=== PATIENT | male | born 1965 | race Caucasian/White ===

== ENCOUNTER 2018-05-28 10:10 | Emergency (ER) | payer BC ==
[2018-05-28 10:18] VITALS: PULSE 98
[2018-05-28 11:05] LABS: Basophils # (A) 0.1 k/uL (0-0.2); Basophils % (A) 1 %; Eosinophils # (A) 0.4 k/uL (0-0.7); Eosinophils % (A) 4 %; HCT 49.2 % (39.0-53.0); HGB 16.5 gm/dL (13.0-17.5); Lymphocytes # (A) 2.3 k/uL (1.0-4.8); Lymphocytes % (A) 25 %; MCH 29.7 pg (25.0-35.0); MCHC 33.6 g/dL (31.0-37.0); MCV 88.7 fL (80.0-100.0); Mean Platelet Volume 6.4; Monocytes # (A) 0.4 k/uL (0-1.0); Monocytes % (A) 4 %; Neutrophils % (A) 65 %; Platelet Count 337 k/uL (150-450); RBC 5.55 m/uL (4.30-5.90); RDW 13.1 % (11.5-15.5); WBC 9.2 k/uL (3.8-10.6)
--- NOTE | 2018-05-28 11:15 | CT ---
EXAMINATION TYPE: CT brain wo con DATE OF EXAM: 05/28/2018 COMPARISON: None HISTORY: dizziness CT DLP: 1036.[address] of the brain was performed. The ventricles, basal cisterns and sulci overlying the cerebral convexities demonstrate mild enlargem ent. There is no evidence for intracranial hemorrhage or sulcal effacement. There is decreased attenuation about the periventricular white matter and deep white matter of both c erebral hemispheres, compatible with chronic small vessel ischemia. Differential diagnosis does inclu de demyelination. No mass effects are seen.No midline shift. Osseous calvarium is intact. If symptoms persist consider MRI. IMPRESSION: 1. Age related atrophic and chronic small vessel ischemic change without acute intracranial process s een at this time.
[2018-05-28 11:18] LABS: ALT 34 U/L (21-72); AST 22 U/L (17-59); Albumin 4.4 g/dL (3.5-5.0); Alkaline Phosphatase 61 U/L (38-126); Anion Gap 9 mmol/L; Blood Urea Nitrogen 15 mg/dL (9-20); Calcium 10.7 mg/dL (8.4-10.2); Carbon Dioxide 25 mmol/L (22-30); Chloride 106 mmol/L (98-107); Glucose 111 mg/dL (74-99); Potassium 4.5 mmol/L (3.5-5.1); Sodium 140 mmol/L (137-145); Total Bilirubin 0.4 mg/dL (0.2-1.3); Total Protein 7.7 g/dL (6.3-8.2)
[2018-05-28 11:20] LABS: Partial Thromboplastin Time 23.3 sec (22.0-30.0); Prothrombin Time 10.2 sec (9.0-12.0)
--- NOTE | 2018-05-28 12:10 | ED ---
Dizziness HPI - General Chief Complaint: Dizziness Stated Complaint: Dizziness Time Seen by Provider: 05/28/18 10:26 Source: patient Mode of arrival: wheelchair Limitations: no limitations - History of Present Illness Initial Comments: 53-year-old male with PMH of hashimotos presenting today for cc of dizziness. Pt states that he has had episodic dizziness when he turns his head or makes fast movements for the past month. Pt states that the episodes last from a few minutes up to 10, multiple times a day for the past month. He statest that the dizziness comes on suddenly, causing nausea. He states that the room feels like spinning. 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 He does admit to some right ear fullness/pain on off. Pt denies fever, chills, diplopia, vision loss or changes. Remainder of ROS (-), patient denies any recent shortness of breath, chest pain, back pain, abdominal pain, numbness or tingling, dysuria or hematuria, constipation or diarrhea, or any other complaints. Pt states he presents today with sister, because she was concerned that he continues to have symptoms for the month. Upon arrival pt denies symptoms. Ambulating without difficulty. VS within normal limits. EKG normal sinus. Pt well appearing. Pt was seen for this complain by his primary provider who diagnosed with peripheral vertigo and had patient referred to Dr. Serafin Hernandez for ENT f/u and evaluation, pt has yet to schedule appointment. Pt on Bactrim for sinus infection. - Related Data Home Medications Medication Instructions Recorded Confirmed Fluticasone Nasal [place] [Flonase 2 spr EA NOSTRIL DAILY 05/28/18 05/28/18 Nasal [place]] Sulfamethox-Tmp 800-160Mg [Bactrim 1 tab PO Q12HR 05/28/18 05/28/18 DS 800-160 mg] Previous Rx's Medication Instructions Recorded Meclizine [Antivert] 25 mg PO TID 7 Days #21 tab 05/28/18 Allergies Allergy/AdvReac Type Severity Reaction Status Date / Time tetanus and diphtheria Allergy Swelling Verified 05/28/18 12:29 toxoids [tetanus & diphtheria toxoids] venom-honey bee Allergy Anaphylaxis Verified 05/28/18 12:29 [bee venom (honey bee)] codeine AdvReac Abdominal Verified 05/28/18 12:29 Pain Review of Systems ROS Statement: Those systems with pertinent positive or pertinent negative responses have been documented in the HPI. ROS Other: All systems not noted in ROS Statement are negative. Constitutional: Denies: fever, chills ENT: Reports: ear pain (fullness right ear, pain beow ear at time). Denies: throat pain Respiratory: Denies: cough, dyspnea, wheezes, hemoptysis, stridor Cardiovascular: Denies: chest pain, palpitations Endocrine: Denies: fatigue Gastrointestinal: Reports: nausea. Denies: abdominal pain, vomiting, diarrhea, constipation, hematemesis, melena Genitourinary: Denies: urgency, dysuria, frequency, hematuria Musculoskeletal: Denies: back pain Skin: Denies: rash, lesions Neurological: Reports: headache (chronic migraines, none recently, mild headache on off.), vertigo. 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, Vertigo History of Any Multi-Drug Resistant Organisms: None Reported Past Surgical History: Adenoidectomy, Orthopedic Surgery, Tonsillectomy Additional Past Surgical History / Comment(s): Left knee arthroscopy, hydrocele surgery Past Anesthesia/Blood Transfusion Reactions: No Reported Reaction Past Psychological History: No Psychological Hx Reported Smoking Status: Former smoker Past Alcohol Use History: Occasional Past Drug Use History: None Reported - Past Family History Mother Family Medical History: Diabetes Mellitus, Hypertension Additional Family Medical History / Comment(s): Mother is living. Father Family Medical History: COPD, Hypertension Additional Family Medical History / Comment(s): Father is 81 yrs old. Sister(s) Family Medical History: Coronary Artery Disease (CAD) Additional Family Medical History / Comment(s): 53 yr old sister has CAD with stents and pulmonary fibrosis. General Exam - General Exam Comments Initial Comments: General: The patient is awake and alert, in no distress, and does not appear acutely ill. Eye: +3 pupils are equal, round and reactive to light, extra-ocular movements are intact. No nystagmus. There is normal conjunctiva bilaterally. No signs of icterus. Ears, nose, mouth and throat: There are moist mucous membranes and no oral lesions. TM WNL b/l. No noted erythema, retractions, effusion or bulging. No pain to palpation of the mastoid, no erythema or swelling of mastoid. Neck: The neck is supple, there is no tenderness or JVD. Cardiovascular: There is a regular rate and rhythm. No murmur, rub or gallop is appreciated. Respiratory: Lungs are clear to auscultation, respirations are non-labored, breath sounds are equal. No wheezes, stridor, rales, or rhonchi. Musculoskeletal: Normal ROM, no tenderness. Strength 5/5. Sensation intact. Pulses equal bilaterally 2+. Neurological: A&O x 3. CN II-XII intact, memory intact to immediately, intermediate and nursing home recall. Able to follow simple verbal. Able to name a common object (pen). High quality, labial (pa) and lingual (la) speech. Low quality posterior pharynx/larynx (ga) voice sounds. Able to express general knowledge. No hemineglect or inattention noted. Finger agnosia (-) and spatially oriented. Light touch sensation present over the face, chest, abdomen , back, UE bilaterally, and LE bilaterally. Able to localize point during point localization b/l and extinction. No visible bulk atrophy, hypertrophy, fasciculations, or myoclonus of the UE or LE b/l. Full PROM in UE and LE b/l. Bilateral muscle strength 5/5 for the following muscles: deltoid, biceps, triceps, brachioradialis, wrist extensors/flexor, hip flexor, hip abductors/ adductors, hamstrings, quadriceps, feet dorsiflexors/plantar flexors. Finger to nose, finger to the examiners finger, and heel to lundberg coordinated and accurate b/l. Coordinated and even demonstration of hand flip, finger to thumb, and toe tap b/l. Gait is coordinated and even in stride with tandem. Maintains balance with monopedal stance. (-) Romberg. (-) pronator drift. No nuchal rigidity. Skin: Skin is warm and dry and no rashes or lesions are noted. Psychiatric: Cooperative, appropriate mood & affect, normal judgment. Limitations: no limitations Course Vital Signs 05/28/18 05/28/18 05/28/18 10:16 11:00 11:30 Temperature 97.8 F Pulse Rate 98 Respiratory 16 Rate Blood Pressure 137/83 125/84 104/83 O2 Sat by Pulse 98 Oximetry 05/28/18 05/28/18 05/28/18 12:00 12:30 13:09 Temperature 97.0 F L Pulse Rate Respiratory 18 Rate Blood Pressure 109/84 109/82 O2 Sat by Pulse 97 Oximetry EKG Findings - EKG Comments: EKG Findings:: A 12-lead EKG was performed and shows the following: Rate is 92bpm, and rhythm is normal sinus. There are normal QRS complexes and normal R- wave progression. ST segments have no elevation or depression, and TN segments appear normal. No acute changes when compared to that of 2016. Medical Decision Making - Medical Decision Making Upon arrival patient is a symptomatic, denies symptoms since this morning ( brief episode with movement of head of intense spinning). Patient states that they began suddenly and with movement of the head. Although history, non suspicious for ACS EKG and troponin obtained, unremarkable/negative. Patient denies focal neurological deficits. No focal neurological deficits on examination. CT without contrast negative. Patient's history more consistent with peripheral vertigo, including sudden onset, nausea, paroxysmal, intense spinning, without focal neurological deficits. Pt was able to induce with quick movement of head, no nystagmus noted. Pt ambulating without difficulty. At this time I feel pt has peripheral vertigo, exam on the TM b/l unremarkable. Pt will be started on antivert and was instructed to f/u with ENT. I discussed case with Dr. Garcia who agreed with impression and plan. Pt discharged instable condition, with f/u and return as discussed. Patient verbalized understanding of plan as well as return parameters. Patient is agreeable discharge. Patient denies questions at this time. Patient discharged in stable condition. - Lab Data Result diagrams: 05/28/18 10:30 05/28/18 10:30 Lab Results 05/28/18 05/28/18 05/28/18 Range/Units 10:30 10:30 10:30 WBC 9.2 (3.8-10.6) k/uL RBC 5.55 (4.30-5.90) m/uL Hgb 16.5 (13.0-17.5) gm/dL Hct 49.2 (39.0-53.0) % MCV 88.7 (80.0-100.0) fL MCH 29.7 (25.0-35.0) pg MCHC 33.6 (31.0-37.0) g/dL RDW 13.1 (11.5-15.5) % Plt Count 337 (150-450) k/uL Neutrophils % 65 % Lymphocytes % 25 % Monocytes % 4 % Eosinophils % 4 % Basophils % 1 % Neutrophils # 6.0 (1.3-7.7) k/uL Lymphocytes # 2.3 (1.0-4.8) k/uL Monocytes # 0.4 (0-1.0) k/uL Eosinophils # 0.4 (0-0.7) k/uL Basophils # 0.1 (0-0.2) k/uL PT 10.2 (9.0-12.0) sec INR 1.0 (<1.2) APTT 23.3 (22.0-30.0) sec Sodium 140 (137-145) mmol/L Potassium 4.5 (3.5-5.1) mmol/L Chloride 106 (98-107) mmol/L Carbon Dioxide 25 (22-30) mmol/L Anion Gap 9 mmol/L BUN 15 (9-20) mg/dL Creatinine 1.00 (0.66-1.25) mg/dL Est GFR (CKD-EPI)AfAm >90 (>60 ml/min/1.73 sqM) Est GFR (CKD-EPI)NonAf 86 (>60 ml/min/1.73 sqM) Glucose 111 H (74-99) mg/dL Calcium 10.7 H (8.4-10.2) mg/dL Total Bilirubin 0.4 (0.2-1.3) mg/dL AST 22 (17-59) U/L ALT 34 (21-72) U/L Alkaline Phosphatase 61 (38-126) U/L Troponin I (0.000-0.034) ng/mL Total Protein 7.7 (6.3-8.2) g/dL Albumin 4.4 (3.5-5.0) g/dL 12/02/18 Range/Units 10:30 WBC (3.8-10.6) k/uL RBC (4.30-5.90) m/uL Hgb (13.0-17.5) gm/dL Hct (39.0-53.0) % MCV (80.0-100.0) fL MCH (25.0-35.0) pg MCHC (31.0-37.0) g/dL RDW (11.5-15.5) % Plt Count (150-450) k/uL Neutrophils % % Lymphocytes % % Monocytes % % Eosinophils % % Basophils % % Neutrophils # (1.3-7.7) k/uL Lymphocytes # (1.0-4.8) k/uL Monocytes # (0-1.0) k/uL Eosinophils # (0-0.7) k/uL Basophils # (0-0.2) k/uL PT (9.0-12.0) sec INR (<1.2) APTT (22.0-30.0) sec Sodium (137-145) mmol/L Potassium (3.5-5.1) mmol/L Chloride (98-107) mmol/L Carbon Dioxide (22-30) mmol/L Anion Gap mmol/L BUN (9-20) mg/dL Creatinine (0.66-1.25) mg/dL Est GFR (CKD-EPI)AfAm (>60 ml/min/1.73 sqM) Est GFR (CKD-EPI)NonAf (>60 ml/min/1.73 sqM) Glucose (74-99) mg/dL Calcium (8.4-10.2) mg/dL Total Bilirubin (0.2-1.3) mg/dL AST (17-59) U/L ALT (21-72) U/L Alkaline Phosphatase (38-126) U/L Troponin I <0.012 (0.000-0.034) ng/mL Total Protein (6.3-8.2) g/dL Albumin (3.5-5.0) g/dL Disposition Clinical Impression: Dizziness Disposition: HOME SELF-CARE Condition: Good Instructions: Dizziness (ED) Additional Instructions: Please use medication as discussed. Please follow-up with ENT as scheduled. Please return to emergency room if the symptoms increase or worsen or for any other concerns. Prescriptions: Meclizine [Antivert] 25 mg PO TID 7 Days #21 tab Is patient prescribed a controlled substance at d/c from ED?: No Referrals: Nick Reyes MD [Primary Care Provider] - 1-2 days Oleksandr Hicks MD [STAFF PHYSICIAN] - 1-2 days Time of Disposition: 12:08
[2018-05-28 13:05] VITALS: BP 109/82
[2018-05-28 13:11] VITALS: RESP 18; TEMP 97
== END 2018-05-28 13:09 | disposition home or self-care (01) ==
LOC: EC 10:10
DX: R42 Dizziness and giddiness (principal); R11.0 Nausea; H92.01 Otalgia, right ear; H91.91 Unspecified hearing loss, right ear; Z87.891 Personal history of nicotine dependence; Z79.899 Other long term (current) drug therapy; Z88.7 Allergy status to serum and vaccine; Z91.030 Bee allergy status; Z88.5 Allergy status to narcotic agent
CPT/HCPCS: 36415; 70450; 80053; 84484; 85025; 85610; 85730; 93005; 99284

== ENCOUNTER → 2018-07-05 | Outpatient (CLI) | payer BC | LOC: NEUROMAIN 08:47 | PROVIDERS: ATTEND Otolaryngology | DX: R42 Dizziness and giddiness (principal) | CPT/HCPCS: 92537; 92540 ==

== ENCOUNTER → 2018-08-17 | Outpatient (CLI) | payer BC ==
--- NOTE | 2018-08-21 02:57 | MR ---
EXAMINATION TYPE: MR angio head wo/neck wo/w con DATE OF EXAM: 08/17/2018 COMPARISON: None HISTORY: vertigo dissection TECHNIQUE: Time of flight images focusing on the [place] were performed without contrast.. 2-D and 3-D postprocessing imaging is performed. The contrast was gadolinium 7.5 mm. FINDINGS: There is normal appearance of the anterior middle and posterior cerebral arteries. There is arterial flow in the vertebrobasilar artery system. The left vertebral artery is larger than the rig ht. There is no evidence of hemodynamic stenosis. There is no mass effect. There is no evidence of an eurysm or neovascularity. There is no evidence of flow in the proximal and mid right vertebral artery. Flow in the distal right vertebral artery is probably retrograde. There is arterial flow in the common internal and external carotid arteries bilaterally. The carotid artery bifurcations appear normal. I see no evidence of hemodynamic stenosis. There is no evidence of carotid artery aneurysm or dissection. 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 There is normal appearance of the cervical carotid arteries. There is compensa tory enlargement of the left vertebral artery. No intracranial arterial abnormality demonstrated.
== END | disposition home or self-care (01) ==
LOC: RADMRIMAIN 09:07
PROVIDERS: ATTEND Psychiatry & Neurology Neurology
DX: T75.2 Effects of vibration (principal); G45.0 Vertebro-basilar artery syndrome
CPT/HCPCS: 70544; 70549; A9585

== ENCOUNTER 2018-10-27 08:41 | Inpatient (IN) | payer BC ==
[2018-10-27] MEDS ORDERED: SODIUM CHLORIDE 0.9% 500 ML 500 ML IV STA (09:04)
[2018-10-27 09:23] LABS: Basophils # (A) 0.1 k/uL (0-0.2); Basophils % (A) 1 %; Eosinophils # (A) 0.6 k/uL (0-0.7); Eosinophils % (A) 6 %; HCT 42.8 % (39.0-53.0); HGB 14.3 gm/dL (13.0-17.5); Lymphocytes # (A) 1.9 k/uL (1.0-4.8); Lymphocytes % (A) 18 %; MCH 30.2 pg (25.0-35.0); MCHC 33.4 g/dL (31.0-37.0); MCV 90.4 fL (80.0-100.0); Mean Platelet Volume 6.7; Monocytes # (A) 0.5 k/uL (0-1.0); Monocytes % (A) 5 %; Neutrophils # (A) 6.9 k/uL (1.3-7.7); Neutrophils % (A) 68 %; Platelet Count 355 k/uL (150-450); RBC 4.73 m/uL (4.30-5.90); RDW 14.4 % (11.5-15.5); WBC 10.1 k/uL (3.8-10.6)
--- NOTE | 2018-10-27 09:29 | ED ---
General Adult HPI - General Chief complaint: Shortness of Breath Stated complaint: sob, back pain Time Seen by Provider: 10/27/18 09:03 Source: patient, RN notes reviewed Mode of arrival: ambulatory Limitations: no limitations - History of Present Illness Initial comments: 53-year-old male presents emergency Department with chief complaint of back pain, arm pain, shortness breath and mild chest discomfort. Patient states symptoms started late last night. Patient states he feels most pain is upper back and upper extremities. Patient does have a history of hyperlipidemia and former heavy smoker. Patient does have strong family history of cardiac disease with multiple people stents. Patient denies any any abdominal pain no nausea vomiting. Patient states he has no aortic issues that he knows of. Patient denies any prior stenting. Patient denies recent URI symptoms. - Related Data Home Medications Medication Instructions Recorded Confirmed Amitriptyline HCl [Elavil] 10 mg PO HS 10/27/18 10/27/18 Aspirin [Adult Low Dose Aspirin EC] 81 mg PO DAILY 10/27/18 10/27/18 Atorvastatin [Lipitor] 40 mg PO DAILY 10/27/18 10/27/18 Levothyroxine Sodium [Synthroid] 25 mcg PO DAILY 10/27/18 10/27/18 Vit C/E/Zn/Coppr/Lutein/Zeaxan 1 cap PO DAILY 10/27/18 10/27/18 [Preservision Areds 2 Softgel] Allergies Allergy/AdvReac Type Severity Reaction Status Date / Time Iodinated Contrast- Oral and Allergy Itching Unverified 10/27/18 09:45 IV Dye tetanus and diphtheria Allergy Swelling Verified 10/27/18 09:19 toxoids [tetanus & diphtheria toxoids] venom-honey bee Allergy Anaphylaxis Verified 10/27/18 09:19 [bee venom (honey bee)] codeine AdvReac Abdominal Verified 10/27/18 09:19 Pain Review of Systems ROS Statement: Those systems with pertinent positive or pertinent negative responses have been documented in the HPI. ROS Other: All systems not noted in ROS Statement are negative. 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, Vertigo, occipital neuralgia History of Any Multi-Drug Resistant Organisms: None Reported Past Surgical History: Adenoidectomy, Orthopedic Surgery, Tonsillectomy Additional Past Surgical History / Comment(s): Left knee arthroscopy, hydrocele surgery Past Anesthesia/Blood Transfusion Reactions: No Reported Reaction Past Psychological History: No Psychological Hx Reported Smoking Status: Former smoker Past Alcohol Use History: Occasional Past Drug Use History: None Reported - Past Family History Mother Family Medical History: Diabetes Mellitus, Hypertension Additional Family Medical History / Comment(s): Mother is living. Father Family Medical History: COPD, Hypertension Additional Family Medical History / Comment(s): Father is 81 yrs old. Sister(s) Family Medical History: Coronary Artery Disease (CAD) Additional Family Medical History / Comment(s): 53 yr old sister has CAD with stents and pulmonary fibrosis. General Exam Limitations: no limitations General appearance: alert, in no apparent distress Head exam: Present: atraumatic, normocephalic, normal inspection Eye exam: Present: normal appearance, PERRL, EOMI. Absent: scleral icterus, conjunctival injection, periorbital swelling ENT exam: Present: normal exam, mucous membranes moist Neck exam: Present: normal inspection, full ROM. Absent: tenderness, meningismus, lymphadenopathy Respiratory exam: Present: normal lung sounds bilaterally. Absent: respiratory distress, wheezes, rales, rhonchi, stridor Cardiovascular Exam: Present: regular rate, normal rhythm, normal heart sounds. Absent: systolic murmur, diastolic murmur, rubs, gallop, clicks GI/Abdominal exam: Present: soft, normal bowel sounds. Absent: distended, tenderness, guarding, rebound, rigid Extremities exam: Present: other (Pulses are equal of the upper and lower extremities) Neurological exam: Present: alert, oriented X3, CN II-XII intact, reflexes normal. Absent: motor sensory deficit Skin exam: Present: warm, dry, intact, normal color. Absent: rash Course Vital Signs 10/27/18 08:45 Temperature 98.4 F Pulse Rate 89 Respiratory 18 Rate Blood Pressure 157/91 O2 Sat by Pulse 95 Oximetry Medical Decision Making - Medical Decision Making 53-year-old male presented for chest pain. Patient's troponins 0.0-6, no ST elevation or depression. Patient does have cardiac risk factors include strong family history of prior smoking and hyperlipidemia. Patient will be admitted for cardiac rule out was started on heparin at this time. - Lab Data Result diagrams: 10/27/18 09:05 10/27/18 09:05 Lab Results 10/27/18 10/27/18 10/27/18 Range/Units 09:05 09:05 09:05 WBC 10.1 (3.8-10.6) k/uL RBC 4.73 (4.30-5.90) m/uL Hgb 14.3 (13.0-17.5) gm/dL Hct 42.8 (39.0-53.0) % MCV 90.4 (80.0-100.0) fL MCH 30.2 (25.0-35.0) pg MCHC 33.4 (31.0-37.0) g/dL RDW 14.4 (11.5-15.5) % Plt Count 355 (150-450) k/uL Neutrophils % 68 % Lymphocytes % 18 % Monocytes % 5 % Eosinophils % 6 % Basophils % 1 % Neutrophils # 6.9 (1.3-7.7) k/uL Lymphocytes # 1.9 (1.0-4.8) k/uL Monocytes # 0.5 (0-1.0) k/uL Eosinophils # 0.6 (0-0.7) k/uL Basophils # 0.1 (0-0.2) k/uL PT (9.0-12.0) sec INR (<1.2) APTT (22.0-30.0) sec Sodium 139 (137-145) mmol/L Potassium 4.3 (3.5-5.1) mmol/L Chloride 107 (98-107) mmol/L Carbon Dioxide 26 (22-30) mmol/L Anion Gap 6 mmol/L BUN 12 (9-20) mg/dL Creatinine 0.65 L (0.66-1.25) mg/dL Est GFR (CKD-EPI)AfAm >90 (>60 ml/min/1.73 sqM) Est GFR (CKD-EPI)NonAf >90 (>60 ml/min/1.73 sqM) Glucose 102 H (74-99) mg/dL Calcium 9.7 (8.4-10.2) mg/dL Magnesium 2.0 (1.6-2.3) mg/dL Total Bilirubin 0.3 (0.2-1.3) mg/dL AST 23 (17-59) U/L ALT 42 (21-72) U/L Alkaline Phosphatase 86 (38-126) U/L Troponin I (0.000-0.034) ng/mL NT-Pro-B Natriuret Pep 97 pg/mL Total Protein 7.1 (6.3-8.2) g/dL Albumin 4.3 (3.5-5.0) g/dL Lipase 78 (23-300) U/L 10/27/18 10/27/18 Range/Units 09:05 09:05 WBC (3.8-10.6) k/uL RBC (4.30-5.90) m/uL Hgb (13.0-17.5) gm/dL Hct (39.0-53.0) % MCV (80.0-100.0) fL MCH (25.0-35.0) pg MCHC (31.0-37.0) g/dL RDW (11.5-15.5) % Plt Count (150-450) k/uL Neutrophils % % Lymphocytes % % Monocytes % % Eosinophils % % Basophils % % Neutrophils # (1.3-7.7) k/uL Lymphocytes # (1.0-4.8) k/uL Monocytes # (0-1.0) k/uL Eosinophils # (0-0.7) k/uL Basophils # (0-0.2) k/uL PT 10.5 (9.0-12.0) sec INR 1.0 (<1.2) APTT 25.8 (22.0-30.0) sec Sodium (137-145) mmol/L Potassium (3.5-5.1) mmol/L Chloride (98-107) mmol/L Carbon Dioxide (22-30) mmol/L Anion Gap mmol/L BUN (9-20) mg/dL Creatinine (0.66-1.25) mg/dL Est GFR (CKD-EPI)AfAm (>60 ml/min/1.73 sqM) Est GFR (CKD-EPI)NonAf (>60 ml/min/1.73 sqM) Glucose (74-99) mg/dL Calcium (8.4-10.2) mg/dL Magnesium (1.6-2.3) mg/dL Total Bilirubin (0.2-1.3) mg/dL AST (17-59) U/L ALT (21-72) U/L Alkaline Phosphatase (38-126) U/L Troponin I 0.026 (0.000-0.034) ng/mL NT-Pro-B Natriuret Pep pg/mL Total Protein (6.3-8.2) g/dL Albumin (3.5-5.0) g/dL Lipase (23-300) U/L Disposition Clinical Impression: Chest pain Disposition: ADMITTED IP TO THIS HOSP Condition: Fair Referrals: Cheng Hardin DO [Primary Care Provider] - 1-2 days
[2018-10-27 09:33] LABS: ALT 42 U/L (21-72); AST 23 U/L (17-59); Albumin 4.3 g/dL (3.5-5.0); Alkaline Phosphatase 86 U/L (38-126); Anion Gap 6 mmol/L; Blood Urea Nitrogen 12 mg/dL (9-20); Calcium 9.7 mg/dL (8.4-10.2); Carbon Dioxide 26 mmol/L (22-30); Chloride 107 mmol/L (98-107); Glucose 102 mg/dL (74-99); Lipase 78 U/L (23-300); Potassium 4.3 mmol/L (3.5-5.1); Sodium 139 mmol/L (137-145); Total Bilirubin 0.3 mg/dL (0.2-1.3); Total Protein 7.1 g/dL (6.3-8.2)
--- NOTE | 2018-10-27 09:34 | XR ---
EXAMINATION TYPE: XR chest 1V DATE OF EXAM: 10/27/2018 HISTORY: Shortness of breath. COMPARISON: 10/01/2015 TECHNIQUE: Single view of the chest is submitted. FINDINGS: Demonstrated are scattered senescent parenchymal change. There is no evidence for focal infiltrate. The heart is stable. Hilar and mediastinal structures are within normal limits. Degenerative changes are seen of the dorsal spine. IMPRESSION: 1. Chronic changes without evidence for acute pulmonary disease.
[2018-10-27 09:37] LABS: Partial Thromboplastin Time 25.8 sec (22.0-30.0); Prothrombin Time 10.5 sec (9.0-12.0)
[2018-10-27] MEDS ORDERED: diphenhydrAMINE 50 MG/ML 1 ML VIAL IVP STA (09:50)
--- NOTE | 2018-10-27 10:05 | CT ---
EXAMINATION TYPE: CT angio thor/abd pel aorta DATE OF EXAM: 10/27/2018 COMPARISON: None HISTORY: Chest pressure and pain, shortness of breath CT DLP: 1497.7 mGycm. Automated Exposure Control for Dose Reduction was Utilized. CONTRAST: CTA scan of the thorax, abdomen and pelvis is performed without oral and without and with IV Contrast , patient injected with 100 mL of Isovue 370. Aneurysm protocol with 3-D reconstructed images created on a independent workstation and reviewed. FINDINGS: VASCULAR: There is satisfactory enhancement central pulmonary arteries. There is satisfactory enhanc ement of the aorta. There is a 4 vessel origin from the aorta which is normal variant. No significant plaque or stenosis is present. There is a patent celiac artery, SMA, bilateral single renal arteries , and JOHNNA with mild plaque at the origins. No significant stenosis is present. There is mild to moder ate mixed plaque in the distal abdominal aorta extending to iliac branch vessels without significant stenosis. There is patent internal iliac arteries bilaterally without significant stenosis showing mi ld to moderate mixed plaque. External iliac artery show no significant plaque or stenosis. Common fem oral bifurcation show mild plaque without significant stenosis. No linear hypodensity to suggest diss ection is present. LUNGS: Focal linear scarring or atelectasis in the lingula on axial image 68 is noted. No suspicious nodules or masses. No pleural effusion or pneumothorax. No suspicious infiltrate. MEDIASTINUM: There are no greater than 1 cm hilar or mediastinal lymph nodes. No cardiomegaly or pe ricardial effusion is seen. Coronary artery calcification is identified which is noted marker for un derlying coronary artery disease. OTHER: No additional significant abnormality is seen. LIVER/GB: Liver is isodense relative to spleen on noncontrast images consistent with diffuse fatty in filtration. Contracted gallbladder noted. PANCREAS: No significant abnormality is seen. SPLEEN: No significant abnormality is seen. ADRENALS: No significant abnormality is seen. KIDNEYS: Occasional subcentimeter low-density lesions throughout both kidneys is felt to reflect simp le cysts. BOWEL: Normal-appearing appendix is seen ascending from cecum. GENITAL ORGANS: Prostate gland is upper limits of normal in size bulging on bladder base. LYMPH NODES: No greater than 1cm abdominal or pelvic lymph nodes are appreciated. OSSEOUS STRUCTURES: No significant abnormality is seen. OTHER: No significant additional abnormality is seen. IMPRESSION: 1. No aortic aneurysm or dissection. No suspicious acute process.
[2018-10-27] MEDS ORDERED: ASPIRIN 81 MG PO STA (10:26)
[2018-10-27] MEDS ORDERED: HEPARIN SODIUM,PORCINE 5,000 UNIT/ML 1 ML VIAL IV ONE (10:43)
[2018-10-27] MEDS: HEPARIN SOD,PORK IN 0.45% NACL 25,000 UNIT in 0.45% NACL 1 250ML.BAG IV SCH (11:33)
--- NOTE | 2018-10-27 14:40 | P.HPIM ---
History of Present Illness H&P Date: 10/27/18 The patient is a 53 yo M with a PMH of HLD, occipital neuralgia, and hypothyroidism who presented to the ED for chest pain. The patient notes that the pain started the night prior at 1 am and woke up up from sleep. It was epigastric, sharp/pressure, 6/10, radiating to his back, occuring every 30 kaley magdaleno, lasting for roundly 30 seconds at a time. He endorsed associated SOB and palpitations. The patient notes that he also has been experiencing GERD during this time frame which has recently gotten worse. The patient attempted to take Tums with only partial relief. He notes that upon admission to the ED, his pain improved and at time of the interview was a 1/10. He otherwise denied cough, fever, chills, abdominal pain, recent travel, leg pain, or sick contacts. The patient underwent an extensive evaluation in the ED with WBC count 10.1, hemoglobin 14, troponin 0.026, BNP 97, and EKG showing normal sinus rhythm at 93 beats per minutes with no acute ST/T-wave changes noted. A CT angiogram of the aorta revealed no aortic dissection. Chest x-ray revealed chronic parenchymal changes with no acute findings. The patient was subsequently admitted to the medicine service under observation status for further management. Review of Systems Pertinent positives and negatives as discussed in HPI, a complete review of systems was performed and all other systems are negative. 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, Vertigo, occipital neuralgia History of Any Multi-Drug Resistant Organisms: None Reported Past Surgical History: Adenoidectomy, Orthopedic Surgery, Tonsillectomy Additional Past Surgical History / Comment(s): Left knee arthroscopy, hydrocele surgery Past Anesthesia/Blood Transfusion Reactions: No Reported Reaction Past Psychological History: No Psychological Hx Reported Smoking Status: Former smoker Past Alcohol Use History: Occasional Past Drug Use History: None Reported - Past Family History Mother Family Medical History: Diabetes Mellitus, Hypertension Additional Family Medical History / Comment(s): Mother is living. Father Family Medical History: COPD, Hypertension Additional Family Medical History / Comment(s): Father is 81 yrs old. Sister(s) Family Medical History: Coronary Artery Disease (CAD) Additional Family Medical History / Comment(s): 53 yr old sister has CAD with stents and pulmonary fibrosis. Medications and Allergies Home Medications Medication Instructions Recorded Confirmed Type Amitriptyline HCl [Elavil] 10 mg PO HS 10/27/18 10/27/18 History Aspirin [Adult Low Dose Aspirin EC] 81 mg PO DAILY 10/27/18 10/27/18 History Atorvastatin [Lipitor] 40 mg PO DAILY 10/27/18 10/27/18 History Levothyroxine Sodium [Synthroid] 25 mcg PO DAILY 10/27/18 10/27/18 History Vit C/E/Zn/Coppr/Lutein/Zeaxan 1 cap PO DAILY 10/27/18 10/27/18 History [Preservision Areds 2 Softgel] Allergies Allergy/AdvReac Type Severity Reaction Status Date / Time Iodinated Contrast- Oral and Allergy Itching Verified 10/27/18 14:28 IV Dye tetanus and diphtheria Allergy Swelling Verified 10/27/18 14:28 toxoids [tetanus & diphtheria toxoids] venom-honey bee Allergy Anaphylaxis Verified 10/27/18 14:28 [bee venom (honey bee)] codeine AdvReac Abdominal Verified 10/27/18 14:28 Pain Physical Exam Vitals: Vital Signs Temp Pulse Resp BP Pulse Ox 10/27/18 14:25 95 18 115/83 95 10/27/18 12:36 93 16 116/69 95 10/27/18 08:45 98.4 F 89 18 157/91 95 Intake and Output 10/26/18 10/27/18 10/27/18 22:59 06:59 14:59 Other: Weight 85.729 kg General: non toxic, no distress, appears at stated age, obese Derm: no unusual rashes/lesions no unusual ecchymoses, warm, dry Head: atraumatic, normocephalic, symmetric Eyes: EOMI, no lid lag, anicteric sclera, pupils equal round reactive to light ENT: Nose and ears atraumatic, no thrush, no pharyngeal erythema Neck: No thyromegaly, no cervical lymphadenopathy, trachea midline, supple Mouth: no lip lesion, mucus membranes moist Cardiovascular: S1S2 reg, no murmur, positive posterior tibial pulse bilateral, no edema, capillary refill less than 2 seconds Lungs: CTA bilateral, no rhonchi, no rales , no accessory muscle use Abdominal: soft, nontender to palpation, no guarding, no appreciable organomega ly, normal bowel sounds Ext: no gross muscle atrophy, muscle strength 5 out of 5 in all 4 extremities grossly, no contractures, Neuro: CN II-XI grossly intact, light touch intact all 4 extremities, finger to nose within normal limits, Psych: Alert, oriented, appropriate affect Results CBC & Chem 7: 10/27/18 09:05 10/27/18 09:05 Labs: Abnormal Lab Results - Last 24 Hours (Table) 10/27/18 Range/Units 09:05 Creatinine 0.65 L (0.66-1.25) mg/dL Glucose 102 H (74-99) mg/dL Assessment and Plan Plan: Chest pain, unstable angina -Cardiology consult -Cardiac monitoring -Heparin infusion -Trend troponin and EKG -Continue with aspirin 325 Chronic conditions: Hyperlipidemia, hypothyroidism -Resume home medications DVT prophylaxis -Heparin Infusion The patient is admitted with an anticipated less than 2 midnight stay for evaluation of chest pain. CODE STATUS:No Code Discussed with: Patient Anticipated discharge date: 10/28/[address]: Home A total of 40 minutes was spent on the care of this complex patient more than 50% of the time was spent in counseling and care coordination.
[2018-10-27] MEDS: AMITRIPTYLINE HCL 10 MG TAB PO SCH (20:16)
[2018-10-28] MEDS: LEVOTHYROXINE 25 MCG TAB PO SCH (05:38)
[2018-10-28 07:03] LABS: Mean Platelet Volume 6.3; Platelet Count 296 k/uL (150-450)
[2018-10-28 07:15] LABS: Cholesterol 149 mg/dL (<200); HDL Cholesterol 37 mg/dL (40-60); LDL Cholesterol,Calculated 54 mg/dL (0-99); Triglycerides 289 mg/dL (<150)
[2018-10-28] MEDS: HEPARIN SOD,PORK IN 0.45% NACL 25,000 UNIT in 0.45% NACL 1 250ML.BAG IV SCH ×2 (07:22→18:18)
[2018-10-28] MEDS ORDERED: HEPARIN SODIUM,PORCINE 5,000 UNIT/ML 1 ML VIAL IV STA (07:26)
[2018-10-28] MEDS: ASPIRIN 325 MG TAB PO SCH (08:28)
[2018-10-28] MEDS: VIT A,C & E-LUTEIN-MINERALS 1 EACH TAB PO SCH (08:28)
[2018-10-28] MEDS ORDERED: ATORVASTATIN 40 MG TAB PO SCH (09:00)
--- NOTE | 2018-10-28 11:00 | P.CRDCN ---
History of Present Illness Consult date: 10/28/18 Chief complaint: Chest pain History of present illness: This is a pleasant 53-year-old gentleman with a past medical history significant for dyslipidemia, prior history of smoking, and very significant family history of coronary artery disease was multiple first-degree relatives with coronary artery disease and prior coronary artery vascularization presented to the hospital complaining of chest discomfort. The symptoms started about a week ago when he started experiencing intermittent episodes of chest discomfort, in the mid of the chest, as a sharp kind of discomfort, with radiation to the left arm. No associated symptoms of shortness of breath, sweating, dizziness or light of this, or syncope. Yesterday his chest discomfort has been more intense compared to before and because of that he decided to come to the hospital. The EKG showed sinus rhythm without any ST or T-wave abnormalities. The first set of enzymes came in to be unremarkable but the second set of troponin came in to be abnormal. The third set came in to be unremarkable. He underwent a computed tomography scan of the chest which showed no evidence of aortic dissection or aortic aneurysm. 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, Vertigo, occipital neuralgia History of Any Multi-Drug Resistant Organisms: None Reported Past Surgical History: Adenoidectomy, Orthopedic Surgery, Tonsillectomy Additional Past Surgical History / Comment(s): Left knee arthroscopy, hydrocele surgery Past Anesthesia/Blood Transfusion Reactions: No Reported Reaction Past Psychological History: No Psychological Hx Reported Smoking Status: Former smoker Past Alcohol Use History: Occasional Past Drug Use History: None Reported - Past Family History Mother Family Medical History: Diabetes Mellitus, Hypertension Additional Family Medical History / Comment(s): Mother is living. Father Family Medical History: COPD, Hypertension Additional Family Medical History / Comment(s): Father is 81 yrs old. Sister(s) Family Medical History: Coronary Artery Disease (CAD) Additional Family Medical History / Comment(s): 53 yr old sister has CAD with stents and pulmonary fibrosis. Medications and Allergies Home Medications Medication Instructions Recorded Confirmed Type Amitriptyline HCl [Elavil] 10 mg PO HS 10/27/18 10/27/18 History Aspirin [Adult Low Dose Aspirin EC] 81 mg PO DAILY 10/27/18 10/27/18 History Atorvastatin [Lipitor] 40 mg PO DAILY 10/27/18 10/27/18 History Levothyroxine Sodium [Synthroid] 25 mcg PO DAILY 10/27/18 10/27/18 History Vit C/E/Zn/Coppr/Lutein/Zeaxan 1 cap PO DAILY 10/27/18 10/27/18 History [Preservision Areds 2 Softgel] Allergies Allergy/AdvReac Type Severity Reaction Status Date / Time Iodinated Contrast- Oral and Allergy Itching Verified 10/27/18 14:28 IV Dye tetanus and diphtheria Allergy Swelling Verified 10/27/18 14:28 toxoids [tetanus & diphtheria toxoids] venom-honey bee Allergy Anaphylaxis Verified 10/27/18 14:28 [bee venom (honey bee)] codeine AdvReac Abdominal Verified 10/27/18 14:28 Pain Physical Exam Vitals: Vital Signs Temp Pulse Pulse Resp BP BP Pulse Ox 10/28/18 05:40 97.5 F L 95 18 158/64 94 L 10/28/18 04:03 97.6 F 89 18 117/79 96 10/28/18 03:19 72 16 10/28/18 00:00 89 16 10/27/18 23:48 97.8 F 87 16 123/78 95 10/27/18 20:37 97.6 F 87 16 117/84 95 10/27/18 20:00 90 18 10/27/18 16:25 98.1 F 89 18 120/90 95 10/27/18 16:00 18 10/27/18 15:55 77 15 97/76 95 10/27/18 14:25 95 18 115/83 95 10/27/18 12:36 93 16 116/69 95 Intake and Output 10/27/18 10/28/18 10/28/18 22:59 06:59 14:59 Intake Total 222 197.077 Balance 222 197.077 Intake: Intake, IV Titration 197.077 Amount Heparin Sod,Pork in 0.45% 197.077 NaCl 25,000 unit In 0.45 % NaCl 1 250ml.bag @ 11.6 UNITS/KG/HR 9.945 mls/hr IV .Q24H [facility] Rx#: [id number] Oral 222 Other: Voiding Method Toilet Toilet # Voids 1 Weight 83.1 kg - Constitutional General appearance: no acute distress - Respiratory Respiratory: bilateral: CTA - Cardiovascular Rhythm: regular Heart sounds: normal: S1, S2 Results 10/28/18 06:39 10/27/18 09:05 Cardiac Enzymes 10/27/18 10/27/18 Range/Units 16:04 21:05 Troponin I 0.036 H* 0.028 (0.000-0.034) ng/mL Coagulation 10/27/18 10/28/18 Range/Units 16:04 06:39 APTT 68.6 H 44.3 H (22.0-30.0) sec Lipids 10/28/18 Range/Units 06:39 Triglycerides 289 H (<150) mg/dL Cholesterol 149 (<200) mg/dL HDL Cholesterol 37 L (40-60) mg/dL CBC 10/28/18 Range/Units 06:39 Plt Count 296 (150-450) k/uL Current Medications Generic Name Dose Route Start Last Admin Trade Name Freq PRN Reason Stop Dose Admin Amitriptyline HCl 10 mg 10/27/18 21:00 10/27/18 20:16 Elavil PO 10 mg HS [facility] Administration Aspirin 325 mg 10/28/18 09:00 10/28/18 08:28 Aspirin PO 325 mg DAILY [facility] Administration Atorvastatin Calcium 40 mg 10/28/18 09:00 10/28/18 08:28 Lipitor PO 40 mg DAILY [facility] Administration Heparin Sodium/Sodium Chloride 250 mls @ 9.945 mls/hr 10/27/18 10:45 10/28/18 07:22 25,000 unit/ Sodium Chloride IV 13.6 units/kg/hr .Q24H [facility] 11.659 mls/hr Administration Protocol 11.6 UNITS/KG/HR Levothyroxine Sodium 25 mcg 10/28/18 06:30 10/28/18 05:38 Synthroid PO 25 mcg 0630 [facility] Administration Multivitamins/Minerals 1 each 10/28/18 09:00 10/28/18 08:28 Ivite PO 1 each DAILY [facility] Administration Nitroglycerin 0.4 mg 10/27/18 10:43 Nitrostat SUBLINGUAL Q5M PRN Chest Pain Intake and Output 10/27/18 10/28/18 10/28/18 22:59 06:59 14:59 Intake Total 222 197.077 Balance 222 197.077 Intake: Intake, IV Titration 197.077 Amount Heparin Sod,Pork in 0.45% 197.077 NaCl 25,000 unit In 0.45 % NaCl 1 250ml.bag @ 11.6 UNITS/KG/HR 9.945 mls/hr IV .Q24H [facility] Rx#: [id number] Oral 222 Other: Voiding Method Toilet Toilet # Voids 1 Weight 83.1 kg 10/28/18 06:39 10/27/18 09:05 Assessment and Plan Assessment: Assessment #1 acute non-ST patient myocardial infarction #2 dyslipidemia #3 significant family history of coronary artery disease Plan #1 continue the current medical regimen including heparin IV #2 obtain an echocardiogram was Doppler #3 I did advise the patient to pursue with a coronary angiogram. Thank you for allowing us participate in his care and we'll continue following up with the patient
--- NOTE | 2018-10-28 13:29 | P.PN ---
Subjective Progress Note Date: 10/28/18 The patient was seen and examined at the bedside. The patient's chest pain has resolved and he is otherwise free of active complaints. He denied further episodes of SOB, palpitations, or nausea, Denying abdominal pain, cough, fever, or chills. Objective - Vital Signs Vital signs: Vital Signs Temp 97.5 F L 10/28/18 05:40 Pulse 95 10/28/18 05:40 Resp 18 10/28/18 05:40 BP 158/64 10/28/18 05:40 Pulse Ox 94 L 10/28/18 05:40 Intake & Output 10/27/18 10/28/18 10/28/18 18:59 06:59 18:59 Intake Total 222 197.077 Balance 222 197.077 Weight 85.729 kg 83.1 kg Intake: Intake, IV Titration 197.077 Amount Heparin Sod,Pork in 0.45% 197.077 NaCl 25,000 unit In 0.45 % NaCl 1 250ml.bag @ 11.6 UNITS/KG/HR 9.945 mls/hr IV .Q24H [facility] Rx#: [id number] Oral 222 Other: Voiding Method Toilet Toilet # Voids 1 - Exam General: Non-toxic, in no acute distress, appears stated age, obese HEENT: NC/AT, anicteric sclerae, moist conjunctiva, no lid-lag, PERRLA Cardiovascular: S1/S2 wnl, no murmurs, rubs, or gallops Lungs: Clear to auscultation, normal respiratory effort, no accessory muscle use Abdominal: Soft, non-tender, non-distended, no guarding, rebound, or rigidity Skin: Warm, dry Extremities: No edema or contractures Psychiatric: Alert and oriented to person, place and time, appropriate affect Neuro: CN II-XII grossly intact, Strength 5/5 in all 4 extremities, Speech intact, Sensation to light touch grossly intact throughout - Labs CBC & Chem 7: 10/28/18 06:39 10/27/18 09:05 Labs: Abnormal Lab Results - Last 24 Hours (Table) 10/27/18 10/27/18 10/28/18 Range/Units 16:04 16:04 06:39 APTT 68.6 H (22.0-30.0) sec Troponin I 0.036 H* (0.000-0.034) ng/mL Triglycerides 289 H (<150) mg/dL HDL Cholesterol 37 L (40-60) mg/dL 10/28/18 Range/Units 06:39 APTT 44.3 H (22.0-30.0) sec Troponin I (0.000-0.034) ng/mL Triglycerides (<150) mg/dL HDL Cholesterol (40-60) mg/dL Assessment and Plan Plan: Chest pain, unstable angina -Cardiology consult appreciated -Cardiac monitoring -C/w Heparin infusion -Patient to undergo Cardiac catheterization later today -Echo pending Chronic conditions: Hyperlipidemia, hypothyroidism -Resume home medications DVT prophylaxis -Heparin Infusion Discussed with: Patient Anticipated discharge date: 10/29/[address]: Home A total of 30 minutes was spent on the care of this complex patient more than 50% of the time was spent in counseling and care coordination.
[2018-10-28] MEDS ORDERED: VERAPAMIL 2.5 MG/ML 2 ML AMP ONE (14:22)
[2018-10-28] MEDS ORDERED: HEPARIN SODIUM 1,000 UN/ML (10ML VL) ONE (14:22)
[2018-10-28] MEDS ORDERED: LIDOCAINE 1% INJ 10MG/ML (20 ML MDV) ONE (14:22)
[2018-10-28] MEDS ORDERED: IV FLUID CONTINUATION 1,000 ML IV ONE (14:35)
[2018-10-28] MEDS ORDERED: diphenhydrAMINE 50 MG/ML 1 ML VIAL ONE ×2 (14:40→15:20)
[2018-10-28] MEDS ORDERED: methylPREDNISolone SOD SUCCI 125 MG/2 ML VIAL ONE (14:41)
[2018-10-28] MEDS ORDERED: methylPREDNISolone SOD SUCCI 125 MG/2 ML VIAL IVP ONE (14:55)
[2018-10-28] MEDS ORDERED: diphenhydrAMINE 50 MG/ML 1 ML VIAL IVP ONE ×2 (14:55→15:23)
[2018-10-28] MEDS ORDERED: MIDAZOLAM (PF) 2 MG/2 ML VIAL IVP ONE (14:56)
[2018-10-28] MEDS ORDERED: LIDOCAINE 1% INJ 10MG/ML (20 ML MDV) SQ ONE (14:57)
[2018-10-28] MEDS ORDERED: VERAPAMIL SYRINGE (5 MG/10 ML) INTRAARTER ONE (14:59)
[2018-10-28] MEDS ORDERED: HEPARIN SODIUM 1,000 UN/ML (10ML VL) IV ONE (15:00)
[2018-10-28] MEDS ORDERED: METOPROLOL TARTRATE 5 MG/5 ML VIAL IVP ONE ×2 (15:02→15:04)
[2018-10-28] MEDS ORDERED: HYDROmorphone 1 MG/ML 1 ML SYRINGE ONE (15:03)
[2018-10-28] MEDS ORDERED: HYDROmorphone 1 MG/ML 1 ML SYRINGE IVP ONE (15:05)
[2018-10-28] MEDS ORDERED: FUROSEMIDE 10 MG/ML 4 ML VIAL ONE (15:12)
[2018-10-28] MEDS ORDERED: IOPAMIDOL-370 125ML BTL INJ ONE (15:23)
[2018-10-28] MEDS ORDERED: RX INFO: IV CONTRAST WAS GIVEN 1 EACH MISC MISCELLANE PRN (15:33)
[2018-10-28] MEDS ORDERED: SODIUM CHLORIDE 0.9% 1,000 ML IV SCH (15:45)
--- NOTE | 2018-10-28 17:57 | ECHOF ---
Referral Reason:cp, sob MEASUREMENTS -------- HEIGHT: 162.6 cm WEIGHT: 83.0 kg BP: IVSd: 1.3 cm (0.6 - 1.1) LVIDd: 4.2 cm (3.9 - 5.3) LVPWd: 1.5 cm (0.6 - 1.1) IVSs: 1.3 cm LVIDs: 3.5 cm LVPWs: 1.8 cm LA Diam: 3.5 cm (2.7 - 3.8) Ao Diam: 2.7 cm (2.0 - 3.7) AV Cusp: 1.6 cm (1.5 - 2.6) LA Diam: 3.5 cm (2.7 - 3.8) MV EXCURSION: 13.189 mm (> 18.000) MV EF SLOPE: 51 mm/s (70 - 150) EPSS: 1.0 cm MV E Max: 0.45 m/s MV DecT: 248 ms MV A Max: 0.76 m/s MV E/A Ratio: 0.59 RAP: 5.00 mmHg RVSP: 13.16 mmHg FINDINGS -------- Sinus rhythm. This was a technically adequate study. The left ventricular size is normal. There is mild concentric left ventricular hypertrophy. Overa ll left ventricular systolic function is low-normal with, an EF between 50 - 55 %. The right ventricle is normal in size. The left atrial size is normal. The right atrial size is normal. The aortic valve is trileaflet, and appears structurally normal. No aortic stenosis or regurgitation. Mild mitral regurgitation is present. Mild tricuspid regurgitation present. There is no evidence of pulmonary hypertension. The right v entricular systolic pressure, as measured by Doppler, is 13.16mmHg. There is no pulmonic regurgitation present. The aortic root size is normal. Normal inferior vena cava with normal inspiratory collapse consistent with estimated right atrial pre ssure of 5 mmHg. There is no pericardial effusion. CONCLUSIONS -------- 1. The left ventricular size is normal. 2. There is mild concentric left ventricular hypertrophy. 3. Overall left ventricular systolic function is low-normal with, an EF between 50 - 55 %. 4. The right ventricle is normal in size. 5. The left atrial size is normal. 6. The right atrial size is normal. 7. Interatrial Septum not well visulized. 8. The aortic valve is trileaflet, and appears structurally normal. No aortic stenosis or regurgitati on. 9. Mild mitral regurgitation is present. 10. Mild tricuspid regurgitation present. 11. There is no evidence of pulmonary hypertension. 12. The right ventricular systolic pressure, as measured by Doppler, is 13.16mmHg. 13. There is no pulmonic regurgitation present. 14. The aortic root size is normal. 15. Normal inferior vena cava with normal inspiratory collapse consistent with estimated right atrial pressure of 5 mmHg. 16. There is no pericardial effusion. FULL STACK NET DEVELOPER: Anh Murray RDCS
[2018-10-28] MEDS: LISINOPRIL 5 MG TAB PO SCH (18:16)
[2018-10-28] MEDS: METOPROLOL TARTRATE 25 MG TAB PO SCH (20:24)
[2018-10-28] MEDS ORDERED: METOPROLOL TARTRATE 12.5 MG TAB PO SCH (21:00)
--- NOTE | 2018-10-28 21:14 | CC ---
CARDIAC CATHETERIZATION REPORT DATE OF SERVICE: October 28, 2018. PERFORMING PHYSICIAN: Ricardo Wolf MD, dial lathe operator. PROCEDURE PERFORMED: 1. Selective right and left coronary angiogram. 2. Left heart catheterization. INDICATION: This is a pleasant 53-year-old gentleman with hypertension as well as dyslipidemia who was not getting any treatment for both conditions as well as significant family history of coronary artery disease and also prior history of smoking, where he stopped smoking in May of 2018 presented to the hospital with intermittent episodes of chest discomfort and ruled in for acute non ST elevation myocardial infarction with mildly abnormal cardiac enzymes. Because of that, a heart catheterization was advised. The patient does have at least 3 or 4 first-degree family members with coronary artery disease and prior coronary artery vascularization. APPROACH: Right radial artery. COMPLICATION: None. LEVEL OF SEDATION: Moderate with sedation length of 21 minutes. PROCEDURE DESCRIPTION: After obtaining an informed consent, the patient was brought to the cardiac civil laboratory technician. The right radial artery was cannulated using micropuncture technique, the micropuncture wire passed easily then I placed a 6-Zambian sheath 11 cm in the right radial artery. After that, I did perform selective right and left coronary angiogram using JR4 and JL3.5 catheters. Left heart catheterization was performed using 6-Zambian pigtail catheter. The procedure was completed without any complication. SELECTIVE CORONARY ANGIOGRAM: 1. The right coronary artery is a medium caliber vessel and it is a dominant vessel. The RCA is chronically occluded in the midportion and fills by collaterals from the left coronary system. 2. The left main is calcified left main with distal eccentric plaque to me appeared to be in the range of 50%. The left main bifurcates into left circumflex and left anterior descending artery. 3. Left circumflex is a large caliber vessel. It is a non dominant vessel. The left circumflex proximally appeared to be normal. In the midportion gives rise into a large OM branch which has a plaque appears to be in the range of 50% and the circumflex continued after that as a small-caliber vessel in the AV groove. 4. The LAD: The proximal LAD appeared to have another eccentric plaque in the range of 50%. The mid and distal LAD appeared to be angiographically normal. The LAD gives rise in the midportion into a medium-sized diagonal branch. HEMODYNAMICS: The left ventricular end-diastolic pressure was elevated at 20 mmHg without significant gradient across aortic valve. CONCLUSION: 1. 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 2. Eccentric calcified plaque involving the distal left main coronary artery appeared to be in the range of 50%. 3. Intermediate disease involving the left circumflex and left anterior descending artery. 4. Elevated left ventricular end-diastolic pressure. POSTPROCEDURE MANAGEMENT: 1. At this point maximize medical treatment. 2. Continue anti-platelet with aspirin. 3. Increase the dose of Lipitor to 80 mg p.o. daily. 4. Increase the dose of metoprolol to 25 mg p.o. daily. 5. Follow up on the echocardiogram which was performed earlier today. 6. Obtain a surgical consult for the evaluation of coronary artery bypass grafting. 7. Follow up with the patient. 8. Obtain fasting lipid profile. MMODL / IJN: [id number] /
[2018-10-28] MEDS: AMITRIPTYLINE HCL 10 MG TAB PO SCH (22:20)
[2018-10-29 05:48] LABS: Basophils % (A) 0 %; Eosinophils # (A) 0.1 k/uL (0-0.7); Eosinophils % (A) 1 %; HCT 39.6 % (39.0-53.0); HGB 13.3 gm/dL (13.0-17.5); Lymphocytes # (A) 1.5 k/uL (1.0-4.8); Lymphocytes % (A) 9 %; MCHC 33.6 g/dL (31.0-37.0); MCV 92.1 fL (80.0-100.0); Mean Platelet Volume 6.7; Monocytes # (A) 0.4 k/uL (0-1.0); Monocytes % (A) 2 %; Neutrophils # (A) 15.6 k/uL (1.3-7.7); Neutrophils % (A) 88 %; Platelet Count 308 k/uL (150-450); RDW 13.2 % (11.5-15.5); WBC 17.7 k/uL (3.8-10.6)
[2018-10-29 05:59] LABS: Anion Gap 8 mmol/L; Blood Urea Nitrogen 15 mg/dL (9-20); Calcium 9.5 mg/dL (8.4-10.2); Carbon Dioxide 25 mmol/L (22-30); Chloride 105 mmol/L (98-107); Glucose 137 mg/dL (74-99); Potassium 4.3 mmol/L (3.5-5.1); Sodium 138 mmol/L (137-145)
[2018-10-29] MEDS: LEVOTHYROXINE 25 MCG TAB PO SCH (06:29)
[2018-10-29] MEDS: ATORVASTATIN 80 MG TAB PO SCH (10:23)
[2018-10-29] MEDS: ASPIRIN 325 MG TAB PO SCH (10:23)
[2018-10-29] MEDS: VIT A,C & E-LUTEIN-MINERALS 1 EACH TAB PO SCH (10:23)
[2018-10-29] MEDS: METOPROLOL TARTRATE 25 MG TAB PO SCH ×2 (10:23→20:10)
--- NOTE | 2018-10-29 10:34 | P.PN ---
Subjective Progress Note Date: 10/29/18 Principal diagnosis: Acute non-ST elevation [place] This is a pleasant 53-year-old gentleman with a past medical history significant for dyslipidemia, prior history of smoking, and very significant family history of coronary artery disease was multiple first-degree relatives with coronary artery disease and prior coronary artery vascularization presented to the hospital complaining of chest discomfort. The symptoms started about a week ago when he started experiencing intermittent episodes of chest discomfort, in the mid of the chest, as a sharp kind of discomfort, with radiation to the left arm. No associated symptoms of shortness of breath, sweating, dizziness or light of this, or syncope. Yesterday his chest discomfort has been more intense compared to before and because of that he decided to come to the hospital. The EKG showed sinus rhythm without any ST or T-wave abnormalities. The first set of enzymes came in to be unremarkable but the second set of troponin came in to be abnormal. The third set came in to be unremarkable. He underwent a computed tomography scan of the chest which showed no evidence of aortic dissection or aortic aneurysm.. The patient underwent a heart catheterization and that revealed disease involving the left main coronary artery distally appears to be in the range of 50%. He was referred for coronary artery bypass grafting and was seen by the surgeon today and the plan is to pursue with coronary artery was grafting in the next few days. Probably that happened as an outpatient. Meanwhile the patient is on aspirin, metoprolol, and statin. The echocardiogram revealed normal LV function. Objective - Vital Signs Vital signs: Vital Signs Temp 98.1 F 10/29/18 03:18 Pulse 95 10/29/18 04:00 Resp 17 10/29/18 04:00 BP 111/65 10/29/18 03:18 Pulse Ox 95 10/29/18 03:18 Intake & Output 10/28/18 10/29/18 10/29/18 18:59 06:59 18:59 Intake Total 880.283 2405.532 Balance 519.954 9855.532 Weight 83.2 kg Intake: IV 150 Intake, IV Titration 197.077 902.532 Amount Heparin Sod,Pork in 0.45% 197.077 77.532 NaCl 25,000 unit In 0.45 % NaCl 1 250ml.bag @ 11.6 UNITS/KG/HR 9.945 mls/hr IV .Q24H [facility] Rx#: [id number] Sodium Chloride 0.9% 1, 825 000 ml @ 75 mls/hr IV . [id number] [facility] Rx#:[id number] Oral 800 Other: Voiding Method Toilet Toilet # Voids 1 2 - Constitutional General appearance: Present: no acute distress - Respiratory Respiratory: bilateral: CTA - Cardiovascular Rhythm: regular Heart sounds: normal: S1, S2 - Labs CBC & Chem 7: 10/29/18 05:34 10/29/18 05:25 Labs: Abnormal Lab Results - Last 24 Hours (Table) 10/28/18 10/29/18 10/29/18 Range/Units 13:40 00:10 05:25 WBC (3.8-10.6) k/uL Neutrophils # (1.3-7.7) k/uL APTT 37.9 H 62.1 H (22.0-30.0) sec Glucose 137 H (74-99) mg/dL 10/29/18 Range/Units 05:34 WBC 17.7 H (3.8-10.6) k/uL Neutrophils # 15.6 H (1.3-7.7) k/uL APTT (22.0-30.0) sec Glucose (74-99) mg/dL Assessment and Plan Assessment: Assessment #1 acute non-ST patient myocardial infarction #2 severe coronary artery disease involving the distal left main #3 hypertension #4 dyslipidemia #5 family history of CAD Plan #1 continue the current medical regimen #2 coronary artery bypass grafting probably as an outpatient Thank you for allowing us participate in his care and we'll continue following up with the patient
--- NOTE | 2018-10-29 12:56 | US ---
EXAMINATION TYPE: US carotid duplex BILAT DATE OF EXAM: 10/29/2018 COMPARISON: NONE CLINICAL HISTORY: preop cabg. Pre-OP EXAM MEASUREMENTS: RIGHT: Peak Systolic Velocity (PSV) cm/sec ----- Right CCA: 57.5 ----- Right ICA: 68.0 ----- Right ECA: 92.2 ICA/CCA ratio: 1.2 RIGHT: End Diastole cm/sec ----- Right CCA: 14.7 ----- Right ICA: 25.2 ----- Right ECA: 16.4 LEFT: Peak Systolic Velocity (PSV) cm/sec ----- Left CCA: 65.3 ----- Left ICA: 176.3 ----- Left ECA: 258.3 ICA/CCA ratio: 2.7 LEFT: End Diastole cm/sec ----- Left CCA: 24.3 ----- Left ICA: 34.6 ----- Left ECA: 57.9 VERTEBRALS (direction of flow): Right Vertebral: Abnormal "to-fro flow" visualized Left Vertebral: Antegrade Rhythm: Normal Soft plaque bilaterally, more on left side with elevated velocities left ECA and ICA IMPRESSION: 1. 50-69% BY DIAMETER STENOSIS OF THE PROXIMAL LEFT ICA. 2. ELEVATED LEFT ECA FLOW. 3. ABNORMAL FLOW IN THE RIGHT VERTEBRAL ARTERY IS UNUSUAL AND MAY REPRESENT A PARTIAL STEAL. Criteria for Assigning % of Stenosis / Diameter reduction (Estimation based on the indirect measurements of the internal carotid artery velocities (ICA PSV). 1. Normal (no stenosis)=ICA PSV < 125 cm/s: ratio < 2.0: ICA EDV<40 cm/s. 2. Less than 50% stenosis=ICA PSV < 125 cm/s: ratio < 2.0: ICA EDV<40 cm/s. 3. 50 to 69% stenosis=ICA PSV of 125 to 230 cm/s: ration 2.0 ? 4.0: ICA EDV 40-100 cm/s. 4. Greater than 70% stenosis to near occlusion= ICA PSV > 230 cm/s: ratio > 4.0: ICA EDV > 100 cm/s. 5. Near occlusion= ICA PSV velocities may be low or undetectable: variable ratio and ICA EDV. 6. Total occlusion=unable to detect flow.
--- NOTE | 2018-10-29 13:20 | P.GSCN ---
History of Present Illness Consult date: 10/29/18 Reason for Consult: Triple-vessel disease with left main disease, surgical recommendations Requesting physician: Ricardo Wolf History of present illness: This is a 53-year-old gentleman who follows on an outpatient basis with Dr. Cheng Hardin. He has a previous medical history of hyperlipidemia, hypothyroidism, previous tobacco dependence, he quit smoking in May 2018 but prior to that smoked a pack/day for 12 years, occasional EtOH, obesity with his weight increasing since quitting smoking, vertigo, and strong family history of premature coronary artery disease. He presented to [facility] emergency room with complaints of chest pain radiating to his left arm associated with shortness of breath and dizziness. He denied nausea, diaphoresis. He states he took some Tums which negated most of the chest pain but the shortness of breath did not go away so he presented to the emergency room. Chest x-ray demonstrated no acute cardiopulmonary process. EKG demonstrated normal sinus rhythm without ischemic changes. Troponins were mildly elevated with peak troponin 0.036 ruling the patient in for non-STEMI. He was admitted for evaluation and treatment and recommended to undergo heart catheterization which was completed yesterday. The catheterization demonstrated left main stenosis 50%, chronic total occlusion of the right coronary artery with collaterals, proximal LAD stenosis 50%, and obtuse marginal stenosis 50%. Transthoracic echocardiogram was completed as well demonstrating low-normal systolic function with ejection fraction 50-55%, mild mitral regurgitation, and mild tricuspid regurgitation. Consultation was placed to Dr. Soliz from cardiothoracic surgery for surgical revascularization recommendations. Review of Systems Review of systems was completed and was negative except as noted. 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, Vertigo, occipital neuralgia History of Any Multi-Drug Resistant Organisms: None Reported Past Surgical History: Adenoidectomy, Orthopedic Surgery, Tonsillectomy Additional Past Surgical History / Comment(s): Left knee arthroscopy, hydrocele surgery Past Anesthesia/Blood Transfusion Reactions: No Reported Reaction Past Psychological History: No Psychological Hx Reported Smoking Status: Former smoker Past Alcohol Use History: Occasional Past Drug Use History: None Reported - Past Family History Mother Family Medical History: Diabetes Mellitus, Hypertension Additional Family Medical History / Comment(s): Mother is living. Father Family Medical History: COPD, Hypertension Additional Family Medical History / Comment(s): Father is 81 yrs old. Sister(s) Family Medical History: Coronary Artery Disease (CAD) Additional Family Medical History / Comment(s): 53 yr old sister has CAD with stents and pulmonary fibrosis. Medications and Allergies Home Medications Medication Instructions Recorded Confirmed Type Amitriptyline HCl [Elavil] 10 mg PO HS 10/27/18 10/27/18 History Aspirin [Adult Low Dose Aspirin EC] 81 mg PO DAILY 10/27/18 10/27/18 History Atorvastatin [Lipitor] 40 mg PO DAILY 10/27/18 10/27/18 History Levothyroxine Sodium [Synthroid] 25 mcg PO DAILY 10/27/18 10/27/18 History Vit C/E/Zn/Coppr/Lutein/Zeaxan 1 cap PO DAILY 10/27/18 10/27/18 History [Preservision Areds 2 Softgel] Allergies Allergy/AdvReac Type Severity Reaction Status Date / Time Iodinated Contrast- Oral and Allergy Itching Verified 10/27/18 14:28 IV Dye tetanus and diphtheria Allergy Swelling Verified 10/27/18 14:28 toxoids [tetanus & diphtheria toxoids] venom-honey bee Allergy Anaphylaxis Verified 10/27/18 14:28 [bee venom (honey bee)] codeine AdvReac Abdominal Verified 10/27/18 14:28 Pain Surgical - Exam Vital Signs Temp Pulse Resp BP Pulse Ox 98.4 F 89 18 157/91 95 10/27/18 08:45 10/27/18 08:45 10/27/18 08:45 10/27/18 08:45 10/27/18 08:45 - General well developed, well nourished, no distress, no pain - Eyes PERRL, normal ocular movement - ENT no hearing loss - Neck no masses, no bruits, trachea midline - Respiratory Lungs sounds diminished bilaterally. Respirations even, nonlabored. Currently on 2 L nasal cannula with oxygen saturation 95%. No chest wall deformities but short sternum. - Cardiovascular S1, S2 present. Regular rate and rhythm, sinus rhythm on telemetry. Palpable peripheral pulses bilaterally. No edema present. No calf pain or tenderness noted. No varicosities noted. - Abdomen Abdomen: soft, non tender, bowel sounds - Genitourinary Deferred - Rectum Deferred - Integumentary no rash, no growths, no abnormal pigmentation - Neurologic normal coordination, normal sensation - Musculoskeletal normal gait, normal posture - Psychiatric oriented to time, oriented to person, oriented to place, speech is normal, memory intact Results - Labs 10/29/18 05:34 10/29/18 05:25 Abnormal Lab Results - Last 24 Hours (Table) 10/28/18 10/29/18 10/29/18 Range/Units 13:40 00:10 05:25 WBC (3.8-10.6) k/uL Neutrophils # (1.3-7.7) k/uL APTT 37.9 H 62.1 H (22.0-30.0) sec Glucose 137 H (74-99) mg/dL 10/29/18 10/29/18 Range/Units 05:34 12:24 WBC 17.7 H (3.8-10.6) k/uL Neutrophils # 15.6 H (1.3-7.7) k/uL APTT 54.5 H (22.0-30.0) sec Glucose (74-99) mg/dL Diabetes panel 10/29/18 Range/Units 05:25 Sodium 138 (137-145) mmol/L Potassium 4.3 (3.5-5.1) mmol/L Chloride 105 (98-107) mmol/L Carbon Dioxide 25 (22-30) mmol/L BUN 15 (9-20) mg/dL Creatinine 0.77 (0.66-1.25) mg/dL Glucose 137 H (74-99) mg/dL Calcium 9.5 (8.4-10.2) mg/dL Calcium panel 10/29/18 Range/Units 05:25 Calcium 9.5 (8.4-10.2) mg/dL Pituitary panel 10/29/18 Range/Units 05:25 Sodium 138 (137-145) mmol/L Potassium 4.3 (3.5-5.1) mmol/L Chloride 105 (98-107) mmol/L Carbon Dioxide 25 (22-30) mmol/L BUN 15 (9-20) mg/dL Creatinine 0.77 (0.66-1.25) mg/dL Glucose 137 H (74-99) mg/dL Calcium 9.5 (8.4-10.2) mg/dL Adrenal panel 10/29/18 Range/Units 05:25 Sodium 138 (137-145) mmol/L Potassium 4.3 (3.5-5.1) mmol/L Chloride 105 (98-107) mmol/L Carbon Dioxide 25 (22-30) mmol/L BUN 15 (9-20) mg/dL Creatinine 0.77 (0.66-1.25) mg/dL Glucose 137 H (74-99) mg/dL Calcium 9.5 (8.4-10.2) mg/dL - Imaging Chest x-ray: report reviewed, image reviewed EKG: image reviewed Additional studies: Heart catheterization and echocardiogram films reviewed with Dr. Soliz Assessment and Plan Assessment: 1. Severe triple-vessel coronary artery disease with left main disease 2. Non-STEMI 3. Hyperlipidemia 4. Hypothyroid 5. Previous tobacco dependence 6. Obesity 7. Strong family history of premature coronary artery disease Plan: The patient was seen and examined at the bedside with Dr. Soliz. Chart/diagnostics were reviewed. The case was discussed in detail between Dr. Soliz and Dr. Wolf. We recommend coronary artery bypass graft surgery. The usual perioperative course was discussed in detail with the patient and his family, risks and benefits were reviewed, all questions were answered, and the patient did consent to surgery. Preoperative testing was initiated. We recommend maximizing medical therapy with aspirin, statin, beta lucia therapy. Once all testing has been completed we will calculate an STS risk score and discuss with the patient. Our plan is for coronary artery bypass graft surgery with the left internal mammary artery, endovascular vein harvest, possible right internal mammary artery use, intraoperative transesophageal echocardiogram, timing to be determined based on testing results and OR availability. This was discussed in detail with the patient, his family, and Dr. Wolf and all are in agreement. Patient may be discharged home from our standpoint tomorrow after all testing has been completed. He was instructed to return to the emergency room should he have any chest pain or associated symptoms. Medical management per Dr. Wolf. Thank you Dr. Wolf for this consult. We look forward to working with you in the care of your patient. Time with Patient: Greater than 30
--- NOTE | 2018-10-29 13:39 | P.PN ---
Subjective Progress Note Date: 10/29/18 The patient was seen and examined at the bedside on 10/29/18. The patient reports that he continues to be chest pain free and he is free of active complaints. He further denied fever, chills, nausea, vomiting, abdominal pain, dizziness, or SOB. Objective - Vital Signs Vital signs: Vital Signs Temp 98.1 F 10/29/18 03:18 Pulse 95 10/29/18 04:00 Resp 17 10/29/18 04:00 BP 111/65 10/29/18 03:18 Pulse Ox 95 10/29/18 03:18 Intake & Output 10/28/18 10/29/18 10/29/18 18:59 06:59 18:59 Intake Total 910.807 3010.532 Balance 726.385 7375.532 Weight 83.2 kg Intake: IV 150 Intake, IV Titration 197.077 902.532 Amount Heparin Sod,Pork in 0.45% 197.077 77.532 NaCl 25,000 unit In 0.45 % NaCl 1 250ml.bag @ 11.6 UNITS/KG/HR 9.945 mls/hr IV .Q24H [facility] Rx#: [id number] Sodium Chloride 0.9% 1, 825 000 ml @ 75 mls/hr IV . [id number] [facility] Rx#:[id number] Oral 800 Other: Voiding Method Toilet Toilet # Voids 1 2 - Exam General: Non-toxic, in no acute distress, appears stated age, obese HEENT: NC/AT, anicteric sclerae, moist conjunctiva, no lid-lag, PERRLA Cardiovascular: S1/S2 wnl, no murmurs, rubs, or gallops Lungs: Clear to auscultation, normal respiratory effort, no accessory muscle use Abdominal: Soft, non-tender, non-distended, no guarding, rebound, or rigidity Skin: Warm, dry Extremities: No edema or contractures Psychiatric: Alert and oriented to person, place and time, appropriate affect Neuro: CN II-XII grossly intact, Strength 5/5 in all 4 extremities, Speech intact, Sensation to light touch grossly intact throughout - Labs CBC & Chem 7: 10/29/18 05:34 10/29/18 05:25 Labs: Abnormal Lab Results - Last 24 Hours (Table) 10/28/18 10/29/18 10/29/18 Range/Units 13:40 00:10 05:25 WBC (3.8-10.6) k/uL Neutrophils # (1.3-7.7) k/uL APTT 37.9 H 62.1 H (22.0-30.0) sec Glucose 137 H (74-99) mg/dL 10/29/18 10/29/18 Range/Units 05:34 12:24 WBC 17.7 H (3.8-10.6) k/uL Neutrophils # 15.6 H (1.3-7.7) k/uL APTT 54.5 H (22.0-30.0) sec Glucose (74-99) mg/dL Assessment and Plan Plan: NSTEMI, s/p Cardiac cath showing 50% distal left main disease, CABG recommended -Cardiology following, patient to be continued on Heparin infusion and maximal m edical therapy for now including Aspirin 325, Lipitor 80, and Lopressor 25 bid. -Cardiac monitoring -Echo reviewed -Patient will be placed on schedule for CABG tomorrow Leukocytosis, likely reactive -Will monitor Chronic conditions: Hyperlipidemia, hypothyroidism -Resume home medications DVT prophylaxis -Heparin Infusion Discussed with: Patient Anticipated discharge date: 10/30/[address]: Home A total of 30 minutes was spent on the care of this complex patient more than 5 0% of the time was spent in counseling and care coordination.
[2018-10-29 16:04] LABS: Appearance,Urine Clear (Clear); Bilirubin,Urine Negative (Negative); Blood,Urine Negative (Negative); Color,Urine Light Yellow; Glucose,Urine (UA) Negative (Negative); Ketones,Urine Negative (Negative); Leukocyte Esterase,Urine Negative (Negative); Nitrite,Urine Negative (Negative); PH, Urine 6.5 (5.0-8.0); Protein,Urine Negative (Negative); Specific Gravity,Urine 1.006 (1.001-1.035); Urobilinogen,Urine <2.0 mg/dL (<2.0)
[2018-10-29] MEDS: LISINOPRIL 5 MG TAB PO SCH (16:39)
[2018-10-29] MEDS: MUPIROCIN 2% OINT 22 GM TUBE TOPICAL SCH (21:01)
[2018-10-29] MEDS: AMITRIPTYLINE HCL 10 MG TAB PO SCH (22:51)
[2018-10-30] MEDS: NITROGLYCERIN SL TABS 0.4 MG TAB SUBLINGUAL PRN ×2 (00:29→00:34)
[2018-10-30 08:02] LABS: HCT 39.5 % (39.0-53.0); HGB 13.2 gm/dL (13.0-17.5); MCH 31.4 pg (25.0-35.0); MCHC 33.4 g/dL (31.0-37.0); Mean Platelet Volume 6.6; Platelet Count 323 k/uL (150-450); RDW 13.6 % (11.5-15.5); WBC 13.7 k/uL (3.8-10.6)
[2018-10-30] MEDS: ATORVASTATIN 80 MG TAB PO SCH (08:02)
[2018-10-30] MEDS: LISINOPRIL 5 MG TAB PO SCH (08:02)
[2018-10-30] MEDS: LEVOTHYROXINE 25 MCG TAB PO SCH (08:02)
[2018-10-30] MEDS: METOPROLOL TARTRATE 25 MG TAB PO SCH ×2 (08:02→20:30)
[2018-10-30] MEDS: ASPIRIN 325 MG TAB PO SCH (08:02)
[2018-10-30] MEDS: VIT A,C & E-LUTEIN-MINERALS 1 EACH TAB PO SCH (08:02)
[2018-10-30 08:20] LABS: Partial Thromboplastin Time 68.3 sec (22.0-30.0); Prothrombin Time 10.6 sec (9.0-12.0)
[2018-10-30 08:45] LABS: Anion Gap 5 mmol/L; Blood Urea Nitrogen 16 mg/dL (9-20); Calcium 9.2 mg/dL (8.4-10.2); Carbon Dioxide 30 mmol/L (22-30); Chloride 107 mmol/L (98-107); Glucose 95 mg/dL (74-99); Magnesium 2.2 mg/dL (1.6-2.3); Potassium 4.3 mmol/L (3.5-5.1); Sodium 142 mmol/L (137-145)
[2018-10-30 11:05] LABS: T4, Free (Free Thyroxine) 0.66 ng/dL (0.78-2.19)
--- NOTE | 2018-10-30 11:08 | P.PN ---
Subjective Progress Note Date: 10/30/18 Principal diagnosis: Severe triple vessel coronary artery disease with left main disease, non-STEMI, left internal carotid artery stenosis 50-69% with abnormal flow in the right ve rtebral artery possibly representing partial steal syndrome. Previous medical history of hyperlipidemia, hypothyroid, previous tobacco dependence, mild COPD with preoperative FEV1 62% of predicted, obesity, and strong family history of premature coronary artery disease The patient is currently sitting up in bed in no acute distress. Just returned from radial artery mapping. Does state he had episodes of chest pain last night relieved with sublingual nitro. 5 m walk test performed this morning which patient tolerated well and denied any chest pain during or after. Currently pain-free with no shortness of breath. All questions answered. Objective - Vital Signs Vital signs: Vital Signs Temp 97.8 F 10/30/18 08:00 Pulse 74 10/30/18 08:00 Resp 16 10/30/18 08:00 BP 117/77 10/30/18 08:00 Pulse Ox 99 10/30/18 08:00 Intake & Output 10/29/18 10/30/18 10/30/18 18:59 06:59 18:59 Intake Total 1542 240 Output Total 1200 Balance -1200 1542 240 Weight 83.8 kg Intake: IV 220 normal saline 220 Oral 1322 240 Output: Urine 1200 Other: Voiding Method Toilet Toilet Toilet # Voids 1 1 - Constitutional General appearance: Present: cooperative, no acute distress, obese - Respiratory Details: Lungs sounds diminished bilaterally. Respirations even, nonlabored. Currently on room air with oxygen saturation 95%. Able to achieve 1250 mL on his incentiv e spirometry. Strong cough. - Cardiovascular Details: S1, S2 present. Regular rate and rhythm, sinus rhythm on telemetry. Palpable peripheral pulses bilaterally. No edema present. No calf pain or tenderness noted. - Gastrointestinal Gastrointestinal Comment(s): Abdomen soft, nontender, nondistended. Active bowel sounds present 4 quadrants. Tolerating diet. - Genitourinary Genitourinary Comment(s): Voiding clear, yellow urine. - Integumentary Integumentary Comment(s): Skin is warm and dry with evidence of good perfusion. - Neurologic Neurologic: Present: CNII-XII intact - Musculoskeletal Musculoskeletal: Present: gait normal, strength equal bilaterally - Psychiatric Psychiatric: Present: A&O x's 3, appropriate affect, intact judgment & insight - Allied health notes Allied health notes reviewed: nursing - Labs CBC & Chem 7: 10/30/18 07:48 10/30/18 07:48 Labs: Abnormal Lab Results - Last 24 Hours (Table) 10/29/18 10/30/18 10/30/18 Range/Units 12:24 07:48 07:48 WBC 13.7 H (3.8-10.6) k/uL RBC 4.20 L (4.30-5.90) m/uL APTT 54.5 H 68.3 H (22.0-30.0) sec TSH (0.465-4.680) mIU/L 10/30/18 Range/Units 07:48 WBC (3.8-10.6) k/uL RBC (4.30-5.90) m/uL APTT (22.0-30.0) sec TSH 72.100 H (0.465-4.680) mIU/L Microbiology - Last 24 Hours (Table) 10/29/18 17:45 Nasal Screen MRSA/MSSA - Preliminary Nasal Swab 10/29/18 12:32 Urine Culture - Preliminary Urine,Clean Catch - Imaging and Cardiology Chest x-ray: report reviewed, image reviewed Carotid Dopplers, pulmonary function test, vein mapping reviewed Assessment and Plan Assessment: 1. Severe triple-vessel coronary artery disease with left main disease 2. Non-STEMI 3. Left internal carotid artery stenosis 50-69% with abnormal flow in the right vertebral artery possibly representing partial steal syndrome 4. Hyperlipidemia 5. Hypothyroid 6. Previous tobacco dependence 7. Mild COPD with preoperative FEV1 62% of predicted 8. Obesity 9. Strong family history of premature coronary artery disease Plan: 1. Continue aspirin, statin, beta lucia therapy. 2. Our plan is for coronary artery bypass graft surgery with the left internal mammary artery, endovascular vein harvest, possible right internal mammary artery use, intraoperative transesophageal echocardiogram next 11/06/[address] Soliz 3. Encourage incentive spirometry 10 times every hour while awake. 4. Encourage continued smoking cessation. 5. 5 m walk test completed, #1 4.78 seconds, #2 5.13 seconds, #3 4.83 seconds. Patient denied chest pain during or after test. 6. Continue supportive care. Continue preoperative teaching. 7. Medical management per Dr. Rowan, Dr. Wolf. Time with Patient: Greater than 30
[2018-10-30] MEDS: HEPARIN SOD,PORK IN 0.45% NACL 25,000 UNIT in 0.45% NACL 1 250ML.BAG IV SCH (12:17)
[2018-10-30] MEDS: MUPIROCIN 2% OINT 22 GM TUBE TOPICAL SCH ×2 (12:17→20:31)
--- NOTE | 2018-10-30 13:34 | P.PN ---
Subjective Progress Note Date: 10/30/18 The patient was seen and examined at the bedside on 10/30/18. The patient reported 2 episodes of chest pain, substernal, throughout the night which improved with nitroglycerin sublingual. He endorsed associated shortness of breath and some palpitations. He otherwise denied fever, chills, cough, abdominal pain, nausea, vomiting. Objective - Vital Signs Vital signs: Vital Signs Temp 97.8 F 10/30/18 12:00 Pulse 70 10/30/18 12:00 Resp 16 10/30/18 12:00 BP 124/83 10/30/18 12:00 Pulse Ox 93 L 10/30/18 12:00 Intake & Output 10/29/18 10/30/18 10/30/18 18:59 06:59 18:59 Intake Total 899.591 6961 600 Output Total 1200 Balance -8997.803 2184 600 Weight 83.8 kg Intake: IV 220 normal saline 220 Intake, IV Titration 172.468 Amount Heparin Sod,Pork in 0.45% 172.468 NaCl 25,000 unit In 0.45 % NaCl 1 250ml.bag @ 11.6 UNITS/KG/HR 9.945 mls/hr IV .Q24H [facility] Rx#: [id number] Oral 1322 600 Output: Urine 1200 Other: Voiding Method Toilet Toilet Toilet # Voids 1 1 - Exam General: Non-toxic, in no acute distress, appears stated age, obese HEENT: NC/AT, anicteric sclerae, moist conjunctiva, no lid-lag, PERRLA Cardiovascular: S1/S2 wnl, no murmurs, rubs, or gallops Lungs: Clear to auscultation, normal respiratory effort, no accessory muscle use Abdominal: Soft, non-tender, non-distended, no guarding, rebound, or rigidity Skin: Warm, dry Extremities: No edema or contractures Psychiatric: Alert and oriented to person, place and time, appropriate affect Neuro: CN II-XII grossly intact, Strength 5/5 in all 4 extremities, Speech intact, Sensation to light touch grossly intact throughout - Labs CBC & Chem 7: 10/30/18 07:48 10/30/18 07:48 Labs: Abnormal Lab Results - Last 24 Hours (Table) 10/30/18 10/30/18 10/30/18 Range/Units 07:48 07:48 07:48 WBC 13.7 H (3.8-10.6) k/uL RBC 4.20 L (4.30-5.90) m/uL APTT 68.3 H (22.0-30.0) sec TSH 72.100 H (0.465-4.680) mIU/L Free T4 0.66 L (0.78-2.19) ng/dL Microbiology - Last 24 Hours (Table) 10/29/18 17:45 Nasal Screen MRSA/MSSA - Preliminary Nasal Swab 10/29/18 12:32 Urine Culture - Preliminary Urine,Clean Catch Assessment and Plan Plan: NSTEMI, s/p Cardiac cath showing 50% distal left main disease, CABG recommended -Cardiology following, patient to be continued on Heparin infusion and maximal medical therapy for now including Aspirin 325, Lipitor 80, and Lopressor 25 bid -Cardiac monitoring -Echo reviewed -Patient tentatively scheduled for CABG next Tuesday. Since he is having continued chest pain, he will remain inpatient and will continue with the medical management. Leukocytosis, likely reactive, improved -Will monitor Chronic conditions: Hyperlipidemia, hypothyroidism -Resume home medications DVT prophylaxis -Heparin Infusion Discussed with: Patient Anticipated discharge date: 11/08/[address]: Home A total of 30 minutes was spent on the care of this complex patient more than 50% of the time was spent in counseling and care coordination.
--- NOTE | 2018-10-30 13:41 | P.PN ---
Subjective Progress Note Date: 10/30/18 This is a pleasant 53-year-old gentleman with a past medical history significant for dyslipidemia, prior history of smoking, and very significant family history of coronary artery disease was multiple first-degree relatives with coronary artery disease and prior coronary artery vascularization presented to the hospital complaining of chest discomfort. The symptoms started about a week ago when he started experiencing intermittent episodes of chest discomfort, in the mid of the chest, as a sharp kind of discomfort, with radiation to the left arm. No associated symptoms of shortness of breath, sweating, dizziness or light of this, or syncope. Yesterday his chest discomfort has been more intense compared to before and because of that he decided to come to the hospital. The EKG showed sinus rhythm without any ST or T-wave abnormalities. The first set of enzymes came in to be unremarkable but the second set of troponin came in to be abnormal. The third set came in to be unremarkable. He underwent a computed tomography scan of the chest which showed no evidence of aortic dissection or aortic aneurysm. The patient underwent a heart catheterization and that revealed disease involving the left main coronary artery distally appears to be in the range of 50%. He was referred for coronary artery bypass grafting and was seen by the surgeon today and the plan is to pursue with coronary artery was grafting in the next few days. Probably that happened as an outpatient. Meanwhile the patient is on aspirin, metoprolol, and statin. The echocardiogram revealed normal LV function. 10/30/2018 Patient was seen and examined this morning, he did have an episode of chest discomfort earlier today, requiring sublingual nitroglycerin. At the time of my examination he was chest pain-free. Because of the chest discomfort, we would recommend to continue the patient on IV heparin, continue to monitor him in the hospital another 24 hours. Objective - Vital Signs Vital signs: Vital Signs Temp 97.8 F 10/30/18 12:00 Pulse 70 10/30/18 12:00 Resp 16 10/30/18 12:00 BP 124/83 10/30/18 12:00 Pulse Ox 93 L 10/30/18 12:00 Intake & Output 10/29/18 10/30/18 10/30/18 18:59 06:59 18:59 Intake Total 909.843 3282 600 Output Total 1200 Balance -9710.725 7034 600 Weight 83.8 kg Intake: IV 220 normal saline 220 Intake, IV Titration 172.468 Amount Heparin Sod,Pork in 0.45% 172.468 NaCl 25,000 unit In 0.45 % NaCl 1 250ml.bag @ 11.6 UNITS/KG/HR 9.945 mls/hr IV .Q24H [facility] Rx#: [id number] Oral 1322 600 Output: Urine 1200 Other: Voiding Method Toilet Toilet Toilet # Voids 1 1 - Exam PHYSICAL EXAMINATION: GENERAL: 53-year-old gentleman in no acute distress at the time of my examination HEENT: Head is atraumatic, normocephalic. Pupils equal, round. Sclera anicteric. Conjunctiva are clear. Mucous membranes of the mouth are moist. Nec k is supple. There is no elevated jugular venous pressure. No carotid bruit is heard. HEART EXAMINATION: Heart S1, S2 normal. No murmur or gallop heard. CHEST EXAMINATION: Lungs are clear to auscultation and precussion. No chest wall tenderness is noted on palpation or with deep breathing. ABDOMEN: Soft, nontender. Bowel sounds are heard. No organomegaly noted. EXTREMITIES: 2+ peripheral pulses with no evidence of peripheral edema and no calf tenderness noted. NEUROLOGIC patient is awake, alert and oriented X3. . - Labs CBC & Chem 7: 10/30/18 07:48 10/30/18 07:48 Labs: Abnormal Lab Results - Last 24 Hours (Table) 10/30/18 10/30/18 10/30/18 Range/Units 07:48 07:48 07:48 WBC 13.7 H (3.8-10.6) k/uL RBC 4.20 L (4.30-5.90) m/uL APTT 68.3 H (22.0-30.0) sec TSH 72.100 H (0.465-4.680) mIU/L Free T4 0.66 L (0.78-2.19) ng/dL Microbiology - Last 24 Hours (Table) 10/29/18 17:45 Nasal Screen MRSA/MSSA - Preliminary Nasal Swab 10/29/18 12:32 Urine Culture - Preliminary Urine,Clean Catch Assessment and Plan Plan: Assessment #1 acute non-ST patient myocardial infarction #2 severe coronary artery disease involving the distal left main, patient will need to undergo coronary artery bypass grafting surgery #3 hypertension #4 dyslipidemia #5 family history of CAD Plan We'll add a small dose of oral nitrates to the patient's medication regime, continue aspirin, Lipitor, IV heparin, lisinopril, and metoprolol. Because of the patient's episode of chest discomfort we will continue to monitor for another 24 hours. DNP note has been reviewed, I agree with a documented findings and plan of care. Patient was seen and examined.
[2018-10-30] MEDS: ISOSORBIDE MONONITRATE ER 15 MG TAB PO SCH (15:57)
--- NOTE | 2018-10-30 16:23 | P.CNPUL ---
History of Present Illness Consult date: 10/30/18 Requesting physician: Dipak Rowan Chief complaint: Coronary artery disease History of present illness: This is a 73-year-old white male patient, of Dr. Hardin, with a past medical history of hyperlipidemia, hypothyroidism, patient is a former smoker, quit smoking in May 2018, obesity, and family history of premature coronary artery disease. Patient presented to the hospital on 10/27/2018 for evaluation of back pain, arm pain, shortness of breath and mild chest discomfort that started in the middle of the night and was not preceded by exertion. CTA chest was completed and showed no aortic aneurysm or dissection, no suspicious acute process, no suspicious nodules or masses, no pleural effusions. Chest x-ray showed chronic changes without evidence of acute pulmonary disease. EKG showed normal sinus rhythm without ischemic changes, patient had a mild elevation of troponins which peaked at 0.036, patient was ruled in for non-ST elevated SD. He underwent a cardiac Catheterization which demonstrated left main stenosis of 50%, chronically totally occluded RCA with collaterals, proximal LAD stenosis of 50%, and obtuse marginal stenosis of 50%. ALLISON showed normal systolic function with an ejection fraction of 50-55% with mild MR and mild TR. Patient was referred to cardiothoracic surgery and surgical intervention was recommended for multivessel coronary artery disease. We are consulted in regards to pulmonary management and pulmonary clearance for upcoming surgery. Review of Systems All systems: negative Constitutional: Denies chills, Denies fever Eyes: denies blurred vision, denies pain Ears, nose, mouth and throat: Denies headache, Denies sore throat Cardiovascular: Reports chest pain, Denies shortness of breath Respiratory: Denies cough Gastrointestinal: Denies abdominal pain, Denies diarrhea, Denies nausea, Denies vomiting Musculoskeletal: Denies myalgias Integumentary: Denies pruritus, Denies rash Neurological: Denies numbness, Denies weakness Psychiatric: Denies anxiety, Denies depression Endocrine: Denies fatigue, Denies weight change 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, Vertigo, occipital neuralgia History of Any Multi-Drug Resistant Organisms: None Reported Past Surgical History: Adenoidectomy, Orthopedic Surgery, Tonsillectomy Additional Past Surgical History / Comment(s): Left knee arthroscopy, hydrocele surgery Past Anesthesia/Blood Transfusion Reactions: No Reported Reaction Past Psychological History: No Psychological Hx Reported Smoking Status: Former smoker Past Alcohol Use History: Occasional Past Drug Use History: None Reported - Past Family History Mother Family Medical History: Diabetes Mellitus, Hypertension Additional Family Medical History / Comment(s): Mother is living. Father Family Medical History: COPD, Hypertension Additional Family Medical History / Comment(s): Father is 81 yrs old. Sister(s) Family Medical History: Coronary Artery Disease (CAD) Additional Family Medical History / Comment(s): 53 yr old sister has CAD with stents and pulmonary fibrosis. Medications and Allergies Home Medications Medication Instructions Recorded Confirmed Type Amitriptyline HCl [Elavil] 10 mg PO HS 10/27/18 10/27/18 History Aspirin [Adult Low Dose Aspirin EC] 81 mg PO DAILY 10/27/18 10/27/18 History Atorvastatin [Lipitor] 40 mg PO DAILY 10/27/18 10/27/18 History Levothyroxine Sodium [Synthroid] 25 mcg PO DAILY 10/27/18 10/27/18 History Vit C/E/Zn/Coppr/Lutein/Zeaxan 1 cap PO DAILY 10/27/18 10/27/18 History [Preservision Areds 2 Softgel] Allergies Allergy/AdvReac Type Severity Reaction Status Date / Time Iodinated Contrast- Oral and Allergy Itching Verified 10/27/18 14:28 IV Dye tetanus and diphtheria Allergy Swelling Verified 10/27/18 14:28 toxoids [tetanus & diphtheria toxoids] venom-honey bee Allergy Anaphylaxis Verified 10/27/18 14:28 [bee venom (honey bee)] codeine AdvReac Abdominal Verified 10/27/18 14:28 Pain Physical Exam Vitals: Vital Signs Temp Pulse Resp BP Pulse Ox 10/30/18 12:00 97.8 F 70 16 124/83 93 L 10/30/18 11:19 16 10/30/18 08:00 97.8 F 74 16 117/77 99 10/30/18 03:42 97.9 F 89 17 130/90 95 10/29/18 23:32 82 17 10/29/18 23:28 98 F 82 17 117/70 94 L 10/29/18 20:00 98 F 71 17 108/66 94 L Intake and Output 10/30/18 10/30/18 10/30/18 06:59 14:59 22:59 Intake Total 820 600 Balance 820 600 Intake: IV 220 normal saline 220 Oral 600 600 Other: Voiding Method Toilet Toilet # Voids 1 Weight 83.8 kg GENERAL EXAM: Alert, pleasant, 53-year-old white male comfortable in no apparent distress. HEAD: Normocephalic/atraumatic. EYES: Normal reaction of pupils, equal size. Conjunctiva pink, sclera white. NOSE: Clear with pink turbinates. THROAT: No erythema or exudates. NECK: No masses, no JVD, no thyroid enlargement, no adenopathy. CHEST: No chest wall deformity. Symmetrical expansion. LUNGS: Equal air entry with no crackles, wheeze, rhonchi or dullness. CVS: Regular rate and rhythm, normal S1 and S2, no gallops, no murmurs, no rubs ABDOMEN: Soft, nontender. No hepatosplenomegaly, normal bowel sounds, no guardi ng or rigidity. EXTREMITIES: No clubbing, no edema, no cyanosis, 2+ pulses and upper and lower extremities. MUSCULOSKELETAL: Muscle strength and tone normal. SPINE: No scoliosis or deformity SKIN: No rashes CENTRAL NERVOUS SYSTEM: Alert and oriented -3. No focal deficits, tone is normal in all 4 extremities. PSYCHIATRIC: Alert and oriented -3. Appropriate affect. Intact judgment and insight. Results - Laboratory Findings CBC and BMP: 10/30/18 07:48 10/30/18 07:48 PT/INR, D-dimer PT 10.6 sec (9.0-12.0) 10/30/18 07:48 INR 1.0 (<1.2) 10/30/18 07:48 Abnormal lab findings: Abnormal Labs 10/27/18 10/27/18 10/27/18 09:05 16:04 16:04 WBC RBC Neutrophils # APTT 68.6 H Creatinine 0.65 L Glucose 102 H Troponin I 0.036 H* Triglycerides HDL Cholesterol TSH Free T4 10/28/18 10/28/18 10/28/18 06:39 06:39 13:40 WBC RBC Neutrophils # APTT 44.3 H 37.9 H Creatinine Glucose Troponin I Triglycerides 289 H HDL Cholesterol 37 L TSH Free T4 05/05/19 05/05/19 05/05/19 00:10 05:25 05:34 WBC 17.7 H RBC Neutrophils # 15.6 H APTT 62.1 H Creatinine Glucose 137 H Troponin I Triglycerides HDL Cholesterol TSH Free T4 10/29/18 10/30/18 10/30/18 12:24 07:48 07:48 WBC 13.7 H RBC 4.20 L Neutrophils # APTT 54.5 H 68.3 H Creatinine Glucose Troponin I Triglycerides HDL Cholesterol TSH Free T4 10/30/18 07:48 WBC RBC Neutrophils # APTT Creatinine Glucose Troponin I Triglycerides HDL Cholesterol TSH 72.100 H Free T4 0.66 L - Diagnostic Findings Chest x-ray: report reviewed, image reviewed CT scan - chest: report reviewed, image reviewed Additional studies: Results of the carotid Dopplers, and EKG reviewed Assessment and Plan Plan: Assessment: #1. Multivessel coronary artery disease with the 50% left main stenosis #2. Acute non-ST elevated myocardial infarction #3. Stage II COPD based on the preop FEV1 of 62% of predicted, consistent with moderately severe COPD, without hypoxemic failure #4. Previous nicotine dependence, currently in remission, patient carries [id number] smoking history, quit smoking in May 2018 #5. Hypothyroidism #6. Hyperlipidemia #7. History of premature coronary artery disease #8. 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 Herrera, chest x-ray, preop PFTs have been reviewed, chart was reviewed. Patient has moderately severe COPD based on his preop PFT, if patient gets discharged home today, recommend sending him home on the rescue inhaler and Spiriva. While the patient is here we will add breathing treatments on an as-needed basis. Otherwise patient is cleared for surgery from pulmonary perspective. Encourage deep breathing and coughing. We'll continue to follow I performed a history & physical examination of the patient and discussed their management with my nurse practitioner, Arianna Marx. I reviewed the nurse practitioner's note and agree with the documented findings and plan of care. Lung sounds are positive for clear breath sounds. The findings and the impression was discussed with the patient. I attest to the documentation by the nurse practitioner. Time with Patient: Greater than 30
[2018-10-30 18:40] LABS: Hemoglobin A1C 6.4 % (4.0-6.0)
[2018-10-30] MEDS ORDERED: ACETAMINOPHEN TAB 500 MG TAB PO PRN (21:27)
[2018-10-30] MEDS: AMITRIPTYLINE HCL 10 MG TAB PO SCH (22:34)
[2018-10-31] MEDS: LEVOTHYROXINE 75 MCG TAB PO SCH (05:54)
[2018-10-31 06:38] LABS: Basophils # (A) 0.1 k/uL (0-0.2); Basophils % (A) 1 %; Eosinophils # (A) 0.4 k/uL (0-0.7); Eosinophils % (A) 3 %; HCT 35.9 % (39.0-53.0); HGB 11.7 gm/dL (13.0-17.5); Lymphocytes # (A) 3.5 k/uL (1.0-4.8); Lymphocytes % (A) 31 %; MCHC 32.6 g/dL (31.0-37.0); Mean Platelet Volume 7.2; Monocytes # (A) 0.6 k/uL (0-1.0); Monocytes % (A) 5 %; Neutrophils # (A) 6.5 k/uL (1.3-7.7); Neutrophils % (A) 58 %; Platelet Count 288 k/uL (150-450); RDW 14.4 % (11.5-15.5); WBC 11.3 k/uL (3.8-10.6)
[2018-10-31 07:31] LABS: Anion Gap 4 mmol/L; Blood Urea Nitrogen 13 mg/dL (9-20); Calcium 8.9 mg/dL (8.4-10.2); Carbon Dioxide 30 mmol/L (22-30); Chloride 106 mmol/L (98-107); Glucose 87 mg/dL (74-99); Potassium 3.9 mmol/L (3.5-5.1); Sodium 140 mmol/L (137-145)
[2018-10-31] MEDS: IPRATROPIUM-ALBUTEROL 3 ML NEB INHALATION PRN ×2 (08:00→13:52)
[2018-10-31] MEDS: ISOSORBIDE MONONITRATE ER 15 MG TAB PO SCH (08:47)
[2018-10-31] MEDS: METOPROLOL TARTRATE 25 MG TAB PO SCH ×2 (08:47→20:12)
[2018-10-31] MEDS: VIT A,C & E-LUTEIN-MINERALS 1 EACH TAB PO SCH (08:47)
[2018-10-31] MEDS: LISINOPRIL 5 MG TAB PO SCH (08:47)
[2018-10-31] MEDS: ASPIRIN 325 MG TAB PO SCH (08:47)
[2018-10-31] MEDS: MUPIROCIN 2% OINT 22 GM TUBE TOPICAL SCH ×2 (08:48→20:12)
[2018-10-31] MEDS: ATORVASTATIN 80 MG TAB PO SCH (08:48)
--- NOTE | 2018-10-31 11:07 | P.PN ---
Subjective Progress Note Date: 10/31/18 The patient is a 53 yo M with a PMH of HLD, occipital neuralgia, and hypothyroidism who presented to the ED for chest pain. The patient noted that the pain started the night prior at 1 am and woke him up from sleep. It was epigastric, sharp/pressure, 6/10, radiating to his back, occuring every 30 minutes, lasting for roundly 30 seconds at a time. He endorsed associated SOB and palpitations. The patient noted that he also had been experiencing GERD during this time frame which has recently gotten worse. The patient attempted to take Tums with only partial relief. He noted that upon admission to the ED, his pain improved and at time of the interview was a /10. He otherwise denied cough, fever, chills, abdominal pain, recent travel, leg pain, or sick contacts. The patient underwent an extensive evaluation in the ED with WBC count 10.1, hemoglobin 14, troponin 0.026, BNP 97, and EKG showing normal sinus rhythm at 93 beats per minutes with no acute ST/T-wave changes noted. A CT angiogram of the aorta revealed no aortic dissection. Chest x-ray revealed chronic parenchymal changes with no acute findings. The patient was subsequently admitted to the medicine service under observation status for further management. Cardiology was consulted and recommended a catheterization which revealed chronic total occlusion of the mid RCA and calcified plaque involving the distal L main coronary artery in the range of 50%. The patient was recommended for CABG and was evaluated by the cardiovascular surgeons who have scheduled the patient to undergo the procedure in the next few days. Patient was seen and examined at the bedside on 10/31/2018. He reports no further episodes of chest pain over the past 24 hours and has been asymptomatic. He otherwise denied any additional complaints including cough, fever, chills, nausea, vomiting, or abdominal pain. Objective - Vital Signs Vital signs: Vital Signs Temp 97.8 F 10/31/18 08:00 Pulse 78 10/31/18 08:16 Resp 18 10/31/18 08:00 BP 122/68 10/31/18 08:00 Pulse Ox 93 L 10/31/18 08:00 Intake & Output 10/30/18 10/31/18 10/31/18 18:59 06:59 18:59 Intake Total 840 1825 459.189 Balance 840 1825 459.189 Weight 83.5 kg Intake: Intake, IV Titration 825 219.189 Amount Heparin Sod,Pork in 0.45% 219.189 NaCl 25,000 unit In 0.45 % NaCl 1 250ml.bag @ 11.6 UNITS/KG/HR 9.945 mls/hr IV .Q24H [facility] Rx#: [id number] IV Fluid Continuation 1, 825 000 ml @ 0 mls/hr IV .STK -MED ONE Rx#:[id number] Oral 840 1000 240 Other: Voiding Method Toilet Toilet # Voids 2 - Exam General: Non-toxic, in no acute distress, appears stated age, obese HEENT: NC/AT, anicteric sclerae, moist conjunctiva, no lid-lag, PERRLA, oropharynx clear Cardiovascular: S1/S2 wnl, no murmurs, rubs, or gallops Lungs: Clear to auscultation, normal respiratory effort, no accessory muscle use Abdominal: Soft, non-tender, non-distended, no guarding, rebound, or rigidity Skin: Warm, dry Extremities: No edema or contractures Psychiatric: Alert and oriented to person, place and time, appropriate affect Neuro: CN II-XII grossly intact, Strength 5/5 in all 4 extremities, Speech intact, Sensation to light touch grossly intact throughout - Labs CBC & Chem 7: 10/31/18 06:27 10/31/18 06:27 Labs: Abnormal Lab Results - Last 24 Hours (Table) 10/30/18 10/30/18 10/31/18 Range/Units 07:48 07:48 06:27 WBC (3.8-10.6) k/uL RBC (4.30-5.90) m/uL Hgb (13.0-17.5) gm/dL Hct (39.0-53.0) % APTT 59.0 H (22.0-30.0) sec Hemoglobin A1c 6.4 H (4.0-6.0) % Free T4 0.66 L (0.78-2.19) ng/dL 10/31/18 Range/Units 06:27 WBC 11.3 H (3.8-10.6) k/uL RBC 3.90 L (4.30-5.90) m/uL Hgb 11.7 L (13.0-17.5) gm/dL Hct 35.9 L (39.0-53.0) % APTT (22.0-30.0) sec Hemoglobin A1c (4.0-6.0) % Free T4 (0.78-2.19) ng/dL Microbiology - Last 24 Hours (Table) 10/29/18 17:45 Nasal Screen MRSA/MSSA - Final Nasal Swab 10/29/18 12:32 Urine Culture - Final Urine,Clean Catch Assessment and Plan Plan: NSTEMI, s/p Cardiac cath showing 50% distal left main disease, CABG recommended -Cardiology following, patient to be continued on Heparin infusion and maximal medical therapy for now including Aspirin 325, Lipitor 80, and Lopressor 25 bid -Cardiac monitoring -Echo reviewed -Patient tentatively scheduled for CABG next Tuesday Leukocytosis, likely reactive, improved -Will monitor Hypothyroidism, elevated TSH -On 25 g of levothyroxine at home -Increase to 75 g daily DVT prophylaxis -Heparin Infusion Discussed with: Patient Anticipated discharge date: 11/08/[address]: Home A total of 30 minutes was spent on the care of this complex patient more than 50% of the time was spent in counseling and care coordination.
[2018-10-31] MEDS: HEPARIN SOD,PORK IN 0.45% NACL 25,000 UNIT in 0.45% NACL 1 250ML.BAG IV SCH (11:22)
--- NOTE | 2018-10-31 12:32 | P.PN ---
Subjective Progress Note Date: 10/31/18 This is a pleasant 53-year-old gentleman with a past medical history significant for dyslipidemia, prior history of smoking, and very significant family history of coronary artery disease was multiple first-degree relatives with coronary artery disease and prior coronary artery vascularization presented to the hospital complaining of chest discomfort. The symptoms started about a week ago when he started experiencing intermittent episodes of chest discomfort, in the mid of the chest, as a sharp kind of discomfort, with radiation to the left arm. No associated symptoms of shortness of breath, sweating, dizziness or light of this, or syncope. Yesterday his chest discomfort has been more intense compared to before and because of that he decided to come to the hospital. The EKG showed sinus rhythm without any ST or T-wave abnormalities. The first set of enzymes came in to be unremarkable but the second set of troponin came in to be abnormal. The third set came in to be unremarkable. He underwent a computed tomography scan of the chest which showed no evidence of aortic dissection or aortic aneurysm. The patient underwent a heart catheterization and that revealed disease involving the left main coronary artery distally appears to be in the range of 50%. He was referred for coronary artery bypass grafting and was seen by the surgeon today and the plan is to pursue with coronary artery was grafting in the next few days. Probably that happened as an outpatient. Meanwhile the patient is on aspirin, metoprolol, and statin. The echocardiogram revealed normal LV function. 10/30/2018 Patient was seen and examined this morning, he did have an episode of chest discomfort earlier today, requiring sublingual nitroglycerin. At the time of my examination he was chest pain-free. Because of the chest discomfort, we would recommend to continue the patient on IV heparin, continue to monitor him in the hospital another 24 hours. 10/31/2018 Patient was seen and examined this morning, denies any further episodes of chest discomfort and is breathing overall has been stable. Patient and his family are quite concerned about going home before his bypass surgery. The original plan was for the patient to be discharged home to come back on Tuesday as an outpatient. He continues at this time to be on IV heparin hemodynamically he is stable. We will call cardiothoracic surgery and discuss this further with them. Objective - Vital Signs Vital signs: Vital Signs Temp 97.8 F 10/31/18 12:00 Pulse 56 L 10/31/18 12:00 Resp 18 05/07/19 12:00 BP 114/70 10/31/18 12:00 Pulse Ox 96 10/31/18 12:00 Intake & Output 10/30/18 10/31/18 10/31/18 18:59 06:59 18:59 Intake Total 840 1825 490.000 Balance 840 1825 490.000 Weight 83.5 kg Intake: Intake, IV Titration 825 250.000 Amount Heparin Sod,Pork in 0.45% 250.000 NaCl 25,000 unit In 0.45 % NaCl 1 250ml.bag @ 11.6 UNITS/KG/HR 9.945 mls/hr IV .Q24H [facility] Rx#: [id number] IV Fluid Continuation 1, 825 000 ml @ 0 mls/hr IV .STK -[facility] ONE Rx#:[id number] Oral 840 1000 240 Other: Voiding Method Toilet Toilet # Voids 2 - Exam PHYSICAL EXAMINATION: GENERAL: 53-year-old gentleman in no acute distress at the time of my examination HEENT: Head is atraumatic, normocephalic. Pupils equal, round. Sclera anicteric. Conjunctiva are clear. Mucous membranes of the mouth are moist. Neck is supple. There is no elevated jugular venous pressure. No carotid bruit is heard. HEART EXAMINATION: Heart S1, S2 normal. No murmur or gallop heard. CHEST EXAMINATION: Lungs are clear to auscultation and precussion. No chest wall tenderness is noted on palpation or with deep breathing. ABDOMEN: Soft, nontender. Bowel sounds are heard. No organomegaly noted. EXTREMITIES: 2+ peripheral pulses with no evidence of peripheral edema and no calf tenderness noted. NEUROLOGIC patient is awake, alert and oriented X3. . - Labs CBC & Chem 7: 10/31/18 06:27 10/31/18 06:27 Labs: Abnormal Lab Results - Last 24 Hours (Table) 10/30/18 10/31/18 10/31/18 Range/Units 07:48 06:27 06:27 WBC 11.3 H (3.8-10.6) k/uL RBC 3.90 L (4.30-5.90) m/uL Hgb 11.7 L (13.0-17.5) gm/dL Hct 35.9 L (39.0-53.0) % APTT 59.0 H (22.0-30.0) sec Hemoglobin A1c 6.4 H (4.0-6.0) % Microbiology - Last 24 Hours (Table) 10/29/18 17:45 Nasal Screen MRSA/MSSA - Final Nasal Swab 10/29/18 12:32 Urine Culture - Final Urine,Clean Catch Assessment and Plan Plan: Assessment #1 acute non-ST patient myocardial infarction #2 severe coronary artery disease involving the distal left main, patient will need to undergo coronary artery bypass grafting surgery #3 hypertension #4 dyslipidemia #5 family history of CAD Plan From cardiology's perspective, we will continue the patient on his IV heparin. We will discuss further with cardiothoracic surgery regarding timing of his procedure. Patient will not be discharged home prior to bypass surgery. DNP note has been reviewed, I agree with a documented findings and plan of care. Patient was seen and examined.
--- NOTE | 2018-10-31 15:47 | P.PN ---
Subjective Progress Note Date: 10/31/18 Principal diagnosis: Severe triple vessel coronary artery disease with left main disease, non-STEMI, left internal carotid artery stenosis 50-69% with abnormal flow in the right ve rtebral artery possibly representing partial steal syndrome. Previous medical history of hyperlipidemia, hypothyroid with preoperative TSH 72.1, free T4 0.66, previous tobacco dependence, mild COPD with preoperative FEV1 62% of predicted, obesity, and strong family history of premature coronary artery disease The patient is currently sitting up in bed in no acute distress. Patient states he had no chest pain or shortness of breath last night, however he and his family are very nervous about the possibility of discharge to home with return of the day of surgery. Has ambulated in the hallway. Objective - Vital Signs Vital signs: Vital Signs Temp 97.8 F 10/31/18 12:00 Pulse 56 L 10/31/18 12:00 Resp 18 10/31/18 12:00 BP 114/70 10/31/18 12:00 Pulse Ox 96 10/31/18 12:00 Intake & Output 10/30/18 10/31/18 10/31/18 18:59 06:59 18:59 Intake Total 840 1825 490.000 Balance 840 1825 490.000 Weight 83.5 kg Intake: Intake, IV Titration 825 250.000 Amount Heparin Sod,Pork in 0.45% 250.000 NaCl 25,000 unit In 0.45 % NaCl 1 250ml.bag @ 11.6 UNITS/KG/HR 9.945 mls/hr IV .Q24H [facility] Rx#: [id number] IV Fluid Continuation 1, 825 000 ml @ 0 mls/hr IV .STK -[facility] Rx#:[id number] Oral 840 1000 240 Other: Voiding Method Toilet Toilet # Voids 2 - Constitutional General appearance: Present: cooperative, no acute distress - Respiratory Details: Lungs sounds diminished bilaterally. Respirations even, nonlabored. Currently on room air with oxygen saturation 96%. Able to achieve 1250 mL on his incen tive spirometry. Strong cough. - Cardiovascular Details: S1, S2 present. Regular rate and rhythm, sinus rhythm on telemetry. Palpable peripheral pulses bilaterally. No edema present. No calf pain or tenderness noted. - Gastrointestinal Gastrointestinal Comment(s): Abdomen soft, nontender, nondistended. Active bowel sounds present 4 quadrants. Tolerating diet. - Genitourinary Genitourinary Comment(s): Abdomen soft, nontender, nondistended. Active bowel sounds present 4 quadrants. Tolerating diet. - Integumentary Integumentary Comment(s): Skin is warm and dry with evidence of good perfusion. - Neurologic Neurologic: Present: CNII-XII intact - Musculoskeletal Musculoskeletal: Present: gait normal, strength equal bilaterally - Psychiatric Psychiatric: Present: A&O x's 3, appropriate affect, intact judgment & insight - Allied health notes Allied health notes reviewed: nursing - Labs CBC & Chem 7: 10/31/18 06:27 10/31/18 06:27 Labs: Abnormal Lab Results - Last 24 Hours (Table) 10/30/18 10/31/18 10/31/18 Range/Units 07:48 06:27 06:27 WBC 11.3 H (3.8-10.6) k/uL RBC 3.90 L (4.30-5.90) m/uL Hgb 11.7 L (13.0-17.5) gm/dL Hct 35.9 L (39.0-53.0) % APTT 59.0 H (22.0-30.0) sec Hemoglobin A1c 6.4 H (4.0-6.0) % Microbiology - Last 24 Hours (Table) 10/29/18 17:45 Nasal Screen MRSA/MSSA - Final Nasal Swab 10/29/18 12:32 Urine Culture - Final Urine,Clean Catch Assessment and Plan Assessment: 1. Severe triple-vessel coronary artery disease with left main disease 2. Non-STEMI 3. Left internal carotid artery stenosis 50-69% with abnormal flow in the right vertebral artery possibly representing partial steal syndrome 4. Hyperlipidemia 5. Hypothyroid, current TSH 72.1, free T4 0.66 6. Previous tobacco dependence 7. Mild COPD with preoperative FEV1 62% of predicted 8. Obesity 9. Strong family history of premature coronary artery disease 10. Preoperative hemoglobin A1c 6.4% Plan: 1. Continue aspirin, statin, beta lucia therapy. 2. Due to the patient's symtoms, we plan to keep the patient inpatient and perform coronary artery bypass graft surgery with the left internal mammary artery, endovascular vein harvest, possible right internal mammary artery use, intraoperative transesophageal echocardiogram 11/03/[address] Soliz. 3. Encourage incentive spirometry 10 times every hour while awake. 4. Encourage continued smoking cessation. 5. Synthroid dosage increased per primary care service. 6. Continue supportive care. Continue preoperative teaching. 7. Medical management per Dr. Rowan, Dr. Wolf. Time with Patient: Greater than 30
[2018-10-31] MEDS: AMITRIPTYLINE HCL 10 MG TAB PO SCH (20:12)
[2018-11-01] MEDS: LEVOTHYROXINE 75 MCG TAB PO SCH (05:50)
[2018-11-01] MEDS: VIT A,C & E-LUTEIN-MINERALS 1 EACH TAB PO SCH (08:08)
[2018-11-01] MEDS: METOPROLOL TARTRATE 25 MG TAB PO SCH ×2 (08:08→20:57)
[2018-11-01] MEDS: ATORVASTATIN 80 MG TAB PO SCH (08:08)
[2018-11-01] MEDS: ISOSORBIDE MONONITRATE ER 15 MG TAB PO SCH (08:08)
[2018-11-01] MEDS: LISINOPRIL 5 MG TAB PO SCH (08:08)
[2018-11-01] MEDS: ASPIRIN 325 MG TAB PO SCH (08:08)
[2018-11-01] MEDS: MUPIROCIN 2% OINT 22 GM TUBE TOPICAL SCH ×2 (08:08→20:57)
--- NOTE | 2018-11-01 08:48 | P.PN ---
Subjective Progress Note Date: 11/01/18 The patient is a 53 yo M with a PMH of HLD, occipital neuralgia, and hypothyroidism who presented to the ED for chest pain. The patient noted that the pain started the night prior at 1 am and woke him up from sleep. It was epigastric, sharp/pressure, 6/10, radiating to his back, occuring every 30 minutes, lasting for roundly 30 seconds at a time. He endorsed associated SOB and palpitations. The patient noted that he also had been experiencing GERD during this time frame which has recently gotten worse. The patient attempted to take Tums with only partial relief. He noted that upon admission to the ED, his pain improved and at time of the interview was a /10. He otherwise denied cough, fever, chills, abdominal pain, recent travel, leg pain, or sick contacts. The patient underwent an extensive evaluation in the ED with WBC count 10.1, hemoglobin 14, troponin 0.026, BNP 97, and EKG showing normal sinus rhythm at 93 beats per minutes with no acute ST/T-wave changes noted. A CT angiogram of the aorta revealed no aortic dissection. Chest x-ray revealed chronic parenchymal changes with no acute findings. The patient was subsequently admitted to the medicine service under observation status for further management. Cardiology was consulted and recommended a catheterization which revealed chronic total occlusion of the mid RCA and calcified plaque involving the distal L main coronary artery in the range of 50%. The patient was recommended for CABG and was evaluated by the cardiovascular surgeons who have scheduled the patient to undergo the procedure in the next few days. Patient was seen and examined at the bedside on 11/01/2018. The patient continues to be asymptomatic and is denying episodes of chest pain, SOB, palpitations, nausea, vomiting, diarphoresis, fever, chills, or cough. Objective - Vital Signs Vital signs: Vital Signs Temp 97.9 F 11/01/18 04:00 Pulse 69 11/01/18 04:00 Resp 18 11/01/18 04:00 BP 143/80 11/01/18 04:00 Pulse Ox 95 11/01/18 04:00 Intake & Output 10/31/18 11/01/18 11/01/18 18:59 06:59 18:59 Intake Total 1010.000 80 Balance 1010.000 80 Weight 82.8 kg Intake: IV 80 normal saline 80 Intake, IV Titration 410.000 Amount Heparin Sod,Pork in 0.45% 250.000 NaCl 25,000 unit In 0.45 % NaCl 1 250ml.bag @ 11.6 UNITS/KG/HR 9.945 mls/hr IV .Q24H [facility] Rx#: [id number] IV Fluid Continuation 1, 160 000 ml @ 0 mls/hr IV .STK -[facility] Rx#:[id number] Oral 600 Other: Voiding Method Toilet # Voids 2 1 # Bowel Movements 0 - Exam General: Non-toxic, in no acute distress, appears stated age, obese HEENT: NC/AT, anicteric sclerae, moist conjunctiva, no lid-lag, PERRLA, oropharynx clear Cardiovascular: S1/S2 wnl, no murmurs, rubs, or gallops Lungs: Clear to auscultation, normal respiratory effort, no accessory muscle use Abdominal: Soft, non-tender, non-distended, no guarding, rebound, or rigidity Skin: Warm, dry Extremities: No edema or contractures Psychiatric: Alert and oriented to person, place and time, appropriate affect Neuro: CN II-XII grossly intact, Strength 5/5 in all 4 extremities, Speech intact, Sensation to light touch grossly intact throughout - Labs CBC & Chem 7: 10/31/18 06:27 10/31/18 06:27 Labs: Abnormal Lab Results - Last 24 Hours (Table) 11/01/18 Range/Units 06:22 APTT 68.2 H (22.0-30.0) sec Assessment and Plan Plan: NSTEMI, s/p Cardiac cath showing 50% distal left main disease, CABG recommended -Cardiology following, patient to be continued on Heparin infusion and maximal medical therapy for now including Aspirin 325, Lipitor 80, and Lopressor 25 bid -Cardiac monitoring -Echo reviewed -Patient now scheduled for CABG on 11/03/18 Leukocytosis, likely reactive, improved -Will monitor Hypothyroidism, elevated TSH -On 25 g of levothyroxine at home -Increase to 75 g daily DVT prophylaxis -Heparin Infusion Discussed with: Patient Anticipated discharge date: 11/08/[address]: Home A total of 30 minutes was spent on the care of this complex patient more than 50% of the time was spent in counseling and care coordination.
[2018-11-01] MEDS: HEPARIN SOD,PORK IN 0.45% NACL 25,000 UNIT in 0.45% NACL 1 250ML.BAG IV SCH (12:28)
--- NOTE | 2018-11-01 13:04 | P.PN ---
Subjective Progress Note Date: 11/01/18 This is a pleasant 53-year-old gentleman with a past medical history significant for dyslipidemia, prior history of smoking, and very significant family history of coronary artery disease was multiple first-degree relatives with coronary artery disease and prior coronary artery vascularization presented to the hospital complaining of chest discomfort. The symptoms started about a week ago when he started experiencing intermittent episodes of chest discomfort, in the mid of the chest, as a sharp kind of discomfort, with radiation to the left arm. No associated symptoms of shortness of breath, sweating, dizziness or light of this, or syncope. Yesterday his chest discomfort has been more intense compared to before and because of that he decided to come to the hospital. The EKG showed sinus rhythm without any ST or T-wave abnormalities. The first set of enzymes came in to be unremarkable but the second set of troponin came in to be abnormal. The third set came in to be unremarkable. He underwent a computed tomography scan of the chest which showed no evidence of aortic dissection or aortic aneurysm. The patient underwent a heart catheterization and that revealed disease involving the left main coronary artery distally appears to be in the range of 50%. He was referred for coronary artery bypass grafting and was seen by the surgeon today and the plan is to pursue with coronary artery was grafting in the next few days. Probably that happened as an outpatient. Meanwhile the patient is on aspirin, metoprolol, and statin. The echocardiogram revealed normal LV function. 10/30/2018 Patient was seen and examined this morning, he did have an episode of chest discomfort earlier today, requiring sublingual nitroglycerin. At the time of my examination he was chest pain-free. Because of the chest discomfort, we would recommend to continue the patient on IV heparin, continue to monitor him in the hospital another 24 hours. 10/31/2018 Patient was seen and examined this morning, denies any further episodes of chest discomfort and is breathing overall has been stable. Patient and his family are quite concerned about going home before his bypass surgery. The original plan was for the patient to be discharged home to come back on Tuesday as an outpatient. He continues at this time to be on IV heparin hemodynamically he is stable. We will call cardiothoracic surgery and discuss this further with them. 11/01/2018 Patient was seen and examined this morning, ambulating in the hallway, denies any further chest pain, breathing overall has been stable. Blood pressure 100/60 with a heart rate in the 60s, 95% on room air. Objective - Vital Signs Vital signs: Vital Signs Temp 97.9 F 11/01/18 11:29 Pulse 50 L 11/01/18 11:30 Resp 18 11/01/18 11:29 BP 101/61 11/01/18 11:29 Pulse Ox 95 11/01/18 11:29 Intake & Output 10/31/18 11/01/18 11/01/18 18:59 06:59 18:59 Intake Total 1010.000 80 650 Balance 1010.000 80 650 Weight 82.8 kg Intake: IV 80 normal saline 80 Intake, IV Titration 410.000 410 Amount Heparin Sod,Pork in 0.45% 250.000 250 NaCl 25,000 unit In 0.45 % NaCl 1 250ml.bag @ 11.6 UNITS/KG/HR 9.945 mls/hr IV .Q24H [facility] Rx#: [id number] IV Fluid Continuation 1, 160 000 ml @ 0 mls/hr IV .STK -[facility] Rx#:[id number] Sodium Chloride 0.9% 1, 160 000 ml @ 75 mls/hr IV . [id number] [facility] Rx#:[id number] Oral 600 240 Other: Voiding Method Toilet # Voids 2 1 # Bowel Movements 0 - Exam PHYSICAL EXAMINATION: GENERAL: 53-year-old gentleman in no acute distress at the time of my examination HEENT: Head is atraumatic, normocephalic. Pupils equal, round. Sclera anicte [place]. Conjunctiva are clear. Mucous membranes of the mouth are moist. Neck is supple. There is no elevated jugular venous pressure. No carotid bruit is heard. HEART EXAMINATION: Heart S1, S2 normal. No murmur or gallop heard. CHEST EXAMINATION: Lungs are clear to auscultation and precussion. No chest wall tenderness is noted on palpation or with deep breathing. ABDOMEN: Soft, nontender. Bowel sounds are heard. No organomegaly noted. EXTREMITIES: 2+ peripheral pulses with no evidence of peripheral edema and no calf tenderness noted. NEUROLOGIC patient is awake, alert and oriented X3. . - Labs CBC & Chem 7: 10/31/18 06:27 10/31/18 06:27 Labs: Abnormal Lab Results - Last 24 Hours (Table) 05/08/19 Range/Units 06:22 APTT 68.2 H (22.0-30.0) sec Assessment and Plan Plan: Assessment #1 acute non-ST patient myocardial infarction #2 severe coronary artery disease involving the distal left main, patient will need to undergo coronary artery bypass grafting surgery #3 hypertension #4 dyslipidemia #5 family history of CAD Plan From cardiology's perspective, we will continue the patient on his IV heparin. Patient is scheduled now for coronary artery bypass grafting surgery on Tuesday. We will continue to follow DNP note has been reviewed, I agree with a documented findings and plan of care. Patient was seen and examined.
--- NOTE | 2018-11-01 13:35 | P.PN ---
Subjective Progress Note Date: 11/01/18 Principal diagnosis: Severe triple vessel coronary artery disease with left main disease, non-STEMI, left internal carotid artery stenosis 50-69% with abnormal flow in the right ve rtebral artery possibly representing partial steal syndrome. Previous medical history of hyperlipidemia, hypothyroid with preoperative TSH 72.1, free T4 0.66, previous tobacco dependence, mild COPD with preoperative FEV1 62% of predicted, obesity, and strong family history of premature coronary artery disease The patient is currently ambulating in the hallway in no acute distress. Patient states he had no chest pain or shortness of breath last night. Anticipates surgery on Tuesday, no new questions. Objective - Vital Signs Vital signs: Vital Signs Temp 97.9 F 11/01/18 11:29 Pulse 50 L 11/01/18 11:30 Resp 18 11/01/18 11:29 BP 101/61 11/01/18 11:29 Pulse Ox 95 11/01/18 11:29 Intake & Output 10/31/18 11/01/18 11/01/18 18:59 06:59 18:59 Intake Total 1010.000 80 650 Balance 1010.000 80 650 Weight 82.8 kg Intake: IV 80 normal saline 80 Intake, IV Titration 410.000 410 Amount Heparin Sod,Pork in 0.45% 250.000 250 NaCl 25,000 unit In 0.45 % NaCl 1 250ml.bag @ 11.6 UNITS/KG/HR 9.945 mls/hr IV .Q24H [facility] Rx#: [id number] IV Fluid Continuation 1, 160 000 ml @ 0 mls/hr IV .STK -[facility] Rx#:[id number] Sodium Chloride 0.9% 1, 160 000 ml @ 75 mls/hr IV . [id number] [facility] Rx#:[id number] Oral 600 240 Other: Voiding Method Toilet # Voids 2 1 # Bowel Movements 0 - Constitutional General appearance: Present: cooperative, no acute distress - Respiratory Details: Lungs sounds diminished bilaterally. Respirations even, nonlabored. Currently on room air with oxygen saturation 95%. Able to achieve 2500 mL on his incentive spirometry. Strong cough. - Cardiovascular Details: S1, S2 present. Regular rate and rhythm, sinus rhythm on telemetry. Palpable peripheral pulses bilaterally. No edema present. No calf pain or tenderness noted. - Gastrointestinal Gastrointestinal Comment(s): Abdomen soft, nontender, nondistended. Active bowel sounds present 4 quadrants. Tolerating diet. - Genitourinary Genitourinary Comment(s): Abdomen soft, nontender, nondistended. Active bowel sounds present 4 quadrants. Tolerating diet. - Integumentary Integumentary Comment(s): Skin is warm and dry with evidence of good perfusion. - Neurologic Neurologic: Present: CNII-XII intact - Musculoskeletal Musculoskeletal: Present: gait normal, strength equal bilaterally - Psychiatric Psychiatric: Present: A&O x's 3, appropriate affect, intact judgment & insight - Allied health notes Allied health notes reviewed: nursing - Labs CBC & Chem 7: 10/31/18 06:27 10/31/18 06:27 Labs: Abnormal Lab Results - Last 24 Hours (Table) 11/01/18 Range/Units 06:22 APTT 68.2 H (22.0-30.0) sec - Imaging and Cardiology Chest x-ray: report reviewed, image reviewed Assessment and Plan Assessment: 1. Severe triple-vessel coronary artery disease with left main disease 2. Non-STEMI 3. Left internal carotid artery stenosis 50-69% with abnormal flow in the right vertebral artery possibly representing partial steal syndrome 4. Hyperlipidemia 5. Hypothyroid, current TSH 72.1, free T4 0.66 6. Previous tobacco dependence 7. Mild COPD with preoperative FEV1 62% of predicted 8. Obesity 9. Strong family history of premature coronary artery disease 10. Preoperative hemoglobin A1c 6.4% Plan: 1. Continue aspirin, statin, beta lucia therapy. 2. Plan is for coronary artery bypass graft surgery with the left internal mammary artery, endovascular vein harvest, possible right internal mammary artery use, intraoperative transesophageal echocardiogram 11/03/[address] Soliz. 3. Encourage incentive spirometry 10 times every hour while awake. 4. Encourage continued smoking cessation. 5. Synthroid dosage increased per primary care service. 6. Continue supportive care. Continue preoperative teaching. 7. Medical management per Dr. Rowan, Dr. Wolf. Time with Patient: Greater than 30
--- NOTE | 2018-11-01 13:50 | P.VSCSTY ---
Greater Saphenous Vein Mapping This is bilateral lower extremity greater saphenous vein mapping. Date of service 10/29/2018 Vein quality and ultrasound appearance no visible endoluminal thrombus or wall changes. Vein size groin right 4.3 x 3.8 groin left 5.9 x 5.3 High thigh right 3.5 x 3.3 high thigh left 3.7 x 3.5 Mid thigh right 2.2 x 2.4 mid thigh left 2.5 x 2.4 Above-knee right 2.6 x 2.4 above- knee left 2.7 x 2.9 Below knee right 1.8 x 2.0 below-knee left 2.5 x 1.9 Mid calf right 1.8 x 2.2 mid calf left 1.5 x 1.1 Ankle right 1.9 x 2.0 ankle left 2.0 x 2.0 Impression usable bilateral greater saphenous vein. Both lower legs are bit small..
--- NOTE | 2018-11-01 13:54 | P.ARTDOP ---
Arterial Doppler Bilateral radial artery studies: Date of study: 10/30/2018 Reason for study: Preop CABG Doppler with segmental pressures shows 25-37 mmHg gradient left to right Digital plethysmography with radial artery compression shows significant gradient on the left of up to 83 mmHg. There is no significant gradient on the right. Imaging: The left radial artery has adequate sizes but it is unusable due to of his markedly findings. Proximally the right radial is 4.6 x 3.7, in the midportion its 2.1 x 2.7, distally its 3.0 x 3.2 however there is a short segment of wall thickening suggesting previous cannulation. Impression: The left radial is not usable. The right radial may be utilized in its proximal portion. However, the distal portion has a small segment that is likely to be unusable. Clinical correlation and anatomic assessment with measurements would be prudent to be done preoperatively.
[2018-11-01] MEDS: AMITRIPTYLINE HCL 10 MG TAB PO SCH (20:57)
[2018-11-02 04:41] LABS: ALT 62 U/L (21-72); AST 21 U/L (17-59); Albumin 3.9 g/dL (3.5-5.0); Alkaline Phosphatase 67 U/L (38-126); Anion Gap 7 mmol/L; Blood Urea Nitrogen 12 mg/dL (9-20); Calcium 9.4 mg/dL (8.4-10.2); Carbon Dioxide 28 mmol/L (22-30); Chloride 105 mmol/L (98-107); Glucose 106 mg/dL (74-99); Magnesium 1.9 mg/dL (1.6-2.3); Potassium 3.7 mmol/L (3.5-5.1); Sodium 140 mmol/L (137-145); Total Bilirubin 0.3 mg/dL (0.2-1.3); Total Protein 6.4 g/dL (6.3-8.2)
[2018-11-02] MEDS: LEVOTHYROXINE 75 MCG TAB PO SCH (06:05)
[2018-11-02 06:26] LABS: Basophils # (A) 0.1 k/uL (0-0.2); Basophils % (A) 1 %; Eosinophils # (A) 0.6 k/uL (0-0.7); Eosinophils % (A) 5 %; HGB 13.5 gm/dL (13.0-17.5); Lymphocytes # (A) 3.2 k/uL (1.0-4.8); Lymphocytes % (A) 27 %; MCH 30.3 pg (25.0-35.0); MCHC 32.9 g/dL (31.0-37.0); MCV 92.2 fL (80.0-100.0); Mean Platelet Volume 7.2; Monocytes # (A) 0.5 k/uL (0-1.0); Monocytes % (A) 4 %; Neutrophils # (A) 7.3 k/uL (1.3-7.7); Neutrophils % (A) 61 %; Platelet Count 297 k/uL (150-450); RBC 4.44 m/uL (4.30-5.90); RDW 14.4 % (11.5-15.5); WBC 11.9 k/uL (3.8-10.6)
[2018-11-02 06:37] LABS: Partial Thromboplastin Time 67.4 sec (22.0-30.0); Prothrombin Time 10.7 sec (9.0-12.0)
[2018-11-02] MEDS ORDERED: BISACODYL 10 MG SUPP RECTAL STA (09:04)
--- NOTE | 2018-11-02 09:49 | XR ---
EXAMINATION TYPE: XR chest 2V DATE OF EXAM: 11/02/2018 COMPARISON: 10/27/2018 TECHNIQUE: PA and lateral views submitted. HISTORY: Pre-op CABG FINDINGS: The lungs are clear and there is no pneumothorax, pleural effusion, or focal pneumonia. Hypertrophi c and degenerative change of the spine. IMPRESSION: 1. No acute process.
[2018-11-02] MEDS: ATORVASTATIN 80 MG TAB PO SCH (10:14)
[2018-11-02] MEDS: METOPROLOL TARTRATE 25 MG TAB PO SCH ×2 (10:14→20:36)
[2018-11-02] MEDS: ASPIRIN 325 MG TAB PO SCH (10:15)
[2018-11-02] MEDS: LISINOPRIL 5 MG TAB PO SCH (10:15)
[2018-11-02] MEDS: MUPIROCIN 2% OINT 22 GM TUBE TOPICAL SCH ×2 (10:16→20:36)
[2018-11-02] MEDS: HEPARIN SOD,PORK IN 0.45% NACL 25,000 UNIT in 0.45% NACL 1 250ML.BAG IV SCH (10:18)
[2018-11-02] MEDS: ISOSORBIDE MONONITRATE ER 15 MG TAB PO SCH (10:18)
[2018-11-02] MEDS: VIT A,C & E-LUTEIN-MINERALS 1 EACH TAB PO SCH (10:18)
[2018-11-02] MEDS: IPRATROPIUM-ALBUTEROL 3 ML NEB INHALATION PRN (11:58)
--- NOTE | 2018-11-02 12:33 | P.PN ---
Subjective Progress Note Date: 11/02/18 Principal diagnosis: Non-ST elevation OK The patient is a 53 yo M with a PMH of HLD, occipital neuralgia, and hypothyroidism who presented to the ED for chest pain. The patient noted that the pain started the night prior at 1 AM and woke him up from sleep. It was epigastric, sharp/pressure, 6/10, radiating to his back, occuring every 30 minutes, lasting for roundly 30 seconds at a time. He endorsed associated SOB and palpitations. The patient noted that he also had been experiencing GERD during this time frame which has recently gotten worse. The patient attempted to take Tums with only partial relief. He noted that upon admission to the ED, his pain improved and at time of the interview was a 1/10. He otherwise denied cough, fever, chills, abdominal pain, recent travel, leg pain, or sick contacts. The patient underwent an extensive evaluation in the ED with WBC count 10.1, hemoglobin 14, troponin 0.026, BNP 97, and EKG showing normal sinus rhythm at 93 beats per minutes with no acute ST/T-wave changes noted. A CT angiogram of the aorta revealed no aortic dissection. Chest x-ray revealed chronic parenchymal changes with no acute findings. The patient was subsequently admitted to the medicine service under observation status for further management. Cardiology was consulted and recommended a catheterization which revealed chronic total occlusion of the mid RCA and calcified plaque involving the distal L main coronary artery in the range of 50%. The patient was recommended for CABG and was evaluated by the cardiovascular surgeons who have scheduled the patient to undergo CABG on 11/03/2018. Patient was seen and examined. No acute events overnight. CABG scheduled for tomorrow morning. Patient with no complaints today. He denies any chest pain, shortness of breath or palpitations. No nausea or vomiting. No fever or chills. Objective - Vital Signs Vital signs: Vital Signs Temp 97.6 F 11/02/18 04:00 Pulse 73 11/02/18 04:00 Resp 15 11/02/18 04:00 BP 120/70 11/02/18 04:00 Pulse Ox 92 L 11/02/18 04:00 Intake & Output 11/01/18 11/02/18 11/02/18 18:59 06:59 18:59 Intake Total 1290 730 Balance 1290 730 Weight 82.3 kg Intake: Intake, IV Titration 570 250 Amount Heparin Sod,Pork in 0.45% 250 250 NaCl 25,000 unit In 0.45 % NaCl 1 250ml.bag @ 11.6 UNITS/KG/HR 9.945 mls/hr IV .Q24H [facility] Rx#: [id number] Sodium Chloride 0.9% 1, 320 000 ml @ 75 mls/hr IV . [id number] [facility] Rx#:[id number] Oral 720 480 Other: Voiding Method Toilet # Voids 2 2 0 - Exam General: [non toxic], [no distress], [appears at stated age] Derm: [warm], [dry] Head: [atraumatic], [normocephalic], [symmetric] Eyes: [EOMI], [no lid lag], [anicteric sclera] Mouth: [no lip lesion], [mucus membranes moist] Cardiovascular: [S1S2 reg], [no murmur], [positive DP pulse bilateral] Lungs: [CTA bilateral], [no rhonchi, no rales] , [no accessory muscle use] Abdominal: [soft], [ nontender to palpation], [no guarding], [no appreciable organomegaly] Ext: [no gross muscle atrophy], [no edema], [no contractures] Neuro: [no focal neuro deficits] Psych: [Alert], [oriented], [appropriate affect] - Labs CBC & Chem 7: 11/02/18 06:02 11/02/18 03:57 Labs: Abnormal Lab Results - Last 24 Hours (Table) 11/02/18 11/02/18 11/02/18 Range/Units 03:57 03:57 06:02 WBC (3.8-10.6) k/uL APTT 67.4 H (22.0-30.0) sec Glucose 106 H (74-99) mg/dL Crossmatch See Detail 11/02/18 Range/Units 06:02 WBC 11.9 H (3.8-10.6) k/uL APTT (22.0-30.0) sec Glucose (74-99) mg/dL Crossmatch Assessment and Plan Assessment: Assessment and Plan Non-ST elevation OK Hyperlipidemia Obesity Hypothyroidism Troponin 0.026, 0.036, 0.028 with EKG showing normal sinus rhythm. Chest x-ray negative. Chest CT shows no aneurysm or dissection. Echocardiogram shows EF 50-55% with mild LVH. Cardiac catheterization shows 50% left main, 50% OM branch left circumflex, 50% proximal LAD. Plan: Plans for CABG tentatively tomorrow. Continue aspirin and Lipitor. Continue heparin drip. Continue metoprolol. Nitrostat as needed for chest pain. Telemetry monitoring. Follow cardiology and CT surgery recommendations. Lipid panel shows total cholesterol 149, LDL 54, TG 289. Plan: Continue Lipitor. BMI 31.1. His risk factor for CAD. Plan: Structured weight loss program. TSH 72.1, free T4 0.66. Plan: Continue Synthroid. Will likely need to increase medications. Patient admitted for non-ST elevation OK. Cardiology and cardiothoracic surgery on board. Plans for CABG tomorrow.
[2018-11-02 13:20] LABS: Hepatitis A Antibody IgM Non-Reactive (Non-Reactive); Hepatitis B Core IgM Non-Reactive (Non-Reactive)
--- NOTE | 2018-11-02 14:28 | P.PN ---
Subjective Progress Note Date: 11/02/18 Principal diagnosis: Severe triple vessel coronary artery disease with left main disease, non-STEMI, left internal carotid artery stenosis 50-69% with abnormal flow in the right ve rtebral artery possibly representing partial steal syndrome. Previous medical history of hyperlipidemia, hypothyroid with preoperative TSH 72.1, free T4 0.66, previous tobacco dependence, mild COPD with preoperative FEV1 62% of predicted, obesity, and strong family history of premature coronary artery disease The patient is currently ambulating in the hallway in no acute distress. Patient states he had no chest pain or shortness of breath last night. Anticipates surgery on Tuesday with Dr. Soliz, no new questions. Objective - Vital Signs Vital signs: Vital Signs Temp 97.6 F 11/02/18 08:00 Pulse 84 11/02/18 12:18 Resp 15 11/02/18 04:00 BP 159/87 11/02/18 12:00 Pulse Ox 94 L 11/02/18 08:00 Intake & Output 11/01/18 11/02/18 11/02/18 18:59 06:59 18:59 Intake Total 1290 730 Balance 1290 730 Weight 82.3 kg Intake: Intake, IV Titration 570 250 Amount Heparin Sod,Pork in 0.45% 250 250 NaCl 25,000 unit In 0.45 % NaCl 1 250ml.bag @ 11.6 UNITS/KG/HR 9.945 mls/hr IV .Q24H [facility] Rx#: [id number] Sodium Chloride 0.9% 1, 320 000 ml @ 75 mls/hr IV . [id number] [facility] Rx#:[id number] Oral 720 480 Other: Voiding Method Toilet # Voids 2 2 0 - Constitutional General appearance: Present: cooperative, no acute distress - Respiratory Details: Lungs sounds diminished bilaterally. Respirations even, nonlabored. Currently on room air with oxygen saturation 94%. Able to achieve 2500 mL on his incentive spirometry. Strong cough. - Cardiovascular Details: S1, S2 present. Regular rate and rhythm, sinus rhythm on telemetry. Palpable peripheral pulses bilaterally. No edema present. No calf pain or tenderness noted. - Gastrointestinal Gastrointestinal Comment(s): Abdomen soft, round, nontender, nondistended. Active bowel sounds present 4 quadrants. Tolerating diet. Bowel movement yesterday. - Genitourinary Genitourinary Comment(s): Continues to void clear, yellow urine. - Integumentary Integumentary Comment(s): Skin is warm and dry with evidence of good perfusion. - Neurologic Neurologic: Present: CNII-XII intact - Musculoskeletal Musculoskeletal: Present: gait normal, strength equal bilaterally - Psychiatric Psychiatric: Present: A&O x's 3, appropriate affect, intact judgment & insight - Allied health notes Allied health notes reviewed: nursing - Labs CBC & Chem 7: 11/02/18 06:02 11/02/18 03:57 Labs: Abnormal Lab Results - Last 24 Hours (Table) 11/02/18 11/02/18 11/02/18 Range/Units 03:57 03:57 06:02 WBC (3.8-10.6) k/uL APTT 67.4 H (22.0-30.0) sec Glucose 106 H (74-99) mg/dL Crossmatch See Detail 11/02/18 Range/Units 06:02 WBC 11.9 H (3.8-10.6) k/uL APTT (22.0-30.0) sec Glucose (74-99) mg/dL Crossmatch - Imaging and Cardiology Chest x-ray: report reviewed, image reviewed Assessment and Plan Assessment: 1. Severe triple-vessel coronary artery disease with left main disease 2. Non-STEMI 3. Left internal carotid artery stenosis 50-69% with abnormal flow in the right vertebral artery possibly representing partial steal syndrome 4. Hyperlipidemia 5. Hypothyroid, current TSH 72.1, free T4 0.66 6. Previous tobacco dependence 7. Mild COPD with preoperative FEV1 62% of predicted 8. Obesity 9. Strong family history of premature coronary artery disease 10. Preoperative hemoglobin A1c 6.4% Plan: 1. Continue aspirin, statin, beta lucia therapy. 2. Plan is for coronary artery bypass graft surgery with the left internal mammary artery, endovascular vein harvest, possible right internal mammary artery use, intraoperative transesophageal echocardiogram 11/03/[address] Soliz. 3. Encourage incentive spirometry 10 times every hour while awake. 4. Encourage continued smoking cessation. 5. Synthroid dosage increased per primary care service. 6. Continue supportive care. Continue preoperative teaching. 7. Medical management per Dr. Rowan, Dr. Wolf. Time with Patient: Greater than 30
--- NOTE | 2018-11-02 14:31 | P.PN ---
Subjective Progress Note Date: 11/02/18 This is a pleasant 53-year-old gentleman with a past medical history significant for dyslipidemia, prior history of smoking, and very significant family history of coronary artery disease was multiple first-degree relatives with coronary artery disease and prior coronary artery vascularization presented to the hospital complaining of chest discomfort. The symptoms started about a week ago when he started experiencing intermittent episodes of chest discomfort, in the mid of the chest, as a sharp kind of discomfort, with radiation to the left arm. No associated symptoms of shortness of breath, sweating, dizziness or light of this, or syncope. Yesterday his chest discomfort has been more intense compared to before and because of that he decided to come to the hospital. The EKG showed sinus rhythm without any ST or T-wave abnormalities. The first set of enzymes came in to be unremarkable but the second set of troponin came in to be abnormal. The third set came in to be unremarkable. He underwent a computed tomography scan of the chest which showed no evidence of aortic dissection or aortic aneurysm. The patient underwent a heart catheterization and that revealed disease involving the left main coronary artery distally appears to be in the range of 50%. He was referred for coronary artery bypass grafting and was seen by the surgeon today and the plan is to pursue with coronary artery was grafting in the next few days. Probably that happened as an outpatient. Meanwhile the patient is on aspirin, metoprolol, and statin. The echocardiogram revealed normal LV function. 10/30/2018 Patient was seen and examined this morning, he did have an episode of chest discomfort earlier today, requiring sublingual nitroglycerin. At the time of my examination he was chest pain-free. Because of the chest discomfort, we would recommend to continue the patient on IV heparin, continue to monitor him in the hospital another 24 hours. 10/31/2018 Patient was seen and examined this morning, denies any further episodes of chest discomfort and is breathing overall has been stable. Patient and his family are quite concerned about going home before his bypass surgery. The original plan was for the patient to be discharged home to come back on Tuesday as an outpatient. He continues at this time to be on IV heparin hemodynamically he is stable. We will call cardiothoracic surgery and discuss this further with them. 11/01/2018 Patient was seen and examined this morning, ambulating in the hallway, denies any further chest pain, breathing overall has been stable. Blood pressure 100/60 with a heart rate in the 60s, 95% on room air. 11/02/2018 Patient was seen and examined this morning, ambulating in the hallway, no chest pain, breathing has been stable. He is scheduled to undergo coronary bypass grafting surgery tomorrow. Objective - Vital Signs Vital signs: Vital Signs Temp 97.6 F 11/02/18 08:00 Pulse 84 11/02/18 12:18 Resp 15 11/02/18 04:00 BP 159/87 11/02/18 12:00 Pulse Ox 94 L 11/02/18 08:00 Intake & Output 11/01/18 11/02/18 11/02/18 18:59 06:59 18:59 Intake Total 1290 730 Balance 1290 730 Weight 82.3 kg Intake: Intake, IV Titration 570 250 Amount Heparin Sod,Pork in 0.45% 250 250 NaCl 25,000 unit In 0.45 % NaCl 1 250ml.bag @ 11.6 UNITS/KG/HR 9.945 mls/hr IV .Q24H [facility] Rx#: [id number] Sodium Chloride 0.9% 1, 320 000 ml @ 75 mls/hr IV . [id number] [facility] Rx#:[id number] Oral 720 480 Other: Voiding Method Toilet # Voids 2 2 0 - Exam PHYSICAL EXAMINATION: GENERAL: 53-year-old gentleman in no acute distress at the time of my examination HEENT: Head is atraumatic, normocephalic. Pupils equal, round. Sclera anicteric. Conjunctiva are clear. Mucous membranes of the mouth are moist. Neck is supple. There is no elevated jugular venous pressure. No carotid bruit is heard. HEART EXAMINATION: Heart S1, S2 normal. No murmur or gallop heard. CHEST EXAMINATION: Lungs are clear to auscultation and precussion. No chest wall tenderness is noted on palpation or with deep breathing. ABDOMEN: Soft, nontender. Bowel sounds are heard. No organomegaly noted. EXTREMITIES: 2+ peripheral pulses with no evidence of peripheral edema and no calf tenderness noted. NEUROLOGIC patient is awake, alert and oriented X3. . - Labs CBC & Chem 7: 11/02/18 06:02 11/02/18 03:57 Labs: Abnormal Lab Results - Last 24 Hours (Table) 11/02/18 11/02/18 11/02/18 Range/Units 03:57 03:57 06:02 WBC (3.8-10.6) k/uL APTT 67.4 H (22.0-30.0) sec Glucose 106 H (74-99) mg/dL Crossmatch See Detail 11/02/18 Range/Units 06:02 WBC 11.9 H (3.8-10.6) k/uL APTT (22.0-30.0) sec Glucose (74-99) mg/dL Crossmatch Assessment and Plan Plan: Assessment #1 acute non-ST patient myocardial infarction #2 severe coronary artery disease involving the distal left main, patient will need to undergo coronary artery bypass grafting surgery #3 hypertension #4 dyslipidemia #5 family history of CAD Plan From cardiology's perspective, we will continue the patient on his IV heparin. Patient is scheduled now for coronary artery bypass grafting surgery on Tuesday. We will continue to follow DNP note has been reviewed, I agree with a documented findings and plan of care. Patient was seen and examined.
[2018-11-02] MEDS ORDERED: MD COMMUNICATION TO PHARMACY 1 EACH MISC PO ONE (16:22)
[2018-11-02] MEDS ORDERED: DEXTROSE 5% IN WATER 1,000 ML with POTASSIUM CHLORIDE 25 MEQ, SODIUM CHLORIDE 2.5MEQ/ML... IV SCH ×6 (16:30)
[2018-11-02] MEDS ORDERED: DEXTROSE 5% IN WATER 1,000 ML with POTASSIUM CHLORIDE 110 MEQ, MAGNESIUM SULFATE 16 MEQ... IV SCH ×5 (16:30)
[2018-11-02] MEDS: AMITRIPTYLINE HCL 10 MG TAB PO SCH (20:36)
[2018-11-03] MEDS ORDERED: ALBUMIN HUMAN 25% 50 ML in EMPTY BAG 1 BAG IVPB ONE (05:00)
[2018-11-03] MEDS ORDERED: PAPAVERINE 360 MG in SODIUM CHLORIDE 0.9% 90 ML IV ONE (05:00)
[2018-11-03] MEDS ORDERED: HEPARIN SODIUM,PORCINE 5,000 UNIT in SODIUM CHLORIDE 0.9% 500 ML 500 ML IV ONE (05:00)
[2018-11-03] MEDS ORDERED: ALBUMIN HUMAN 5% 500 ML in EMPTY BAG 1 BAG IVPB ONE ×6 (05:00)
[2018-11-03] MEDS ORDERED: MANNITOL 25% 12.5 GM/50 ML VIAL IV ONE ×2 (05:00)
[2018-11-03] MEDS ORDERED: PROTAMINE SULFATE 250 MG in EMPTY BAG 1 BAG IV ONE (05:00)
[2018-11-03] MEDS ORDERED: CHLORHEXIDINE GLUCONATE 15 ML CUP MUCOUS MEM ONE (05:00)
[2018-11-03] MEDS ORDERED: HEPARIN SODIUM 1,000 UN/ML (10ML VL) IV ONE (05:00)
[2018-11-03] MEDS ORDERED: PHENYLEPHRINE 40 MG in SODIUM CHLORIDE 0.9% 250 ML IV ONE (05:00)
[2018-11-03] MEDS ORDERED: NOREPINEPHRINE 4 MG in SODIUM CHLORIDE 0.9% 250 ML IV SCH (05:00)
[2018-11-03] MEDS ORDERED: ASPIRIN 325 MG TAB PO ONE (05:00)
[2018-11-03] MEDS ORDERED: ceFAZolin 2 GM in SODIUM CHLORIDE 0.9% 30 ML IVPB ONE (05:00)
[2018-11-03] MEDS ORDERED: NITROGLYCERIN-D5W PMX 25 MG/250 ML BTL IV ONE (05:00)
[2018-11-03] MEDS ORDERED: SODIUM BICARB 8.4% 50 ML SYR (1 MEQ/ML) IV ONE (05:00)
[2018-11-03] MEDS ORDERED: ceFAZolin 1,000 MG in SODIUM CHLORIDE 0.9% IRRIGATIO 1,000 ML IRRIGATION ONE (05:00)
[2018-11-03] MEDS ORDERED: TRANEXAMIC ACID 2,000 MG in SODIUM CHLORIDE 0.9% 80 ML IV ONE ×4 (05:00)
[2018-11-03] MEDS ORDERED: LACTATED RINGERS 1,000 ML IV SCH (05:00)
[2018-11-03] MEDS ORDERED: METOPROLOL TARTRATE 12.5 MG TAB PO ONE (05:00)
[2018-11-03] MEDS ORDERED: CLEVIDIPINE BUTYRATE 25 MG in EMPTY BAG 1 BAG IV SCH (05:00)
[2018-11-03] MEDS ORDERED: ATORVASTATIN 10 MG TAB PO ONE (05:00)
[2018-11-03] MEDS ORDERED: PROPOFOL 1,000 MG in EMPTY BAG 1 BAG IV PRN (05:00)
[2018-11-03] MEDS ORDERED: MAGNESIUM SULFATE SYG 4.06 MEQ/ML SYRINGE IV ONE (05:00)
[2018-11-03] MEDS ORDERED: PHENYLEPHRINE 10 MG/ML VIAL IV ONE (05:00)
[2018-11-03] MEDS ORDERED: CALCIUM CHLORIDE 100 MG/ML 10 ML SYRINGE IVP ONE (05:00)
[2018-11-03] MEDS ORDERED: PROTAMINE SULFATE 10 MG/ML 25 ML VIAL IV ONE ×2 (05:00→07:38)
[2018-11-03] MEDS ORDERED: ceFAZolin 2,000 MG in SODIUM CHLORIDE 0.9% 30 ML IVPB ONE (05:00)
[2018-11-03] MEDS ORDERED: ePHEDrine SULFATE/0.9% NACL/PF 50 MG/5 ML SYRINGE IV ONE (07:38)
[2018-11-03] MEDS ORDERED: TRANEXAMIC ACID 1,000 MG/10 ML VIAL ONE (07:38)
[2018-11-03] MEDS ORDERED: VECURONIUM 10 MG VIAL IV ONE (07:38)
[2018-11-03] MEDS ORDERED: PHENYLEPHRINE-0.9% NACL SYG 1 MG/10 ML SYRINGE ONE (07:38)
[2018-11-03] MEDS ORDERED: ceFAZolin 1,000 MG VIAL ONE (07:38)
[2018-11-03] MEDS ORDERED: PROPOFOL 10 MG/ML 20 ML VIAL IV ONE (07:38)
[2018-11-03] MEDS ORDERED: fentaNYL (PF) 50 MCG/ML 2 ML AMP ONE (07:38)
[2018-11-03] MEDS ORDERED: fentaNYL (PF) 50 MCG/ML 50 ML VIAL ONE (07:38)
[2018-11-03] MEDS ORDERED: POTASSIUM CHLORIDE OPEN HEART 20 MEQ/50 ML BAG IVPB ONE (07:38)
[2018-11-03] MEDS ORDERED: LIDOCAINE 2% SYG (PF) 100 MG/5 ML ONE (07:38)
[2018-11-03] MEDS ORDERED: MIDAZOLAM 2 MG/2 ML VIAL ONE (07:38)
[2018-11-03] MEDS ORDERED: HEPARIN SODIUM,PORCINE 10,000 UNIT/ML 1 ML VIAL ONE (07:38)
[2018-11-03] MEDS ORDERED: ELECTROLYTE-R (PH 7.4) 1,000 ML IV.SOLN IV ONE (07:38)
[2018-11-03] MEDS ORDERED: SODIUM CHLORIDE 0.9% 250 ML BAG ONE (07:38)
[2018-11-03] MEDS ORDERED: ALBUMIN HUMAN 5% (12.5gm) 250 ML BOTTLE IVPB ONE (07:38)
[2018-11-03] MEDS ORDERED: MAGNESIUM SULFATE 4 MEQ/ML 10ML VIAL ONE (07:38)
[2018-11-03] MEDS ORDERED: SODIUM CHLORIDE 0.9% IRRIG 1,000 ML BTL IRRIGATION ONE (07:38)
[2018-11-03 08:31] LABS: ABG Base Excess 0.4 mmol/L; ABG HCO3 26 mmol/L (21-25); ABG PCO2 43 mmHg (35-45); ABG PH 7.39 (7.35-7.45); ABG PO2 302 mmHg (83-108); ABG Potassium Whole Blood 4.1 mmol/L (3.4-4.5); ABG Sodium Whole Blood 139 mmol/L (135-146); ABG TCO2 27 mmol/L (19-24)
[2018-11-03 11:46] LABS: ABG Base Excess -0.8 mmol/L; ABG HCO3 25 mmol/L (21-25); ABG PCO2 47 mmHg (35-45); ABG PH 7.34 (7.35-7.45); ABG PO2 220 mmHg (83-108); ABG Potassium Whole Blood 3.8 mmol/L (3.4-4.5); ABG Sodium Whole Blood 138 mmol/L (135-146); ABG TCO2 27 mmol/L (19-24)
[2018-11-03 12:15] LABS: ABG Base Excess -1.2 mmol/L; ABG HCO3 24 mmol/L (21-25); ABG PCO2 42 mmHg (35-45); ABG PH 7.37 (7.35-7.45); ABG PO2 385 mmHg (83-108); ABG Potassium Whole Blood 3.7 mmol/L (3.4-4.5); ABG Sodium Whole Blood 134 mmol/L (135-146); ABG TCO2 25 mmol/L (19-24)
[2018-11-03 12:54] LABS: ABG Base Excess -0.6 mmol/L; ABG HCO3 25 mmol/L (21-25); ABG PCO2 41 mmHg (35-45); ABG PH 7.38 (7.35-7.45); ABG PO2 277 mmHg (83-108); ABG Potassium Whole Blood 4.1 mmol/L (3.4-4.5); ABG Sodium Whole Blood 135 mmol/L (135-146); ABG TCO2 26 mmol/L (19-24)
[2018-11-03 13:29] LABS: ABG HCO3 24 mmol/L (21-25); ABG PCO2 41 mmHg (35-45); ABG PH 7.38 (7.35-7.45); ABG PO2 219 mmHg (83-108); ABG Potassium Whole Blood 4.1 mmol/L (3.4-4.5); ABG Sodium Whole Blood 135 mmol/L (135-146); ABG TCO2 25 mmol/L (19-24)
[2018-11-03 14:46] LABS: ABG Base Excess -0.8 mmol/L; ABG HCO3 25 mmol/L (21-25); ABG PCO2 45 mmHg (35-45); ABG PH 7.35 (7.35-7.45); ABG PO2 106 mmHg (83-108); ABG Potassium Whole Blood 3.4 mmol/L (3.4-4.5); ABG Sodium Whole Blood 141 mmol/L (135-146); ABG TCO2 26 mmol/L (19-24)
--- NOTE | 2018-11-03 14:55 | P.PN ---
Subjective Progress Note Date: 11/03/18 Principal diagnosis: Acute non-ST elevation [place] This is a pleasant 53-year-old gentleman with a past medical history significant for dyslipidemia, prior history of smoking, and very significant family history of coronary artery disease was multiple first-degree relatives with coronary artery disease and prior coronary artery vascularization presented to the hospital complaining of chest discomfort. The symptoms started about a week ago when he started experiencing intermittent episodes of chest discomfort, in the mid of the chest, as a sharp kind of discomfort, with radiation to the left arm. No associated symptoms of shortness of breath, sweating, dizziness or light of this, or syncope. Yesterday his chest discomfort has been more intense compared to before and because of that he decided to come to the hospital. The EKG showed sinus rhythm without any ST or T-wave abnormalities. The first set of enzymes came in to be unremarkable but the second set of troponin came in to be abnormal. The third set came in to be unremarkable. He underwent a computed tomography scan of the chest which showed no evidence of aortic dissection or aortic aneurysm. I did see the patient today, November [id number], at the pre area. He was completely asymptomatic from the cardiovascular standpoint of view. He is in process to have his open heart surgery later on today. He denies any chest pain, chest discomfort, shortness of breath, dizziness, heart racing, or syncope. He is on maximize medical treatment. We'll continue following up with the patient after the surgery Objective - Vital Signs Vital signs: Vital Signs Temp 98.1 F 11/03/18 04:15 Pulse 66 11/03/18 06:13 Resp 18 11/03/18 06:13 BP 112/71 11/03/18 06:13 Pulse Ox 92 L 11/03/18 06:13 Intake & Output 11/02/18 11/03/18 11/03/18 18:59 06:59 18:59 Intake Total 730 33 Output Total 200 Balance 730 -200 33 Weight 82.1 kg 82.1 kg Intake: IV 33 Intake, IV Titration 250 Amount Heparin Sod,Pork in 0.45% 250 NaCl 25,000 unit In 0.45 % NaCl 1 250ml.bag @ 11.6 UNITS/KG/HR 9.945 mls/hr IV .Q24H [facility] Rx#: [id number] Oral 480 Output: Urine 200 Other: Voiding Method Toilet # Voids 0 3 # Bowel Movements 0 0 - Constitutional General appearance: Present: no acute distress - Respiratory Respiratory: bilateral: CTA - Cardiovascular Rhythm: regular Heart sounds: normal: S1, S2 - Labs CBC & Chem 7: 11/02/18 06:02 11/02/18 03:57 Labs: Abnormal Lab Results - Last 24 Hours (Table) 11/02/18 Range/Units 03:57 Crossmatch See Detail Assessment and Plan Assessment: Assessment #1 acute non-ST patient myocardial infarction #2 severe coronary artery disease involving the distal left main #3 hypertension #4 dyslipidemia #5 family history of CAD Plan #1 continue the current medical regimen #2 coronary artery bypass grafting later on today Thank you for allowing us participate in his care and we'll continue following up with the patient
[2018-11-03 15:43] LABS: Glucose,Whole Blood 113 mg/dL (75-99)
[2018-11-03] MEDS: NOREPINEPHRINE 4 MG in SODIUM CHLORIDE 0.9% 250 ML IV SCH ×2 (15:45→22:14)
[2018-11-03] MEDS: NITROGLYCERIN-D5W PMX 50 MG in DEXTROSE/WATER 1 250ML.BAG IV SCH (15:45)
[2018-11-03] MEDS: LACTATED RINGERS 1,000 ML IV SCH (15:45)
[2018-11-03] MEDS ORDERED: BENZOCAINE/MENTHOL LOZENG 1 EACH LOZENGE MUCOUS MEM PRN (15:46)
[2018-11-03] MEDS ORDERED: Magnesium Replacement Protocol 1 EACH MISC MISCELLANE PRN (15:46)
[2018-11-03] MEDS ORDERED: AMIODARONE 360 MG in DEXTROSE 5% IN WATER 200 ML IV PRN ×2 (15:46)
[2018-11-03] MEDS ORDERED: IPRATROPIUM-ALBUTEROL 3 ML NEB INHALATION PRN (15:46)
[2018-11-03] MEDS ORDERED: Phosphorus Replacement Protoco 1 EACH MISC MISCELLANE PRN (15:46)
[2018-11-03] MEDS ORDERED: METOCLOPRAMIDE 5 MG/ML 2 ML VIAL IVP PRN (15:46)
[2018-11-03] MEDS ORDERED: DEXTROSE 5% IN WATER 100 ML with AMIODARONE 150 MG IV PRN (15:46)
[2018-11-03] MEDS ORDERED: Potassium Replacement Protocol 1 EACH MISC MISCELLANE PRN (15:46)
[2018-11-03] MEDS ORDERED: ONDANSETRON 4 MG/2 ML VIAL IVP PRN (15:46)
[2018-11-03] MEDS ORDERED: AMIODARONE 300 MG in DEXTROSE 5% IN WATER 250 ML IV PRN ×2 (15:46)
[2018-11-03] MEDS ORDERED: CALCIUM GLUCONATE 2 GM in SODIUM CHLORIDE 0.9% 100 ML IVPB PRN (15:46)
[2018-11-03] MEDS ORDERED: PROPOFOL 1,000 MG in EMPTY BAG 1 BAG IV SCH (15:46)
[2018-11-03 15:57] LABS: Basophils % (A) 0 %; Eosinophils # (A) 0.4 k/uL (0-0.7); Eosinophils % (A) 3 %; HCT 33.2 % (39.0-53.0); HGB 11.2 gm/dL (13.0-17.5); Lymphocytes # (A) 1.6 k/uL (1.0-4.8); Lymphocytes % (A) 13 %; MCH 31.5 pg (25.0-35.0); MCHC 33.9 g/dL (31.0-37.0); MCV 93.1 fL (80.0-100.0); Monocytes # (A) 0.5 k/uL (0-1.0); Monocytes % (A) 4 %; Neutrophils # (A) 10.3 k/uL (1.3-7.7); Neutrophils % (A) 80 %; Platelet Count 191 k/uL (150-450); RBC 3.56 m/uL (4.30-5.90); RDW 13.9 % (11.5-15.5); WBC 12.9 k/uL (3.8-10.6)
[2018-11-03 16:03] LABS: Ionized Calcium 5.1 mg/dL (4.5-5.3)
--- NOTE | 2018-11-03 16:06 | XR ---
EXAMINATION TYPE: XR chest 1V portable DATE OF EXAM: 11/03/2018 CLINICAL HISTORY: Difficulty breathing progress study. Postoperative cardiac surgery. TECHNIQUE: Single AP portable semiupright view of the chest is obtained. COMPARISON: Chest x-ray from one day earlier and older studies. FINDINGS: There is new endotracheal tube terminating just above saqib at aortic knob level, advise pulling back 3 cm to be more ideal position. There is orogastric tube projecting below diaphragm. The re is right internal jugular [place]-Fidencio catheter terminating at level of pulmonary outflow track. Ther e are 2 mediastinal drainage catheters and bibasilar chest tubes. Post CABG changes with mediastinal clips and sternal wires is now present. Cardiac silhouette size is upper limits of normal slightly more prominent with patchy bibasilar atele ctasis. Suspect tiny right pleural effusion. No measurable pneumothorax. Osseous structures are intac t. Diminished inspiration is present. IMPRESSION: 1. Tubes and lines as detailed above. Advise pulling back endotracheal tube 3 cm to be in more ideal position. 2. Diminished inspiration with patchy bibasilar atelectasis and new small to tiny right pleural effus ion.
[2018-11-03 16:07] LABS: ABG Base Excess 1.6 mmol/L; ABG HCO3 28 mmol/L (21-25); ABG Oxygen Saturation 99.8 % (94-97); ABG PCO2 52 mmHg (35-45); ABG PH 7.33 (7.35-7.45); ABG PO2 254 mmHg (83-108); ABG TCO2 29 mmol/L (19-24)
[2018-11-03 16:09] LABS: ALT 48 U/L (21-72); AST 51 U/L (17-59); Albumin 3.3 g/dL (3.5-5.0); Alkaline Phosphatase 45 U/L (38-126); Anion Gap 2 mmol/L; Blood Urea Nitrogen 8 mg/dL (9-20); Calcium 8.5 mg/dL (8.4-10.2); Carbon Dioxide 28 mmol/L (22-30); Chloride 111 mmol/L (98-107); Glucose 103 mg/dL (74-99); Magnesium 2.6 mg/dL (1.6-2.3); Potassium 4.2 mmol/L (3.5-5.1); Sodium 141 mmol/L (137-145); Total Bilirubin 0.5 mg/dL (0.2-1.3); Total Protein 5.2 g/dL (6.3-8.2)
[2018-11-03 16:10] LABS: Glucose,Whole Blood 110 mg/dL (75-99)
[2018-11-03] MEDS: IPRATROPIUM-ALBUTEROL 3 ML NEB INHALATION SCH ×3 (16:14→19:57)
[2018-11-03 16:20] LABS: INR 1.1 (<1.2); Partial Thromboplastin Time 26.4 sec (22.0-30.0); Prothrombin Time 11.3 sec (9.0-12.0)
--- NOTE | 2018-11-03 17:02 | P.PN ---
Subjective Progress Note Date: 11/03/18 Principal diagnosis: Non-ST elevation [place] 53-year-old male with history of hyperlipidemia, occipital neuralgia, hypothyroidism, presented for chest pain initially patient observation status post cast which showed chronic total occlusion of the mid RCA calcified plaque in the distal left main coronary artery at 50 % status post three-vessel CABG Objective - Vital Signs Vital signs: Vital Signs Temp 98.1 F 11/03/18 04:15 Pulse 86 11/03/18 16:30 Resp 12 11/03/18 16:30 BP 112/71 11/03/18 06:13 Pulse Ox 100 11/03/18 16:30 Intake & Output 11/02/18 11/03/18 11/03/18 18:59 06:59 18:59 Intake Total 730 33 Output Total 200 2800 Balance 730 -200 -2767 Weight 82.1 kg 82.1 kg Intake: IV 33 Intake, IV Titration 250 Amount Heparin Sod,Pork in 0.45% 250 NaCl 25,000 unit In 0.45 % NaCl 1 250ml.bag @ 11.6 UNITS/KG/HR 9.945 mls/hr IV .Q24H [facility] Rx#: [id number] Oral 480 Output: Urine 200 1800 Estimated Blood Loss 1000 Other: Voiding Method Toilet # Voids 0 3 # Bowel Movements 0 0 ABP, PAP, CO, CI - Last Documented Arterial Blood Pressure 112/81 Pulmonary Artery Pressure 45/30 Cardiac Output 4.3 Cardiac Index 2.3 - Constitutional Constitutional Comment(s): Intubated - Respiratory Respiratory: bilateral: diminished - Cardiovascular Rhythm: regular - Gastrointestinal General gastrointestinal: Present: decreased bowel sounds - Integumentary Integumentary: Present: normal turgor - Labs CBC & Chem 7: 11/03/18 15:40 11/03/18 15:40 Labs: Abnormal Lab Results - Last 24 Hours (Table) 11/02/18 11/03/18 11/03/18 Range/Units 03:57 08:31 11:46 WBC (3.8-10.6) k/uL RBC (4.30-5.90) m/uL Hgb (13.0-17.5) gm/dL Hct (39.0-53.0) % Neutrophils # (1.3-7.7) k/uL ABG pH 7.34 L (7.35-7.45) ABG pCO2 47 H (35-45) mmHg ABG pO2 302 H 220 H (83-108) mmHg ABG HCO3 26 H (21-25) mmol/L ABG Total CO2 27 H 27 H (19-24) mmol/L ABG O2 Saturation 100.0 H 100.0 H (94-97) % ABG Hematocrit 32 L (34.0-46.0) % ABG Sodium (135-146) mmol/L ABG Ionized Calcium (4.5-5.3) mg/dL ABG Glucose 105 H (75-99) mg/dL ABG Lactic Acid (0.5-1.6) mmol/L Hemoglobin 12.7 L 10.5 L (13.0-17.5) gm/dL Chloride (98-107) mmol/L BUN (9-20) mg/dL Creatinine (0.66-1.25) mg/dL Glucose (74-99) mg/dL POC Glucose (mg/dL) (75-99) mg/dL Magnesium (1.6-2.3) mg/dL Total Protein (6.3-8.2) g/dL Albumin (3.5-5.0) g/dL Arterial Blood Glucose 105 H (75-99) mg/dL Crossmatch See Detail 11/03/18 11/03/18 11/03/18 Range/Units 12:15 12:54 13:30 WBC (3.8-10.6) k/uL RBC (4.30-5.90) m/uL Hgb (13.0-17.5) gm/dL Hct (39.0-53.0) % Neutrophils # (1.3-7.7) k/uL ABG pH (7.35-7.45) ABG pCO2 (35-45) mmHg ABG pO2 385 H 277 H 219 H (83-108) mmHg ABG HCO3 (21-25) mmol/L ABG Total CO2 25 H 26 H 25 H (19-24) mmol/L ABG O2 Saturation 100.0 H 100.0 H 100.0 H (94-97) % ABG Hematocrit 24 L 23 L 23 L (34.0-46.0) % ABG Sodium 134 L (135-146) mmol/L ABG Ionized Calcium 4.2 L 4.2 L 4.3 L (4.5-5.3) mg/dL ABG Glucose 100 H 157 H 175 H (75-99) mg/dL ABG Lactic Acid 1.9 H (0.5-1.6) mmol/L Hemoglobin 7.8 L 7.6 L 7.4 L (13.0-17.5) gm/dL Chloride (98-107) mmol/L BUN (9-20) mg/dL Creatinine (0.66-1.25) mg/dL Glucose (74-99) mg/dL POC Glucose (mg/dL) (75-99) mg/dL Magnesium (1.6-2.3) mg/dL Total Protein (6.3-8.2) g/dL Albumin (3.5-5.0) g/dL Arterial Blood Glucose 100 H 157 H 175 H (75-99) mg/dL Crossmatch 11/03/18 11/03/18 11/03/18 Range/Units 14:46 15:38 15:40 WBC 12.9 H (3.8-10.6) k/uL RBC 3.56 L (4.30-5.90) m/uL Hgb 11.2 L (13.0-17.5) gm/dL Hct 33.2 L (39.0-53.0) % Neutrophils # 10.3 H (1.3-7.7) k/uL ABG pH (7.35-7.45) ABG pCO2 (35-45) mmHg ABG pO2 (83-108) mmHg ABG HCO3 (21-25) mmol/L ABG Total CO2 26 H (19-24) mmol/L ABG O2 Saturation 99.0 H (94-97) % ABG Hematocrit 30 L (34.0-46.0) % ABG Sodium (135-146) mmol/L ABG Ionized Calcium (4.5-5.3) mg/dL ABG Glucose 125 H (75-99) mg/dL ABG Lactic Acid 2.1 H (0.5-1.6) mmol/L Hemoglobin 9.7 L (13.0-17.5) gm/dL Chloride (98-107) mmol/L BUN (9-20) mg/dL Creatinine (0.66-1.25) mg/dL Glucose (74-99) mg/dL POC Glucose (mg/dL) 113 H (75-99) mg/dL Magnesium (1.6-2.3) mg/dL Total Protein (6.3-8.2) g/dL Albumin (3.5-5.0) g/dL Arterial Blood Glucose 125 H (75-99) mg/dL Crossmatch 11/03/18 11/03/18 11/03/18 Range/Units 15:40 16:06 16:08 WBC (3.8-10.6) k/uL RBC (4.30-5.90) m/uL Hgb (13.0-17.5) gm/dL Hct (39.0-53.0) % Neutrophils # (1.3-7.7) k/uL ABG pH 7.33 L (7.35-7.45) ABG pCO2 52 H (35-45) mmHg ABG pO2 254 H (83-108) mmHg ABG HCO3 28 H (21-25) mmol/L ABG Total CO2 29 H (19-24) mmol/L ABG O2 Saturation 99.8 H (94-97) % ABG Hematocrit (34.0-46.0) % ABG Sodium (135-146) mmol/L ABG Ionized Calcium (4.5-5.3) mg/dL ABG Glucose (75-99) mg/dL ABG Lactic Acid (0.5-1.6) mmol/L Hemoglobin (13.0-17.5) gm/dL Chloride 111 H (98-107) mmol/L BUN 8 L (9-20) mg/dL Creatinine 0.65 L (0.66-1.25) mg/dL Glucose 103 H (74-99) mg/dL POC Glucose (mg/dL) 110 H (75-99) mg/dL Magnesium 2.6 H (1.6-2.3) mg/dL Total Protein 5.2 L (6.3-8.2) g/dL Albumin 3.3 L (3.5-5.0) g/dL Arterial Blood Glucose (75-99) mg/dL Crossmatch Assessment and Plan Assessment: Coronary artery disease Hyperlipidemia hypothyroidism NST elevation [place] Plan: Postop day 0 status post CABG continue ICU management on care per CV surgery
--- NOTE | 2018-11-03 17:14 | OP ---
OPERATIVE REPORT DATE OF SURGERY: 11/03/2018 SURGEON: Dr. Blas Sloiz. RAIL CAR REPAIRER: Bjorn Lakhani. PREOPERATIVE DIAGNOSES: 1. Triple-vessel coronary artery disease with left main disease and a totally occluded right coronary artery, preserved left ventricular function. 2. Obesity. 3. Hypertension. 4. Hyperlipidemia. 5. Hypothyroidism. POSTOPERATIVE DIAGNOSES: 1. Triple-vessel coronary artery disease with left main disease and a totally occluded right coronary artery, preserved left ventricular function. 2. Obesity. 3. Hypertension. 4. Hyperlipidemia. 5. Hypothyroidism. PROCEDURES: 1. Multiple arterial triple coronary artery bypass grafting using the skeletonized in situ right internal mammary artery crossing the midline anteriorly to the left anterior descending artery, totally skeletonized in situ left internal mammary artery to the first obtuse marginal artery, reverse saphenous vein graft from the aorta to the posterior descending artery. 2. Endoscopic harvesting of the left greater saphenous vein. 3. Intraoperative transesophageal echocardiogram and epiaortic scanning. 4. Intraoperative graft flow measurements using the [employer] system. INDICATION FOR SURGERY: Patient is a 53-year-old gentleman with a history of dyspnea on exertion and pain since January. The patient underwent cardiac catheterization that showed severe left main disease with an occluded right coronary artery that is collateralized from the left system. His left ventricular function is preserved overall. The patient had recurrent chest pain in the hospital after his catheterization, and for that reason he was kept here and today is being taken for coronary artery bypass grafting. We will be planning on using bilateral internal mammary artery in view of his age. The SDS risk was discussed with him. He understood it and agreed to proceed. DESCRIPTION OF THE PROCEDURE: With the patient in supine position, right internal jugular [place]-Fidencio catheter and a right radial arterial line were placed. PA pressure was 40/20. Cardiac index was 2.5. Subsequently general endotracheal anesthesia was induced uneventfully. The patient received 2 grams of cefazolin intravenously. Jason catheter was inserted. The chest, abdomen and both lower extremities were prepped and draped using ChloraPrep. Ioban was used to cover the skin. Transesophageal echocardiogram confirmed the preoperative finding of left ventricular hypertrophy, preserved systolic function and no significant valvular abnormality. Midline sternotomy was performed and the bone was reasonably dense. The left hemisternum was initially elevated and the left internal mammary artery was harvested in a totally skeletonized fashion using the plasma blade system. The left pleura was intentionally opened in this process and was drained with a 19-[place]ai[place]ese Catarino drain. The patient was given 5000 units of heparin before clipping the artery distally before its bifurcation and transecting it. It had an excellent flow in it and was around 1.75 mm to 2 mm in diameter distally. The same was repeated; the right hemisternum was elevated and the right internal mammary artery was harvested in a totally skeletonized fashion. The pleural cavities were drained with a Catarino drain 19-Tai[place]ese. The right internal mammary artery was also clipped distally before its bifurcation and transected. It had an excellent pulsatile flow in it and was around 1.5 to 1.75 mm in diameter. In the same setting, the left greater saphenous vein was harvested endoscopically from groin to just below knee level. The branches were tied. The leg incisions were closed over a drain. The vein appeared to be of good quality, around 4 mm in diameter. Mediastinal fat was transected between 2 ties and epiaortic scanning revealed normal ascending aorta. Pericardium was opened in an inverted T-fashion and a pericardial cradle was created. Findings included a normal soft aorta and a normal-size heart. After systemic heparinization and after placement of respective pledgeted pursestrings, aortic cannulation with a 21-[place]aiwanese Soft flow cannula and right atrial appendage cannulation with a dual stage cannula were performed. Antegrade as well as retrograde cardioplegia catheters were placed. Cardiopulmonary bypass was initiated, and with the heart empty and beating we looked at the target. It appeared that the LAD as it emerged from an intramyocardial course midway would be the site for bypass. It was thin-walled at that level. There was visible disease though distally. Also the first obtuse marginal artery was identified proximally by the left atrial appendage. That would be the site for the second bypass. Looking at the inferior wall, the right coronary artery had a calcified plaque at its bifurcation, so I elected to do the posterior descending artery, which was thin- walled around 1.25 mm in diameter. Aorta was clamped, and during aortic clamping myocardial protection was achieved with initial dose of antegrade cold blood cardioplegia followed by a dose of retrograde cold blood cardioplegia. All subsequent doses were given retrograde at 15-minute intervals. The first distal anastomosis was between a good segment of reverse saphenous vein graft and the 1.25 mm thin-walled posterior descending artery using Prolene 7-0 in continuous fashion. That vein was cut to length and anastomosed proximally to the aorta after punching a 4 mm button using Prolene 6-0 in continuous fashion. The second distal anastomosis was between the left internal mammary artery in situ crossing in a deep groove in the left pleural pericardial fat and going to the proximal aspect of the first obtuse marginal artery, which was open. It was around 1.75 mm in diameter, thin- walled. We used Prolene 7-0 in continuous fashion. Rewarming was started as we performed the last distal anastomosis of the skeletonized in situ right internal mammary artery crossing the midline at the level of the mid to distal ascending aorta and reaching the mid aspect of the LAD without tension. The LAD was mildly thickened and was around 1.5 mm in diameter. The anastomosis was completed using Prolene 7-0 in continuous fashion. De-airing maneuvers were followed. Satisfied with the technical aspect of the anastomoses, the aorta was unclamped. Flow was re-established in all grafts. After a period of reperfusion, patient regained spontaneous sinus rhythm and was weaned off cardiopulmonary bypass without the need of inotropic support but required low- dose vasopressor support in view of some vasodilatation. ALLISON showed good left ventricular function and initially moderate mitral valve regurgitation that eventually improved to trivial. Graft flow measurement revealed excellent flow parameters. The flow into the left internal mammary artery to the first obtuse marginal artery was 45 mL/minute, pulsatility index of 1.9, diastolic filling of 67%. The flow into the vein graft to the posterior descending artery was very profuse at 246 mL/minute, pulsatility index of 0.7 and diastolic filling of 62%. The flow into the right internal mammary artery to the left anterior descending artery was around 23 mL/minute, pulsatility index of 5. In view of an obvious competitive flow on the graft and a diastolic filling of 72%, showing the very functioning patent graft; however, with some competitive flow. That flow remained the same after transiently clamping the vein going to the posterior descending artery showing that the origin of the competitive flow is the [place] LAD per se. With that, test-dose and full-dose protamine was given. A groove was made also in the right pleura pericardial fat to accommodate the right mammary away from the posterior sternal table. Two 19-Taiwanese Catarino drains were placed substernally. Decannulation followed and the venous cannulation site was reinforced with a running Prolene. Two monopolar atrial pacing wires were affixed to the right atrial pursestring. Pericardial fat was approximated over the heart and all the grafts. After ensuring adequate hemostasis and hemodynamics and after correct sponge, instrument and needle counts, the sternum was closed using 5 [id number] pineal cables after interposing Fibrillar between the sternal edges. Thorough irrigation with cefazolin followed. The rest of the closure proceeded in layers. Skin glue was applied. The patient did not receive any blood bank product but received 350 mL of Cell Saver blood. He was transferred to the ICU in stable condition on low-dose Levophed with excellent hemodynamics and cardiac index of 3.4, mean artery pressure of 68, pressure of 35/17 and normal EKG. MMODL / IJN: [id number] / MTDD
[2018-11-03] MEDS: LEVOTHYROXINE 75 MCG TAB PO SCH (17:17)
[2018-11-03] MEDS: ACETAMINOPHEN IV (For NPO) 1,000 MG in EMPTY BAG 1 BAG IVPB SCH ×2 (17:19→23:57)
[2018-11-03] MEDS: ceFAZolin IN SWFI 2 GM/20 ML SYRINGE IVP SCH (17:19)
--- NOTE | 2018-11-03 17:22 | P.CNPUL ---
History of Present Illness Consult date: 11/03/18 Requesting physician: Blas Soliz Reason for consult: other (status post CABG) Chief complaint: status post CABG on mechanical ventilation. History of present illness: This is a 73-year-old white male patient, of Dr. Hardin, with a past medical history of hyperlipidemia, hypothyroidism, patient is a former smoker, quit smoking in May 2018, obesity, and family history of premature coronary artery disease. Patient presented to the hospital on 10/27/2018 for evaluation of back pain, arm pain, shortness of breath and mild chest discomfort that started in the middle of the night and was not preceded by exertion. CTA chest was completed and showed no aortic aneurysm or dissection, no suspicious acute process, no suspicious nodules or masses, no pleural effusions. Chest x-ray showed chronic changes without evidence of acute pulmonary disease. EKG showed normal sinus rhythm without ischemic changes, patient had a mild elevation of troponins which peaked at 0.036, patient was ruled in for non-ST elevated NV. He underwent a cardiac Catheterization which demonstrated left main stenosis of 50%, chronically totally occluded RCA with collaterals, proximal LAD stenosis of 50%, and obtuse marginal stenosis of 50%. ALLISON showed normal systolic function with an ejection fraction of 50-55% with mild MR and mild TR. Patient was referred to cardiothoracic surgery and surgical intervention was recommended for multivessel coronary artery disease. We are consulted in regards to pulmonary management and pulmonary clearance for upcoming surgery. Patient was seen today postoperatively on 11/03/2018.patient had severe triple- vessel coronary artery disease with left main disease, non-ST elevation myocardial infarction, left internal carotids stenosis, patient is now on mechanical ventilation, his ventilator settings are tidal volume of 480, assist control rate of 16, FiO2 of 50%, and PEEP of 8.ABG prior to these vent setting showed a pO2 of 254 pCO2 of 52 pH of 7.33. Since this ABG, his assist control rate was increased to 16, and his FiO2 was decreased down to 50%.chest x-ray postoperatively was reviewed, minimal bibasilar atelectasis is noted, postoperative changes noted. Patient is presently sedated, on mechanical ventilation, in no distress Review of Systems reason for her to previous review of system when the patient was cleared by us for surgery. This was done on 10/29/2018. 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, Vertigo, occipital neuralgia History of Any Multi-Drug Resistant Organisms: None Reported Past Surgical History: Adenoidectomy, Orthopedic Surgery, Tonsillectomy Additional Past Surgical History / Comment(s): Left knee arthroscopy, hydrocele surgery Past Anesthesia/Blood Transfusion Reactions: No Reported Reaction Past Psychological History: No Psychological Hx Reported Smoking Status: Former smoker Past Alcohol Use History: Occasional Past Drug Use History: None Reported - Past Family History Mother Family Medical History: Diabetes Mellitus, Hypertension Additional Family Medical History / Comment(s): Mother is living. Father Family Medical History: COPD, Hypertension Additional Family Medical History / Comment(s): Father is 81 yrs old. Sister(s) Family Medical History: Coronary Artery Disease (CAD) Additional Family Medical History / Comment(s): 53 yr old sister has CAD with stents and pulmonary fibrosis. Medications and Allergies Home Medications Medication Instructions Recorded Confirmed Type Amitriptyline HCl [Elavil] 10 mg PO HS 10/27/18 10/27/18 History Aspirin [Adult Low Dose Aspirin EC] 81 mg PO DAILY 10/27/18 10/27/18 History Atorvastatin [Lipitor] 40 mg PO DAILY 10/27/18 10/27/18 History Levothyroxine Sodium [Synthroid] 25 mcg PO DAILY 10/27/18 10/27/18 History Vit C/E/Zn/Coppr/Lutein/Zeaxan 1 cap PO DAILY 10/27/18 10/27/18 History [Preservision Areds 2 Softgel] Albuterol Inhaler [Ventolin Hfa 1 - 2 puff INHALATION RT-Q6H PRN 10/30/18 Rx Inhaler] 30 Days #1 inhaler Tiotropium [place] [Spiriva] 1 cap INHALATION DAILY 30 Days #1 10/30/18 Rx device Allergies Allergy/AdvReac Type Severity Reaction Status Date / Time Iodinated Contrast- Oral and Allergy Itching Verified 10/27/18 14:28 IV Dye tetanus and diphtheria Allergy Swelling Verified 10/27/18 14:28 toxoids [tetanus & diphtheria toxoids] venom-honey bee Allergy Anaphylaxis Verified 10/27/18 14:28 [bee venom (honey bee)] codeine AdvReac Abdominal Verified 10/27/18 14:28 Pain Physical Exam Vitals: Vital Signs Temp Pulse Pulse Resp BP BP Pulse Ox 11/03/18 17:00 92 25 H 98 11/03/18 16:45 87 22 99 11/03/18 16:30 86 12 100 11/03/18 16:17 87 11/03/18 16:00 86 12 100 11/03/18 15:45 78 13 100 11/03/18 06:13 66 18 109/68 112/71 92 L 11/03/18 04:15 98.1 F 75 18 150/70 96 11/02/18 23:54 98.2 F 74 17 94/56 98 11/02/18 20:10 97.8 F 73 17 93/68 96 Intake and Output 11/03/18 11/03/18 11/03/18 06:59 14:59 22:59 Intake Total 33 Output Total 2800 Balance 33 -2800 Intake: IV 33 Output: Urine 1800 Estimated Blood Loss 1000 Other: Voiding Method Toilet # Voids 3 Weight 82.1 kg 82.1 kg ABP, PAP, CO, CI - Last 8 Hours Arterial Blood Pressure 125/90 Arterial Blood Pressure 122/89 Arterial Blood Pressure 112/81 Arterial Blood Pressure 102/73 Arterial Blood Pressure 116/73 Pulmonary Artery Pressure 47/32 Pulmonary Artery Pressure 45/33 Pulmonary Artery Pressure 45/30 Pulmonary Artery Pressure 42/27 Pulmonary Artery Pressure 41/24 Cardiac Output 4.3 Cardiac Output 4.3 Cardiac Output 4.3 Cardiac Output 4.3 Cardiac Index 2.3 Cardiac Index 2.3 GENERAL EXAM: revealed a 53-year-old white male, sedated, on mechanical ventilation. HEAD: Normocephalic/atraumatic.endotracheal tube and orogastric tube are intact. ENT: PERRLA, EOMI, moist mucous membranes, no icterus.No neck masses, no JVD, no stridor. CHEST: No chest wall deformity. Symmetrical expansion. LUNGS: Equal air entry with no crackles, wheeze, rhonchi or dullness.chest tubes were noted. CVS: Regular rate and rhythm, normal S1 and S2, no gallops, no murmurs, no rubs ABDOMEN: Soft, nontender. No hepatosplenomegaly, normal bowel sounds, no guarding or rigidity. EXTREMITIES: No clubbing, no edema, no cyanosis, 2+ pulses and upper and lower extremities. SKIN: No rashes CENTRAL NERVOUS SYSTEM: cannot be assessed, patient is intubated and sedated. PSYCHIATRIC: cannot be assessed. Results - Laboratory Findings CBC and BMP: 11/03/18 15:40 11/03/18 15:40 ABG ABG pH 7.33 (7.35-7.45) L 11/03/18 16:06 ABG pCO2 52 mmHg (35-45) H 11/03/18 16:06 ABG pO2 254 mmHg (83-108) H 11/03/18 16:06 ABG O2 Saturation 99.8 % (94-97) H 11/03/18 16:06 PT/INR, D-dimer PT 11.3 sec (9.0-12.0) 11/03/18 15:40 INR 1.1 (<1.2) 11/03/18 15:40 Abnormal lab findings: Abnormal Labs 10/27/18 10/27/18 10/27/18 09:05 16:04 16:04 WBC RBC Hgb Hct Neutrophils # APTT 68.6 H ABG pH ABG pCO2 ABG pO2 ABG HCO3 ABG Total CO2 ABG O2 Saturation ABG Hematocrit ABG Sodium ABG Ionized Calcium ABG Glucose ABG Lactic Acid Hemoglobin Chloride BUN Creatinine 0.65 L Glucose 102 H POC Glucose (mg/dL) Hemoglobin A1c Magnesium Troponin I 0.036 H* Total Protein Albumin Triglycerides HDL Cholesterol TSH Free T4 Arterial Blood Glucose Crossmatch 10/28/18 10/28/18 10/28/18 06:39 06:39 13:40 WBC RBC Hgb Hct Neutrophils # APTT 44.3 H 37.9 H ABG pH ABG pCO2 ABG pO2 ABG HCO3 ABG Total CO2 ABG O2 Saturation ABG Hematocrit ABG Sodium ABG Ionized Calcium ABG Glucose ABG Lactic Acid Hemoglobin Chloride BUN Creatinine Glucose POC Glucose (mg/dL) Hemoglobin A1c Magnesium Troponin I Total Protein Albumin Triglycerides 289 H HDL Cholesterol 37 L TSH Free T4 Arterial Blood Glucose Crossmatch 10/29/18 10/29/18 10/29/18 00:10 05:25 05:34 WBC 17.7 H RBC Hgb Hct Neutrophils # 15.6 H APTT 62.1 H ABG pH ABG pCO2 ABG pO2 ABG HCO3 ABG Total CO2 ABG O2 Saturation ABG Hematocrit ABG Sodium ABG Ionized Calcium ABG Glucose ABG Lactic Acid Hemoglobin Chloride BUN Creatinine Glucose 137 H POC Glucose (mg/dL) Hemoglobin A1c Magnesium Troponin I Total Protein Albumin Triglycerides HDL Cholesterol TSH Free T4 Arterial Blood Glucose Crossmatch 10/29/18 10/30/18 10/30/18 12:24 07:48 07:48 WBC 13.7 H RBC 4.20 L Hgb Hct Neutrophils # APTT 54.5 H 68.3 H ABG pH ABG pCO2 ABG pO2 ABG HCO3 ABG Total CO2 ABG O2 Saturation ABG Hematocrit ABG Sodium ABG Ionized Calcium ABG Glucose ABG Lactic Acid Hemoglobin Chloride BUN Creatinine Glucose POC Glucose (mg/dL) Hemoglobin A1c Magnesium Troponin I Total Protein Albumin Triglycerides HDL Cholesterol TSH Free T4 Arterial Blood Glucose Crossmatch 10/30/18 10/30/18 10/31/18 07:48 07:48 06:27 WBC RBC Hgb Hct Neutrophils # APTT 59.0 H ABG pH ABG pCO2 ABG pO2 ABG HCO3 ABG Total CO2 ABG O2 Saturation ABG Hematocrit ABG Sodium ABG Ionized Calcium ABG Glucose ABG Lactic Acid Hemoglobin Chloride BUN Creatinine Glucose POC Glucose (mg/dL) Hemoglobin A1c 6.4 H Magnesium Troponin I Total Protein Albumin Triglycerides HDL Cholesterol TSH 72.100 H Free T4 0.66 L Arterial Blood Glucose Crossmatch 10/31/18 11/01/18 11/02/18 06:27 06:22 03:57 WBC 11.3 H RBC 3.90 L Hgb 11.7 L Hct 35.9 L Neutrophils # APTT 68.2 H ABG pH ABG pCO2 ABG pO2 ABG HCO3 ABG Total CO2 ABG O2 Saturation ABG Hematocrit ABG Sodium ABG Ionized Calcium ABG Glucose ABG Lactic Acid Hemoglobin Chloride BUN Creatinine Glucose POC Glucose (mg/dL) Hemoglobin A1c Magnesium Troponin I Total Protein Albumin Triglycerides HDL Cholesterol TSH Free T4 Arterial Blood Glucose Crossmatch See Detail 11/02/18 11/02/18 11/02/18 03:57 06:02 06:02 WBC 11.9 H RBC Hgb Hct Neutrophils # APTT 67.4 H ABG pH ABG pCO2 ABG pO2 ABG HCO3 ABG Total CO2 ABG O2 Saturation ABG Hematocrit ABG Sodium ABG Ionized Calcium ABG Glucose ABG Lactic Acid Hemoglobin Chloride BUN Creatinine Glucose 106 H POC Glucose (mg/dL) Hemoglobin A1c Magnesium Troponin I Total Protein Albumin Triglycerides HDL Cholesterol TSH Free T4 Arterial Blood Glucose Crossmatch 11/03/18 11/03/18 11/03/18 08:31 11:46 12:15 WBC RBC Hgb Hct Neutrophils # APTT ABG pH 7.34 L ABG pCO2 47 H ABG pO2 302 H 220 H 385 H ABG HCO3 26 H ABG Total CO2 27 H 27 H 25 H ABG O2 Saturation 100.0 H 100.0 H 100.0 H ABG Hematocrit 32 L 24 L ABG Sodium 134 L ABG Ionized Calcium 4.2 L ABG Glucose 105 H 100 H ABG Lactic Acid Hemoglobin 12.7 L 10.5 L 7.8 L Chloride BUN Creatinine Glucose POC Glucose (mg/dL) Hemoglobin A1c Magnesium Troponin I Total Protein Albumin Triglycerides HDL Cholesterol TSH Free T4 Arterial Blood Glucose 105 H 100 H Crossmatch 11/03/18 11/03/18 11/03/18 12:54 13:30 14:46 WBC RBC Hgb Hct Neutrophils # APTT ABG pH ABG pCO2 ABG pO2 277 H 219 H ABG HCO3 ABG Total CO2 26 H 25 H 26 H ABG O2 Saturation 100.0 H 100.0 H 99.0 H ABG Hematocrit 23 L 23 L 30 L ABG Sodium ABG Ionized Calcium 4.2 L 4.3 L ABG Glucose 157 H 175 H 125 H ABG Lactic Acid 1.9 H 2.1 H Hemoglobin 7.6 L 7.4 L 9.7 L Chloride BUN Creatinine Glucose POC Glucose (mg/dL) Hemoglobin A1c Magnesium Troponin I Total Protein Albumin Triglycerides HDL Cholesterol TSH Free T4 Arterial Blood Glucose 157 H 175 H 125 H Crossmatch 11/03/18 11/03/18 11/03/18 15:38 15:40 15:40 WBC 12.9 H RBC 3.56 L Hgb 11.2 L Hct 33.2 L Neutrophils # 10.3 H APTT ABG pH ABG pCO2 ABG pO2 ABG HCO3 ABG Total CO2 ABG O2 Saturation ABG Hematocrit ABG Sodium ABG Ionized Calcium ABG Glucose ABG Lactic Acid Hemoglobin Chloride 111 H BUN 8 L Creatinine 0.65 L Glucose 103 H POC Glucose (mg/dL) 113 H Hemoglobin A1c Magnesium 2.6 H Troponin I Total Protein 5.2 L Albumin 3.3 L Triglycerides HDL Cholesterol TSH Free T4 Arterial Blood Glucose Crossmatch 11/03/18 11/03/18 16:06 16:08 WBC RBC Hgb Hct Neutrophils # APTT ABG pH 7.33 L ABG pCO2 52 H ABG pO2 254 H ABG HCO3 28 H ABG Total CO2 29 H ABG O2 Saturation 99.8 H ABG Hematocrit ABG Sodium ABG Ionized Calcium ABG Glucose ABG Lactic Acid Hemoglobin Chloride BUN Creatinine Glucose POC Glucose (mg/dL) 110 H Hemoglobin A1c Magnesium Troponin I Total Protein Albumin Triglycerides HDL Cholesterol TSH Free T4 Arterial Blood Glucose Crossmatch - Diagnostic Findings Chest x-ray: image reviewed (as noted in HPI) Assessment and Plan Assessment: impression:Multivessel coronary artery disease with the 50% left main stenosis, status post CABG, postoperative day #0. #2. Acute non-ST elevated myocardial infarction #3. Stage II COPD based on the preop FEV1 of 62% of predicted, consistent with moderately severe COPD, without hypoxemic failure #4. Previous nicotine dependence, currently in remission, patient carries [id number] smoking history, quit smoking in May 2018 #5. Hypothyroidism #6. Hyperlipidemia #7. History of premature coronary artery disease #8. 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 Continue bronchodilators. Continue cardiac meds, chest x-ray was reviewed, patient will be kept on mechanical ventilation for the next few hours, plan to wean and extubate in the next 4-6 hours. We'll continue to follow. Time with Patient: Greater than 30
[2018-11-03] MEDS: CLEVIDIPINE BUTYRATE 25 MG in EMPTY BAG 1 BAG IV SCH (17:25)
[2018-11-03 17:33] LABS: Glucose,Whole Blood 120 mg/dL (75-99)
[2018-11-03] MEDS: MORPHINE SULFATE 2 MG/ML SYRINGE IVP PRN ×2 (18:01→20:28)
[2018-11-03] MEDS: INSULIN REGULAR 100 UNIT in SODIUM CHLORIDE 0.9% 100 ML IV SCH (18:21)
[2018-11-03 18:32] LABS: Glucose,Whole Blood 140 mg/dL (75-99)
[2018-11-03 18:39] LABS: Basophils % (A) 0 %; Eosinophils # (A) 0.2 k/uL (0-0.7); Eosinophils % (A) 2 %; HCT 37.4 % (39.0-53.0); HGB 12.4 gm/dL (13.0-17.5); Lymphocytes # (A) 1.2 k/uL (1.0-4.8); Lymphocytes % (A) 9 %; MCH 30.5 pg (25.0-35.0); MCHC 33.2 g/dL (31.0-37.0); MCV 92.1 fL (80.0-100.0); Mean Platelet Volume 7.2; Monocytes # (A) 0.5 k/uL (0-1.0); Monocytes % (A) 4 %; Neutrophils # (A) 10.5 k/uL (1.3-7.7); Neutrophils % (A) 83 %; Platelet Count 236 k/uL (150-450); RBC 4.06 m/uL (4.30-5.90); RDW 14.4 % (11.5-15.5); WBC 12.6 k/uL (3.8-10.6)
[2018-11-03 19:11] LABS: Glucose,Whole Blood 145 mg/dL (75-99)
[2018-11-03] MEDS: ALBUMIN HUMAN 5% 250 ML in EMPTY BAG 1 BAG IVPB PRN ×3 (19:33→20:27)
[2018-11-03 19:38] LABS: ABG Base Excess -2.5 mmol/L; ABG HCO3 24 mmol/L (21-25); ABG Oxygen Saturation 97.3 % (94-97); ABG PCO2 53 mmHg (35-45); ABG PH 7.27 (7.35-7.45); ABG PO2 108 mmHg (83-108); ABG TCO2 26 mmol/L (19-24)
[2018-11-03 20:05] LABS: Glucose,Whole Blood 143 mg/dL (75-99)
[2018-11-03 20:47] LABS: Basophils % (A) 0 %; Eosinophils # (A) 0.2 k/uL (0-0.7); Eosinophils % (A) 1 %; HCT 33.3 % (39.0-53.0); HGB 10.9 gm/dL (13.0-17.5); Lymphocytes # (A) 1.1 k/uL (1.0-4.8); Lymphocytes % (A) 8 %; MCH 30.4 pg (25.0-35.0); MCHC 32.7 g/dL (31.0-37.0); MCV 93.1 fL (80.0-100.0); Mean Platelet Volume 7.2; Monocytes # (A) 0.7 k/uL (0-1.0); Monocytes % (A) 5 %; Neutrophils # (A) 12.2 k/uL (1.3-7.7); Neutrophils % (A) 85 %; Platelet Count 215 k/uL (150-450); RBC 3.58 m/uL (4.30-5.90); RDW 14.2 % (11.5-15.5); WBC 14.4 k/uL (3.8-10.6)
[2018-11-03] MEDS ORDERED: DEXMEDETOMIDINE/0.9% NACL(PMX) 400 MCG in EMPTY BAG 1 BAG IV SCH (21:00)
[2018-11-03 21:09] LABS: Glucose,Whole Blood 150 mg/dL (75-99)
[2018-11-03] MEDS: MUPIROCIN 2% OINT 22 GM TUBE NASAL SCH (22:00)
[2018-11-03] MEDS: ASPIRIN 325 MG TAB PO SCH (22:00)
[2018-11-03] MEDS: CLOPIDOGREL 75 MG TAB PO SCH (22:00)
[2018-11-03 22:07] LABS: Glucose,Whole Blood 146 mg/dL (75-99)
[2018-11-03 23:05] LABS: Glucose,Whole Blood 133 mg/dL (75-99)
[2018-11-03 23:46] LABS: ABG Base Excess -0.9 mmol/L; ABG HCO3 25 mmol/L (21-25); ABG Oxygen Saturation 98.1 % (94-97); ABG PCO2 47 mmHg (35-45); ABG PH 7.33 (7.35-7.45); ABG PO2 115 mmHg (83-108); ABG TCO2 27 mmol/L (19-24)
[2018-11-04] MEDS: ceFAZolin IN SWFI 2 GM/20 ML SYRINGE IVP SCH ×2 (00:04→09:23)
[2018-11-04] MEDS: HEPARIN SODIUM,PORCINE 5,000 UNIT/ML 1 ML VIAL SQ SCH ×3 (00:05→15:09)
[2018-11-04 00:09] LABS: Glucose,Whole Blood 140 mg/dL (75-99)
[2018-11-04] MEDS: MORPHINE SULFATE 2 MG/ML SYRINGE IVP PRN (00:39)
[2018-11-04 02:03] LABS: Glucose,Whole Blood 118 mg/dL (75-99)
[2018-11-04 03:03] LABS: Glucose,Whole Blood 117 mg/dL (75-99)
[2018-11-04] MEDS: NOREPINEPHRINE 4 MG in SODIUM CHLORIDE 0.9% 250 ML IV SCH ×4 (03:48→19:50)
[2018-11-04 04:08] LABS: Glucose,Whole Blood 107 mg/dL (75-99)
[2018-11-04 04:33] LABS: Glucose,Whole Blood 117 mg/dL (75-99)
[2018-11-04 04:42] LABS: Basophils % (A) 0 %; Eosinophils % (A) 0 %; HGB 10.4 gm/dL (13.0-17.5); Lymphocytes # (A) 1.3 k/uL (1.0-4.8); Lymphocytes % (A) 11 %; MCH 30.3 pg (25.0-35.0); MCHC 32.6 g/dL (31.0-37.0); MCV 92.8 fL (80.0-100.0); Monocytes # (A) 0.7 k/uL (0-1.0); Monocytes % (A) 6 %; Neutrophils # (A) 9.5 k/uL (1.3-7.7); Neutrophils % (A) 81 %; Platelet Count 195 k/uL (150-450); RBC 3.45 m/uL (4.30-5.90); RDW 14.4 % (11.5-15.5); WBC 11.7 k/uL (3.8-10.6)
[2018-11-04] MEDS: KETOROLAC 30 MG/ML 1 ML VIAL IVP SCH ×3 (04:48→17:12)
[2018-11-04 04:51] LABS: Ionized Calcium 4.9 mg/dL (4.5-5.3)
[2018-11-04 05:02] LABS: ALT 48 U/L (21-72); AST 77 U/L (17-59); Albumin 4.2 g/dL (3.5-5.0); Alkaline Phosphatase 46 U/L (38-126); Anion Gap 7 mmol/L; Blood Urea Nitrogen 9 mg/dL (9-20); Carbon Dioxide 26 mmol/L (22-30); Chloride 108 mmol/L (98-107); Glucose 110 mg/dL (74-99); Magnesium 2.4 mg/dL (1.6-2.3); Potassium 4.9 mmol/L (3.5-5.1); Sodium 141 mmol/L (137-145); Total Bilirubin 0.5 mg/dL (0.2-1.3); Total Protein 6.2 g/dL (6.3-8.2)
[2018-11-04] MEDS: ALBUMIN HUMAN 5% 250 ML in EMPTY BAG 1 BAG IVPB PRN ×3 (05:27→13:48)
[2018-11-04 06:11] LABS: Glucose,Whole Blood 138 mg/dL (75-99)
--- NOTE | 2018-11-04 06:26 | XR ---
EXAMINATION TYPE: XR chest 1V portable DATE OF EXAM: 11/04/2018 HISTORY: Post Operative Cardiac Surgery. REFERENCE: Previous study dated 11/03/2018. FINDINGS: There has been a midline sternotomy. There is a [place]-Fidencio catheter in place via a right sub clavian approach. Its tip is in the pulmonary outflow tract. The patient has been extubated. The chyna ent is NG tube is been removed. There is minimal bibasilar airspace disease. There are small, bilateral effusions. The heart is mildl y enlarged. IMPRESSION: 1. MILD ATELECTASIS, BOTH LUNG BASES. 2. SMALL, BILATERAL EFFUSIONS.
[2018-11-04] MEDS: HYDROcodone/APAP 5-325MG 1 EACH TAB PO PRN ×5 (06:46→23:15)
[2018-11-04] MEDS: LEVOTHYROXINE 75 MCG TAB PO SCH (06:46)
[2018-11-04 06:52] LABS: Glucose,Whole Blood 131 mg/dL (75-99)
--- NOTE | 2018-11-04 07:46 | P.PN ---
Subjective Progress Note Date: 11/04/18 Principal diagnosis: Acute non-ST elevation NM This is a pleasant 53-year-old gentleman with a past medical history significant for dyslipidemia, prior history of smoking, and very significant family history of coronary artery disease was multiple first-degree relatives with coronary artery disease and prior coronary artery vascularization presented to the hospital complaining of chest discomfort. The symptoms started about a week ago when he started experiencing intermittent episodes of chest discomfort, in the mid of the chest, as a sharp kind of discomfort, with radiation to the left arm. No associated symptoms of shortness of breath, sweating, dizziness or light of this, or syncope. Yesterday his chest discomfort has been more intense compared to before and because of that he decided to come to the hospital. The EKG showed sinus rhythm without any ST or T-wave abnormalities. The first set of enzymes came in to be unremarkable but the second set of troponin came in to be abnormal. The third set came in to be unremarkable. He underwent a computed tomography scan of the chest which showed no evidence of aortic dissection or aortic aneurysm. On follow-up with the patient today, 11/04/2018, the patient is post op day #1. He received Laurel to LAD, SABILLON to OM, and SVG to PDA. Hemodynamically he is stable. He is tachycardic and because he is in pain. Objective - Vital Signs Vital signs: Vital Signs Temp 97.8 F 11/04/18 04:30 Pulse 89 11/04/18 07:00 Resp 18 11/04/18 07:00 BP 106/81 11/04/18 07:00 Pulse Ox 96 11/04/18 07:00 Intake & Output 11/03/18 11/04/18 11/04/18 18:59 06:59 18:59 Intake Total 183 1440.690 82.9 Output Total 5060 1202 112 Balance -4877 238.690 -29.1 Weight 82.1 kg 87.6 kg Intake: IV 183 909 59 Lactated Ringers 1,000 ml 150 600 50 @ 50 mls/hr IV .Q20H [facility] Rx#:[id number] co/ci 210 normal saline 99 9 Intake, IV Titration 531.690 23.9 Amount Dexmedetomidine/0.9% NaCl 41.975 (Pmx) 400 mcg In Empty Bag 1 bag @ Titrate IV . Q0M [facility] Rx#:[id number] Insulin Regular 100 unit 28.258 In Sodium Chloride 0.9% 100 ml @ Titrate IV .Q0M [facility] Rx#:[id number] Nitroglycerin-D5w Pmx 50 23.9 mg In Dextrose/Water 1 250ml.bag @ 5 MCG/MIN 1.5 mls/hr IV .Q24H [facility] Rx#: [id number] Norepinephrine 4 mg In 421.967 Sodium Chloride 0.9% 250 ml @ 0.02 MCG/KG/MIN 6. 256 mls/hr IV .Q24H [facility] Rx#:[id number] Propofol 1,000 mg In 39.490 Empty Bag 1 bag @ Titrate IV .Q0M [facility] Rx#: [id number] Output: Chest Tube Drainage 310 297 52 Left Lateral Chest 110 36 18 Mediastinal 120 210 30 Right Lateral Chest 80 51 4 Urine 3750 905 60 Estimated Blood Loss 1000 Other: Voiding Method Indwelling Catheter Indwelling Catheter ABP, PAP, CO, CI - Last Documented Arterial Blood Pressure 100/65 Pulmonary Artery Pressure 41/23 Cardiac Output 7.3 Cardiac Index 3.7 - Constitutional General appearance: Present: no acute distress - Respiratory Respiratory: bilateral: diminished - Cardiovascular Rhythm: regular - Labs CBC & Chem 7: 11/04/18 04:30 11/04/18 04:30 Labs: Abnormal Lab Results - Last 24 Hours (Table) 11/02/18 11/03/18 11/03/18 Range/Units 03:57 08:31 11:46 WBC (3.8-10.6) k/uL RBC (4.30-5.90) m/uL Hgb (13.0-17.5) gm/dL Hct (39.0-53.0) % Neutrophils # (1.3-7.7) k/uL ABG pH 7.34 L (7.35-7.45) ABG pCO2 47 H (35-45) mmHg ABG pO2 302 H 220 H (83-108) mmHg ABG HCO3 26 H (21-25) mmol/L ABG Total CO2 27 H 27 H (19-24) mmol/L ABG O2 Saturation 100.0 H 100.0 H (94-97) % ABG Hematocrit 32 L (34.0-46.0) % ABG Sodium (135-146) mmol/L ABG Ionized Calcium (4.5-5.3) mg/dL ABG Glucose 105 H (75-99) mg/dL ABG Lactic Acid (0.5-1.6) mmol/L Hemoglobin 12.7 L 10.5 L (13.0-17.5) gm/dL Chloride (98-107) mmol/L BUN (9-20) mg/dL Creatinine (0.66-1.25) mg/dL Glucose (74-99) mg/dL POC Glucose (mg/dL) (75-99) mg/dL Magnesium (1.6-2.3) mg/dL AST (17-59) U/L Total Protein (6.3-8.2) g/dL Albumin (3.5-5.0) g/dL Arterial Blood Glucose 105 H (75-99) mg/dL Crossmatch See Detail 11/03/18 11/03/18 11/03/18 Range/Units 12:15 12:54 13:30 WBC (3.8-10.6) k/uL RBC (4.30-5.90) m/uL Hgb (13.0-17.5) gm/dL Hct (39.0-53.0) % Neutrophils # (1.3-7.7) k/uL ABG pH (7.35-7.45) ABG pCO2 (35-45) mmHg ABG pO2 385 H 277 H 219 H (83-108) mmHg ABG HCO3 (21-25) mmol/L ABG Total CO2 25 H 26 H 25 H (19-24) mmol/L ABG O2 Saturation 100.0 H 100.0 H 100.0 H (94-97) % ABG Hematocrit 24 L 23 L 23 L (34.0-46.0) % ABG Sodium 134 L (135-146) mmol/L ABG Ionized Calcium 4.2 L 4.2 L 4.3 L (4.5-5.3) mg/dL ABG Glucose 100 H 157 H 175 H (75-99) mg/dL ABG Lactic Acid 1.9 H (0.5-1.6) mmol/L Hemoglobin 7.8 L 7.6 L 7.4 L (13.0-17.5) gm/dL Chloride (98-107) mmol/L BUN (9-20) mg/dL Creatinine (0.66-1.25) mg/dL Glucose (74-99) mg/dL POC Glucose (mg/dL) (75-99) mg/dL Magnesium (1.6-2.3) mg/dL AST (17-59) U/L Total Protein (6.3-8.2) g/dL Albumin (3.5-5.0) g/dL Arterial Blood Glucose 100 H 157 H 175 H (75-99) mg/dL Crossmatch 11/03/18 11/03/18 11/03/18 Range/Units 14:46 15:38 15:40 WBC 12.9 H (3.8-10.6) k/uL RBC 3.56 L (4.30-5.90) m/uL Hgb 11.2 L (13.0-17.5) gm/dL Hct 33.2 L (39.0-53.0) % Neutrophils # 10.3 H (1.3-7.7) k/uL ABG pH (7.35-7.45) ABG pCO2 (35-45) mmHg ABG pO2 (83-108) mmHg ABG HCO3 (21-25) mmol/L ABG Total CO2 26 H (19-24) mmol/L ABG O2 Saturation 99.0 H (94-97) % ABG Hematocrit 30 L (34.0-46.0) % ABG Sodium (135-146) mmol/L ABG Ionized Calcium (4.5-5.3) mg/dL ABG Glucose 125 H (75-99) mg/dL ABG Lactic Acid 2.1 H (0.5-1.6) mmol/L Hemoglobin 9.7 L (13.0-17.5) gm/dL Chloride (98-107) mmol/L BUN (9-20) mg/dL Creatinine (0.66-1.25) mg/dL Glucose (74-99) mg/dL POC Glucose (mg/dL) 113 H (75-99) mg/dL Magnesium (1.6-2.3) mg/dL AST (17-59) U/L Total Protein (6.3-8.2) g/dL Albumin (3.5-5.0) g/dL Arterial Blood Glucose 125 H (75-99) mg/dL Crossmatch 11/03/18 11/03/18 11/03/18 Range/Units 15:40 16:06 16:08 WBC (3.8-10.6) k/uL RBC (4.30-5.90) m/uL Hgb (13.0-17.5) gm/dL Hct (39.0-53.0) % Neutrophils # (1.3-7.7) k/uL ABG pH 7.33 L (7.35-7.45) ABG pCO2 52 H (35-45) mmHg ABG pO2 254 H (83-108) mmHg ABG HCO3 28 H (21-25) mmol/L ABG Total CO2 29 H (19-24) mmol/L ABG O2 Saturation 99.8 H (94-97) % ABG Hematocrit (34.0-46.0) % ABG Sodium (135-146) mmol/L ABG Ionized Calcium (4.5-5.3) mg/dL ABG Glucose (75-99) mg/dL ABG Lactic Acid (0.5-1.6) mmol/L Hemoglobin (13.0-17.5) gm/dL Chloride 111 H (98-107) mmol/L BUN 8 L (9-20) mg/dL Creatinine 0.65 L (0.66-1.25) mg/dL Glucose 103 H (74-99) mg/dL POC Glucose (mg/dL) 110 H (75-99) mg/dL Magnesium 2.6 H (1.6-2.3) mg/dL AST (17-59) U/L Total Protein 5.2 L (6.3-8.2) g/dL Albumin 3.3 L (3.5-5.0) g/dL Arterial Blood Glucose (75-99) mg/dL Crossmatch 11/03/18 11/03/18 11/03/18 Range/Units 17:13 18:10 18:12 WBC 12.6 H (3.8-10.6) k/uL RBC 4.06 L (4.30-5.90) m/uL Hgb 12.4 L (13.0-17.5) gm/dL Hct 37.4 L (39.0-53.0) % Neutrophils # 10.5 H (1.3-7.7) k/uL ABG pH (7.35-7.45) ABG pCO2 (35-45) mmHg ABG pO2 (83-108) mmHg ABG HCO3 (21-25) mmol/L ABG Total CO2 (19-24) mmol/L ABG O2 Saturation (94-97) % ABG Hematocrit (34.0-46.0) % ABG Sodium (135-146) mmol/L ABG Ionized Calcium (4.5-5.3) mg/dL ABG Glucose (75-99) mg/dL ABG Lactic Acid (0.5-1.6) mmol/L Hemoglobin (13.0-17.5) gm/dL Chloride (98-107) mmol/L BUN (9-20) mg/dL Creatinine (0.66-1.25) mg/dL Glucose (74-99) mg/dL POC Glucose (mg/dL) 120 H 140 H (75-99) mg/dL Magnesium (1.6-2.3) mg/dL AST (17-59) U/L Total Protein (6.3-8.2) g/dL Albumin (3.5-5.0) g/dL Arterial Blood Glucose (75-99) mg/dL Crossmatch 11/03/18 11/03/18 11/03/18 Range/Units 18:57 19:34 20:04 WBC (3.8-10.6) k/uL RBC (4.30-5.90) m/uL Hgb (13.0-17.5) gm/dL Hct (39.0-53.0) % Neutrophils # (1.3-7.7) k/uL ABG pH 7.27 L (7.35-7.45) ABG pCO2 53 H (35-45) mmHg ABG pO2 (83-108) mmHg ABG HCO3 (21-25) mmol/L ABG Total CO2 26 H (19-24) mmol/L ABG O2 Saturation 97.3 H (94-97) % ABG Hematocrit (34.0-46.0) % ABG Sodium (135-146) mmol/L ABG Ionized Calcium (4.5-5.3) mg/dL ABG Glucose (75-99) mg/dL ABG Lactic Acid (0.5-1.6) mmol/L Hemoglobin (13.0-17.5) gm/dL Chloride (98-107) mmol/L BUN (9-20) mg/dL Creatinine (0.66-1.25) mg/dL Glucose (74-99) mg/dL POC Glucose (mg/dL) 145 H 143 H (75-99) mg/dL Magnesium (1.6-2.3) mg/dL AST (17-59) U/L Total Protein (6.3-8.2) g/dL Albumin (3.5-5.0) g/dL Arterial Blood Glucose (75-99) mg/dL Crossmatch 11/03/18 11/03/18 11/03/18 Range/Units 20:10 21:07 22:04 WBC 14.4 H (3.8-10.6) k/uL RBC 3.58 L (4.30-5.90) m/uL Hgb 10.9 L (13.0-17.5) gm/dL Hct 33.3 L (39.0-53.0) % Neutrophils # 12.2 H (1.3-7.7) k/uL ABG pH (7.35-7.45) ABG pCO2 (35-45) mmHg ABG pO2 (83-108) mmHg ABG HCO3 (21-25) mmol/L ABG Total CO2 (19-24) mmol/L ABG O2 Saturation (94-97) % ABG Hematocrit (34.0-46.0) % ABG Sodium (135-146) mmol/L ABG Ionized Calcium (4.5-5.3) mg/dL ABG Glucose (75-99) mg/dL ABG Lactic Acid (0.5-1.6) mmol/L Hemoglobin (13.0-17.5) gm/dL Chloride (98-107) mmol/L BUN (9-20) mg/dL Creatinine (0.66-1.25) mg/dL Glucose (74-99) mg/dL POC Glucose (mg/dL) 150 H 146 H (75-99) mg/dL Magnesium (1.6-2.3) mg/dL AST (17-59) U/L Total Protein (6.3-8.2) g/dL Albumin (3.5-5.0) g/dL Arterial Blood Glucose (75-99) mg/dL Crossmatch 11/03/18 11/03/18 11/04/18 Range/Units 23:03 23:40 00:07 WBC (3.8-10.6) k/uL RBC (4.30-5.90) m/uL Hgb (13.0-17.5) gm/dL Hct (39.0-53.0) % Neutrophils # (1.3-7.7) k/uL ABG pH 7.33 L (7.35-7.45) ABG pCO2 47 H (35-45) mmHg ABG pO2 115 H (83-108) mmHg ABG HCO3 (21-25) mmol/L ABG Total CO2 27 H (19-24) mmol/L ABG O2 Saturation 98.1 H (94-97) % ABG Hematocrit (34.0-46.0) % ABG Sodium (135-146) mmol/L ABG Ionized Calcium (4.5-5.3) mg/dL ABG Glucose (75-99) mg/dL ABG Lactic Acid (0.5-1.6) mmol/L Hemoglobin (13.0-17.5) gm/dL Chloride (98-107) mmol/L BUN (9-20) mg/dL Creatinine (0.66-1.25) mg/dL Glucose (74-99) mg/dL POC Glucose (mg/dL) 133 H 140 H (75-99) mg/dL Magnesium (1.6-2.3) mg/dL AST (17-59) U/L Total Protein (6.3-8.2) g/dL Albumin (3.5-5.0) g/dL Arterial Blood Glucose (75-99) mg/dL Crossmatch 11/04/18 11/04/18 11/04/18 Range/Units 02:02 03:02 04:06 WBC (3.8-10.6) k/uL RBC (4.30-5.90) m/uL Hgb (13.0-17.5) gm/dL Hct (39.0-53.0) % Neutrophils # (1.3-7.7) k/uL ABG pH (7.35-7.45) ABG pCO2 (35-45) mmHg ABG pO2 (83-108) mmHg ABG HCO3 (21-25) mmol/L ABG Total CO2 (19-24) mmol/L ABG O2 Saturation (94-97) % ABG Hematocrit (34.0-46.0) % ABG Sodium (135-146) mmol/L ABG Ionized Calcium (4.5-5.3) mg/dL ABG Glucose (75-99) mg/dL ABG Lactic Acid (0.5-1.6) mmol/L Hemoglobin (13.0-17.5) gm/dL Chloride (98-107) mmol/L BUN (9-20) mg/dL Creatinine (0.66-1.25) mg/dL Glucose (74-99) mg/dL POC Glucose (mg/dL) 118 H 117 H 107 H (75-99) mg/dL Magnesium (1.6-2.3) mg/dL AST (17-59) U/L Total Protein (6.3-8.2) g/dL Albumin (3.5-5.0) g/dL Arterial Blood Glucose (75-99) mg/dL Crossmatch 11/04/18 11/04/18 11/04/18 Range/Units 04:30 04:30 04:32 WBC 11.7 H (3.8-10.6) k/uL RBC 3.45 L (4.30-5.90) m/uL Hgb 10.4 L (13.0-17.5) gm/dL Hct 32.0 L (39.0-53.0) % Neutrophils # 9.5 H (1.3-7.7) k/uL ABG pH (7.35-7.45) ABG pCO2 (35-45) mmHg ABG pO2 (83-108) mmHg ABG HCO3 (21-25) mmol/L ABG Total CO2 (19-24) mmol/L ABG O2 Saturation (94-97) % ABG Hematocrit (34.0-46.0) % ABG Sodium (135-146) mmol/L ABG Ionized Calcium (4.5-5.3) mg/dL ABG Glucose (75-99) mg/dL ABG Lactic Acid (0.5-1.6) mmol/L Hemoglobin (13.0-17.5) gm/dL Chloride 108 H (98-107) mmol/L BUN (9-20) mg/dL Creatinine (0.66-1.25) mg/dL Glucose 110 H (74-99) mg/dL POC Glucose (mg/dL) 117 H (75-99) mg/dL Magnesium 2.4 H (1.6-2.3) mg/dL AST 77 H (17-59) U/L Total Protein 6.2 L (6.3-8.2) g/dL Albumin (3.5-5.0) g/dL Arterial Blood Glucose (75-99) mg/dL Crossmatch 11/04/18 11/04/18 Range/Units 06:09 06:51 WBC (3.8-10.6) k/uL RBC (4.30-5.90) m/uL Hgb (13.0-17.5) gm/dL Hct (39.0-53.0) % Neutrophils # (1.3-7.7) k/uL ABG pH (7.35-7.45) ABG pCO2 (35-45) mmHg ABG pO2 (83-108) mmHg ABG HCO3 (21-25) mmol/L ABG Total CO2 (19-24) mmol/L ABG O2 Saturation (94-97) % ABG Hematocrit (34.0-46.0) % ABG Sodium (135-146) mmol/L ABG Ionized Calcium (4.5-5.3) mg/dL ABG Glucose (75-99) mg/dL ABG Lactic Acid (0.5-1.6) mmol/L Hemoglobin (13.0-17.5) gm/dL Chloride (98-107) mmol/L BUN (9-20) mg/dL Creatinine (0.66-1.25) mg/dL Glucose (74-99) mg/dL POC Glucose (mg/dL) 138 H 131 H (75-99) mg/dL Magnesium (1.6-2.3) mg/dL AST (17-59) U/L Total Protein (6.3-8.2) g/dL Albumin (3.5-5.0) g/dL Arterial Blood Glucose (75-99) mg/dL Crossmatch Assessment and Plan Assessment: Assessment #1 acute non-ST patient myocardial infarction #2 severe coronary artery disease involving the distal left main and status post CABG #3 hypertension #4 dyslipidemia #5 family history of CAD Plan #1 continue the current medical regimen including dual antiplatelet therapy and statin #2 I would suggest increase the dose of metoprolol in the next 24 hours
[2018-11-04 08:01] LABS: Glucose,Whole Blood 127 mg/dL (75-99)
[2018-11-04] MEDS: IPRATROPIUM-ALBUTEROL 3 ML NEB INHALATION SCH ×4 (08:08→20:32)
[2018-11-04] MEDS: ATORVASTATIN 40 MG TAB PO SCH (08:33)
[2018-11-04] MEDS: CLOPIDOGREL 75 MG TAB PO SCH (08:33)
[2018-11-04] MEDS: ASPIRIN 325 MG TAB PO SCH (08:33)
[2018-11-04] MEDS: MUPIROCIN 2% OINT 22 GM TUBE NASAL SCH ×2 (08:34→20:17)
[2018-11-04] MEDS ORDERED: PANTOPRAZOLE 40 MG/10 ML VIAL IVP SCH (09:00)
[2018-11-04] MEDS ORDERED: METOPROLOL TARTRATE 12.5 MG TAB PO SCH ×2 (09:00)
[2018-11-04] MEDS ORDERED: METOPROLOL TARTRATE 25 MG TAB PO SCH ×2 (09:00→21:00)
[2018-11-04] MEDS ORDERED: MAGNESIUM HYDROXIDE 2,400 MG/10 ML CUP PO PRN (09:00)
[2018-11-04] MEDS ORDERED: BISACODYL 10 MG SUPP RECTAL PRN (09:00)
[2018-11-04 09:14] LABS: Glucose,Whole Blood 128 mg/dL (75-99)
[2018-11-04] MEDS ORDERED: fentaNYL (PF) 50 MCG/ML 2 ML AMP IVP ONE ×2 (09:15→21:36)
[2018-11-04] MEDS: NITROGLYCERIN-D5W PMX 50 MG in DEXTROSE/WATER 1 250ML.BAG IV SCH (09:46)
[2018-11-04 10:17] LABS: Glucose,Whole Blood 134 mg/dL (75-99)
--- NOTE | 2018-11-04 10:39 | P.PN ---
Subjective Progress Note Date: 11/04/18 Principal diagnosis: Status post CABG, CHEPE to LAD, SABILLON to left obtuse marginal artery saphenous vein graft to posterior descending artery. Postoperative day #1. This is a 73-year-old white male patient, of Dr. Hardin, with a past medical history of hyperlipidemia, hypothyroidism, patient is a former smoker, quit smoking in May 2018, obesity, and family history of premature coronary artery disease. Patient presented to the hospital on 10/27/2018 for evaluation of back pain, arm pain, shortness of breath and mild chest discomfort that started in the middle of the night and was not preceded by exertion. CTA chest was completed and showed no aortic aneurysm or dissection, no suspicious acute process, no suspicious nodules or masses, no pleural effusions. Chest x-ray showed chronic changes without evidence of acute pulmonary disease. EKG showed normal sinus rhythm without ischemic changes, patient had a mild elevation of troponins which peaked at 0.036, patient was ruled in for non-ST elevated PA. He underwent a cardiac Catheterization which demonstrated left main stenosis of 50%, chronically totally occluded RCA with collaterals, proximal LAD stenosis of 50%, and obtuse marginal stenosis of 50%. ALLISON showed normal systolic function with an ejection fraction of 50-55% with mild MR and mild TR. Patient was referred to cardiothoracic surgery and surgical intervention was recommended for multivessel coronary artery disease. We are consulted in regards to pulmonary management and pulmonary clearance for upcoming surgery. Patient was seen today postoperatively on 11/03/2018.patient had severe triple- vessel coronary artery disease with left main disease, non-ST elevation myocardial infarction, left internal carotids stenosis, patient is now on me chanical ventilation, his ventilator settings are tidal volume of 480, assist control rate of 16, FiO2 of 50%, and PEEP of 8.ABG prior to these vent setting showed a pO2 of 254 pCO2 of 52 pH of 7.33. Since this ABG, his assist control rate was increased to 16, and his FiO2 was decreased down to 50%.chest x-ray postoperatively was reviewed, minimal bibasilar atelectasis is noted, postoperative changes noted. Patient is presently sedated, on mechanical ventilation, in no distress Patient was seen today on 11/04/2018, patient is doing well, complaining of pain at the site of his tube insertions and surgical site in the lower mediastinal area, receiving multiple pain medications including narcotics and Toradol. Chest x-ray showed minimal atelectasis and pleural effusions, no significant abn ormality noted on the chest x-ray otherwise. CBC is relatively normal hemoglobin is 10.4. Basic metabolic profile is normal. Objective - Vital Signs Vital signs: Vital Signs Temp 98.8 F 11/04/18 08:00 Pulse 112 H 11/04/18 09:30 Resp 13 11/04/18 09:30 BP 106/87 11/04/18 09:30 Pulse Ox 96 11/04/18 09:30 Intake & Output 11/03/18 11/04/18 11/04/18 18:59 06:59 18:59 Intake Total 183 1440.690 820.789 Output Total 5060 1202 377 Balance -4877 238.690 443.789 Weight 82.1 kg 87.6 kg Intake: IV 183 909 187 Lactated Ringers 1,000 ml 150 600 150 @ 50 mls/hr IV .Q20H [facility] Rx#:[id number] Normal Saline Pressure 99 27 Bag co/ci 210 10 Intake, IV Titration 531.690 233.789 Amount Dexmedetomidine/0.9% NaCl 41.975 (Pmx) 400 mcg In Empty Bag 1 bag @ Titrate IV . Q0M [facility] Rx#:[id number] Insulin Regular 100 unit 28.258 In Sodium Chloride 0.9% 100 ml @ Titrate IV .Q0M [facility] Rx#:[id number] Nitroglycerin-D5w Pmx 50 23.9 mg In Dextrose/Water 1 250ml.bag @ 5 MCG/MIN 1.5 mls/hr IV .Q24H [facility] Rx#: [id number] Norepinephrine 4 mg In 421.967 209.889 Sodium Chloride 0.9% 250 ml @ 0.02 MCG/KG/MIN 6. 256 mls/hr IV .Q24H [facility] Rx#:[id number] Propofol 1,000 mg In 39.490 Empty Bag 1 bag @ Titrate IV .Q0M [facility] Rx#: [id number] Oral 400 Output: Chest Tube Drainage 310 297 210 Left Lateral Chest 110 36 88 Mediastinal 120 210 100 Right Lateral Chest 80 51 22 Urine 3750 905 167 Estimated Blood Loss 1000 Other: Voiding Method Indwelling Catheter Indwelling Catheter Indwelling Catheter ABP, PAP, CO, CI - Last Documented Arterial Blood Pressure 88/59 Pulmonary Artery Pressure 37/15 Cardiac Output 6.5 Cardiac Index 3.3 - Exam GENERAL EXAM: revealed a 53-year-old white male, pleasant, in no distress, however complaining of pain. HEAD: Normocephalic/atraumatic. ENT: PERRLA, EOMI, moist mucous membranes, no icterus.No neck masses, no JVD, no stridor. CHEST: No chest wall deformity. Symmetrical expansion. LUNGS: Equal air entry with no crackles, wheeze, rhonchi or dullness.chest tubes were noted. CVS: Regular rate and rhythm, normal S1 and S2, no gallops, no murmurs, no rubs ABDOMEN: Soft, nontender. No hepatosplenomegaly, normal bowel sounds, no guarding or rigidity. EXTREMITIES: No clubbing, no edema, no cyanosis, 2+ pulses and upper and lower extremities. SKIN: No rashes CENTRAL NERVOUS SYSTEM: Alert, oriented, 3, no gross focal neurologic deficits. PSYCHIATRIC: Normal mood, affect and mental status examination. - Labs CBC & Chem 7: 11/04/18 04:30 11/04/18 04:30 Labs: Abnormal Lab Results - Last 24 Hours (Table) 11/02/18 11/03/18 11/03/18 Range/Units 03:57 08:31 11:46 WBC (3.8-10.6) k/uL RBC (4.30-5.90) m/uL Hgb (13.0-17.5) gm/dL Hct (39.0-53.0) % Neutrophils # (1.3-7.7) k/uL ABG pH 7.34 L (7.35-7.45) ABG pCO2 47 H (35-45) mmHg ABG pO2 302 H 220 H (83-108) mmHg ABG HCO3 26 H (21-25) mmol/L ABG Total CO2 27 H 27 H (19-24) mmol/L ABG O2 Saturation 100.0 H 100.0 H (94-97) % ABG Hematocrit 32 L (34.0-46.0) % ABG Sodium (135-146) mmol/L ABG Ionized Calcium (4.5-5.3) mg/dL ABG Glucose 105 H (75-99) mg/dL ABG Lactic Acid (0.5-1.6) mmol/L Hemoglobin 12.7 L 10.5 L (13.0-17.5) gm/dL Chloride (98-107) mmol/L BUN (9-20) mg/dL Creatinine (0.66-1.25) mg/dL Glucose (74-99) mg/dL POC Glucose (mg/dL) (75-99) mg/dL Magnesium (1.6-2.3) mg/dL AST (17-59) U/L Total Protein (6.3-8.2) g/dL Albumin (3.5-5.0) g/dL Arterial Blood Glucose 105 H (75-99) mg/dL Crossmatch See Detail 11/03/18 11/03/18 11/03/18 Range/Units 12:15 12:54 13:30 WBC (3.8-10.6) k/uL RBC (4.30-5.90) m/uL Hgb (13.0-17.5) gm/dL Hct (39.0-53.0) % Neutrophils # (1.3-7.7) k/uL ABG pH (7.35-7.45) ABG pCO2 (35-45) mmHg ABG pO2 385 H 277 H 219 H (83-108) mmHg ABG HCO3 (21-25) mmol/L ABG Total CO2 25 H 26 H 25 H (19-24) mmol/L ABG O2 Saturation 100.0 H 100.0 H 100.0 H (94-97) % ABG Hematocrit 24 L 23 L 23 L (34.0-46.0) % ABG Sodium 134 L (135-146) mmol/L ABG Ionized Calcium 4.2 L 4.2 L 4.3 L (4.5-5.3) mg/dL ABG Glucose 100 H 157 H 175 H (75-99) mg/dL ABG Lactic Acid 1.9 H (0.5-1.6) mmol/L Hemoglobin 7.8 L 7.6 L 7.4 L (13.0-17.5) gm/dL Chloride (98-107) mmol/L BUN (9-20) mg/dL Creatinine (0.66-1.25) mg/dL Glucose (74-99) mg/dL POC Glucose (mg/dL) (75-99) mg/dL Magnesium (1.6-2.3) mg/dL AST (17-59) U/L Total Protein (6.3-8.2) g/dL Albumin (3.5-5.0) g/dL Arterial Blood Glucose 100 H 157 H 175 H (75-99) mg/dL Crossmatch 11/03/18 11/03/18 11/03/18 Range/Units 14:46 15:38 15:40 WBC 12.9 H (3.8-10.6) k/uL RBC 3.56 L (4.30-5.90) m/uL Hgb 11.2 L (13.0-17.5) gm/dL Hct 33.2 L (39.0-53.0) % Neutrophils # 10.3 H (1.3-7.7) k/uL ABG pH (7.35-7.45) ABG pCO2 (35-45) mmHg ABG pO2 (83-108) mmHg ABG HCO3 (21-25) mmol/L ABG Total CO2 26 H (19-24) mmol/L ABG O2 Saturation 99.0 H (94-97) % ABG Hematocrit 30 L (34.0-46.0) % ABG Sodium (135-146) mmol/L ABG Ionized Calcium (4.5-5.3) mg/dL ABG Glucose 125 H (75-99) mg/dL ABG Lactic Acid 2.1 H (0.5-1.6) mmol/L Hemoglobin 9.7 L (13.0-17.5) gm/dL Chloride (98-107) mmol/L BUN (9-20) mg/dL Creatinine (0.66-1.25) mg/dL Glucose (74-99) mg/dL POC Glucose (mg/dL) 113 H (75-99) mg/dL Magnesium (1.6-2.3) mg/dL AST (17-59) U/L Total Protein (6.3-8.2) g/dL Albumin (3.5-5.0) g/dL Arterial Blood Glucose 125 H (75-99) mg/dL Crossmatch 11/03/18 11/03/18 11/03/18 Range/Units 15:40 16:06 16:08 WBC (3.8-10.6) k/uL RBC (4.30-5.90) m/uL Hgb (13.0-17.5) gm/dL Hct (39.0-53.0) % Neutrophils # (1.3-7.7) k/uL ABG pH 7.33 L (7.35-7.45) ABG pCO2 52 H (35-45) mmHg ABG pO2 254 H (83-108) mmHg ABG HCO3 28 H (21-25) mmol/L ABG Total CO2 29 H (19-24) mmol/L ABG O2 Saturation 99.8 H (94-97) % ABG Hematocrit (34.0-46.0) % ABG Sodium (135-146) mmol/L ABG Ionized Calcium (4.5-5.3) mg/dL ABG Glucose (75-99) mg/dL ABG Lactic Acid (0.5-1.6) mmol/L Hemoglobin (13.0-17.5) gm/dL Chloride 111 H (98-107) mmol/L BUN 8 L (9-20) mg/dL Creatinine 0.65 L (0.66-1.25) mg/dL Glucose 103 H (74-99) mg/dL POC Glucose (mg/dL) 110 H (75-99) mg/dL Magnesium 2.6 H (1.6-2.3) mg/dL AST (17-59) U/L Total Protein 5.2 L (6.3-8.2) g/dL Albumin 3.3 L (3.5-5.0) g/dL Arterial Blood Glucose (75-99) mg/dL Crossmatch 11/03/18 11/03/18 11/03/18 Range/Units 17:13 18:10 18:12 WBC 12.6 H (3.8-10.6) k/uL RBC 4.06 L (4.30-5.90) m/uL Hgb 12.4 L (13.0-17.5) gm/dL Hct 37.4 L (39.0-53.0) % Neutrophils # 10.5 H (1.3-7.7) k/uL ABG pH (7.35-7.45) ABG pCO2 (35-45) mmHg ABG pO2 (83-108) mmHg ABG HCO3 (21-25) mmol/L ABG Total CO2 (19-24) mmol/L ABG O2 Saturation (94-97) % ABG Hematocrit (34.0-46.0) % ABG Sodium (135-146) mmol/L ABG Ionized Calcium (4.5-5.3) mg/dL ABG Glucose (75-99) mg/dL ABG Lactic Acid (0.5-1.6) mmol/L Hemoglobin (13.0-17.5) gm/dL Chloride (98-107) mmol/L BUN (9-20) mg/dL Creatinine (0.66-1.25) mg/dL Glucose (74-99) mg/dL POC Glucose (mg/dL) 120 H 140 H (75-99) mg/dL Magnesium (1.6-2.3) mg/dL AST (17-59) U/L Total Protein (6.3-8.2) g/dL Albumin (3.5-5.0) g/dL Arterial Blood Glucose (75-99) mg/dL Crossmatch 11/03/18 11/03/18 11/03/18 Range/Units 18:57 19:34 20:04 WBC (3.8-10.6) k/uL RBC (4.30-5.90) m/uL Hgb (13.0-17.5) gm/dL Hct (39.0-53.0) % Neutrophils # (1.3-7.7) k/uL ABG pH 7.27 L (7.35-7.45) ABG pCO2 53 H (35-45) mmHg ABG pO2 (83-108) mmHg ABG HCO3 (21-25) mmol/L ABG Total CO2 26 H (19-24) mmol/L ABG O2 Saturation 97.3 H (94-97) % ABG Hematocrit (34.0-46.0) % ABG Sodium (135-146) mmol/L ABG Ionized Calcium (4.5-5.3) mg/dL ABG Glucose (75-99) mg/dL ABG Lactic Acid (0.5-1.6) mmol/L Hemoglobin (13.0-17.5) gm/dL Chloride (98-107) mmol/L BUN (9-20) mg/dL Creatinine (0.66-1.25) mg/dL Glucose (74-99) mg/dL POC Glucose (mg/dL) 145 H 143 H (75-99) mg/dL Magnesium (1.6-2.3) mg/dL AST (17-59) U/L Total Protein (6.3-8.2) g/dL Albumin (3.5-5.0) g/dL Arterial Blood Glucose (75-99) mg/dL Crossmatch 11/03/18 11/03/18 11/03/18 Range/Units 20:10 21:07 22:04 WBC 14.4 H (3.8-10.6) k/uL RBC 3.58 L (4.30-5.90) m/uL Hgb 10.9 L (13.0-17.5) gm/dL Hct 33.3 L (39.0-53.0) % Neutrophils # 12.2 H (1.3-7.7) k/uL ABG pH (7.35-7.45) ABG pCO2 (35-45) mmHg ABG pO2 (83-108) mmHg ABG HCO3 (21-25) mmol/L ABG Total CO2 (19-24) mmol/L ABG O2 Saturation (94-97) % ABG Hematocrit (34.0-46.0) % ABG Sodium (135-146) mmol/L ABG Ionized Calcium (4.5-5.3) mg/dL ABG Glucose (75-99) mg/dL ABG Lactic Acid (0.5-1.6) mmol/L Hemoglobin (13.0-17.5) gm/dL Chloride (98-107) mmol/L BUN (9-20) mg/dL Creatinine (0.66-1.25) mg/dL Glucose (74-99) mg/dL POC Glucose (mg/dL) 150 H 146 H (75-99) mg/dL Magnesium (1.6-2.3) mg/dL AST (17-59) U/L Total Protein (6.3-8.2) g/dL Albumin (3.5-5.0) g/dL Arterial Blood Glucose (75-99) mg/dL Crossmatch 11/03/18 11/03/18 11/04/18 Range/Units 23:03 23:40 00:07 WBC (3.8-10.6) k/uL RBC (4.30-5.90) m/uL Hgb (13.0-17.5) gm/dL Hct (39.0-53.0) % Neutrophils # (1.3-7.7) k/uL ABG pH 7.33 L (7.35-7.45) ABG pCO2 47 H (35-45) mmHg ABG pO2 115 H (83-108) mmHg ABG HCO3 (21-25) mmol/L ABG Total CO2 27 H (19-24) mmol/L ABG O2 Saturation 98.1 H (94-97) % ABG Hematocrit (34.0-46.0) % ABG Sodium (135-146) mmol/L ABG Ionized Calcium (4.5-5.3) mg/dL ABG Glucose (75-99) mg/dL ABG Lactic Acid (0.5-1.6) mmol/L Hemoglobin (13.0-17.5) gm/dL Chloride (98-107) mmol/L BUN (9-20) mg/dL Creatinine (0.66-1.25) mg/dL Glucose (74-99) mg/dL POC Glucose (mg/dL) 133 H 140 H (75-99) mg/dL Magnesium (1.6-2.3) mg/dL AST (17-59) U/L Total Protein (6.3-8.2) g/dL Albumin (3.5-5.0) g/dL Arterial Blood Glucose (75-99) mg/dL Crossmatch 11/04/18 11/04/18 11/04/18 Range/Units 02:02 03:02 04:06 WBC (3.8-10.6) k/uL RBC (4.30-5.90) m/uL Hgb (13.0-17.5) gm/dL Hct (39.0-53.0) % Neutrophils # (1.3-7.7) k/uL ABG pH (7.35-7.45) ABG pCO2 (35-45) mmHg ABG pO2 (83-108) mmHg ABG HCO3 (21-25) mmol/L ABG Total CO2 (19-24) mmol/L ABG O2 Saturation (94-97) % ABG Hematocrit (34.0-46.0) % ABG Sodium (135-146) mmol/L ABG Ionized Calcium (4.5-5.3) mg/dL ABG Glucose (75-99) mg/dL ABG Lactic Acid (0.5-1.6) mmol/L Hemoglobin (13.0-17.5) gm/dL Chloride (98-107) mmol/L BUN (9-20) mg/dL Creatinine (0.66-1.25) mg/dL Glucose (74-99) mg/dL POC Glucose (mg/dL) 118 H 117 H 107 H (75-99) mg/dL Magnesium (1.6-2.3) mg/dL AST (17-59) U/L Total Protein (6.3-8.2) g/dL Albumin (3.5-5.0) g/dL Arterial Blood Glucose (75-99) mg/dL Crossmatch 11/04/18 11/04/18 11/04/18 Range/Units 04:30 04:30 04:32 WBC 11.7 H (3.8-10.6) k/uL RBC 3.45 L (4.30-5.90) m/uL Hgb 10.4 L (13.0-17.5) gm/dL Hct 32.0 L (39.0-53.0) % Neutrophils # 9.5 H (1.3-7.7) k/uL ABG pH (7.35-7.45) ABG pCO2 (35-45) mmHg ABG pO2 (83-108) mmHg ABG HCO3 (21-25) mmol/L ABG Total CO2 (19-24) mmol/L ABG O2 Saturation (94-97) % ABG Hematocrit (34.0-46.0) % ABG Sodium (135-146) mmol/L ABG Ionized Calcium (4.5-5.3) mg/dL ABG Glucose (75-99) mg/dL ABG Lactic Acid (0.5-1.6) mmol/L Hemoglobin (13.0-17.5) gm/dL Chloride 108 H (98-107) mmol/L BUN (9-20) mg/dL Creatinine (0.66-1.25) mg/dL Glucose 110 H (74-99) mg/dL POC Glucose (mg/dL) 117 H (75-99) mg/dL Magnesium 2.4 H (1.6-2.3) mg/dL AST 77 H (17-59) U/L Total Protein 6.2 L (6.3-8.2) g/dL Albumin (3.5-5.0) g/dL Arterial Blood Glucose (75-99) mg/dL Crossmatch 11/04/18 11/04/18 11/04/18 Range/Units 06:09 06:51 07:58 WBC (3.8-10.6) k/uL RBC (4.30-5.90) m/uL Hgb (13.0-17.5) gm/dL Hct (39.0-53.0) % Neutrophils # (1.3-7.7) k/uL ABG pH (7.35-7.45) ABG pCO2 (35-45) mmHg ABG pO2 (83-108) mmHg ABG HCO3 (21-25) mmol/L ABG Total CO2 (19-24) mmol/L ABG O2 Saturation (94-97) % ABG Hematocrit (34.0-46.0) % ABG Sodium (135-146) mmol/L ABG Ionized Calcium (4.5-5.3) mg/dL ABG Glucose (75-99) mg/dL ABG Lactic Acid (0.5-1.6) mmol/L Hemoglobin (13.0-17.5) gm/dL Chloride (98-107) mmol/L BUN (9-20) mg/dL Creatinine (0.66-1.25) mg/dL Glucose (74-99) mg/dL POC Glucose (mg/dL) 138 H 131 H 127 H (75-99) mg/dL Magnesium (1.6-2.3) mg/dL AST (17-59) U/L Total Protein (6.3-8.2) g/dL Albumin (3.5-5.0) g/dL Arterial Blood Glucose (75-99) mg/dL Crossmatch 11/04/18 11/04/18 Range/Units 09:13 10:15 WBC (3.8-10.6) k/uL RBC (4.30-5.90) m/uL Hgb (13.0-17.5) gm/dL Hct (39.0-53.0) % Neutrophils # (1.3-7.7) k/uL ABG pH (7.35-7.45) ABG pCO2 (35-45) mmHg ABG pO2 (83-108) mmHg ABG HCO3 (21-25) mmol/L ABG Total CO2 (19-24) mmol/L ABG O2 Saturation (94-97) % ABG Hematocrit (34.0-46.0) % ABG Sodium (135-146) mmol/L ABG Ionized Calcium (4.5-5.3) mg/dL ABG Glucose (75-99) mg/dL ABG Lactic Acid (0.5-1.6) mmol/L Hemoglobin (13.0-17.5) gm/dL Chloride (98-107) mmol/L BUN (9-20) mg/dL Creatinine (0.66-1.25) mg/dL Glucose (74-99) mg/dL POC Glucose (mg/dL) 128 H 134 H (75-99) mg/dL Magnesium (1.6-2.3) mg/dL AST (17-59) U/L Total Protein (6.3-8.2) g/dL Albumin (3.5-5.0) g/dL Arterial Blood Glucose (75-99) mg/dL Crossmatch Assessment and Plan Assessment: impression:Multivessel coronary artery disease with the 50% left main stenosis, status post CABG, postoperative day #1 #2. Acute non-ST elevated myocardial infarction #3. Stage II COPD based on the preop FEV1 of 62% of predicted, consistent with moderately severe COPD, without hypoxemic failure #4. Previous nicotine dependence, currently in remission, patient carries [id number] smoking history, quit smoking in May 2018 #5. Hypothyroidism #6. Hyperlipidemia #7. History of premature coronary artery disease #8. 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 We'll continue to follow. Time with Patient: Less than 30
[2018-11-04] MEDS ORDERED: METOPROLOL TARTRATE 12.5 MG TAB PO STA (11:28)
[2018-11-04 12:04] LABS: Glucose,Whole Blood 123 mg/dL (75-99)
[2018-11-04] MEDS: LACTATED RINGERS 1,000 ML IV SCH (12:09)
[2018-11-04 13:55] LABS: Glucose,Whole Blood 118 mg/dL (75-99)
--- NOTE | 2018-11-04 14:46 | P.PN ---
Subjective Progress Note Date: 11/04/18 Principal diagnosis: Severe triple vessel coronary artery disease with left main disease, non-STEMI, left internal carotid artery stenosis 50-69% with abnormal flow in the right ve rtebral artery possibly representing partial steal syndrome. Previous medical history of hyperlipidemia, hypothyroid with preoperative TSH 72.1, free T4 0.66, previous tobacco dependence, mild COPD with preoperative FEV1 62% of predicted, obesity, and strong family history of premature coronary artery disease. POD #1 urgent multiple arterial triple vessel coronary artery bypass grafting using the skeletonized in situ right internal mammary artery crossing the midline anteriorly to the left anterior descending coronary artery, totally skeletonized in situ left internal mammary artery to the first obtuse marginal coronary artery, a reverse greater saphenous vein graft from the aorta to the p osterior descending coronary artery. Endoscopic harvesting of the left greater saphenous vein, intraoperative transesophageal echocardiogram, epi-aortic scanning and intraoperative graft flow measurement using the [employer] system. The patient is currently sitting up to the bedside chair in the intensive care unit. He is in no acute distress. He is complaining of surgical type pain rating his pain 10 out of 10 on the pain scale. Denies any shortness of breath. Bedside telemetry showing sinus tachycardia heart rate 105. He is currently on 13 mcg/m of norepinephrine. He was successfully extubated at 12:40 AM and is currently on 6 L nasal cannula with oxygen saturations 96%. Objective - Vital Signs Vital signs: Vital Signs Temp 98.8 F 11/04/18 08:00 Pulse 122 H 11/04/18 11:31 Resp 18 11/04/18 11:31 BP 99/78 11/04/18 11:00 Pulse Ox 97 11/04/18 11:00 Intake & Output 11/03/18 11/04/18 11/04/18 18:59 06:59 18:59 Intake Total 183 1147.080 6326.242 Output Total 5060 1202 580 Balance -4877 238.690 471.242 Weight 82.1 kg 87.6 kg Intake: IV 183 909 299 Lactated Ringers 1,000 ml 150 600 250 @ 50 mls/hr IV .Q20H [facility] Rx#:[id number] Normal Saline Pressure 99 39 Bag co/ci 210 10 Intake, IV Titration 531.690 352.242 Amount Dexmedetomidine/0.9% NaCl 41.975 (Pmx) 400 mcg In Empty Bag 1 bag @ Titrate IV . Q0M [facility] Rx#:[id number] Insulin Regular 100 unit 28.258 14.708 In Sodium Chloride 0.9% 100 ml @ Titrate IV .Q0M [facility] Rx#:[id number] Nitroglycerin-D5w Pmx 50 23.9 mg In Dextrose/Water 1 250ml.bag @ 5 MCG/MIN 1.5 mls/hr IV .Q24H [facility] Rx#: [id number] Norepinephrine 4 mg In 421.967 313.634 Sodium Chloride 0.9% 250 ml @ 0.02 MCG/KG/MIN 6. 256 mls/hr IV .Q24H [facility] Rx#:[id number] Propofol 1,000 mg In 39.490 Empty Bag 1 bag @ Titrate IV .Q0M [facility] Rx#: [id number] Oral 400 Output: Chest Tube Drainage 310 297 308 Left Lateral Chest 110 36 110 Mediastinal 120 210 160 Right Lateral Chest 80 51 38 Urine 3750 905 272 Estimated Blood Loss 1000 Other: Voiding Method Indwelling Catheter Indwelling Catheter Indwelling Catheter ABP, PAP, CO, CI - Last Documented Arterial Blood Pressure 106/67 Pulmonary Artery Pressure 42/23 Cardiac Output 6.5 Cardiac Index 3.3 - Constitutional General appearance: Present: cooperative, no acute distress, obese - Respiratory Details: Lungs sounds essentially clear to his bilateral upper lobes, diminished to his bilateral bases. Respirations are symmetrical and nonlabored. Oxygen saturation are 96% on 6 L nasal cannula. Left, right pleural and mediastinal chest tubes in place to low continuous wall suction -20 cm H2O. No air leak is present. Chest tubes are draining thin serosanguineous drainage. Left pleural chest tube with 40 mL output in the last 8 hours, 160 mL output since surgery. Mediastinal chest tubes with 195 mL output in the last 8 hours, 330 mL output since surgery. Right pleural chest tube with 40 mL output in the last 8 hours, 130 mL output in the last 24 hours. Poor effort on his incentive spirometry with 250 mL achieved. - Cardiovascular Details: Regular rhythm and rate. S1 and S2 present, negative for S3, gallop or murmur. Sternum is stable. Bedside telemetry showing normal sinus tachycardia heart rate 105. Heart hugger is in place and he is demonstrating appropriate use. Right IJ Cordis with [place]-Fidencio catheter in place and functioning. Current cardiac output 7.3, cardiac index 3.7, PA pressures 39/20, CVP 12. Right radial arterial line in place and functioning. Knee-high EUGENIO hose and sequential compression devices in place to his bilateral lower extremities. Atrial and ventricular epicardial pacemaker wires in place and connected to backup pacemaker generator. - Gastrointestinal Gastrointestinal Comment(s): Abdomen soft, nontender and slightly distended. Hypoactive bowel sounds present in all 4, quadrants. No guarding or rigidity. No organomegaly. Tolerating oral intake. - Genitourinary Genitourinary Comment(s): Jason catheter for accurate I&O. Draining clear yellow urine. 680 mL output in the last 8 hours. - Integumentary Integumentary Comment(s): Skin is warm and dry. No clubbing or cyanosis present. Sternal incision is clean, dry and approximated. No drainage or redness present. Dressing is clean, dry and intact. Left lower extremity EVH site is clean, dry and approximated. No drainage or redness is present. - Neurologic Neurologic: Present: CNII-XII intact - Musculoskeletal Musculoskeletal: Present: gait normal, generalized weakness, strength equal bilaterally - Psychiatric Psychiatric: Present: A&O x's 3, appropriate affect, intact judgment & insight - Allied health notes Allied health notes reviewed: nursing - Labs CBC & Chem 7: 11/04/18 04:30 11/04/18 04:30 Labs: Abnormal Lab Results - Last 24 Hours (Table) 11/02/18 11/03/18 11/03/18 Range/Units 03:57 08:31 11:46 WBC (3.8-10.6) k/uL RBC (4.30-5.90) m/uL Hgb (13.0-17.5) gm/dL Hct (39.0-53.0) % Neutrophils # (1.3-7.7) k/uL ABG pH 7.34 L (7.35-7.45) ABG pCO2 47 H (35-45) mmHg ABG pO2 302 H 220 H (83-108) mmHg ABG HCO3 26 H (21-25) mmol/L ABG Total CO2 27 H 27 H (19-24) mmol/L ABG O2 Saturation 100.0 H 100.0 H (94-97) % ABG Hematocrit 32 L (34.0-46.0) % ABG Sodium (135-146) mmol/L ABG Ionized Calcium (4.5-5.3) mg/dL ABG Glucose 105 H (75-99) mg/dL ABG Lactic Acid (0.5-1.6) mmol/L Hemoglobin 12.7 L 10.5 L (13.0-17.5) gm/dL Chloride (98-107) mmol/L BUN (9-20) mg/dL Creatinine (0.66-1.25) mg/dL Glucose (74-99) mg/dL POC Glucose (mg/dL) (75-99) mg/dL Magnesium (1.6-2.3) mg/dL AST (17-59) U/L Total Protein (6.3-8.2) g/dL Albumin (3.5-5.0) g/dL Arterial Blood Glucose 105 H (75-99) mg/dL Crossmatch See Detail 11/03/18 11/03/18 11/03/18 Range/Units 12:15 12:54 13:30 WBC (3.8-10.6) k/uL RBC (4.30-5.90) m/uL Hgb (13.0-17.5) gm/dL Hct (39.0-53.0) % Neutrophils # (1.3-7.7) k/uL ABG pH (7.35-7.45) ABG pCO2 (35-45) mmHg ABG pO2 385 H 277 H 219 H (83-108) mmHg ABG HCO3 (21-25) mmol/L ABG Total CO2 25 H 26 H 25 H (19-24) mmol/L ABG O2 Saturation 100.0 H 100.0 H 100.0 H (94-97) % ABG Hematocrit 24 L 23 L 23 L (34.0-46.0) % ABG Sodium 134 L (135-146) mmol/L ABG Ionized Calcium 4.2 L 4.2 L 4.3 L (4.5-5.3) mg/dL ABG Glucose 100 H 157 H 175 H (75-99) mg/dL ABG Lactic Acid 1.9 H (0.5-1.6) mmol/L Hemoglobin 7.8 L 7.6 L 7.4 L (13.0-17.5) gm/dL Chloride (98-107) mmol/L BUN (9-20) mg/dL Creatinine (0.66-1.25) mg/dL Glucose (74-99) mg/dL POC Glucose (mg/dL) (75-99) mg/dL Magnesium (1.6-2.3) mg/dL AST (17-59) U/L Total Protein (6.3-8.2) g/dL Albumin (3.5-5.0) g/dL Arterial Blood Glucose 100 H 157 H 175 H (75-99) mg/dL Crossmatch 11/03/18 11/03/18 11/03/18 Range/Units 14:46 15:38 15:40 WBC 12.9 H (3.8-10.6) k/uL RBC 3.56 L (4.30-5.90) m/uL Hgb 11.2 L (13.0-17.5) gm/dL Hct 33.2 L (39.0-53.0) % Neutrophils # 10.3 H (1.3-7.7) k/uL ABG pH (7.35-7.45) ABG pCO2 (35-45) mmHg ABG pO2 (83-108) mmHg ABG HCO3 (21-25) mmol/L ABG Total CO2 26 H (19-24) mmol/L ABG O2 Saturation 99.0 H (94-97) % ABG Hematocrit 30 L (34.0-46.0) % ABG Sodium (135-146) mmol/L ABG Ionized Calcium (4.5-5.3) mg/dL ABG Glucose 125 H (75-99) mg/dL ABG Lactic Acid 2.1 H (0.5-1.6) mmol/L Hemoglobin 9.7 L (13.0-17.5) gm/dL Chloride (98-107) mmol/L BUN (9-20) mg/dL Creatinine (0.66-1.25) mg/dL Glucose (74-99) mg/dL POC Glucose (mg/dL) 113 H (75-99) mg/dL Magnesium (1.6-2.3) mg/dL AST (17-59) U/L Total Protein (6.3-8.2) g/dL Albumin (3.5-5.0) g/dL Arterial Blood Glucose 125 H (75-99) mg/dL Crossmatch 11/03/18 11/03/18 11/03/18 Range/Units 15:40 16:06 16:08 WBC (3.8-10.6) k/uL RBC (4.30-5.90) m/uL Hgb (13.0-17.5) gm/dL Hct (39.0-53.0) % Neutrophils # (1.3-7.7) k/uL ABG pH 7.33 L (7.35-7.45) ABG pCO2 52 H (35-45) mmHg ABG pO2 254 H (83-108) mmHg ABG HCO3 28 H (21-25) mmol/L ABG Total CO2 29 H (19-24) mmol/L ABG O2 Saturation 99.8 H (94-97) % ABG Hematocrit (34.0-46.0) % ABG Sodium (135-146) mmol/L ABG Ionized Calcium (4.5-5.3) mg/dL ABG Glucose (75-99) mg/dL ABG Lactic Acid (0.5-1.6) mmol/L Hemoglobin (13.0-17.5) gm/dL Chloride 111 H (98-107) mmol/L BUN 8 L (9-20) mg/dL Creatinine 0.65 L (0.66-1.25) mg/dL Glucose 103 H (74-99) mg/dL POC Glucose (mg/dL) 110 H (75-99) mg/dL Magnesium 2.6 H (1.6-2.3) mg/dL AST (17-59) U/L Total Protein 5.2 L (6.3-8.2) g/dL Albumin 3.3 L (3.5-5.0) g/dL Arterial Blood Glucose (75-99) mg/dL Crossmatch 11/03/18 11/03/18 11/03/18 Range/Units 17:13 18:10 18:12 WBC 12.6 H (3.8-10.6) k/uL RBC 4.06 L (4.30-5.90) m/uL Hgb 12.4 L (13.0-17.5) gm/dL Hct 37.4 L (39.0-53.0) % Neutrophils # 10.5 H (1.3-7.7) k/uL ABG pH (7.35-7.45) ABG pCO2 (35-45) mmHg ABG pO2 (83-108) mmHg ABG HCO3 (21-25) mmol/L ABG Total CO2 (19-24) mmol/L ABG O2 Saturation (94-97) % ABG Hematocrit (34.0-46.0) % ABG Sodium (135-146) mmol/L ABG Ionized Calcium (4.5-5.3) mg/dL ABG Glucose (75-99) mg/dL ABG Lactic Acid (0.5-1.6) mmol/L Hemoglobin (13.0-17.5) gm/dL Chloride (98-107) mmol/L BUN (9-20) mg/dL Creatinine (0.66-1.25) mg/dL Glucose (74-99) mg/dL POC Glucose (mg/dL) 120 H 140 H (75-99) mg/dL Magnesium (1.6-2.3) mg/dL AST (17-59) U/L Total Protein (6.3-8.2) g/dL Albumin (3.5-5.0) g/dL Arterial Blood Glucose (75-99) mg/dL Crossmatch 11/03/18 11/03/18 11/03/18 Range/Units 18:57 19:34 20:04 WBC (3.8-10.6) k/uL RBC (4.30-5.90) m/uL Hgb (13.0-17.5) gm/dL Hct (39.0-53.0) % Neutrophils # (1.3-7.7) k/uL ABG pH 7.27 L (7.35-7.45) ABG pCO2 53 H (35-45) mmHg ABG pO2 (83-108) mmHg ABG HCO3 (21-25) mmol/L ABG Total CO2 26 H (19-24) mmol/L ABG O2 Saturation 97.3 H (94-97) % ABG Hematocrit (34.0-46.0) % ABG Sodium (135-146) mmol/L ABG Ionized Calcium (4.5-5.3) mg/dL ABG Glucose (75-99) mg/dL ABG Lactic Acid (0.5-1.6) mmol/L Hemoglobin (13.0-17.5) gm/dL Chloride (98-107) mmol/L BUN (9-20) mg/dL Creatinine (0.66-1.25) mg/dL Glucose (74-99) mg/dL POC Glucose (mg/dL) 145 H 143 H (75-99) mg/dL Magnesium (1.6-2.3) mg/dL AST (17-59) U/L Total Protein (6.3-8.2) g/dL Albumin (3.5-5.0) g/dL Arterial Blood Glucose (75-99) mg/dL Crossmatch 11/03/18 11/03/18 11/03/18 Range/Units 20:10 21:07 22:04 WBC 14.4 H (3.8-10.6) k/uL RBC 3.58 L (4.30-5.90) m/uL Hgb 10.9 L (13.0-17.5) gm/dL Hct 33.3 L (39.0-53.0) % Neutrophils # 12.2 H (1.3-7.7) k/uL ABG pH (7.35-7.45) ABG pCO2 (35-45) mmHg ABG pO2 (83-108) mmHg ABG HCO3 (21-25) mmol/L ABG Total CO2 (19-24) mmol/L ABG O2 Saturation (94-97) % ABG Hematocrit (34.0-46.0) % ABG Sodium (135-146) mmol/L ABG Ionized Calcium (4.5-5.3) mg/dL ABG Glucose (75-99) mg/dL ABG Lactic Acid (0.5-1.6) mmol/L Hemoglobin (13.0-17.5) gm/dL Chloride (98-107) mmol/L BUN (9-20) mg/dL Creatinine (0.66-1.25) mg/dL Glucose (74-99) mg/dL POC Glucose (mg/dL) 150 H 146 H (75-99) mg/dL Magnesium (1.6-2.3) mg/dL AST (17-59) U/L Total Protein (6.3-8.2) g/dL Albumin (3.5-5.0) g/dL Arterial Blood Glucose (75-99) mg/dL Crossmatch 11/03/18 11/03/18 11/04/18 Range/Units 23:03 23:40 00:07 WBC (3.8-10.6) k/uL RBC (4.30-5.90) m/uL Hgb (13.0-17.5) gm/dL Hct (39.0-53.0) % Neutrophils # (1.3-7.7) k/uL ABG pH 7.33 L (7.35-7.45) ABG pCO2 47 H (35-45) mmHg ABG pO2 115 H (83-108) mmHg ABG HCO3 (21-25) mmol/L ABG Total CO2 27 H (19-24) mmol/L ABG O2 Saturation 98.1 H (94-97) % ABG Hematocrit (34.0-46.0) % ABG Sodium (135-146) mmol/L ABG Ionized Calcium (4.5-5.3) mg/dL ABG Glucose (75-99) mg/dL ABG Lactic Acid (0.5-1.6) mmol/L Hemoglobin (13.0-17.5) gm/dL Chloride (98-107) mmol/L BUN (9-20) mg/dL Creatinine (0.66-1.25) mg/dL Glucose (74-99) mg/dL POC Glucose (mg/dL) 133 H 140 H (75-99) mg/dL Magnesium (1.6-2.3) mg/dL AST (17-59) U/L Total Protein (6.3-8.2) g/dL Albumin (3.5-5.0) g/dL Arterial Blood Glucose (75-99) mg/dL Crossmatch 11/04/18 11/04/18 11/04/18 Range/Units 02:02 03:02 04:06 WBC (3.8-10.6) k/uL RBC (4.30-5.90) m/uL Hgb (13.0-17.5) gm/dL Hct (39.0-53.0) % Neutrophils # (1.3-7.7) k/uL ABG pH (7.35-7.45) ABG pCO2 (35-45) mmHg ABG pO2 (83-108) mmHg ABG HCO3 (21-25) mmol/L ABG Total CO2 (19-24) mmol/L ABG O2 Saturation (94-97) % ABG Hematocrit (34.0-46.0) % ABG Sodium (135-146) mmol/L ABG Ionized Calcium (4.5-5.3) mg/dL ABG Glucose (75-99) mg/dL ABG Lactic Acid (0.5-1.6) mmol/L Hemoglobin (13.0-17.5) gm/dL Chloride (98-107) mmol/L BUN (9-20) mg/dL Creatinine (0.66-1.25) mg/dL Glucose (74-99) mg/dL POC Glucose (mg/dL) 118 H 117 H 107 H (75-99) mg/dL Magnesium (1.6-2.3) mg/dL AST (17-59) U/L Total Protein (6.3-8.2) g/dL Albumin (3.5-5.0) g/dL Arterial Blood Glucose (75-99) mg/dL Crossmatch 11/04/18 11/04/18 11/04/18 Range/Units 04:30 04:30 04:32 WBC 11.7 H (3.8-10.6) k/uL RBC 3.45 L (4.30-5.90) m/uL Hgb 10.4 L (13.0-17.5) gm/dL Hct 32.0 L (39.0-53.0) % Neutrophils # 9.5 H (1.3-7.7) k/uL ABG pH (7.35-7.45) ABG pCO2 (35-45) mmHg ABG pO2 (83-108) mmHg ABG HCO3 (21-25) mmol/L ABG Total CO2 (19-24) mmol/L ABG O2 Saturation (94-97) % ABG Hematocrit (34.0-46.0) % ABG Sodium (135-146) mmol/L ABG Ionized Calcium (4.5-5.3) mg/dL ABG Glucose (75-99) mg/dL ABG Lactic Acid (0.5-1.6) mmol/L Hemoglobin (13.0-17.5) gm/dL Chloride 108 H (98-107) mmol/L BUN (9-20) mg/dL Creatinine (0.66-1.25) mg/dL Glucose 110 H (74-99) mg/dL POC Glucose (mg/dL) 117 H (75-99) mg/dL Magnesium 2.4 H (1.6-2.3) mg/dL AST 77 H (17-59) U/L Total Protein 6.2 L (6.3-8.2) g/dL Albumin (3.5-5.0) g/dL Arterial Blood Glucose (75-99) mg/dL Crossmatch 11/04/18 11/04/18 11/04/18 Range/Units 06:09 06:51 07:58 WBC (3.8-10.6) k/uL RBC (4.30-5.90) m/uL Hgb (13.0-17.5) gm/dL Hct (39.0-53.0) % Neutrophils # (1.3-7.7) k/uL ABG pH (7.35-7.45) ABG pCO2 (35-45) mmHg ABG pO2 (83-108) mmHg ABG HCO3 (21-25) mmol/L ABG Total CO2 (19-24) mmol/L ABG O2 Saturation (94-97) % ABG Hematocrit (34.0-46.0) % ABG Sodium (135-146) mmol/L ABG Ionized Calcium (4.5-5.3) mg/dL ABG Glucose (75-99) mg/dL ABG Lactic Acid (0.5-1.6) mmol/L Hemoglobin (13.0-17.5) gm/dL Chloride (98-107) mmol/L BUN (9-20) mg/dL Creatinine (0.66-1.25) mg/dL Glucose (74-99) mg/dL POC Glucose (mg/dL) 138 H 131 H 127 H (75-99) mg/dL Magnesium (1.6-2.3) mg/dL AST (17-59) U/L Total Protein (6.3-8.2) g/dL Albumin (3.5-5.0) g/dL Arterial Blood Glucose (75-99) mg/dL Crossmatch 11/04/18 11/04/18 11/04/18 Range/Units 09:13 10:15 12:03 WBC (3.8-10.6) k/uL RBC (4.30-5.90) m/uL Hgb (13.0-17.5) gm/dL Hct (39.0-53.0) % Neutrophils # (1.3-7.7) k/uL ABG pH (7.35-7.45) ABG pCO2 (35-45) mmHg ABG pO2 (83-108) mmHg ABG HCO3 (21-25) mmol/L ABG Total CO2 (19-24) mmol/L ABG O2 Saturation (94-97) % ABG Hematocrit (34.0-46.0) % ABG Sodium (135-146) mmol/L ABG Ionized Calcium (4.5-5.3) mg/dL ABG Glucose (75-99) mg/dL ABG Lactic Acid (0.5-1.6) mmol/L Hemoglobin (13.0-17.5) gm/dL Chloride (98-107) mmol/L BUN (9-20) mg/dL Creatinine (0.66-1.25) mg/dL Glucose (74-99) mg/dL POC Glucose (mg/dL) 128 H 134 H 123 H (75-99) mg/dL Magnesium (1.6-2.3) mg/dL AST (17-59) U/L Total Protein (6.3-8.2) g/dL Albumin (3.5-5.0) g/dL Arterial Blood Glucose (75-99) mg/dL Crossmatch 11/04/18 Range/Units 13:53 WBC (3.8-10.6) k/uL RBC (4.30-5.90) m/uL Hgb (13.0-17.5) gm/dL Hct (39.0-53.0) % Neutrophils # (1.3-7.7) k/uL ABG pH (7.35-7.45) ABG pCO2 (35-45) mmHg ABG pO2 (83-108) mmHg ABG HCO3 (21-25) mmol/L ABG Total CO2 (19-24) mmol/L ABG O2 Saturation (94-97) % ABG Hematocrit (34.0-46.0) % ABG Sodium (135-146) mmol/L ABG Ionized Calcium (4.5-5.3) mg/dL ABG Glucose (75-99) mg/dL ABG Lactic Acid (0.5-1.6) mmol/L Hemoglobin (13.0-17.5) gm/dL Chloride (98-107) mmol/L BUN (9-20) mg/dL Creatinine (0.66-1.25) mg/dL Glucose (74-99) mg/dL POC Glucose (mg/dL) 118 H (75-99) mg/dL Magnesium (1.6-2.3) mg/dL AST (17-59) U/L Total Protein (6.3-8.2) g/dL Albumin (3.5-5.0) g/dL Arterial Blood Glucose (75-99) mg/dL Crossmatch - Imaging and Cardiology Chest x-ray: report reviewed, image reviewed Assessment and Plan Assessment: 1. Severe triple-vessel coronary artery disease with left main disease, status post triple vessel coronary artery bypass grafting surgery 2. Non-STEMI 3. Left internal carotid artery stenosis 50-69% with abnormal flow in the right vertebral artery possibly representing partial steal syndrome 4. Hyperlipidemia 5. Hypothyroid, current TSH 72.1, free T4 0.66 6. Previous tobacco dependence 7. Mild COPD with preoperative FEV1 62% of predicted 8. Obesity 9. Strong family history of premature coronary artery disease 10. Preoperative hemoglobin A1c 6.4% Plan: 1. Continue aspirin, statin, Plavix and beta lucia. Will increase his metoprolol tartrate 25 mg by mouth 3 times a day. 2. Discontinue nitroglycerin drip. 3. Wean O2 as tolerated. Encourage incentive spirometry use 10 times every hour while awake.. 4. Will monitor daily labs, x-rays. Electrolyte replacement per protocol. 5. Pain control with current medication regimen. Toradol added. 6. Insulin management per primary care service 7. Increase activity, ambulate as tolerated. PT/OT/cardiac rehab following. 8. Bronchodilators per pulmonology. 9. Discontinue [place]. Cordis to continue CVP monitoring. Will keep chest tubes, Cordis, Jason catheter and arterial line for another 24 hours. 10. GI/DVT prophylaxis. 11. Albumin 5% 500 mL 1 now. Wean norepinephrine drip as tolerated. 12. More recommendations to follow based on patient's clinical course. Time with Patient: Greater than 30
[2018-11-04] MEDS: METOPROLOL TARTRATE 25 MG TAB PO SCH ×2 (15:08→21:38)
[2018-11-04 15:16] LABS: Glucose,Whole Blood 132 mg/dL (75-99)
[2018-11-04] MEDS: INSULIN REGULAR 100 UNIT in SODIUM CHLORIDE 0.9% 100 ML IV SCH (16:12)
[2018-11-04 16:16] LABS: Glucose,Whole Blood 124 mg/dL (75-99)
[2018-11-04 17:17] LABS: Glucose,Whole Blood 119 mg/dL (75-99)
[2018-11-04 17:33] LABS: HCT 29.6 % (39.0-53.0); HGB 9.7 gm/dL (13.0-17.5); MCH 30.8 pg (25.0-35.0); MCHC 32.8 g/dL (31.0-37.0); MCV 93.7 fL (80.0-100.0); Mean Platelet Volume 6.8; Platelet Count 182 k/uL (150-450); RBC 3.16 m/uL (4.30-5.90); WBC 10.8 k/uL (3.8-10.6)
--- NOTE | 2018-11-04 17:56 | P.PN ---
Subjective Progress Note Date: 11/04/18 (Delayed charting patient seen at 0900) Principal diagnosis: Chest Pain Patient is a 53-year-old male past medical history of dyslipidemia, hypothyroidism, and neuralgia presented to the emergency department for complaint of chest pain. In the ER he underwent an extensive evaluation. His initial blood work was unremarkable. Initial EKG showed no significant ST-T wa ve changes. He underwent a CTA aortogram which showed no evidence of dissection. Chest x-ray revealed chronic parenchymal changes. He was subsequently admitted under observation for further management. Cardiology was consulted recommended cardiac catheterization. This revealed chronic total occ lusion of the RCA and calcified plaque involving the distal left main coronary artery. Patient was recommended for coronary artery bypass grafting and cardiovascular thoracic surgery were is consulted. Patient ultimately underwent triple vessel coronary artery bypass grafting on 510. He was admitted to the ICU. He was extubated the same day. Of note his TSH was found to be 72. He had been on levothyroxine 25 g daily on admission and this was increased to 75 g daily. He was also found to have a hemoglobin A1c of Patient is exhibiting at bedside. He complains of severe chest pain, he is slightly short of breath secondary to pain and slightly nauseous. Did not have a bowel movement yesterday. He denies any dysuria. Anxious about his pain level. We discussed A1C being 6.4 and needing dietary changes. strong family hx of DM. Objective - Vital Signs Vital signs: Vital Signs Temp 99.3 F 11/04/18 12:00 Pulse 118 H 11/04/18 16:45 Resp 19 11/04/18 15:00 BP 111/73 11/04/18 15:00 Pulse Ox 97 11/04/18 16:36 Intake & Output 11/03/18 11/04/18 11/04/18 18:59 06:59 18:59 Intake Total 183 9595.203 2354.992 Output Total 5060 1202 1035 Balance -4877 238.690 804.992 Weight 82.1 kg 87.6 kg Intake: IV 183 909 579 Lactated Ringers 1,000 ml 150 600 500 @ 50 mls/hr IV .Q20H [facility] Rx#:[id number] Normal Saline Pressure 99 69 Bag co/ci 210 10 Intake, IV Titration 531.690 860.992 Amount Albumin Human 5% 250 ml 500 In Empty Bag 1 bag @ 250 mls/hr IVPB Q1HR PRN Rx#: [id number] Dexmedetomidine/0.9% NaCl 41.975 (Pmx) 400 mcg In Empty Bag 1 bag @ Titrate IV . Q0M [facility] Rx#:[id number] Insulin Regular 100 unit 28.258 23.458 In Sodium Chloride 0.9% 100 ml @ Titrate IV .Q0M [facility] Rx#:[id number] Nitroglycerin-D5w Pmx 50 23.9 mg In Dextrose/Water 1 250ml.bag @ 5 MCG/MIN 1.5 mls/hr IV .Q24H [facility] Rx#: [id number] Norepinephrine 4 mg In 421.967 313.634 Sodium Chloride 0.9% 250 ml @ 0.02 MCG/KG/MIN 6. 256 mls/hr IV .Q24H [facility] Rx#:[id number] Propofol 1,000 mg In 39.490 Empty Bag 1 bag @ Titrate IV .Q0M [facility] Rx#: [id number] Oral 400 Output: Chest Tube Drainage 310 297 428 Left Lateral Chest 110 36 134 Mediastinal 120 210 220 Right Lateral Chest 80 51 74 Urine 3750 905 607 Estimated Blood Loss 1000 Other: Voiding Method Indwelling Catheter Indwelling Catheter Indwelling Catheter ABP, PAP, CO, CI - Last Documented Arterial Blood Pressure 105/69 Pulmonary Artery Pressure 42/23 Cardiac Output 6.5 Cardiac Index 3.3 - Exam General: non toxic, mild distress secondary to pain, appears at stated age Derm: Dressing in place over midline chest incision warm, dry Head: atraumatic, normocephalic, symmetric Eyes: EOMI, no lid lag, anicteric sclera Mouth: no lip lesion, his membranes dry Cardiovascular: S1S2 reg, no murmur, positive posterior tibial pulse bilateral, bilateral chest tube and mediastinal tubes in place, pacemaker wires in place Lungs: Decreased breath sounds bilateral bases, no rhonchi, no rales , no ac cessory muscle use Abdominal: soft, nontender to palpation, no guarding, no appreciable organomegaly Ext: no gross muscle atrophy, no edema, no contractures Neuro: CN II-XI grossly intact, no focal neuro deficits Psych: Alert, oriented, appropriate affect - Labs CBC & Chem 7: 11/04/18 17:15 11/04/18 04:30 Labs: Abnormal Lab Results - Last 24 Hours (Table) 11/02/18 11/03/18 11/03/18 Range/Units 03:57 18:10 18:12 WBC 12.6 H (3.8-10.6) k/uL RBC 4.06 L (4.30-5.90) m/uL Hgb 12.4 L (13.0-17.5) gm/dL Hct 37.4 L (39.0-53.0) % Neutrophils # 10.5 H (1.3-7.7) k/uL ABG pH (7.35-7.45) ABG pCO2 (35-45) mmHg ABG pO2 (83-108) mmHg ABG Total CO2 (19-24) mmol/L ABG O2 Saturation (94-97) % Chloride (98-107) mmol/L Glucose (74-99) mg/dL POC Glucose (mg/dL) 140 H (75-99) mg/dL Magnesium (1.6-2.3) mg/dL AST (17-59) U/L Total Protein (6.3-8.2) g/dL Crossmatch See Detail 11/03/18 11/03/18 11/03/18 Range/Units 18:57 19:34 20:04 WBC (3.8-10.6) k/uL RBC (4.30-5.90) m/uL Hgb (13.0-17.5) gm/dL Hct (39.0-53.0) % Neutrophils # (1.3-7.7) k/uL ABG pH 7.27 L (7.35-7.45) ABG pCO2 53 H (35-45) mmHg ABG pO2 (83-108) mmHg ABG Total CO2 26 H (19-24) mmol/L ABG O2 Saturation 97.3 H (94-97) % Chloride (98-107) mmol/L Glucose (74-99) mg/dL POC Glucose (mg/dL) 145 H 143 H (75-99) mg/dL Magnesium (1.6-2.3) mg/dL AST (17-59) U/L Total Protein (6.3-8.2) g/dL Crossmatch 11/03/18 11/03/18 11/03/18 Range/Units 20:10 21:07 22:04 WBC 14.4 H (3.8-10.6) k/uL RBC 3.58 L (4.30-5.90) m/uL Hgb 10.9 L (13.0-17.5) gm/dL Hct 33.3 L (39.0-53.0) % Neutrophils # 12.2 H (1.3-7.7) k/uL ABG pH (7.35-7.45) ABG pCO2 (35-45) mmHg ABG pO2 (83-108) mmHg ABG Total CO2 (19-24) mmol/L ABG O2 Saturation (94-97) % Chloride (98-107) mmol/L Glucose (74-99) mg/dL POC Glucose (mg/dL) 150 H 146 H (75-99) mg/dL Magnesium (1.6-2.3) mg/dL AST (17-59) U/L Total Protein (6.3-8.2) g/dL Crossmatch 11/03/18 11/03/18 11/04/18 Range/Units 23:03 23:40 00:07 WBC (3.8-10.6) k/uL RBC (4.30-5.90) m/uL Hgb (13.0-17.5) gm/dL Hct (39.0-53.0) % Neutrophils # (1.3-7.7) k/uL ABG pH 7.33 L (7.35-7.45) ABG pCO2 47 H (35-45) mmHg ABG pO2 115 H (83-108) mmHg ABG Total CO2 27 H (19-24) mmol/L ABG O2 Saturation 98.1 H (94-97) % Chloride (98-107) mmol/L Glucose (74-99) mg/dL POC Glucose (mg/dL) 133 H 140 H (75-99) mg/dL Magnesium (1.6-2.3) mg/dL AST (17-59) U/L Total Protein (6.3-8.2) g/dL Crossmatch 11/04/18 11/04/18 11/04/18 Range/Units 02:02 03:02 04:06 WBC (3.8-10.6) k/uL RBC (4.30-5.90) m/uL Hgb (13.0-17.5) gm/dL Hct (39.0-53.0) % Neutrophils # (1.3-7.7) k/uL ABG pH (7.35-7.45) ABG pCO2 (35-45) mmHg ABG pO2 (83-108) mmHg ABG Total CO2 (19-24) mmol/L ABG O2 Saturation (94-97) % Chloride (98-107) mmol/L Glucose (74-99) mg/dL POC Glucose (mg/dL) 118 H 117 H 107 H (75-99) mg/dL Magnesium (1.6-2.3) mg/dL AST (17-59) U/L Total Protein (6.3-8.2) g/dL Crossmatch 11/04/18 11/04/18 11/04/18 Range/Units 04:30 04:30 04:32 WBC 11.7 H (3.8-10.6) k/uL RBC 3.45 L (4.30-5.90) m/uL Hgb 10.4 L (13.0-17.5) gm/dL Hct 32.0 L (39.0-53.0) % Neutrophils # 9.5 H (1.3-7.7) k/uL ABG pH (7.35-7.45) ABG pCO2 (35-45) mmHg ABG pO2 (83-108) mmHg ABG Total CO2 (19-24) mmol/L ABG O2 Saturation (94-97) % Chloride 108 H (98-107) mmol/L Glucose 110 H (74-99) mg/dL POC Glucose (mg/dL) 117 H (75-99) mg/dL Magnesium 2.4 H (1.6-2.3) mg/dL AST 77 H (17-59) U/L Total Protein 6.2 L (6.3-8.2) g/dL Crossmatch 11/04/18 11/04/18 11/04/18 Range/Units 06:09 06:51 07:58 WBC (3.8-10.6) k/uL RBC (4.30-5.90) m/uL Hgb (13.0-17.5) gm/dL Hct (39.0-53.0) % Neutrophils # (1.3-7.7) k/uL ABG pH (7.35-7.45) ABG pCO2 (35-45) mmHg ABG pO2 (83-108) mmHg ABG Total CO2 (19-24) mmol/L ABG O2 Saturation (94-97) % Chloride (98-107) mmol/L Glucose (74-99) mg/dL POC Glucose (mg/dL) 138 H 131 H 127 H (75-99) mg/dL Magnesium (1.6-2.3) mg/dL AST (17-59) U/L Total Protein (6.3-8.2) g/dL Crossmatch 11/04/18 11/04/18 11/04/18 Range/Units 09:13 10:15 12:03 WBC (3.8-10.6) k/uL RBC (4.30-5.90) m/uL Hgb (13.0-17.5) gm/dL Hct (39.0-53.0) % Neutrophils # (1.3-7.7) k/uL ABG pH (7.35-7.45) ABG pCO2 (35-45) mmHg ABG pO2 (83-108) mmHg ABG Total CO2 (19-24) mmol/L ABG O2 Saturation (94-97) % Chloride (98-107) mmol/L Glucose (74-99) mg/dL POC Glucose (mg/dL) 128 H 134 H 123 H (75-99) mg/dL Magnesium (1.6-2.3) mg/dL AST (17-59) U/L Total Protein (6.3-8.2) g/dL Crossmatch 11/04/18 11/04/18 11/04/18 Range/Units 13:53 15:13 16:14 WBC (3.8-10.6) k/uL RBC (4.30-5.90) m/uL Hgb (13.0-17.5) gm/dL Hct (39.0-53.0) % Neutrophils # (1.3-7.7) k/uL ABG pH (7.35-7.45) ABG pCO2 (35-45) mmHg ABG pO2 (83-108) mmHg ABG Total CO2 (19-24) mmol/L ABG O2 Saturation (94-97) % Chloride (98-107) mmol/L Glucose (74-99) mg/dL POC Glucose (mg/dL) 118 H 132 H 124 H (75-99) mg/dL Magnesium (1.6-2.3) mg/dL AST (17-59) U/L Total Protein (6.3-8.2) g/dL Crossmatch 11/04/18 11/04/18 Range/Units 17:14 17:15 WBC 10.8 H (3.8-10.6) k/uL RBC 3.16 L (4.30-5.90) m/uL Hgb 9.7 L (13.0-17.5) gm/dL Hct 29.6 L (39.0-53.0) % Neutrophils # (1.3-7.7) k/uL ABG pH (7.35-7.45) ABG pCO2 (35-45) mmHg ABG pO2 (83-108) mmHg ABG Total CO2 (19-24) mmol/L ABG O2 Saturation (94-97) % Chloride (98-107) mmol/L Glucose (74-99) mg/dL POC Glucose (mg/dL) 119 H (75-99) mg/dL Magnesium (1.6-2.3) mg/dL AST (17-59) U/L Total Protein (6.3-8.2) g/dL Crossmatch Assessment and Plan Assessment: Triple-vessel coronary artery disease, non-STEMI, status post triple vessel coronary artery bypass grafting -Continue with aspirin, statin, beta lucia, and Plavix. -Management per cardiovascular surgery -Still with mediastinal and chest tubes in place. -Pain control -Pulmonary hygiene -PT/OT evaluation Prediabetes with A1c 6.4 -Suggest dietary changes at discharge, will need to follow with PCP if repeat A1c in 60 days -Meet with dietitian and fruit picker regarding teaching -Plan on obtaining glucometer at discharge if able Hypothyroidism, poorly controlled -TSH 72 -Continue with Synthroid 75 g -Recommend repeat TSH in 30 days with PCP Dyslipidemia -Statin therapy COPD stage II -Scheduled and when necessary DuoNeb's Left internal carotid artery stenosis 50-69% -Outpatient follow-up -Risk factor modification with aspirin and statin. Also will need glycemic control. Obesity, BMI 33.1 -Structured outpatient weight loss DVT prophylaxis: Heparin Discussed with: Patient, nursing, Nnamdi Willoughby NIP WRAPPER Anticipated discharge:Per CT surgery [email or web address] A total of 35 minutes was spent on the care of this complex patient more than 50% of the time was spent in counseling and care coordination.
[2018-11-04 18:10] LABS: Glucose,Whole Blood 156 mg/dL (75-99)
[2018-11-04] MEDS: CLEVIDIPINE BUTYRATE 25 MG in EMPTY BAG 1 BAG IV SCH (18:15)
[2018-11-04 19:05] LABS: Glucose,Whole Blood 162 mg/dL (75-99)
[2018-11-04 19:56] LABS: Glucose,Whole Blood 155 mg/dL (75-99)
[2018-11-04] MEDS: SENNOSIDES-DOCUSATE SODIUM 1 EACH TAB PO SCH (20:15)
[2018-11-04] MEDS: AMITRIPTYLINE HCL 10 MG TAB PO SCH (20:15)
[2018-11-04 21:44] LABS: Glucose,Whole Blood 99 mg/dL (75-99)
[2018-11-05] LABS: Glucose,Whole Blood 126 mg/dL (75-99)
[2018-11-05] MEDS: KETOROLAC 30 MG/ML 1 ML VIAL IVP SCH ×5 (00:09→23:55)
[2018-11-05] MEDS: HEPARIN SODIUM,PORCINE 5,000 UNIT/ML 1 ML VIAL SQ SCH ×4 (00:10→23:55)
[2018-11-05 01:34] LABS: Glucose,Whole Blood 139 mg/dL (75-99)
[2018-11-05] MEDS: HYDROcodone/APAP 5-325MG 1 EACH TAB PO PRN ×3 (03:11→22:01)
[2018-11-05 03:18] LABS: Glucose,Whole Blood 120 mg/dL (75-99)
[2018-11-05 04:26] LABS: Glucose,Whole Blood 112 mg/dL (75-99)
[2018-11-05 04:50] LABS: Basophils % (A) 0 %; Eosinophils # (A) 0.6 k/uL (0-0.7); Eosinophils % (A) 5 %; HCT 28.9 % (39.0-53.0); HGB 9.7 gm/dL (13.0-17.5); Lymphocytes # (A) 1.7 k/uL (1.0-4.8); Lymphocytes % (A) 14 %; MCH 31.4 pg (25.0-35.0); MCHC 33.5 g/dL (31.0-37.0); MCV 93.6 fL (80.0-100.0); Mean Platelet Volume 7.1; Monocytes # (A) 0.6 k/uL (0-1.0); Monocytes % (A) 5 %; Neutrophils # (A) 9.4 k/uL (1.3-7.7); Neutrophils % (A) 76 %; Platelet Count 171 k/uL (150-450); RBC 3.08 m/uL (4.30-5.90); RDW 14.4 % (11.5-15.5); WBC 12.4 k/uL (3.8-10.6)
[2018-11-05 04:51] LABS: Ionized Calcium 5.2 mg/dL (4.5-5.3)
[2018-11-05 04:57] LABS: ALT 45 U/L (21-72); AST 93 U/L (17-59); Albumin 3.8 g/dL (3.5-5.0); Alkaline Phosphatase 51 U/L (38-126); Anion Gap 6 mmol/L; Blood Urea Nitrogen 7 mg/dL (9-20); Calcium 9.3 mg/dL (8.4-10.2); Carbon Dioxide 26 mmol/L (22-30); Chloride 104 mmol/L (98-107); Glucose 102 mg/dL (74-99); Potassium 4.5 mmol/L (3.5-5.1); Sodium 136 mmol/L (137-145); Total Bilirubin 0.6 mg/dL (0.2-1.3); Total Protein 5.7 g/dL (6.3-8.2)
[2018-11-05] MEDS: NOREPINEPHRINE 4 MG in SODIUM CHLORIDE 0.9% 250 ML IV SCH ×2 (05:03→16:47)
[2018-11-05 05:39] LABS: Glucose,Whole Blood 118 mg/dL (75-99)
[2018-11-05] MEDS: PANTOPRAZOLE 40 MG TABLET PO SCH (05:46)
[2018-11-05] MEDS: LACTATED RINGERS 1,000 ML IV SCH (05:46)
[2018-11-05] MEDS: LEVOTHYROXINE 75 MCG TAB PO SCH (05:46)
--- NOTE | 2018-11-05 06:49 | XR ---
EXAMINATION TYPE: XR chest 1V portable DATE OF EXAM: 11/05/2018 HISTORY: Post Operative Cardiac Surgery. REFERENCE: Previous study dated 11/04/2018. FINDINGS: There has been a midline sternotomy. A left pleural drain remains in place. No definite pne umothorax is seen. The heart is mildly enlarged. There is bibasilar atelectasis. There are small, bilateral effusions. IMPRESSION: CONTINUING POSTOPERATIVE CHANGE.
[2018-11-05 07:03] LABS: Glucose,Whole Blood 121 mg/dL (75-99)
[2018-11-05] MEDS: IPRATROPIUM-ALBUTEROL 3 ML NEB INHALATION SCH ×4 (07:47→20:33)
[2018-11-05 08:03] LABS: Glucose,Whole Blood 133 mg/dL (75-99)
[2018-11-05 08:37] LABS: Magnesium 2.2 mg/dL (1.6-2.3); Phosphorus 2.7 mg/dL (2.5-4.5)
--- NOTE | 2018-11-05 09:44 | P.PN ---
Subjective Progress Note Date: 11/05/18 Principal diagnosis: Severe triple vessel coronary artery disease with left main disease, non-STEMI, left internal carotid artery stenosis 50-69% with abnormal flow in the right ve rtebral artery possibly representing partial steal syndrome. Previous medical history of hyperlipidemia, hypothyroid with preoperative TSH 72.1, free T4 0.66, previous tobacco dependence, mild COPD with preoperative FEV1 62% of predicted, obesity, and strong family history of premature coronary artery disease. POD #2 urgent multiple arterial triple vessel coronary artery bypass grafting using the skeletonized in situ right internal mammary artery crossing the midline anteriorly to the left anterior descending coronary artery, totally skeletonized in situ left internal mammary artery to the first obtuse marginal coronary artery, a reverse greater saphenous vein graft from the aorta to the p osterior descending coronary artery. Endoscopic harvesting of the left greater saphenous vein, intraoperative transesophageal echocardiogram, epi-aortic scanning and intraoperative graft flow measurement using the [employer] system. The patient is currently sitting up to the bedside chair in the intensive care unit. He is in no acute distress. He is complaining of surgical type pain rating his pain 6 out of 10 on the pain scale. Denies any shortness of breath. Bedside telemetry showing sinus tachycardia heart rate 102. He is currently on 3 mcg/m of norepinephrine. He remains on 6 L high flow nasal cannula with oxygen saturations 95%. Right IJ cordis remains in place to continue CVP mo nitoring, current CVP pressure is 9 mmHg. The patient reports he was marching in place this morning with assistance from his night nurse and states that he feels much better since doing this. Objective - Vital Signs Vital signs: Vital Signs Temp 99.9 F H 11/05/18 08:00 Pulse 96 11/05/18 08:00 Resp 17 11/05/18 08:00 BP 104/85 11/05/18 08:00 Pulse Ox 96 11/05/18 08:00 Intake & Output 11/04/18 11/05/18 11/05/18 18:59 06:59 18:59 Intake Total 2096.168 1960.321 457.767 Output Total 1260 1265 200 Balance 836.168 695.321 257.767 Intake: IV 691 672 56 Lactated Ringers 1,000 ml 600 600 50 @ 50 mls/hr IV .Q20H [facility] Rx#:[id number] Normal Saline Pressure 81 72 6 Bag co/ci 10 Intake, IV Titration 1005.168 288.321 1.767 Amount Albumin Human 5% 250 ml 500 In Empty Bag 1 bag @ 250 mls/hr IVPB Q1HR PRN Rx#: [id number] Insulin Regular 100 unit 28.333 27.133 1.767 In Sodium Chloride 0.9% 100 ml @ Titrate IV .Q0M [facility] Rx#:[id number] Nitroglycerin-D5w Pmx 50 23.9 mg In Dextrose/Water 1 250ml.bag @ 5 MCG/MIN 1.5 mls/hr IV .Q24H [facility] Rx#: [id number] Norepinephrine 4 mg In 452.935 261.188 Sodium Chloride 0.9% 250 ml @ 0.02 MCG/KG/MIN 6. 256 mls/hr IV .Q24H [facility] Rx#:[id number] Oral 400 1000 400 Output: Chest Tube Drainage 528 310 50 Left Lateral Chest 164 150 30 Mediastinal 250 60 10 Right Lateral Chest 114 100 10 Urine 732 955 150 Other: Voiding Method Indwelling Catheter Indwelling Catheter ABP, PAP, CO, CI - Last Documented Arterial Blood Pressure 94/71 Pulmonary Artery Pressure 42/23 Cardiac Output 6.5 Cardiac Index 3.3 - Constitutional General appearance: Present: cooperative, no acute distress, obese - Respiratory Details: Lung sounds essentially clear to his bilateral upper lobes, diminished to his bilateral bases. Respirations are symmetrical and nonlabored. Oxygen saturation are 95% on 6 L nasal cannula. Achieving 500 mL on his incentive spirometry. Left and right pleural and mediastinal chest tubes in place to low continuous wall suction -20 cm H2O. No air leak is present. Draining thin serosanguineous drainage. Left pleural chest tube with 80 mL output in the last 8 hours, 300 mL output in the last 24 hours. Mediastinal chest tubes with 270 mL output in the last 24 hours, 40 mL output in the last 8 hours. Right pleural chest tube with 250 mL output in the last 24 hours, 60 mL output in the last 8 hours. - Cardiovascular Details: Regular rhythm with a tachycardic rate. S1 and S2 present, negative for S3, gallop or murmur. Sternum is stable. No edema is present. Bedside telemetry showing sinus tachycardia heart rate 102. Right IJ cordis in place to continue CVP monitoring, current CVP pressure is 9 mmHg. Heart hugger is in place and he is demonstrating appropriate use. Atrial epicardial pacemaker wires in place and grounded. Knee-high EUGENIO hose and sequential compression devices in place to his bilateral lower extremities. - Gastrointestinal Gastrointestinal Comment(s): Abdomen soft, nontender and nondistended. Active bowel sounds all 4 abdominal quadrants. Passing flatus. No guarding or rigidity. Tolerating oral intake. - Genitourinary Genitourinary Comment(s): Jason catheter for accurate I&O. Draining clear yousif urine. 975 mL output in the last 8 hours. - Integumentary Integumentary Comment(s): Skin is warm and dry. No clubbing or cyanosis is present. Midline sternal incision is clean, dry and approximated. Sternal dressing is clean, dry and intact. Left lower extremity EVH site is clean, dry and approximated. No drainage or redness present. - Neurologic Neurologic: Present: CNII-XII intact - Musculoskeletal Musculoskeletal: Present: gait normal, generalized weakness, strength equal bilaterally - Psychiatric Psychiatric: Present: A&O x's 3, appropriate affect, intact judgment & insight - Allied health notes Allied health notes reviewed: nursing - Labs CBC & Chem 7: 11/05/18 04:30 11/05/18 04:30 Labs: Abnormal Lab Results - Last 24 Hours (Table) 11/04/18 11/04/18 11/04/18 Range/Units 10:15 12:03 13:53 WBC (3.8-10.6) k/uL RBC (4.30-5.90) m/uL Hgb (13.0-17.5) gm/dL Hct (39.0-53.0) % Neutrophils # (1.3-7.7) k/uL Sodium (137-145) mmol/L BUN (9-20) mg/dL Glucose (74-99) mg/dL POC Glucose (mg/dL) 134 H 123 H 118 H (75-99) mg/dL AST (17-59) U/L Total Protein (6.3-8.2) g/dL 11/04/18 11/04/18 11/04/18 Range/Units 15:13 16:14 17:14 WBC (3.8-10.6) k/uL RBC (4.30-5.90) m/uL Hgb (13.0-17.5) gm/dL Hct (39.0-53.0) % Neutrophils # (1.3-7.7) k/uL Sodium (137-145) mmol/L BUN (9-20) mg/dL Glucose (74-99) mg/dL POC Glucose (mg/dL) 132 H 124 H 119 H (75-99) mg/dL AST (17-59) U/L Total Protein (6.3-8.2) g/dL 11/04/18 11/04/18 11/04/18 Range/Units 17:15 18:08 19:03 WBC 10.8 H (3.8-10.6) k/uL RBC 3.16 L (4.30-5.90) m/uL Hgb 9.7 L (13.0-17.5) gm/dL Hct 29.6 L (39.0-53.0) % Neutrophils # (1.3-7.7) k/uL Sodium (137-145) mmol/L BUN (9-20) mg/dL Glucose (74-99) mg/dL POC Glucose (mg/dL) 156 H 162 H (75-99) mg/dL AST (17-59) U/L Total Protein (6.3-8.2) g/dL 11/04/18 11/04/18 11/05/18 Range/Units 19:55 23:59 01:31 WBC (3.8-10.6) k/uL RBC (4.30-5.90) m/uL Hgb (13.0-17.5) gm/dL Hct (39.0-53.0) % Neutrophils # (1.3-7.7) k/uL Sodium (137-145) mmol/L BUN (9-20) mg/dL Glucose (74-99) mg/dL POC Glucose (mg/dL) 155 H 126 H 139 H (75-99) mg/dL AST (17-59) U/L Total Protein (6.3-8.2) g/dL 11/05/18 11/05/18 11/05/18 Range/Units 03:17 04:25 04:30 WBC 12.4 H (3.8-10.6) k/uL RBC 3.08 L (4.30-5.90) m/uL Hgb 9.7 L (13.0-17.5) gm/dL Hct 28.9 L (39.0-53.0) % Neutrophils # 9.4 H (1.3-7.7) k/uL Sodium (137-145) mmol/L BUN (9-20) mg/dL Glucose (74-99) mg/dL POC Glucose (mg/dL) 120 H 112 H (75-99) mg/dL AST (17-59) U/L Total Protein (6.3-8.2) g/dL 11/05/18 11/05/18 11/05/18 Range/Units 04:30 05:38 07:02 WBC (3.8-10.6) k/uL RBC (4.30-5.90) m/uL Hgb (13.0-17.5) gm/dL Hct (39.0-53.0) % Neutrophils # (1.3-7.7) k/uL Sodium 136 L (137-145) mmol/L BUN 7 L (9-20) mg/dL Glucose 102 H (74-99) mg/dL POC Glucose (mg/dL) 118 H 121 H (75-99) mg/dL AST 93 H (17-59) U/L Total Protein 5.7 L (6.3-8.2) g/dL 11/05/18 Range/Units 08:00 WBC (3.8-10.6) k/uL RBC (4.30-5.90) m/uL Hgb (13.0-17.5) gm/dL Hct (39.0-53.0) % Neutrophils # (1.3-7.7) k/uL Sodium (137-145) mmol/L BUN (9-20) mg/dL Glucose (74-99) mg/dL POC Glucose (mg/dL) 133 H (75-99) mg/dL AST (17-59) U/L Total Protein (6.3-8.2) g/dL - Imaging and Cardiology Chest x-ray: report reviewed, image reviewed Assessment and Plan Assessment: 1. Severe triple-vessel coronary artery disease with left main disease, status post triple vessel coronary artery bypass grafting surgery 2. Non-STEMI 3. Left internal carotid artery stenosis 50-69% with abnormal flow in the right vertebral artery possibly representing partial steal syndrome 4. Hyperlipidemia 5. Hypothyroid, current TSH 72.1, free T4 0.66 6. Previous tobacco dependence 7. Mild COPD with preoperative FEV1 62% of predicted 8. Obesity 9. Strong family history of premature coronary artery disease 10. Preoperative hemoglobin A1c 6.4% Plan: 1. Continue aspirin, statin, Plavix and beta lucia. Will increase his metoprolol tartrate 50 mg by mouth 2 times a day. 2. Discontinue right and left pleural and mediastinal chest tubes. 3. Wean O2 as tolerated. Encourage incentive spirometry use 10 times every hour while awake.. 4. Will monitor daily labs, x-rays. Electrolyte replacement per protocol. 5. Pain control with current medication regimen. Continue Toradol. 6. Insulin management per primary care service 7. Increase activity, ambulate as tolerated. PT/OT/cardiac rehab following. 8. Bronchodilators per pulmonology. 9. Continue Cordis to continue CVP monitoring, continue arterial line for another 24 hours. 10. GI/DVT prophylaxis. 11. Discontinue Jason catheter. 12. More recommendations to follow based on patient's clinical course. Left and right pleural and mediastinal chest tubes removed without incident. 4 x 4 gauze and impregnated Vaseline gauze to cover and secured with tape Time with Patient: Greater than 30
[2018-11-05 09:57] LABS: Glucose,Whole Blood 147 mg/dL (75-99)
[2018-11-05] MEDS: ASPIRIN 325 MG TAB PO SCH (10:32)
[2018-11-05] MEDS: CLOPIDOGREL 75 MG TAB PO SCH (10:32)
[2018-11-05] MEDS: ATORVASTATIN 40 MG TAB PO SCH (10:32)
[2018-11-05] MEDS: METOPROLOL TARTRATE 50 MG TAB PO SCH ×2 (10:35→22:01)
[2018-11-05] MEDS: INSULIN DETEMIR (LEVEMIR) 100 UNIT/ML SYR SQ SCH (10:35)
[2018-11-05] MEDS: MUPIROCIN 2% OINT 22 GM TUBE NASAL SCH ×2 (10:36→22:02)
--- NOTE | 2018-11-05 10:43 | P.PN ---
Subjective Progress Note Date: 11/05/18 Principal diagnosis: Status post CABG, CHEPE to LAD, SABILLON to left obtuse marginal artery saphenous vein graft to posterior descending artery. Postoperative day #2 This is a 73-year-old white male patient, of Dr. Hardin, with a past medical history of hyperlipidemia, hypothyroidism, patient is a former smoker, quit smoking in May 2018, obesity, and family history of premature coronary artery disease. Patient presented to the hospital on 10/27/2018 for evaluation of back pain, arm pain, shortness of breath and mild chest discomfort that started in the middle of the night and was not preceded by exertion. CTA chest was completed and showed no aortic aneurysm or dissection, no suspicious acute process, no suspicious nodules or masses, no pleural effusions. Chest x-ray showed chronic changes without evidence of acute pulmonary disease. EKG showed normal sinus rhythm without ischemic changes, patient had a mild elevation of troponins which peaked at 0.036, patient was ruled in for non-ST elevated SD. He underwent a cardiac Catheterization which demonstrated left main stenosis of 50%, chronically totally occluded RCA with collaterals, proximal LAD stenosis of 50%, and obtuse marginal stenosis of 50%. ALLISON showed normal systolic function with an ejection fraction of 50-55% with mild MR and mild TR. Patient was referred to cardiothoracic surgery and surgical intervention was recommended for multivessel coronary artery disease. We are consulted in regards to pulmonary management and pulmonary clearance for upcoming surgery. Patient was seen today postoperatively on 11/03/2018.patient had severe triple- vessel coronary artery disease with left main disease, non-ST elevation myocardial infarction, left internal carotids stenosis, patient is now on mec hanical ventilation, his ventilator settings are tidal volume of 480, assist control rate of 16, FiO2 of 50%, and PEEP of 8.ABG prior to these vent setting showed a pO2 of 254 pCO2 of 52 pH of 7.33. Since this ABG, his assist control rate was increased to 16, and his FiO2 was decreased down to 50%.chest x-ray postoperatively was reviewed, minimal bibasilar atelectasis is noted, postoperative changes noted. Patient is presently sedated, on mechanical ventilation, in no distress Patient was seen today on 11/04/2018, patient is doing well, complaining of pain at the site of his tube insertions and surgical site in the lower mediastinal area, receiving multiple pain medications including narcotics and Toradol. Chest x-ray showed minimal atelectasis and pleural effusions, no significant abnormality noted on the chest x-ray otherwise. CBC is relatively normal hemoglobin is 10.4. Basic metabolic profile is normal. Reevaluated today on 11/05/2018, patient remains in the ICU, doing extremely well. He is in sinus rhythm, currently on very minimal dose of norepinephrine, remains on 6 L nasal cannula, O2 saturations 95%. Continues to do relatively well with incentive spirometry. Chest x-ray showed minimal bibasilar atelectasis and postoperative changes as expected. Labs were all reviewed and they seem to be relatively normal. Objective - Vital Signs Vital signs: Vital Signs Temp 99.9 F H 11/05/18 08:00 Pulse 96 11/05/18 08:00 Resp 17 11/05/18 08:00 BP 104/85 11/05/18 08:00 Pulse Ox 96 11/05/18 08:00 Intake & Output 11/04/18 11/05/18 11/05/18 18:59 06:59 18:59 Intake Total 2096.168 1960.321 462.475 Output Total 1260 1265 200 Balance 836.168 695.321 262.475 Intake: IV 691 672 56 Lactated Ringers 1,000 ml 600 600 50 @ 50 mls/hr IV .Q20H [facility] Rx#:[id number] Normal Saline Pressure 81 72 6 Bag co/ci 10 Intake, IV Titration 1005.168 288.321 6.475 Amount Albumin Human 5% 250 ml 500 In Empty Bag 1 bag @ 250 mls/hr IVPB Q1HR PRN Rx#: [id number] Insulin Regular 100 unit 28.333 27.133 6.475 In Sodium Chloride 0.9% 100 ml @ Titrate IV .Q0M [facility] Rx#:[id number] Nitroglycerin-D5w Pmx 50 23.9 mg In Dextrose/Water 1 250ml.bag @ 5 MCG/MIN 1.5 mls/hr IV .Q24H [facility] Rx#: [id number] Norepinephrine 4 mg In 452.935 261.188 Sodium Chloride 0.9% 250 ml @ 0.02 MCG/KG/MIN 6. 256 mls/hr IV .Q24H [facility] Rx#:[id number] Oral 400 1000 400 Output: Chest Tube Drainage 528 310 50 Left Lateral Chest 164 150 30 Mediastinal 250 60 10 Right Lateral Chest 114 100 10 Urine 732 955 150 Other: Voiding Method Indwelling Catheter Indwelling Catheter ABP, PAP, CO, CI - Last Documented Arterial Blood Pressure 94/71 Pulmonary Artery Pressure 42/23 Cardiac Output 6.5 Cardiac Index 3.3 - Exam GENERAL EXAM: revealed a 53-year-old white male, pleasant, in no distress, pain is less compared to yesterday HEAD: Normocephalic/atraumatic. ENT: PERRLA, EOMI, moist mucous membranes, no icterus.No neck masses, no JVD, no stridor. CHEST: No chest wall deformity. Symmetrical expansion. LUNGS: Equal air entry with no crackles, wheeze, rhonchi or dullness.chest tubes were noted. CVS: Regular rate and rhythm, normal S1 and S2, no gallops, no murmurs, no rubs ABDOMEN: Soft, nontender. No hepatosplenomegaly, normal bowel sounds, no guarding or rigidity. EXTREMITIES: No clubbing, no edema, no cyanosis, 2+ pulses and upper and lower extremities. SKIN: No rashes CENTRAL NERVOUS SYSTEM: Alert, oriented, 3, no gross focal neurologic deficits. PSYCHIATRIC: Normal mood, affect and mental status examination. - Labs CBC & Chem 7: 11/05/18 04:30 11/05/18 04:30 Labs: Abnormal Lab Results - Last 24 Hours (Table) 11/04/18 11/04/18 11/04/18 Range/Units 12:03 13:53 15:13 WBC (3.8-10.6) k/uL RBC (4.30-5.90) m/uL Hgb (13.0-17.5) gm/dL Hct (39.0-53.0) % Neutrophils # (1.3-7.7) k/uL Sodium (137-145) mmol/L BUN (9-20) mg/dL Glucose (74-99) mg/dL POC Glucose (mg/dL) 123 H 118 H 132 H (75-99) mg/dL AST (17-59) U/L Total Protein (6.3-8.2) g/dL 11/04/18 11/04/18 11/04/18 Range/Units 16:14 17:14 17:15 WBC 10.8 H (3.8-10.6) k/uL RBC 3.16 L (4.30-5.90) m/uL Hgb 9.7 L (13.0-17.5) gm/dL Hct 29.6 L (39.0-53.0) % Neutrophils # (1.3-7.7) k/uL Sodium (137-145) mmol/L BUN (9-20) mg/dL Glucose (74-99) mg/dL POC Glucose (mg/dL) 124 H 119 H (75-99) mg/dL AST (17-59) U/L Total Protein (6.3-8.2) g/dL 11/04/18 11/04/18 11/04/18 Range/Units 18:08 19:03 19:55 WBC (3.8-10.6) k/uL RBC (4.30-5.90) m/uL Hgb (13.0-17.5) gm/dL Hct (39.0-53.0) % Neutrophils # (1.3-7.7) k/uL Sodium (137-145) mmol/L BUN (9-20) mg/dL Glucose (74-99) mg/dL POC Glucose (mg/dL) 156 H 162 H 155 H (75-99) mg/dL AST (17-59) U/L Total Protein (6.3-8.2) g/dL 11/04/18 11/05/18 11/05/18 Range/Units 23:59 01:31 03:17 WBC (3.8-10.6) k/uL RBC (4.30-5.90) m/uL Hgb (13.0-17.5) gm/dL Hct (39.0-53.0) % Neutrophils # (1.3-7.7) k/uL Sodium (137-145) mmol/L BUN (9-20) mg/dL Glucose (74-99) mg/dL POC Glucose (mg/dL) 126 H 139 H 120 H (75-99) mg/dL AST (17-59) U/L Total Protein (6.3-8.2) g/dL 05/12/19 05/12/19 05/12/19 Range/Units 04:25 04:30 04:30 WBC 12.4 H (3.8-10.6) k/uL RBC 3.08 L (4.30-5.90) m/uL Hgb 9.7 L (13.0-17.5) gm/dL Hct 28.9 L (39.0-53.0) % Neutrophils # 9.4 H (1.3-7.7) k/uL Sodium 136 L (137-145) mmol/L BUN 7 L (9-20) mg/dL Glucose 102 H (74-99) mg/dL POC Glucose (mg/dL) 112 H (75-99) mg/dL AST 93 H (17-59) U/L Total Protein 5.7 L (6.3-8.2) g/dL 11/05/18 11/05/18 11/05/18 Range/Units 05:38 07:02 08:00 WBC (3.8-10.6) k/uL RBC (4.30-5.90) m/uL Hgb (13.0-17.5) gm/dL Hct (39.0-53.0) % Neutrophils # (1.3-7.7) k/uL Sodium (137-145) mmol/L BUN (9-20) mg/dL Glucose (74-99) mg/dL POC Glucose (mg/dL) 118 H 121 H 133 H (75-99) mg/dL AST (17-59) U/L Total Protein (6.3-8.2) g/dL 11/05/18 Range/Units 09:54 WBC (3.8-10.6) k/uL RBC (4.30-5.90) m/uL Hgb (13.0-17.5) gm/dL Hct (39.0-53.0) % Neutrophils # (1.3-7.7) k/uL Sodium (137-145) mmol/L BUN (9-20) mg/dL Glucose (74-99) mg/dL POC Glucose (mg/dL) 147 H (75-99) mg/dL AST (17-59) U/L Total Protein (6.3-8.2) g/dL Assessment and Plan Assessment: impression:Multivessel coronary artery disease with the 50% left main stenosis, status post CABG, postoperative day #2 #2. Acute non-ST elevated myocardial infarction #3. Stage II COPD based on the preop FEV1 of 62% of predicted, consistent with moderately severe COPD, without hypoxemic failure #4. Previous nicotine dependence, currently in remission, patient carries [id number] smoking history, quit smoking in May 2018 #5. Hypothyroidism #6. Hyperlipidemia #7. History of premature coronary artery disease #8. 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 Continue to wean oxygen as tolerated. Continue bronchodilators Continue incentive spirometry Increase activity and ambulate Continue GI and DVT prophylaxis. Discontinue Jason catheter. We'll continue to follow. Time with Patient: Less than 30
[2018-11-05 11:53] LABS: Glucose,Whole Blood 120 mg/dL (75-99)
--- NOTE | 2018-11-05 12:59 | P.PN ---
Subjective Progress Note Date: 11/05/18 Principal diagnosis: Acute non-ST elevation RI This is a pleasant 53-year-old gentleman with hypertension, dyslipidemia, significant history of smoking, and significant family history of coronary artery disease, who presented to the hospital with chest discomfort and mildly abnormal cardiac enzymes. He underwent a heart catheterization which showed severe disease involving the distal left main coronary artery and because of that he was referred for coronary artery that is grafting. On follow-up with the patient today, 11/05/2018, the patient is post op day #2. He received Laurel to LAD, SABILLON to OM, and SVG to PDA. Hemodynamically he is stable. He is slightly tachycardic and I would increase the dose of metoprolol to 50 mg by mouth twice a day from 25 mg by mouth 3 times a day. Continue monitor the kidney function and electrolytes and continue following up with the patient. Objective - Vital Signs Vital signs: Vital Signs Temp 99.9 F H 11/05/18 08:00 Pulse 94 11/05/18 11:53 Resp 17 11/05/18 08:00 BP 104/85 11/05/18 08:00 Pulse Ox 96 11/05/18 08:00 Intake & Output 11/04/18 11/05/18 11/05/18 18:59 06:59 18:59 Intake Total 2096.168 1960.321 462.475 Output Total 1260 1265 200 Balance 836.168 695.321 262.475 Intake: IV 691 672 56 Lactated Ringers 1,000 ml 600 600 50 @ 50 mls/hr IV .Q20H [facility] Rx#:[id number] Normal Saline Pressure 81 72 6 Bag co/ci 10 Intake, IV Titration 1005.168 288.321 6.475 Amount Albumin Human 5% 250 ml 500 In Empty Bag 1 bag @ 250 mls/hr IVPB Q1HR PRN Rx#: [id number] Insulin Regular 100 unit 28.333 27.133 6.475 In Sodium Chloride 0.9% 100 ml @ Titrate IV .Q0M [facility] Rx#:[id number] Nitroglycerin-D5w Pmx 50 23.9 mg In Dextrose/Water 1 250ml.bag @ 5 MCG/MIN 1.5 mls/hr IV .Q24H [facility] Rx#: [id number] Norepinephrine 4 mg In 452.935 261.188 Sodium Chloride 0.9% 250 ml @ 0.02 MCG/KG/MIN 6. 256 mls/hr IV .Q24H [facility] Rx#:[id number] Oral 400 1000 400 Output: Chest Tube Drainage 528 310 50 Left Lateral Chest 164 150 30 Mediastinal 250 60 10 Right Lateral Chest 114 100 10 Urine 732 955 150 Other: Voiding Method Indwelling Catheter Indwelling Catheter ABP, PAP, CO, CI - Last Documented Arterial Blood Pressure 94/71 Pulmonary Artery Pressure 42/23 Cardiac Output 6.5 Cardiac Index 3.3 - Constitutional General appearance: Present: no acute distress - Respiratory Respiratory: bilateral: CTA - Cardiovascular Rhythm: regular Heart sounds: normal: S1, S2 - Labs CBC & Chem 7: 11/05/18 04:30 11/05/18 04:30 Labs: Abnormal Lab Results - Last 24 Hours (Table) 11/04/18 11/04/18 11/04/18 Range/Units 13:53 15:13 16:14 WBC (3.8-10.6) k/uL RBC (4.30-5.90) m/uL Hgb (13.0-17.5) gm/dL Hct (39.0-53.0) % Neutrophils # (1.3-7.7) k/uL Sodium (137-145) mmol/L BUN (9-20) mg/dL Glucose (74-99) mg/dL POC Glucose (mg/dL) 118 H 132 H 124 H (75-99) mg/dL AST (17-59) U/L Total Protein (6.3-8.2) g/dL 11/04/18 11/04/18 11/04/18 Range/Units 17:14 17:15 18:08 WBC 10.8 H (3.8-10.6) k/uL RBC 3.16 L (4.30-5.90) m/uL Hgb 9.7 L (13.0-17.5) gm/dL Hct 29.6 L (39.0-53.0) % Neutrophils # (1.3-7.7) k/uL Sodium (137-145) mmol/L BUN (9-20) mg/dL Glucose (74-99) mg/dL POC Glucose (mg/dL) 119 H 156 H (75-99) mg/dL AST (17-59) U/L Total Protein (6.3-8.2) g/dL 11/04/18 11/04/18 11/04/18 Range/Units 19:03 19:55 23:59 WBC (3.8-10.6) k/uL RBC (4.30-5.90) m/uL Hgb (13.0-17.5) gm/dL Hct (39.0-53.0) % Neutrophils # (1.3-7.7) k/uL Sodium (137-145) mmol/L BUN (9-20) mg/dL Glucose (74-99) mg/dL POC Glucose (mg/dL) 162 H 155 H 126 H (75-99) mg/dL AST (17-59) U/L Total Protein (6.3-8.2) g/dL 11/05/18 11/05/18 11/05/18 Range/Units 01:31 03:17 04:25 WBC (3.8-10.6) k/uL RBC (4.30-5.90) m/uL Hgb (13.0-17.5) gm/dL Hct (39.0-53.0) % Neutrophils # (1.3-7.7) k/uL Sodium (137-145) mmol/L BUN (9-20) mg/dL Glucose (74-99) mg/dL POC Glucose (mg/dL) 139 H 120 H 112 H (75-99) mg/dL AST (17-59) U/L Total Protein (6.3-8.2) g/dL 11/05/18 11/05/18 11/05/18 Range/Units 04:30 04:30 05:38 WBC 12.4 H (3.8-10.6) k/uL RBC 3.08 L (4.30-5.90) m/uL Hgb 9.7 L (13.0-17.5) gm/dL Hct 28.9 L (39.0-53.0) % Neutrophils # 9.4 H (1.3-7.7) k/uL Sodium 136 L (137-145) mmol/L BUN 7 L (9-20) mg/dL Glucose 102 H (74-99) mg/dL POC Glucose (mg/dL) 118 H (75-99) mg/dL AST 93 H (17-59) U/L Total Protein 5.7 L (6.3-8.2) g/dL 11/05/18 11/05/18 11/05/18 Range/Units 07:02 08:00 09:54 WBC (3.8-10.6) k/uL RBC (4.30-5.90) m/uL Hgb (13.0-17.5) gm/dL Hct (39.0-53.0) % Neutrophils # (1.3-7.7) k/uL Sodium (137-145) mmol/L BUN (9-20) mg/dL Glucose (74-99) mg/dL POC Glucose (mg/dL) 121 H 133 H 147 H (75-99) mg/dL AST (17-59) U/L Total Protein (6.3-8.2) g/dL 11/05/18 Range/Units 11:51 WBC (3.8-10.6) k/uL RBC (4.30-5.90) m/uL Hgb (13.0-17.5) gm/dL Hct (39.0-53.0) % Neutrophils # (1.3-7.7) k/uL Sodium (137-145) mmol/L BUN (9-20) mg/dL Glucose (74-99) mg/dL POC Glucose (mg/dL) 120 H (75-99) mg/dL AST (17-59) U/L Total Protein (6.3-8.2) g/dL Assessment and Plan Assessment: Assessment #1 acute non-ST patient myocardial infarction #2 severe coronary artery disease involving the distal left main and status post CABG #3 hypertension #4 dyslipidemia #5 family history of CAD Plan #1 continue the current medical regimen including dual antiplatelet therapy and statin #2 increase the dose of metoprolol
[2018-11-05] MEDS: INSULIN ASPART (NovoLOG) 100 UNIT/ML VIAL SQ SCH ×3 (13:02→21:45)
[2018-11-05 17:48] LABS: Glucose,Whole Blood 141 mg/dL (75-99)
[2018-11-05] MEDS: MIDODRINE 5 MG TAB PO SCH (18:24)
[2018-11-05] MEDS: CLEVIDIPINE BUTYRATE 25 MG in EMPTY BAG 1 BAG IV SCH (20:24)
--- NOTE | 2018-11-05 20:26 | P.PN ---
Subjective Progress Note Date: 11/05/18 (delayed charting patient seen at 0800) Principal diagnosis: Chest Pain Patient is a 53-year-old male past medical history of dyslipidemia, hypothyroidism, and neuralgia presented to the emergency department for complaint of chest pain. In the ER he underwent an extensive evaluation. His initial blood work was unremarkable. Initial EKG showed no significant ST-T wa ve changes. He underwent a CTA aortogram which showed no evidence of dissection. Chest x-ray revealed chronic parenchymal changes. He was subsequently admitted under observation for further management. Cardiology was consulted recommended cardiac catheterization. This revealed chronic total occ lusion of the RCA and calcified plaque involving the distal left main coronary artery. Patient was recommended for coronary artery bypass grafting and cardiovascular thoracic surgery were is consulted. Patient ultimately underwent triple vessel coronary artery bypass grafting on 11/03. He was admitted to the ICU. He was extubated the same day. Of note his TSH was found to be 72. He had been on levothyroxine 25 g daily on admission and this was increased to 75 g daily. He was also found to have a hemoglobin A1c of 6.4 Patient is exhibiting at bedside. Pain is better controlled today, nausea improved, no vomiting, still no bowel movement. Shortness of breath is getting better and he is doing better on his incentive spirometer. Objective - Vital Signs Vital signs: Vital Signs Temp 99.9 F H 11/05/18 08:00 Pulse 94 11/05/18 11:53 Resp 17 11/05/18 08:00 BP 104/85 11/05/18 08:00 Pulse Ox 96 11/05/18 08:00 Intake & Output 11/05/18 11/05/18 11/06/18 06:59 18:59 06:59 Intake Total 1960.321 716.475 Output Total 1265 200 Balance 695.321 516.475 Weight 88.405 kg 87.6 kg Intake: IV 672 56 Lactated Ringers 1,000 ml 600 50 @ 50 mls/hr IV .Q20H [facility] Rx#:[id number] Normal Saline Pressure 72 6 Bag Intake, IV Titration 288.321 260.475 Amount Insulin Regular 100 unit 27.133 6.475 In Sodium Chloride 0.9% 100 ml @ Titrate IV .Q0M [facility] Rx#:[id number] Norepinephrine 4 mg In 261.188 254 Sodium Chloride 0.9% 250 ml @ 0.02 MCG/KG/MIN 6. 256 mls/hr IV .Q24H [facility] Rx#:[id number] Oral 1000 400 Output: Chest Tube Drainage 310 50 Left Lateral Chest 150 30 Mediastinal 60 10 Right Lateral Chest 100 10 Urine 955 150 Other: Voiding Method Indwelling Catheter ABP, PAP, CO, CI - Last Documented Arterial Blood Pressure 94/71 Pulmonary Artery Pressure 42/23 Cardiac Output 6.5 Cardiac Index 3.3 - Exam General: non toxic, no distress, appears at stated age Derm: Dressing in place over midline chest incision warm, dry Head: atraumatic, normocephalic, symmetric Eyes: EOMI, no lid lag, anicteric sclera Mouth: no lip lesion, his membranes dry Cardiovascular: S1S2 reg, no murmur, positive posterior tibial pulse bilateral, bilateral chest tube and mediastinal tubes in place Lungs: Decreased breath sounds bilateral bases, no rhonchi, no rales , no acces kayleen muscle use Abdominal: soft, nontender to palpation, no guarding, no appreciable organomegaly Ext: no gross muscle atrophy, no edema, no contractures Neuro: CN II-XI grossly intact, no focal neuro deficits Psych: Alert, oriented, appropriate affect - Labs CBC & Chem 7: 11/05/18 04:30 11/05/18 04:30 Labs: Abnormal Lab Results - Last 24 Hours (Table) 11/04/18 11/05/18 11/05/18 Range/Units 23:59 01:31 03:17 WBC (3.8-10.6) k/uL RBC (4.30-5.90) m/uL Hgb (13.0-17.5) gm/dL Hct (39.0-53.0) % Neutrophils # (1.3-7.7) k/uL Sodium (137-145) mmol/L BUN (9-20) mg/dL Glucose (74-99) mg/dL POC Glucose (mg/dL) 126 H 139 H 120 H (75-99) mg/dL AST (17-59) U/L Total Protein (6.3-8.2) g/dL 11/05/18 11/05/18 11/05/18 Range/Units 04:25 04:30 04:30 WBC 12.4 H (3.8-10.6) k/uL RBC 3.08 L (4.30-5.90) m/uL Hgb 9.7 L (13.0-17.5) gm/dL Hct 28.9 L (39.0-53.0) % Neutrophils # 9.4 H (1.3-7.7) k/uL Sodium 136 L (137-145) mmol/L BUN 7 L (9-20) mg/dL Glucose 102 H (74-99) mg/dL POC Glucose (mg/dL) 112 H (75-99) mg/dL AST 93 H (17-59) U/L Total Protein 5.7 L (6.3-8.2) g/dL 11/05/18 11/05/18 11/05/18 Range/Units 05:38 07:02 08:00 WBC (3.8-10.6) k/uL RBC (4.30-5.90) m/uL Hgb (13.0-17.5) gm/dL Hct (39.0-53.0) % Neutrophils # (1.3-7.7) k/uL Sodium (137-145) mmol/L BUN (9-20) mg/dL Glucose (74-99) mg/dL POC Glucose (mg/dL) 118 H 121 H 133 H (75-99) mg/dL AST (17-59) U/L Total Protein (6.3-8.2) g/dL 11/05/18 11/05/18 11/05/18 Range/Units 09:54 11:51 17:46 WBC (3.8-10.6) k/uL RBC (4.30-5.90) m/uL Hgb (13.0-17.5) gm/dL Hct (39.0-53.0) % Neutrophils # (1.3-7.7) k/uL Sodium (137-145) mmol/L BUN (9-20) mg/dL Glucose (74-99) mg/dL POC Glucose (mg/dL) 147 H 120 H 141 H (75-99) mg/dL AST (17-59) U/L Total Protein (6.3-8.2) g/dL Assessment and Plan Assessment: Triple-vessel coronary artery disease, non-STEMI, status post triple vessel coronary artery bypass grafting -Continue with aspirin, statin, beta lucia, and Plavix. -Management per cardiovascular surgery -Still with mediastinal and chest tubes in place. -Pain control -Pulmonary hygiene -PT/OT evaluation Prediabetes with A1c 6.4 with hyperglycemia -Discontinue insulin drip, start Levemir 8 untis, SSI -Suggest dietary changes at discharge, will need to follow with PCP if repeat A1c in 60 days -Meet with dietitian and inclusion special educator regarding teaching -Plan on obtaining glucometer at discharge if able Hypothyroidism, poorly controlled -TSH 72 -Continue with Synthroid 75 g -Recommend repeat TSH in 30 days with PCP Dyslipidemia -Statin therapy COPD stage II -Scheduled and when necessary DuoNeb's Left internal carotid artery stenosis 50-69% -Outpatient follow-up -Risk factor modification with aspirin and statin. Also will need glycemic control. Obesity, BMI 33.1 -Structured outpatient weight loss DVT prophylaxis: Heparin Discussed with: Patient, nursing, Nnamdi Willoughby [employer] HEL[employer] Anticipated discharge:Per CT surgery Anticipated discharge place: undeterined A total of 35 minutes was spent on the care of this complex patient more than 50% of the time was spent in counseling and care coordination.
[2018-11-05 21:46] LABS: Glucose,Whole Blood 117 mg/dL (75-99)
[2018-11-05] MEDS: AMITRIPTYLINE HCL 10 MG TAB PO SCH (22:02)
[2018-11-05] MEDS: SENNOSIDES-DOCUSATE SODIUM 1 EACH TAB PO SCH (22:02)
[2018-11-06 02:20] LABS: Glucose,Whole Blood 116 mg/dL (75-99)
[2018-11-06] MEDS: HYDROcodone/APAP 5-325MG 1 EACH TAB PO PRN ×2 (02:43→20:48)
[2018-11-06 06:36] LABS: Basophils # (A) 0.1 k/uL (0-0.2); Basophils % (A) 1 %; Eosinophils # (A) 0.7 k/uL (0-0.7); Eosinophils % (A) 7 %; HCT 27.4 % (39.0-53.0); HGB 9.6 gm/dL (13.0-17.5); Lymphocytes # (A) 1.5 k/uL (1.0-4.8); Lymphocytes % (A) 16 %; MCH 32.2 pg (25.0-35.0); MCHC 34.8 g/dL (31.0-37.0); MCV 92.4 fL (80.0-100.0); Mean Platelet Volume 7.1; Monocytes # (A) 0.4 k/uL (0-1.0); Monocytes % (A) 4 %; Neutrophils # (A) 6.3 k/uL (1.3-7.7); Neutrophils % (A) 70 %; Platelet Count 181 k/uL (150-450); RBC 2.96 m/uL (4.30-5.90); RDW 13.9 % (11.5-15.5)
[2018-11-06 06:44] LABS: ALT 41 U/L (21-72); AST 71 U/L (17-59); Albumin 3.3 g/dL (3.5-5.0); Alkaline Phosphatase 62 U/L (38-126); Anion Gap 5 mmol/L; Blood Urea Nitrogen 12 mg/dL (9-20); Calcium 8.8 mg/dL (8.4-10.2); Carbon Dioxide 29 mmol/L (22-30); Chloride 102 mmol/L (98-107); Glucose 95 mg/dL (74-99); Potassium 4.1 mmol/L (3.5-5.1); Sodium 136 mmol/L (137-145); Total Bilirubin 0.5 mg/dL (0.2-1.3); Total Protein 5.4 g/dL (6.3-8.2)
[2018-11-06] MEDS: LACTATED RINGERS 1,000 ML IV SCH (06:59)
[2018-11-06] MEDS: MIDODRINE 5 MG TAB PO SCH ×3 (07:03→17:01)
[2018-11-06] MEDS: KETOROLAC 30 MG/ML 1 ML VIAL IVP SCH ×3 (07:03→18:38)
[2018-11-06] MEDS: LEVOTHYROXINE 75 MCG TAB PO SCH (07:03)
[2018-11-06] MEDS: PANTOPRAZOLE 40 MG TABLET PO SCH (07:03)
[2018-11-06] MEDS: INSULIN ASPART (NovoLOG) 100 UNIT/ML VIAL SQ SCH ×4 (07:08→20:48)
[2018-11-06 07:09] LABS: Glucose,Whole Blood 92 mg/dL (75-99)
--- NOTE | 2018-11-06 07:49 | PN ---
PROGRESS NOTE Mr. Dunn is a 53-year-old male who underwent cardiac catheterization was found to have severe triple-vessel coronary artery disease. He underwent coronary bypass grafting with CHEPE to the LAD, SABILLON to the OM and saphenous vein graft to the PDA. He is feeling well this morning. He has some sinus tachycardia, but no anginal pain. He denies any dizziness or palpitation. Hemodynamically, he is stable. He continues to be in sinus mechanism. There is no evidence of tachycardia or bradycardia. He continues to be at this time on aspirin once a day, Lipitor 40 mg daily, Plavix 75 mg daily, insulin, metoprolol tartrate 50 mg twice a day. PHYSICAL EXAMINATION: Blood pressure 100/60 with the heart rate in 90s. LUNGS: A few crackles at the bases. HEART: Regular rate and rhythm. S1, S2. No S3. No rub appreciated. ABDOMEN: Soft, nontender. EXTREMITIES: No significant edema. LAB DATA: Lab data revealed BUN and creatinine 12 and 0.69. Potassium 4.1. Hemoglobin of 9.6. IMPRESSION: 1. Status post coronary artery bypass grafting, stable. 2. History of hypertension. 3. Hyperlipidemia. 4. Prior history of smoking. RECOMMENDATION: From the cardiac standpoint, he is stable. We will continue present therapy. Continue incentive spirometry. Increase his level activity and depending on his progress, further recommendation would be made. MMODL / ANGELAN: [id number] /
--- NOTE | 2018-11-06 08:08 | XR ---
EXAMINATION TYPE: XR chest 1V portable DATE OF EXAM: 11/06/2018 COMPARISON: 11/05/2018 HISTORY: Postop TECHNIQUE: Single frontal view of the chest is obtained. FINDINGS: Bilateral consolidation small effusion. Surgical changes. No pneumothorax. Mild venous con gestion not excluded. IMPRESSION: Pleural-parenchymal changes are stable. Postsurgical changes are noted. Correlate for bi lateral infiltrate and small effusion. Mild venous congestion in the differential diagnosis.
[2018-11-06] MEDS: IPRATROPIUM-ALBUTEROL 3 ML NEB INHALATION SCH ×4 (08:25→20:36)
--- NOTE | 2018-11-06 08:26 | P.PN ---
Subjective Progress Note Date: 11/06/18 Principal diagnosis: Status post CABG, 4, postop day 4 This is a 73-year-old white male patient, of Dr. Hardin, with a past medical history of hyperlipidemia, hypothyroidism, patient is a former smoker, quit smoking in May 2018, obesity, and family history of premature coronary artery disease. Patient presented to the hospital on 10/27/2018 for evaluation of back pain, arm pain, shortness of breath and mild chest discomfort that started in the middle of the night and was not preceded by exertion. CTA chest was completed and showed no aortic aneurysm or dissection, no suspicious acute process, no suspicious nodules or masses, no pleural effusions. Chest x-ray sh owed chronic changes without evidence of acute pulmonary disease. EKG showed normal sinus rhythm without ischemic changes, patient had a mild elevation of troponins which peaked at 0.036, patient was ruled in for non-ST elevated FL. He underwent a cardiac Catheterization which demonstrated left main stenosis of 50%, chronically totally occluded RCA with collaterals, proximal LAD stenosis of 50%, and obtuse marginal stenosis of 50%. ALLISON showed normal systolic function with an ejection fraction of 50-55% with mild MR and mild TR. Patient was referred to cardiothoracic surgery and surgical intervention was recommended for multivessel coronary artery disease. We are consulted in regards to pulmonary management and pulmonary clearance for upcoming surgery. Patient was seen today postoperatively on 11/03/2018.patient had severe triple- vessel coronary artery disease with left main disease, non-ST elevation myocardial infarction, left internal carotids stenosis, patient is now on mechanical ventilation, his ventilator settings are tidal volume of 480, assist control rate of 16, FiO2 of 50%, and PEEP of 8.ABG prior to these vent setting showed a pO2 of 254 pCO2 of 52 pH of 7.33. Since this ABG, his assist control rate was increased to 16, and his FiO2 was decreased down to 50%.chest x-ray postoperatively was reviewed, minimal bibasilar atelectasis is noted, postoperative changes noted. Patient is presently sedated, on mechanical ventilation, in no distress Patient was seen today on 11/04/2018, patient is doing well, complaining of pain at the site of his tube insertions and surgical site in the lower mediastinal area, receiving multiple pain medications including narcotics and Toradol. Chest x-ray showed minimal atelectasis and pleural effusions, no significant abnormality noted on the chest x-ray otherwise. CBC is relatively normal hemoglobin is 10.4. Basic metabolic profile is normal. Reevaluated today on 11/05/2018, patient remains in the ICU, doing extremely we ll. He is in sinus rhythm, currently on very minimal dose of norepinephrine, remains on 6 L nasal cannula, O2 saturations 95%. Continues to do relatively well with incentive spirometry. Chest x-ray showed minimal bibasilar atelectasis and postoperative changes as expected. Labs were all reviewed and they seem to be relatively normal. On 11/06/2018 patient seen in follow-up in the intensive care unit, this is postop day 4 status post four-vessel coronary artery bypass grafting. Patient is doing well, he is up in the recliner, in no acute distress, currently on 5 L of oxygen and his pulse ox is 94-98%, patient is afebrile, hemodynamically stable. Lung sounds reveal some limited crackles at the left posterior base, incentive spirometer effort is 500, pain is under good control, IVs include lactated Ringer's at a rate of 50 ML per hour, no other drips, today's chest x- ray has been reviewed with Dr. Salgado, and shows bilateral pleural effusions and atelectasis, some mild venous congestion. Labs has been reviewed, with blood cell count is 9.0, 0.6, electrolytes and renal profile were unremarkable. Objective - Vital Signs Vital signs: Vital Signs Temp 97.8 F 11/06/18 04:00 Pulse 99 11/06/18 07:00 Resp 25 H 11/06/18 07:00 BP 84/60 11/06/18 07:00 Pulse Ox 94 L 11/06/18 07:00 Intake & Output 11/05/18 11/06/18 11/06/18 18:59 06:59 18:59 Intake Total 9830.090 8743.169 50 Output Total 1015 300 Balance 418.110 3494.169 50 Weight 87.6 kg Intake: IV 672 672 50 Lactated Ringers 1,000 ml 600 600 50 @ 50 mls/hr IV .Q20H [facility] Rx#:[id number] Normal Saline Pressure 72 72 Bag Intake, IV Titration 260.475 241.169 Amount Insulin Regular 100 unit 6.475 In Sodium Chloride 0.9% 100 ml @ Titrate IV .Q0M [facility] Rx#:[id number] Norepinephrine 4 mg In 254 241.169 Sodium Chloride 0.9% 250 ml @ 0.02 MCG/KG/MIN 6. 256 mls/hr IV .Q24H [facility] Rx#:[id number] Oral 700 410 Output: Chest Tube Drainage 120 Left Lateral Chest 60 Mediastinal 30 Right Lateral Chest 30 Urine 895 300 Other: Voiding Method Urinal Urinal # Voids 1 1 ABP, PAP, CO, CI - Last Documented Arterial Blood Pressure 85/36 Pulmonary Artery Pressure 42/23 Cardiac Output 6.5 Cardiac Index 3.3 - Exam GENERAL EXAM: Alert, pleasant, 63-year-old white male on 5 L of oxygen comfortable in no apparent distress. HEAD: Normocephalic/atraumatic. EYES: Normal reaction of pupils, equal size. Conjunctiva pink, sclera white. NOSE: Clear with pink turbinates. THROAT: No erythema or exudates. NECK: No masses, no JVD, no thyroid enlargement, no adenopathy. CHEST: No chest wall deformity. Symmetrical expansion. Sternal incision is clean dry and intact, chest tubes have been discontinued, AV wires grounded LUNGS: Equal air entry with crackles at the left lower base CVS: Regular rate and rhythm, normal S1 and S2, no gallops, no murmurs, no rubs ABDOMEN: Soft, nontender. No hepatosplenomegaly, normal bowel sounds, no guarding or rigidity. EXTREMITIES: No clubbing, no edema, no cyanosis, 2+ pulses and upper and lower extremities. Left leg incision clean dry and intact MUSCULOSKELETAL: Muscle strength and tone normal. SPINE: No scoliosis or deformity SKIN: No rashes CENTRAL NERVOUS SYSTEM: Alert and oriented -3. No focal deficits, tone is normal in all 4 extremities. PSYCHIATRIC: Alert and oriented -3. Appropriate affect. Intact judgment and insight. - Labs CBC & Chem 7: 11/06/18 06:00 11/06/18 06:00 Labs: Abnormal Lab Results - Last 24 Hours (Table) 11/05/18 11/05/18 11/05/18 Range/Units 09:54 11:51 17:46 RBC (4.30-5.90) m/uL Hgb (13.0-17.5) gm/dL Hct (39.0-53.0) % Sodium (137-145) mmol/L POC Glucose (mg/dL) 147 H 120 H 141 H (75-99) mg/dL AST (17-59) U/L Total Protein (6.3-8.2) g/dL Albumin (3.5-5.0) g/dL 11/05/18 11/06/18 11/06/18 Range/Units 21:44 02:18 06:00 RBC 2.96 L (4.30-5.90) m/uL Hgb 9.6 L (13.0-17.5) gm/dL Hct 27.4 L (39.0-53.0) % Sodium (137-145) mmol/L POC Glucose (mg/dL) 117 H 116 H (75-99) mg/dL AST (17-59) U/L Total Protein (6.3-8.2) g/dL Albumin (3.5-5.0) g/dL 11/06/18 Range/Units 06:00 RBC (4.30-5.90) m/uL Hgb (13.0-17.5) gm/dL Hct (39.0-53.0) % Sodium 136 L (137-145) mmol/L POC Glucose (mg/dL) (75-99) mg/dL AST 71 H (17-59) U/L Total Protein 5.4 L (6.3-8.2) g/dL Albumin 3.3 L (3.5-5.0) g/dL Assessment and Plan Plan: Assessment: #1. Multivessel coronary artery disease with the 50% left main stenosis, status post four-vessel coronary artery bypass grafting, postop day 4 #2. Acute non-ST elevated myocardial infarction #3. Stage II COPD based on the preop FEV1 of 62% of predicted, consistent with moderately severe COPD, without hypoxemic failure #4. Previous nicotine dependence, currently in remission, patient carries [id number] smoking history, quit smoking in May 2018 #5. Hypothyroidism #6. Hyperlipidemia #7. History of premature coronary artery disease #8. Left internal carotid artery stenosis of 50-69%, and abnormal flow in the right vertebral artery possibly related to partial steal syndrome Plan: Continue with current medical treatment, and today's chest x-ray has been reviewed with Dr. Sarthak, shows mild venous congestion, bilateral pleural effusions and atelectasis. Clinical patient is stable, continue weaning FiO2, encourage deep breathing and coughing ambulation, pain control. Chest tubes have been discontinued. Likely transfer to monitored been on selective care unit today. I performed a history & physical examination of the patient and discussed their management with my nurse practitioner, Arianna Marx. I reviewed the nurse practitioner's note and agree with the documented findings and plan of care. Lung sounds are positive for clear breath sounds. The findings and the i mpression was discussed with the patient. I attest to the documentation by the nurse practitioner. Time with Patient: Less than 30
[2018-11-06] MEDS: ASPIRIN 325 MG TAB PO SCH (08:54)
[2018-11-06] MEDS: HEPARIN SODIUM,PORCINE 5,000 UNIT/ML 1 ML VIAL SQ SCH ×2 (08:54→17:01)
[2018-11-06] MEDS: ATORVASTATIN 40 MG TAB PO SCH (08:55)
[2018-11-06] MEDS: METOPROLOL TARTRATE 50 MG TAB PO SCH ×2 (08:55→20:49)
[2018-11-06] MEDS: CLOPIDOGREL 75 MG TAB PO SCH (08:55)
[2018-11-06] MEDS: INSULIN DETEMIR (LEVEMIR) 100 UNIT/ML SYR SQ SCH (08:55)
[2018-11-06] MEDS: MUPIROCIN 2% OINT 22 GM TUBE NASAL SCH ×2 (09:01→21:54)
[2018-11-06 12:04] LABS: Glucose,Whole Blood 118 mg/dL (75-99)
--- NOTE | 2018-11-06 14:59 | P.PN ---
Subjective Progress Note Date: 11/06/18 Principal diagnosis: Severe triple vessel coronary artery disease with left main disease, non-STEMI, left internal carotid artery stenosis 50-69% with abnormal flow in the right ve rtebral artery possibly representing partial steal syndrome. Previous medical history of hyperlipidemia, hypothyroid with preoperative TSH 72.1, free T4 0.66, previous tobacco dependence, mild COPD with preoperative FEV1 62% of predicted, obesity, and strong family history of premature coronary artery disease. POD #3 urgent multiple arterial triple vessel coronary artery bypass grafting using the skeletonized in situ right internal mammary artery crossing the midline anteriorly to the left anterior descending coronary artery, totally skeletonized in situ left internal mammary artery to the first obtuse marginal coronary artery, a reverse greater saphenous vein graft from the aorta to the p osterior descending coronary artery. Endoscopic harvesting of the left greater saphenous vein, intraoperative transesophageal echocardiogram, epi-aortic scanning and intraoperative graft flow measurement using the Answer.To system. The patient is currently sitting up to the bedside chair in the intensive care unit. He is in no acute distress. Denies any complaints of pain or shortness of breath at this time. States that his pain is much improved since his chest tubes have been discontinued. Bedside telemetry showing normal sinus rhythm heart rate 96. Oxygen saturations are 97% on 3 L nasal cannula. Right IJ cordis remains in place to continue CVP monitoring, current CVP pressure is 9 mmHg. he is achieving 500 mL on his incentive spirometry. He remains hemodynamically stable and has been off norepinephrine drip since 5 AM this morning. Ambulating to the bathroom with minimal assistance. Objective - Vital Signs Vital signs: Vital Signs Temp 97.9 F 11/06/18 08:00 Pulse 104 H 11/06/18 12:16 Resp 14 11/06/18 08:30 BP 91/69 11/06/18 08:30 Pulse Ox 98 11/06/18 08:30 Intake & Output 11/05/18 11/06/18 11/06/18 18:59 06:59 18:59 Intake Total 8322.775 3941.169 103 Output Total 1015 300 Balance 567.007 4887.169 103 Weight 87.6 kg Intake: IV 672 672 103 Lactated Ringers 1,000 ml 600 600 100 @ 50 mls/hr IV .Q20H [facility] Rx#:[id number] Normal Saline Pressure 72 72 3 Bag Intake, IV Titration 260.475 241.169 Amount Insulin Regular 100 unit 6.475 In Sodium Chloride 0.9% 100 ml @ Titrate IV .Q0M [facility] Rx#:[id number] Norepinephrine 4 mg In 254 241.169 Sodium Chloride 0.9% 250 ml @ 0.02 MCG/KG/MIN 6. 256 mls/hr IV .Q24H [facility] Rx#:[id number] Oral 700 410 Output: Chest Tube Drainage 120 Left Lateral Chest 60 Mediastinal 30 Right Lateral Chest 30 Urine 895 300 Other: Voiding Method Urinal Urinal Urinal # Voids 1 1 ABP, PAP, CO, CI - Last Documented Arterial Blood Pressure 85/36 Pulmonary Artery Pressure 42/23 Cardiac Output 6.5 Cardiac Index 3.3 - Constitutional General appearance: Present: cooperative, no acute distress, obese - Respiratory Details: Lung sounds diminished to his bilateral bases. Respirations are symmetrical and nonlabored. Oxygen saturation are 97% on 3 L nasal cannula. Achieving 500 mL on his incentive spirometry. - Cardiovascular Details: Regular rhythm and rate. S1 and S2 present, negative for S3, gallop or murmur. Sternum is stable. Bedside telemetry showing normal sinus rhythm heart rate 96. No edema present. Atrial epicardial pacemaker wires in place and grounded. Heart hugger is in place and he is demonstrating appropriate use. Knee-high EUGENIO hose and sequential compression devices in place to his bilateral lower extremities. - Gastrointestinal Gastrointestinal Comment(s): Abdomen is soft, nontender and distended. Active bowel sounds to all 4 abdomin al quadrants. Passing flatus. No guarding or rigidity. No organomegaly. Tolerating oral intake. - Genitourinary Genitourinary Comment(s): Voiding clear yellow urine. - Integumentary Integumentary Comment(s): Skin is warm and dry. No clubbing or cyanosis is present. Midline sternal incision is clean, dry and approximated. No drainage or redness is present. Left lower extremity EVH site are clean, dry and approximated. No drainage or redness is present. - Neurologic Neurologic: Present: CNII-XII intact - Musculoskeletal Musculoskeletal: Present: gait normal, generalized weakness, strength equal bilaterally - Psychiatric Psychiatric: Present: A&O x's 3, appropriate affect, intact judgment & insight - Allied health notes Allied health notes reviewed: nursing - Labs CBC & Chem 7: 11/06/18 06:00 11/06/18 06:00 Labs: Abnormal Lab Results - Last 24 Hours (Table) 11/05/18 11/05/18 11/06/18 Range/Units 17:46 21:44 02:18 RBC (4.30-5.90) m/uL Hgb (13.0-17.5) gm/dL Hct (39.0-53.0) % Sodium (137-145) mmol/L POC Glucose (mg/dL) 141 H 117 H 116 H (75-99) mg/dL AST (17-59) U/L Total Protein (6.3-8.2) g/dL Albumin (3.5-5.0) g/dL 11/06/18 11/06/18 11/06/18 Range/Units 06:00 06:00 12:01 RBC 2.96 L (4.30-5.90) m/uL Hgb 9.6 L (13.0-17.5) gm/dL Hct 27.4 L (39.0-53.0) % Sodium 136 L (137-145) mmol/L POC Glucose (mg/dL) 118 H (75-99) mg/dL AST 71 H (17-59) U/L Total Protein 5.4 L (6.3-8.2) g/dL Albumin 3.3 L (3.5-5.0) g/dL - Imaging and Cardiology Chest x-ray: report reviewed, image reviewed Assessment and Plan Assessment: 1. Severe triple-vessel coronary artery disease with left main disease, status post triple vessel coronary artery bypass grafting surgery 2. Non-STEMI 3. Left internal carotid artery stenosis 50-69% with abnormal flow in the right vertebral artery possibly representing partial steal syndrome 4. Hyperlipidemia 5. Hypothyroid, current TSH 72.1, free T4 0.66 6. Previous tobacco dependence 7. Mild COPD with preoperative FEV1 62% of predicted 8. Obesity 9. Strong family history of premature coronary artery disease 10. Preoperative hemoglobin A1c 6.4% Plan: 1. Continue aspirin, statin, Plavix and beta lucia. Will increase his metoprolol tartrate as tolerated. 2. Remove atrial epicardial pacemaker wires. Bedrest for 1 hour post pacemaker wire removal. 3. Wean O2 as tolerated. Encourage incentive spirometry use 10 times every hour while awake.. 4. Will monitor daily labs, x-rays. Electrolyte replacement per protocol. 5. Pain control with current medication regimen. Continue Toradol. 6. Insulin management per primary care service 7. Increase activity, ambulate as tolerated. PT/OT/cardiac rehab following. 8. Bronchodilators per pulmonology. 9. Discontinue right IJ Cordis. 10. GI/DVT prophylaxis. 11. More recommendations to follow based on patient's clinical course. Atrial epicardial pacemaker wires removed without incident at 10:20 AM. Bedrest for 1 hour post pacemaker wire removal. Time with Patient: Greater than 30
[2018-11-06 17:19] LABS: Glucose,Whole Blood 122 mg/dL (75-99)
[2018-11-06] MEDS: CLEVIDIPINE BUTYRATE 25 MG in EMPTY BAG 1 BAG IV SCH (18:19)
--- NOTE | 2018-11-06 19:32 | P.PN ---
Subjective Progress Note Date: 11/06/18 (delayed charting seen at 0930) Principal diagnosis: Chest Pain Patient is a 53-year-old male past medical history of dyslipidemia, hypothyroidism, and neuralgia presented to the emergency department for complaint of chest pain. In the ER he underwent an extensive evaluation. His initial blood work was unremarkable. Initial EKG showed no significant ST-T wave changes. He underwent a CTA aortogram which showed no evidence of dissection. Chest x-ray revealed chronic parenchymal changes. He was subsequently admitted under observation for further management. Cardiology was consulted recommended cardiac catheterization. This revealed chronic total occlusion of the RCA and calcified plaque involving the distal left main coronary artery. Patient was recommended for coronary artery bypass grafting and cardiovascular thoracic surgery were is consulted. Patient ultimately underwent triple vessel coronary artery bypass grafting on 11/03. He was admitted to the ICU. He was extubated the same day. Of note his TSH was found to be 72. He had been on levothyroxine 25 g daily on admission and this was increased to 75 g daily. He was also found to have a hemoglobin A1c of 6.4 Patient seen and examined at bedside. Having some SOB when up and walking, has some dizziness when ambulating, no nausea or vomiting, no BM yet, starting to feel slightly constipated. Objective - Vital Signs Vital signs: Vital Signs Temp 98.5 F 11/06/18 16:00 Pulse 111 H 11/06/18 16:00 Resp 22 11/06/18 16:00 BP 87/73 11/06/18 16:00 Pulse Ox 94 L 11/06/18 16:00 Intake & Output 11/06/18 11/06/18 11/07/18 06:59 18:59 06:59 Intake Total 1323.169 103 Output Total 300 Balance 1023.169 103 Weight 88.8 kg Intake: IV 672 103 Lactated Ringers 1,000 ml 600 100 @ 50 mls/hr IV .Q20H [facility] Rx#:[id number] Normal Saline Pressure 72 3 Bag Intake, IV Titration 241.169 Amount Norepinephrine 4 mg In 241.169 Sodium Chloride 0.9% 250 ml @ 0.02 MCG/KG/MIN 6. 256 mls/hr IV .Q24H [facility] Rx#:[id number] Oral 410 Output: Urine 300 Other: Voiding Method Urinal Urinal # Voids 1 ABP, PAP, CO, CI - Last Documented Arterial Blood Pressure 85/36 Pulmonary Artery Pressure 42/23 Cardiac Output 6.5 Cardiac Index 3.3 - Exam General: non toxic, no distress, appears at stated age Derm: warm, dry Head: atraumatic, normocephalic, symmetric Eyes: EOMI, no lid lag, anicteric sclera Mouth: no lip lesion, his membranes dry Cardiovascular: S1S2 reg, no murmur, positive posterior tibial pulse bilateral Lungs: Decreased breath sounds left base, , no rhonchi, no rales , no accessory muscle use Abdominal: soft, nontender to palpation, no guarding, no appreciable organomegaly Ext: no gross muscle atrophy, 1+ edema, no contractures Neuro: CN II-XI grossly intact, no focal neuro deficits Psych: Alert, oriented, appropriate affect - Labs CBC & Chem 7: 11/06/18 06:00 11/06/18 06:00 Labs: Abnormal Lab Results - Last 24 Hours (Table) 11/05/18 11/06/18 11/06/18 Range/Units 21:44 02:18 06:00 RBC 2.96 L (4.30-5.90) m/uL Hgb 9.6 L (13.0-17.5) gm/dL Hct 27.4 L (39.0-53.0) % Sodium (137-145) mmol/L POC Glucose (mg/dL) 117 H 116 H (75-99) mg/dL AST (17-59) U/L Total Protein (6.3-8.2) g/dL Albumin (3.5-5.0) g/dL 11/06/18 11/06/18 11/06/18 Range/Units 06:00 12:01 17:18 RBC (4.30-5.90) m/uL Hgb (13.0-17.5) gm/dL Hct (39.0-53.0) % Sodium 136 L (137-145) mmol/L POC Glucose (mg/dL) 118 H 122 H (75-99) mg/dL AST 71 H (17-59) U/L Total Protein 5.4 L (6.3-8.2) g/dL Albumin 3.3 L (3.5-5.0) g/dL Assessment and Plan Assessment: Triple-vessel coronary artery disease, non-STEMI, status post triple vessel coronary artery bypass grafting -Continue with aspirin, statin, beta lucia, and Plavix. -Management per cardiovascular surgery -Midodrine for BP support, off levo 11/05 -Pain control -Pulmonary hygiene -PT/OT recs Prediabetes with A1c 6.4 -SSI, stop levemir -Suggest dietary changes at discharge, will need to follow with PCP if repeat A1c in 60 days -diabeic educator and dietitian recs -Plan on obtaining glucometer at discharge if able Hypothyroidism, poorly controlled -TSH 72 -Continue with Synthroid 75 g -Recommend repeat TSH in 30 days with PCP Dyslipidemia -Statin therapy COPD stage II -Scheduled and when necessary DuoNeb's Left internal carotid artery stenosis 50-69% -Outpatient follow-up -Risk factor modification with aspirin and statin. Also will need glycemic control. Obesity, BMI 33.1 -Structured outpatient weight loss Hyperglycemia, resolved DVT prophylaxis: Heparin Discussed with: Patient, nursing, Nnamdi Willoughby REHAB THERAPIST Anticipated discharge:Per CT surgery Anticipated discharge place: undetermined A total of 35 minutes was spent on the care of this complex patient more than 50% of the time was spent in counseling and care coordination.
[2018-11-06 20:47] LABS: Glucose,Whole Blood 130 mg/dL (75-99)
[2018-11-06] MEDS: SENNOSIDES-DOCUSATE SODIUM 1 EACH TAB PO SCH (20:48)
[2018-11-06] MEDS: AMITRIPTYLINE HCL 10 MG TAB PO SCH (20:49)
[2018-11-06] MEDS: POLYETHYLENE GLYCOL 3350 17 GM POWD.PACK PO SCH (22:05)
[2018-11-07] MEDS: LACTATED RINGERS 1,000 ML IV SCH (00:05)
[2018-11-07] MEDS: KETOROLAC 30 MG/ML 1 ML VIAL IVP SCH ×4 (00:29→17:06)
[2018-11-07] MEDS: HEPARIN SODIUM,PORCINE 5,000 UNIT/ML 1 ML VIAL SQ SCH ×3 (00:29→17:07)
[2018-11-07 01:58] LABS: Glucose,Whole Blood 107 mg/dL (75-99)
[2018-11-07] MEDS: MIDODRINE 5 MG TAB PO SCH ×3 (06:43→17:07)
[2018-11-07] MEDS: LEVOTHYROXINE 75 MCG TAB PO SCH (06:43)
[2018-11-07] MEDS: INSULIN ASPART (NovoLOG) 100 UNIT/ML VIAL SQ SCH (06:48)
[2018-11-07 06:50] LABS: Glucose,Whole Blood 109 mg/dL (75-99)
[2018-11-07] MEDS: IPRATROPIUM-ALBUTEROL 3 ML NEB INHALATION SCH (07:06)
--- NOTE | 2018-11-07 08:01 | XR ---
EXAMINATION TYPE: XR chest 1V portable DATE OF EXAM: 11/07/2018 COMPARISON: Prior chest x-ray 11/06/2018 HISTORY: Postop coronary artery bypass graft TECHNIQUE: Single frontal view of the chest is obtained. FINDINGS: Patient is post median sternotomy, there are overlying cardiac leads. Patchy bibasilar den sity is present. The interstitium may be improved in the interval. Heart remains enlarged. No evident pneumothorax. IMPRESSION: There may be some improvement in patient's volume status. Difficult to exclude small eff usion. Cardiomegaly.
[2018-11-07] MEDS: METOPROLOL TARTRATE 50 MG TAB PO SCH ×2 (09:04→22:20)
[2018-11-07] MEDS: CLOPIDOGREL 75 MG TAB PO SCH (09:04)
[2018-11-07] MEDS: ASPIRIN 325 MG TAB PO SCH (09:05)
[2018-11-07] MEDS: PANTOPRAZOLE 40 MG TABLET PO SCH (09:05)
[2018-11-07] MEDS: ATORVASTATIN 40 MG TAB PO SCH (09:05)
--- NOTE | 2018-11-07 09:13 | PN ---
PROGRESS NOTE DATE OF SERVICE: 11/07/2018 This is a 53-year-old gentleman who is postop day #5, status post 4-vessel bypass grafting. He was admitted with the diagnosis of acute non ST-segment elevation myocardial infarction and stage II chronic obstructive pulmonary disease with a preop FEV1 at 62% of predicted. Currently, he is doing well. He is not receiving any IV fluids. His nasal O2 is running at 3 L/minute. He is doing reasonably well on his incentive spirometer. He had a pretty uneventful night last night. Denies any shortness of breath, difficulty breathing, coughing, wheezing, phlegm production, chest pain or chest discomfort. He does have a previous history of nicotine dependence, hypothyroidism, hyperlipidemia, premature coronary artery disease, and left internal carotid artery stenosis of 50%- 69%. Current vital signs are reviewed, his temperature is 98.5, heart rate 97, respiratory rate 20, blood pressure 135/78, mean 97, 3 L saturation 98%. Appears in no acute distress HEENT: Examination is grossly unremarkable. Membranes are moist. No oral lesions. NECK: Supple. Full range of motion. No adenopathy or thyromegaly. Neck veins are flat. CARDIOVASCULAR: Examination reveals mild tachycardia. Heart rate about 100 beats per minute. S1, S2 normal. Heart sounds are slightly distant. LUNGS: Relatively clear. A few scattered rhonchi. No wheezes or crackles. Breath sounds equal bilaterally. ABDOMEN: Soft. Bowel sounds are heard. EXTREMITIES: Intact. No cyanosis, clubbing, or edema. SKIN: Without rash. NEUROLOGIC: Examination is brief but nonfocal. Microbiologic studies are negative. LABS: Reviewed. No new labs from today as yet. No chest x-ray today. Medications are reviewed. ASSESSMENT: 1. Postoperative day #5, status post 4-vessel bypass grafting. 2. Acute non ST-segment elevation myocardial infarction. 3. Stage II chronic obstructive pulmonary disease, with a preop FEV1 that is 62% of predicted. 4. Previous nicotine dependence. 5. Hypothyroidism. 6. Hyperlipidemia. 7. History of premature coronary artery disease. 8. Left internal carotid artery stenosis of 50%-69%. PLAN: Overall the patient is doing reasonably well. He had an uneventful night. He is on O2 at 3 L. He continues to use his incentive spirometer every hour. We encourage deep breathing, coughing and clearing of secretions. MMODL / IJN: [id number] /
--- NOTE | 2018-11-07 09:22 | PN ---
PROGRESS NOTE Mr. Dunn is a 53-year-old male, status post coronary artery bypass grafting. He is doing well this morning. His breathing has been stable. He is doing better on the incentive spirometry. He is denying any chest pain. He denies any dizziness or palpitation. He denies any nausea. He is in sinus mechanism with episode of sinus tachycardia. He continues to be on aspirin once a day, Lipitor 40 mg daily, Plavix 75 mg daily, metoprolol tartrate 50 mg twice a day. PHYSICAL EXAMINATION: Blood pressure 135/70 with a heart rate in the low 100s. LUNGS: No wheezes. HEART: Regular rate and rhythm. S1, S2. No S3. No rub appreciated. ABDOMEN: Soft, nontender. EXTREMITIES: No significant edema. IMPRESSION: 1. Status post bypass grafting, stable. 2. Hyperlipidemia, on statin. 3. Prior history of smoking. 4. History of hypertension. RECOMMENDATION: Will continue present therapy. Continue incentive spirometry. Follow his rhythm and depending on his progress, further recommendation will be made. MMODL / IJN: [id number] /
[2018-11-07] MEDS ORDERED: ALPRAZolam 0.5 MG TAB PO PRN (09:24)
[2018-11-07 09:39] LABS: Basophils % (A) 1 %; Eosinophils # (A) 0.5 k/uL (0-0.7); Eosinophils % (A) 6 %; HCT 28.7 % (39.0-53.0); Lymphocytes # (A) 1.1 k/uL (1.0-4.8); Lymphocytes % (A) 14 %; MCH 29.7 pg (25.0-35.0); MCHC 31.5 g/dL (31.0-37.0); MCV 94.5 fL (80.0-100.0); Monocytes # (A) 0.3 k/uL (0-1.0); Monocytes % (A) 4 %; Neutrophils # (A) 5.7 k/uL (1.3-7.7); Neutrophils % (A) 74 %; Platelet Count 265 k/uL (150-450); RBC 3.03 m/uL (4.30-5.90); RDW 13.9 % (11.5-15.5); WBC 7.7 k/uL (3.8-10.6)
[2018-11-07 09:54] LABS: ALT 43 U/L (21-72); AST 51 U/L (17-59); Albumin 3.4 g/dL (3.5-5.0); Alkaline Phosphatase 74 U/L (38-126); Anion Gap 8 mmol/L; Blood Urea Nitrogen 14 mg/dL (9-20); Carbon Dioxide 27 mmol/L (22-30); Chloride 102 mmol/L (98-107); Glucose 123 mg/dL (74-99); Sodium 137 mmol/L (137-145); Total Bilirubin 0.5 mg/dL (0.2-1.3); Total Protein 5.7 g/dL (6.3-8.2)
[2018-11-07] MEDS ORDERED: ACETAMINOPHEN TAB 500 MG TAB PO PRN (09:56)
--- NOTE | 2018-11-07 10:45 | P.PN ---
Subjective Progress Note Date: 11/07/18 Principal diagnosis: Severe triple vessel coronary artery disease with left main disease, non-STEMI, left internal carotid artery stenosis 50-69% with abnormal flow in the right ve rtebral artery possibly representing partial steal syndrome. Previous medical history of hyperlipidemia, hypothyroid with preoperative TSH 72.1, free T4 0.66, previous tobacco dependence, mild COPD with preoperative FEV1 62% of predicted, obesity, and strong family history of premature coronary artery disease. POD #4 urgent multiple arterial triple vessel coronary artery bypass grafting using the skeletonized in situ right internal mammary artery crossing the midline anteriorly to the left anterior descending coronary artery, totally skeletonized in situ left internal mammary artery to the first obtuse marginal coronary artery, a reverse greater saphenous vein graft from the aorta to the p osterior descending coronary artery. Endoscopic harvesting of the left greater saphenous vein, intraoperative transesophageal echocardiogram, epi-aortic scanning and intraoperative graft flow measurement using the [employer] system. The patient is currently sitting up to the bedside chair in the intensive care unit. He is in no acute distress. Denies any complaints of pain or shortness of breath at this time. Bedside telemetry remains to show sinus tachycardia with a heart rate currently 112 BPM. He is ambulating with minimal assistance and reports that he ambulated in the intensive care unit yesterday at least 3 times. Remains on 2 L nasal cannula with oxygen saturations 92%. Remains to have a poor effort on his incentive spirometry and only achieving 500 mL. Objective - Vital Signs Vital signs: Vital Signs Temp 98.5 F 11/07/18 04:30 Pulse 109 H 11/07/18 07:16 Resp 20 11/07/18 06:30 BP 135/78 11/07/18 06:30 Pulse Ox 98 11/07/18 06:30 Intake & Output 11/06/18 11/07/18 11/07/18 18:59 06:59 18:59 Intake Total 1453 120 60 Balance 1453 120 60 Weight 88.8 kg Intake: IV 253 Lactated Ringers 1,000 ml 250 @ 50 mls/hr IV .Q20H [facility] Rx#:[id number] Normal Saline Pressure 3 Bag Oral 1200 120 60 Other: Voiding Method Urinal Urinal # Voids 1 0 1 # Bowel Movements 1 1 ABP, PAP, CO, CI - Last Documented Arterial Blood Pressure 85/36 Pulmonary Artery Pressure 42/23 Cardiac Output 6.5 Cardiac Index 3.3 - Constitutional General appearance: Present: cooperative, no acute distress, obese - Respiratory Details: Lung sounds diminished to his bilateral bases. No wheezes or rhonchi present. Respirations are symmetrical and nonlabored. Oxygen saturation are 92% on 2 L nasal cannula. Achieving 500 mL on his incentive spirometry. - Cardiovascular Details: Regular rhythm with tachycardic rate. S1 and S2 present, negative for S3, gallop or murmur. Sternum is stable. Bedside telemetry showing sinus tachycardia heart rate 112. No edema present. Heart hugger is in place and he is demonstrating appropriate use. Knee-high EUGENIO hose and sequential compression devices in place to his bilateral lower extremities. - Gastrointestinal Gastrointestinal Comment(s): Abdomen is soft, nontender and distended. Active bowel sounds to all 4 abdominal quadrants. No guarding or rigidity. No organomegaly. Tolerating o ral intake. Bowel movement yesterday 11/06/2017. - Genitourinary Genitourinary Comment(s): Voiding clear yellow urine. - Integumentary Integumentary Comment(s): Skin is warm and dry. No clubbing or cyanosis present. Midline sternal incision is clean, dry and approximated. No drainage or redness is present. Gauze dressing is clean, dry and in place. Left lower extremity EVH site clean, dry and approximated. No drainage or redness is present. - Neurologic Neurologic: Present: CNII-XII intact - Musculoskeletal Musculoskeletal: Present: gait normal, strength equal bilaterally - Psychiatric Psychiatric: Present: A&O x's 3, appropriate affect, intact judgment & insight - Allied health notes Allied health notes reviewed: nursing - Labs CBC & Chem 7: 11/07/18 09:09 11/07/18 09:09 Labs: Abnormal Lab Results - Last 24 Hours (Table) 11/06/18 11/06/18 11/06/18 Range/Units 12:01 17:18 20:46 RBC (4.30-5.90) m/uL Hgb (13.0-17.5) gm/dL Hct (39.0-53.0) % Glucose (74-99) mg/dL POC Glucose (mg/dL) 118 H 122 H 130 H (75-99) mg/dL Total Protein (6.3-8.2) g/dL Albumin (3.5-5.0) g/dL 11/07/18 11/07/18 11/07/18 Range/Units 01:56 06:48 09:09 RBC 3.03 L (4.30-5.90) m/uL Hgb 9.0 L (13.0-17.5) gm/dL Hct 28.7 L (39.0-53.0) % Glucose (74-99) mg/dL POC Glucose (mg/dL) 107 H 109 H (75-99) mg/dL Total Protein (6.3-8.2) g/dL Albumin (3.5-5.0) g/dL 11/07/18 Range/Units 09:09 RBC (4.30-5.90) m/uL Hgb (13.0-17.5) gm/dL Hct (39.0-53.0) % Glucose 123 H (74-99) mg/dL POC Glucose (mg/dL) (75-99) mg/dL Total Protein 5.7 L (6.3-8.2) g/dL Albumin 3.4 L (3.5-5.0) g/dL - Imaging and Cardiology Chest x-ray: report reviewed, image reviewed Assessment and Plan Assessment: 1. Severe triple-vessel coronary artery disease with left main disease, status post triple vessel coronary artery bypass grafting surgery 2. Non-STEMI 3. Left internal carotid artery stenosis 50-69% with abnormal flow in the right vertebral artery possibly representing partial steal syndrome 4. Hyperlipidemia 5. Hypothyroid, current TSH 72.1, free T4 0.66 6. Previous tobacco dependence 7. Mild COPD with preoperative FEV1 62% of predicted 8. Obesity 9. Strong family history of premature coronary artery disease 10. Preoperative hemoglobin A1c 6.4% Plan: 1. Continue aspirin, statin, Plavix and beta lucia. Will increase his metoprolol tartrate as tolerated. 2. Discontinue albuterol nebulizer treatments as patient has been tachycardic. Okayed with pulmonary medicine. 3. Wean O2 as tolerated. Encourage incentive spirometry use 10 times every hour while awake. 4. Will monitor daily labs, x-rays. Electrolyte replacement per protocol. 5. Pain control with current medication regimen. Continue Toradol. Discontinue [place]. Start the patient on acetaminophen extra strength 1000 mg by mouth every 6 hours when necessary pain. 6. Insulin management per primary care service 7. Increase activity, ambulate as tolerated. PT/OT/cardiac rehab following. 8. Bronchodilators per pulmonology. 9. GI/DVT prophylaxis. 10. The importance of smoking cessation was discussed with the patient. 11. More recommendations to follow based on patient's clinical course. Time with Patient: Greater than 30
--- NOTE | 2018-11-07 11:17 | P.PN ---
Subjective Progress Note Date: 11/07/18 Principal diagnosis: Chest Pain Patient is a 53-year-old male past medical history of dyslipidemia, hypothyroidism, and neuralgia presented to the emergency department for complaint of chest pain. In the ER he underwent an extensive evaluation. His initial blood work was unremarkable. Initial EKG showed no significant ST-T wave changes. He underwent a CTA aortogram which showed no evidence of dissection. Chest x-ray revealed chronic parenchymal changes. He was subsequently admitted under observation for further management. Cardiology was consulted recommended cardiac catheterization. This revealed chronic total occlusion of the RCA and calcified plaque involving the distal left main coronary artery. Patient was recommended for coronary artery bypass grafting and cardiovascular thoracic surgery were is consulted. Patient ultimately underwent triple vessel coronary artery bypass grafting on 11/03. He was admitted to the ICU. He was extubated the same day. Of note his TSH was found to be 72. He had been on levothyroxine 25 g daily on admission and this was increased to 75 g daily. He was also found to have a hemoglobin A1c of 6.4 Patient seen and examined at bedside. Having some anxiety and depression. Had been started on Elavil in July but stopped taking it. This was restarted earlier this admission. He reports some panic-like attacks where he gets inferiorly short of breath and anxious. He states his breathing is otherwise good and he is not having any large amounts of chest pain. Had a bowel movement yesterday and today. No nausea or vomiting. Has been up and walking the hallways. We discussed appropriate trial of Elavil would be about 4 weeks. They should follow up with his PCP for further adjustments or change in his medication. Objective - Vital Signs Vital signs: Vital Signs Temp 98.5 F 11/07/18 04:30 Pulse 109 H 11/07/18 07:16 Resp 20 11/07/18 06:30 BP 135/78 11/07/18 06:30 Pulse Ox 98 11/07/18 06:30 Intake & Output 11/06/18 11/07/18 11/07/18 18:59 06:59 18:59 Intake Total 1453 120 60 Balance 1453 120 60 Weight 88.8 kg Intake: IV 253 Lactated Ringers 1,000 ml 250 @ 50 mls/hr IV .Q20H [facility] Rx#:[id number] Normal Saline Pressure 3 Bag Oral 1200 120 60 Other: Voiding Method Urinal Urinal # Voids 1 0 1 # Bowel Movements 1 1 ABP, PAP, CO, CI - Last Documented Arterial Blood Pressure 85/36 Pulmonary Artery Pressure 42/23 Cardiac Output 6.5 Cardiac Index 3.3 - Exam General: non toxic, no distress, appears at stated age Derm: warm, dry Head: atraumatic, normocephalic, symmetric Eyes: EOMI, no lid lag, anicteric sclera Mouth: no lip lesion, his membranes dry Cardiovascular: S1S2 reg, no murmur, positive posterior tibial pulse bilateral Lungs: Decreased breath sounds, no rhonchi, no rales , no accessory muscle use Abdominal: soft, nontender to palpation, no guarding, no appreciable organomegaly Ext: no gross muscle atrophy, 1+ edema, no contractures Neuro: CN II-XI grossly intact, no focal neuro deficits Psych: Alert, oriented, appropriate affect - Labs CBC & Chem 7: 11/07/18 09:09 11/07/18 09:09 Labs: Abnormal Lab Results - Last 24 Hours (Table) 11/06/18 11/06/18 11/06/18 Range/Units 12:01 17:18 20:46 POC Glucose (mg/dL) 118 H 122 H 130 H (75-99) mg/dL 11/07/18 11/07/18 Range/Units 01:56 06:48 POC Glucose (mg/dL) 107 H 109 H (75-99) mg/dL Assessment and Plan Assessment: Triple-vessel coronary artery disease, non-STEMI, status post triple vessel coronary artery bypass grafting -Continue with aspirin, statin, beta lucia, and Plavix. -Management per cardiovascular surgery -Midodrine for BP support, off levo 11/05 -Pain control -Pulmonary hygiene -PT/OT recs Prediabetes with A1c 6.4 -stop SSI, stop levemir -Suggest dietary changes at discharge, will need to follow with PCP if repeat A1c in 60 days -natural resources extension educator and dietitian recs -Check blood sugar 2 times weekly at home prior to breakfast, Call PCP if >150 X 2. Hypothyroidism, poorly controlled -TSH 72 -Continue with Synthroid 75 g -Recommend repeat TSH in 30 days with PCP Dyslipidemia -Statin therapy COPD stage II -Scheduled and when necessary DuoNeb's Left internal carotid artery stenosis 50-69% -Outpatient follow-up -Risk factor modification with aspirin and statin. Also will need glycemic control. Obesity, BMI 33.1 -Structured outpatient weight loss Hyperglycemia, resolved DVT prophylaxis: Heparin Discussed with: Patient, nursing, Nnamdi Willoughby UNDERWEAR HEMMER Anticipated discharge:Per CT surgery Anticipated discharge place: undetermined A total of 35 minutes was spent on the care of this complex patient more than 50% of the time was spent in counseling and care coordination.
--- NOTE | 2018-11-07 12:21 | CDI ---
Documentation Clarification Form Date: 11/07/2018 11:24:40 AM From: Radha Sterling RN, CCDS Admit Date: 10/29/2018 2:03:00 PM Patient Name: Rafael Dunn Visit Number: [id number] Discharge Date: ATTENTION: The Clinical Documentation Specialists (CDI) and [facility] Coding Staff appreciate your assistance in clarifying documentation. Please respond to the clarification below the line at the bottom and electronically sign. The CDI & [facility] Coding staff will review the response and follow-up if needed. Please note: Queries are made part of the Legal Health Record. If you have any questions, please contact the author of this message via ITS. Dr. Romeo Salgado The patient is postoperative Day #5 in ICU on 3L High Flow Oxygen. History/Risk Factors: 53 year old male presents to the ED with chest pain. 11/06/2018 Pulmonary progress note Stage 2 COPD based on the preoperative FEV1 62% of predicted, consistent with moderately severe COPD. Tobacco use: Previous dependence Clinical Indicators: CXR ( Pulm note) mild venous congestion , bilateral pleural effusions and atelectasis Vital signs: 99/74 113 100.2 F 24 11/05/2018 Pulse oximetry: 11/05/2018 6L high flow oxygen 94% 11/06/2018 2L High flow oxygen 98% to 86% ; 11/07/2018 3L high flow oxygen 96% Lung/Breathing assessment: Equal air entry with crackles at the left lower base Treatment: Encouraging incentive spirometer every hour. Encouraged deep breathing, coughing and cleaning of secretions. Breathing Tx DuoNebs Oxygen High Flow In your professional opinion, can you please clarify if these findings signify one of the following conditions? * Acute Respiratory Failure due to the underlying medical condition of COPD with history of tobacco dependence. * Acute Postoperative Respiratory Failure due to the Surgical Procedure * Other Diagnosis, please specify * Unable to determine (Last Revision: September 2017) Acute hypoxemic respiratory failure related to pulmonary venous congestion, postoperative atelectasis, an expected outcome of coronary artery bypass surgery MTDD
[2018-11-07] MEDS ORDERED: FUROSEMIDE 10 MG/ML 2 ML VIAL IV STA ×2 (16:52→17:20)
[2018-11-07 20:23] LABS: Glucose,Whole Blood 115 mg/dL (75-99)
[2018-11-07] MEDS: SENNOSIDES-DOCUSATE SODIUM 1 EACH TAB PO SCH (22:22)
[2018-11-07] MEDS: POLYETHYLENE GLYCOL 3350 17 GM POWD.PACK PO SCH (22:22)
[2018-11-07] MEDS ORDERED: AMITRIPTYLINE HCL 10 MG TAB ONE (23:20)
[2018-11-08] MEDS ORDERED: KETOROLAC 30 MG/ML 1 ML VIAL ONE (00:15)
[2018-11-08] MEDS ORDERED: ALPRAZolam 0.5 MG TAB ONE (00:15)
[2018-11-08] MEDS ORDERED: HEPARIN SODIUM,PORCINE 5,000 UNIT/ML 1 ML VIAL ONE (00:15)
[2018-11-08 04:09] LABS: Glucose,Whole Blood 121 mg/dL (75-99)
[2018-11-08 05:30] LABS: HCT 28.9 % (39.0-53.0); HGB 9.8 gm/dL (13.0-17.5); MCH 31.5 pg (25.0-35.0); MCHC 33.8 g/dL (31.0-37.0); MCV 93.1 fL (80.0-100.0); Mean Platelet Volume 7.1; Platelet Count 294 k/uL (150-450); RBC 3.11 m/uL (4.30-5.90); WBC 8.4 k/uL (3.8-10.6)
[2018-11-08 05:47] LABS: Anion Gap 9 mmol/L; Blood Urea Nitrogen 15 mg/dL (9-20); Calcium 9.2 mg/dL (8.4-10.2); Carbon Dioxide 24 mmol/L (22-30); Chloride 104 mmol/L (98-107); Glucose 94 mg/dL (74-99); Sodium 137 mmol/L (137-145)
[2018-11-08] MEDS: MIDODRINE 5 MG TAB PO SCH ×3 (06:59→17:56)
[2018-11-08] MEDS: PANTOPRAZOLE 40 MG TABLET PO SCH (06:59)
[2018-11-08] MEDS: LEVOTHYROXINE 75 MCG TAB PO SCH (06:59)
--- NOTE | 2018-11-08 07:45 | XR ---
EXAMINATION TYPE: XR chest 2V DATE OF EXAM: 11/08/2018 COMPARISON: Prior chest x-ray 11/07/2018 HISTORY: Postop open heart surgery TECHNIQUE: Frontal and lateral views of the chest are obtained. FINDINGS: Patient is post median sternotomy. There are overlying cardiac leads. Persistent blunting the costophrenic angles is noted, patchy bibasilar densities present. No evident pneumothorax. Heart size is stable. Prominent lung lines suggest underlying COPD. IMPRESSION: There is likely minimal effusion bilaterally. Basilar atelectasis.
[2018-11-08] MEDS: HEPARIN SODIUM,PORCINE 5,000 UNIT/ML 1 ML VIAL SQ SCH ×4 (08:14→23:03)
[2018-11-08] MEDS: KETOROLAC 30 MG/ML 1 ML VIAL IVP SCH (08:14)
[2018-11-08] MEDS: AMITRIPTYLINE HCL 10 MG TAB PO SCH ×2 (08:14→20:49)
[2018-11-08] MEDS: CLOPIDOGREL 75 MG TAB PO SCH (08:15)
[2018-11-08] MEDS: ASPIRIN 325 MG TAB PO SCH ×2 (08:15→21:00)
[2018-11-08] MEDS: ATORVASTATIN 40 MG TAB PO SCH (08:15)
[2018-11-08] MEDS: METOPROLOL TARTRATE 50 MG TAB PO SCH ×2 (08:15→20:49)
--- NOTE | 2018-11-08 09:14 | PN ---
PROGRESS NOTE Mr. Dunn is a 53-year-old male, status post coronary artery bypass grafting. If he is doing well this morning, feeling stronger. He has ambulated yesterday. He has no chest pain. No dizziness. No palpitation. He denies any nausea. He continued to be in sinus mechanism. He is on no pressors. He continues to be on aspirin once a day, Plavix 75 mg daily, Lipitor 40 mg daily, metoprolol tartrate 50 mg twice a day. PHYSICAL EXAMINATION: Blood pressure 137/80 with a heart rate in 90s. LUNGS: Mild decrease in breath sounds at the bases. HEART: Regular rate and rhythm, S1, S2. No S3. No rub or gallop appreciated. ABDOMEN: Soft, nontender. EXTREMITIES: With minimal edema. LAB DATA: BUN and creatinine 15 and 0.74, potassium 4.0, hemoglobin 9.8. IMPRESSION: 1. Status post coronary artery bypass grafting, stable. 2. Hyperlipidemia. 3. Prior history of smoking. 4. Hypertension. RECOMMENDATION: From the cardiac standpoint, stable, will continue to increase his level of activity and depending on his progress, further recommendation will be made. I am hopeful that he will be able to be discharged home in the next 24 to 48 hours. MMODL / IJN: [id number] /
--- NOTE | 2018-11-08 10:29 | P.PN ---
Subjective Progress Note Date: 11/08/18 Principal diagnosis: CABG x 4 Patient is seen today in 11/08/2018 in follow-up in the intensive care unit. He is awake and alert in no acute distress. He is doing quite well. He is only on oxygen at 2 L/m per nasal cannula at nighttime. No IV fluids. Lung sounds are clear. Maintaining good O2 saturations in the 90s on room air. Working well with the incentive spirometer. He's been afebrile. Hemodynamically stable. White count 8.4. Hemoglobin 9.8. Creatinine 0.74. To be transferred out of the ICU today. Objective - Vital Signs Vital signs: Vital Signs Temp 98.3 F 11/08/18 08:00 Pulse 97 11/08/18 08:00 Resp 20 11/08/18 08:00 BP 103/73 11/08/18 08:00 Pulse Ox 92 L 11/08/18 08:00 Intake & Output 11/07/18 11/08/18 11/08/18 18:59 06:59 18:59 Intake Total 540 500 500 Output Total 350 450 Balance 190 50 500 Weight 87.5 kg Intake: Oral 540 500 500 Output: Urine 350 450 Other: Voiding Method Urinal # Voids 1 1 # Bowel Movements 1 ABP, PAP, CO, CI - Last Documented Arterial Blood Pressure 85/36 Pulmonary Artery Pressure 42/23 Cardiac Output 6.5 Cardiac Index 3.3 - Exam GENERAL EXAM: Alert, pleasant, 63-year-old white male on 2 L of oxygen at night time only. comfortable in no apparent distress. HEAD: Normocephalic/atraumatic. EYES: Normal reaction of pupils, equal size. Conjunctiva pink, sclera white. NOSE: Clear with pink turbinates. THROAT: No erythema or exudates. NECK: No masses, no JVD, no thyroid enlargement, no adenopathy. CHEST: No chest wall deformity. Symmetrical expansion. Sternal incision is clean dry and intact, chest tubes have been discontinued, LUNGS: Equal air entry with crackles at the posterior bases CVS: Regular rate and rhythm, normal S1 and S2, no gallops, no murmurs, no rubs ABDOMEN: Soft, nontender. No hepatosplenomegaly, normal bowel sounds, no guarding or rigidity. EXTREMITIES: No clubbing, no edema, no cyanosis, 2+ pulses and upper and lower extremities. Left leg incision clean dry and intact MUSCULOSKELETAL: Muscle strength and tone normal. SPINE: No scoliosis or deformity SKIN: No rashes CENTRAL NERVOUS SYSTEM: No focal deficits, tone is normal in all 4 extremities. PSYCHIATRIC: Alert and oriented -3. Appropriate affect. Intact judgment and insight. - Labs CBC & Chem 7: 11/08/18 05:06 11/08/18 05:06 Labs: Abnormal Lab Results - Last 24 Hours (Table) 11/07/18 11/08/18 11/08/18 Range/Units 20:21 02:13 05:06 RBC 3.11 L (4.30-5.90) m/uL Hgb 9.8 L (13.0-17.5) gm/dL Hct 28.9 L (39.0-53.0) % POC Glucose (mg/dL) 115 H 121 H (75-99) mg/dL Assessment and Plan Assessment: Assessment: #1. Multivessel coronary artery disease with the 50% left main stenosis, status post four-vessel coronary artery bypass grafting, #2. Acute non-ST elevated myocardial infarction #3. Stage II COPD based on the preop FEV1 of 62% of predicted, consistent with moderately severe COPD, without hypoxemic failure #4. Previous nicotine dependence, currently in remission, patient carries [id number] smoking history, quit smoking in May 2018 #5. Hypothyroidism #6. Hyperlipidemia #7. History of premature coronary artery disease #8. Left internal carotid artery stenosis of 50-69%, and abnormal flow in the right vertebral artery possibly related to partial steal syndrome Plan: The patient was seen and evaluated by Dr. Salgado. Chest x-ray and labs reviewed. He is stable from the pulmonary and critical care standpoint. He'll be stephenson sferred out of the ICU today. Continue to work with the incentive spirometer. Increase his activity as tolerated. We'll continue to follow. I, the cosigning physician, performed a history & physical examination of the patient. Lungs sounds with faint crackles in the posterior bases. Maintaining good O2 saturations in the 90s on room air using 2 L at night. I discussed the assessment and plan of care with my nurse practitioner, Myla Hammond. I attest to the above note as dictated by her.
[2018-11-08 12:05] VITALS: RESP 18
[2018-11-08] MEDS ORDERED: FUROSEMIDE 10 MG/ML 2 ML VIAL IV ONE (12:45)
--- NOTE | 2018-11-08 12:56 | P.PN ---
Subjective Progress Note Date: 11/08/18 Principal diagnosis: Severe triple vessel coronary artery disease with left main disease, non-STEMI, left internal carotid artery stenosis 50-69% with abnormal flow in the right ve rtebral artery possibly representing partial steal syndrome. Previous medical history of hyperlipidemia, hypothyroid with preoperative TSH 72.1, free T4 0.66, previous tobacco dependence, mild COPD with preoperative FEV1 62% of predicted, obesity, and strong family history of premature coronary artery disease. POD #5 urgent multiple arterial triple vessel coronary artery bypass grafting using the skeletonized in situ right internal mammary artery crossing the midline anteriorly to the left anterior descending coronary artery, totally skeletonized in situ left internal mammary artery to the first obtuse marginal coronary artery, a reverse greater saphenous vein graft from the aorta to the p osterior descending coronary artery. Endoscopic harvesting of the left greater saphenous vein, intraoperative transesophageal echocardiogram, epi-aortic scanning and intraoperative graft flow measurement using the [employer] system. Patient is sitting up to the bedside chair. He is in no acute distress. Denies any complaints of pain or shortness of breath at this time. The patient was assisted to the shower this morning and he tolerated it well. He reports he has been ambulating in the intensive care unit all with minimal assistance. Oxygen saturations are 92% on room air. Achieving 500 mL on his incentive spirometry. He is afebrile and remains hemodynamically stable and is on no inotropic or pressor support. Objective - Vital Signs Vital signs: Vital Signs Temp 98.5 F 11/08/18 12:00 Pulse 89 11/08/18 12:00 Resp 18 11/08/18 12:00 BP 100/66 11/08/18 12:00 Pulse Ox 93 L 11/08/18 12:00 Intake & Output 11/07/18 11/08/18 11/08/18 18:59 06:59 18:59 Intake Total 540 500 500 Output Total 350 450 Balance 190 50 500 Weight 87.5 kg Intake: Oral 540 500 500 Output: Urine 350 450 Other: Voiding Method Urinal Urinal # Voids 1 1 # Bowel Movements 1 ABP, PAP, CO, CI - Last Documented Arterial Blood Pressure 85/36 Pulmonary Artery Pressure 42/23 Cardiac Output 6.5 Cardiac Index 3.3 - Constitutional General appearance: Present: cooperative, no acute distress, obese - Respiratory Details: Lungs sounds diminished to his bilateral bases. Respirations are symmetrical and nonlabored. Oxygen saturation are 92% on room air. Achieving 500 mL on his incentive spirometry. - Cardiovascular Details: Regular rhythm and rate. S1 and S2 present, negative for S3, gallop or murmur. Sternum is stable. Bedside telemetry showing sinus tachycardia heart rate 104. Heart hugger is in place and he is demonstrating appropriate use. Knee-high EUGENIO hose and sequential compression devices in place to his bilateral lower extremities. - Gastrointestinal Gastrointestinal Comment(s): Abdomen is soft, nontender and nondistended. Active bowel sounds all 4 abdominal quadrants. No guarding or rigidity. No organomegaly. Bowel movement yesterday 11/07/2018. - Genitourinary Genitourinary Comment(s): Voiding clear yellow urine. - Integumentary Integumentary Comment(s): Skin is warm and dry. No clubbing or cyanosis present. Midline sternal incision is clean, dry and approximated. No drainage or redness is present. Gauze dressing is clean, dry and in place. Left lower extremity EVH site clean, dry and approximated. No drainage or redness is present. - Neurologic Neurologic: Present: CNII-XII intact - Musculoskeletal Musculoskeletal: Present: gait normal, strength equal bilaterally - Psychiatric Psychiatric: Present: A&O x's 3, appropriate affect, intact judgment & insight - Labs CBC & Chem 7: 11/08/18 05:06 11/08/18 05:06 Labs: Abnormal Lab Results - Last 24 Hours (Table) 11/07/18 11/08/18 11/08/18 Range/Units 20:21 02:13 05:06 RBC 3.11 L (4.30-5.90) m/uL Hgb 9.8 L (13.0-17.5) gm/dL Hct 28.9 L (39.0-53.0) % POC Glucose (mg/dL) 115 H 121 H (75-99) mg/dL - Imaging and Cardiology Chest x-ray: report reviewed, image reviewed Assessment and Plan Assessment: 1. Severe triple-vessel coronary artery disease with left main disease, status post triple vessel coronary artery bypass grafting surgery 2. Non-STEMI 3. Left internal carotid artery stenosis 50-69% with abnormal flow in the right vertebral artery possibly representing partial steal syndrome 4. Hyperlipidemia 5. Hypothyroid, current TSH 72.1, free T4 0.66 6. Previous tobacco dependence 7. Mild COPD with preoperative FEV1 62% of predicted 8. Obesity 9. Strong family history of premature coronary artery disease 10. Preoperative hemoglobin A1c 6.4% Plan: 1. Continue aspirin, statin, Plavix and beta lucia. Will increase his metoprolol tartrate as tolerated. 2. Lasix 20 mg IV 1 now. 3. Encourage incentive spirometry use 10 times every hour while awake. 4. Will monitor daily labs, x-rays. Electrolyte replacement per protocol. 5. Pain control with current medication regimen. 6. Insulin management per primary care service 7. Increase activity, ambulate as tolerated. PT/OT/cardiac rehab following. 8. Bronchodilators per pulmonology. 9. GI/DVT prophylaxis. 10. The importance of smoking cessation was discussed with the patient. 11. Transfer to 3 S. cardiac stepdown unit when bed available. 12. Discharge planning in place. 13. More recommendations to follow based on patient's clinical course. Time with Patient: Greater than 30
[2018-11-08 15:05] VITALS: BMI 33.0
[2018-11-08] MEDS: SENNOSIDES-DOCUSATE SODIUM 1 EACH TAB PO SCH (20:50)
[2018-11-08] MEDS: POLYETHYLENE GLYCOL 3350 17 GM POWD.PACK PO SCH (20:50)
[2018-11-08] MEDS: ATORVASTATIN 80 MG TAB PO SCH (21:00)
[2018-11-08] MEDS: VIT A,C & E-LUTEIN-MINERALS 1 EACH TAB PO SCH (21:01)
[2018-11-08] MEDS: METOPROLOL TARTRATE 25 MG TAB PO SCH (21:01)
[2018-11-08] MEDS: MUPIROCIN 2% OINT 22 GM TUBE TOPICAL SCH (21:01)
[2018-11-08] MEDS: ISOSORBIDE MONONITRATE ER 15 MG TAB PO SCH (21:01)
[2018-11-08] MEDS: LISINOPRIL 5 MG TAB PO SCH (21:01)
[2018-11-09] MEDS: LEVOTHYROXINE 75 MCG TAB PO SCH (06:23)
[2018-11-09] MEDS: MIDODRINE 5 MG TAB PO SCH (06:23)
[2018-11-09] MEDS: PANTOPRAZOLE 40 MG TABLET PO SCH (06:23)
[2018-11-09 06:37] LABS: HCT 30.9 % (39.0-53.0); HGB 9.8 gm/dL (13.0-17.5); MCH 29.3 pg (25.0-35.0); MCHC 31.6 g/dL (31.0-37.0); MCV 92.8 fL (80.0-100.0); Mean Platelet Volume 6.5; Platelet Count 378 k/uL (150-450); RBC 3.33 m/uL (4.30-5.90); RDW 13.7 % (11.5-15.5); WBC 11.7 k/uL (3.8-10.6)
[2018-11-09 06:50] LABS: Anion Gap 6 mmol/L; Blood Urea Nitrogen 14 mg/dL (9-20); Calcium 9.2 mg/dL (8.4-10.2); Carbon Dioxide 28 mmol/L (22-30); Chloride 104 mmol/L (98-107); Glucose 102 mg/dL (74-99); Potassium 4.3 mmol/L (3.5-5.1); Sodium 138 mmol/L (137-145)
[2018-11-09] MEDS ORDERED: FUROSEMIDE 10 MG/ML 2 ML VIAL IV STA (08:21)
[2018-11-09] MEDS: ASPIRIN 325 MG TAB PO SCH (08:31)
[2018-11-09] MEDS: ATORVASTATIN 40 MG TAB PO SCH (08:31)
[2018-11-09] MEDS: HEPARIN SODIUM,PORCINE 5,000 UNIT/ML 1 ML VIAL SQ SCH (08:31)
[2018-11-09] MEDS: CLOPIDOGREL 75 MG TAB PO SCH (08:31)
[2018-11-09 08:42] VITALS: BP 129/65; PULSE 107; TEMP 97.8
[2018-11-09] MEDS ORDERED: METOPROLOL TARTRATE 25 MG TAB PO SCH (09:00)
--- NOTE | 2018-11-09 09:31 | XR ---
EXAMINATION TYPE: XR chest 1V portable DATE OF EXAM: 11/09/2018 COMPARISON: Prior chest x-ray 11/08/2018 HISTORY: Postop coronary artery bypass graft TECHNIQUE: Single frontal view of the chest is obtained. FINDINGS: Patient is post median sternotomy and there are overlying cardiac leads. No evident pneumo thorax or pleural effusion. Heart size is stable. IMPRESSION: There is improvement in aeration.
--- NOTE | 2018-11-09 12:32 | P.PN ---
Subjective Progress Note Date: 11/09/18 Principal diagnosis: Status post CABG, 4, postop day 4 This is a 73-year-old white male patient, of Dr. Hardin, with a past medical history of hyperlipidemia, hypothyroidism, patient is a former smoker, quit smoking in May 2018, obesity, and family history of premature coronary artery disease. Patient presented to the hospital on 10/27/2018 for evaluation of back pain, arm pain, shortness of breath and mild chest discomfort that started in the middle of the night and was not preceded by exertion. CTA chest was completed and showed no aortic aneurysm or dissection, no suspicious acute process, no suspicious nodules or masses, no pleural effusions. Chest x-ray sh owed chronic changes without evidence of acute pulmonary disease. EKG showed normal sinus rhythm without ischemic changes, patient had a mild elevation of troponins which peaked at 0.036, patient was ruled in for non-ST elevated TX. He underwent a cardiac Catheterization which demonstrated left main stenosis of 50%, chronically totally occluded RCA with collaterals, proximal LAD stenosis of 50%, and obtuse marginal stenosis of 50%. ALLISON showed normal systolic function with an ejection fraction of 50-55% with mild MR and mild TR. Patient was referred to cardiothoracic surgery and surgical intervention was recommended for multivessel coronary artery disease. We are consulted in regards to pulmonary management and pulmonary clearance for upcoming surgery. Patient was seen today postoperatively on 11/03/2018.patient had severe triple- vessel coronary artery disease with left main disease, non-ST elevation myocardial infarction, left internal carotids stenosis, patient is now on mechanical ventilation, his ventilator settings are tidal volume of 480, assist control rate of 16, FiO2 of 50%, and PEEP of 8.ABG prior to these vent setting showed a pO2 of 254 pCO2 of 52 pH of 7.33. Since this ABG, his assist control rate was increased to 16, and his FiO2 was decreased down to 50%.chest x-ray postoperatively was reviewed, minimal bibasilar atelectasis is noted, postoperative changes noted. Patient is presently sedated, on mechanical ventilation, in no distress Patient was seen today on 11/04/2018, patient is doing well, complaining of pain at the site of his tube insertions and surgical site in the lower mediastinal area, receiving multiple pain medications including narcotics and Toradol. Chest x-ray showed minimal atelectasis and pleural effusions, no significant abnormality noted on the chest x-ray otherwise. CBC is relatively normal hemoglobin is 10.4. Basic metabolic profile is normal. Reevaluated today on 11/05/2018, patient remains in the ICU, doing extremely we ll. He is in sinus rhythm, currently on very minimal dose of norepinephrine, remains on 6 L nasal cannula, O2 saturations 95%. Continues to do relatively well with incentive spirometry. Chest x-ray showed minimal bibasilar atelectasis and postoperative changes as expected. Labs were all reviewed and they seem to be relatively normal. On 11/06/2018 patient seen in follow-up in the intensive care unit, this is postop day 4 status post four-vessel coronary artery bypass grafting. Patient is doing well, he is up in the recliner, in no acute distress, currently on 5 L of oxygen and his pulse ox is 94-98%, patient is afebrile, hemodynamically stable. Lung sounds reveal some limited crackles at the left posterior base, incentive spirometer effort is 500, pain is under good control, IVs include lactated Ringer's at a rate of 50 ML per hour, no other drips, today's chest x- ray has been reviewed with Dr. Salgado, and shows bilateral pleural effusions and atelectasis, some mild venous congestion. Labs has been reviewed, with blood cell count is 9.0, 0.6, electrolytes and renal profile were unremarkable. On 11/09/2018 patient seen in follow-up on the selective care unit, he is awake and alert, in no acute distress, room air pulse ox is 92%, has been afebrile. Doing very well, he's been ambulating extensively, tolerating activity well. Today's labs have been reviewed, showed white blood cell count of 11.7, hemoglobin is 9.8, renal profile and electrolytes were within normal limits. His chest x-ray shows improvement in aeration, no evident pneumothorax or pleural effusion. Objective - Vital Signs Vital signs: Vital Signs Temp 97.8 F 11/09/18 08:38 Pulse 107 H 11/09/18 08:38 Resp 18 11/09/18 08:38 BP 129/65 11/09/18 08:38 Pulse Ox 92 L 11/09/18 08:38 Intake & Output 11/08/18 11/09/18 11/09/18 18:59 06:59 18:59 Intake Total 500 240 Balance 500 240 Weight 87.5 kg 83.4 kg Intake: Oral 500 240 Other: Voiding Method Urinal Urinal Urinal # Voids 1 ABP, PAP, CO, CI - Last Documented Arterial Blood Pressure 85/36 Pulmonary Artery Pressure 42/23 Cardiac Output 6.5 Cardiac Index 3.3 - Exam GENERAL EXAM: Alert, pleasant, 63-year-old white male on room air HEAD: Normocephalic/atraumatic. EYES: Normal reaction of pupils, equal size. Conjunctiva pink, sclera white. NOSE: Clear with pink turbinates. THROAT: No erythema or exudates. NECK: No masses, no JVD, no thyroid enlargement, no adenopathy. CHEST: No chest wall deformity. Symmetrical expansion. Sternal incision is clean dry and intact, chest tubes have been discontinued, AV wires grounded LUNGS: Equal air entry with crackles at the left lower base CVS: Regular rate and rhythm, normal S1 and S2, no gallops, no murmurs, no rubs ABDOMEN: Soft, nontender. No hepatosplenomegaly, normal bowel sounds, no guarding or rigidity. EXTREMITIES: No clubbing, no edema, no cyanosis, 2+ pulses and upper and lower extremities. Left leg incision clean dry and intact MUSCULOSKELETAL: Muscle strength and tone normal. SPINE: No scoliosis or deformity SKIN: No rashes CENTRAL NERVOUS SYSTEM: Alert and oriented -3. No focal deficits, tone is normal in all 4 extremities. PSYCHIATRIC: Alert and oriented -3. Appropriate affect. Intact judgment and insight. - Labs CBC & Chem 7: 11/09/18 06:04 11/09/18 06:04 Labs: Abnormal Lab Results - Last 24 Hours (Table) 11/09/18 11/09/18 Range/Units 06:04 06:04 WBC 11.7 H (3.8-10.6) k/uL RBC 3.33 L (4.30-5.90) m/uL Hgb 9.8 L (13.0-17.5) gm/dL Hct 30.9 L (39.0-53.0) % Glucose 102 H (74-99) mg/dL Assessment and Plan Plan: Assessment: #1. Multivessel coronary artery disease with the 50% left main stenosis, status post four-vessel coronary artery bypass grafting, postop day 5 #2. Acute non-ST elevated myocardial infarction #3. Stage II COPD based on the preop FEV1 of 62% of predicted, consistent with moderately severe COPD, without hypoxemic failure #4. Previous nicotine dependence, currently in remission, patient carries [id number] smoking history, quit smoking in May 2018 #5. Hypothyroidism #6. Hyperlipidemia #7. History of premature coronary artery disease #8. Left internal carotid artery stenosis of 50-69%, and abnormal flow in the right vertebral artery possibly related to partial steal syndrome Plan: Today's chest x-ray has been reviewed, and shows improvement in aeration, clinically patient is stable, denies any specific complaints, no shortness of breath, no chest pain, tolerating ambulation, he is on room air, he is being discharged home today. He'll need follow-up Basha in the office in 7-10 days. I performed a history & physical examination of the patient and discussed their management with my nurse practitioner, Arianna Marx. I reviewed the nurse practitioner's note and agree with the documented findings and plan of care. Lung sounds are positive for clear breath sounds. The findings and the impression was discussed with the patient. I attest to the documentation by the nurse practitioner. Time with Patient: Less than 30
--- NOTE | 2018-11-09 13:23 | P.DS ---
Providers Date of admission: 10/29/18 14:03 Expected date of discharge: 11/09/18 Attending physician: Blas Soliz Consults: 10/27/18 10:43 Consult Physician Urgent Consulting Provider: Ricardo Wolf Consult Reason/Comments: chest pain Do you want consulting provider notified?: Yes 10/28/18 15:41 Consult Physician Routine Consulting Provider: Sandeep Chance Consult Reason/Comments: CAD, need CABG Do you want consulting provider notified?: Yes, Notify in am 10/30/18 06:23 Consult Physician Routine Consulting Provider: Lavell Neff Consult Reason/Comments: pulm clearence cabg Do you want consulting provider notified?: Yes 11/02/18 16:23 Consult to Anesthesia Routine Consulting Provider: Anesthesia,Services Consult Reason/Comments: Cardiac Surgery Pre-Op 11/03/18 15:46 Consult Physician Routine Consulting Provider: Dipak Rowan Consult Reason/Comments: medical managment Do you want consulting provider notified?: Already Contacted Primary care physician: Cheng Hardin DO Hospital Course: FINAL DIAGNOSIS: 1. Severe triple-vessel coronary artery disease with left main disease 2. Non-STEMI 3. Left internal carotid artery stenosis 50-69% with abnormal flow in the right vertebral artery possibly representing partial steal syndrome 4. Hyperlipidemia 5. Hypothyroid, preoperative TSH 72.1, free T4 0.66 6. Previous tobacco dependence 7. Mild COPD with preoperative FEV1 62% of predicted 8. Obesity 9. Strong family history of premature coronary artery disease 10. Preoperative hemoglobin A1c 6.4% PRINCIPAL PROCEDURE: 1. Selective right and left coronary angiogram performed by Dr. Wolf 2. Urgent multiple arterial triple coronary artery disease bypass grafting using the skeletonized in situ right internal mammary artery crossing the midline anteriorly to the left anterior descending coronary artery, a totally skeletonized in situ left internal mammary artery to the first obtuse marginal coronary artery, a reverse greater saphenous vein graft from the aorta to the posterior descending coronary artery. 3. Endoscopic harvesting of the left greater saphenous vein. 4. Intraoperative transesophageal echocardiogram and epi-aortic scanning. 5. Intraoperative graft flow measurements using the [employer] system. HISTORY OF PRESENT ILLNESS: This is a 53-year-old gentleman who follows with Dr. Cheng Hardin on outpatient basis. His past medical history significant for hyperlipidemia, thyroid disorder, previous tobacco dependence in which he quit smoking in May 2018, occasional alcohol use, mild chronic obstructive pulmonary disease, obesity and strong family history of coronary artery disease. Recent, he has been having complaints of chest pain radiating to his left arm associated with shortness of breath and episodes of dizziness. Subsequently due to the symptoms he presented to the emergency department at [facility]. A 12-lead EKG was completed which showed normal sinus rhythm without any ischemic changes. His lab results demonstrated troponins mildly elevated as high as 0.036. He was subsequently seen by Dr. Wolf from cardiology associates and the patient underwent a cardiac catheterization which demonstrated a 50% stenosis to his left main coronary artery, a chronic totally occluded right coronary artery with collaterals, a 50% stenosis to his proximal left anterior descending coronary artery and a 50% stenosis to his obtuse marginal coronary artery. For further evaluation and a 2-D echocardiogram was completed which demonstrated a low normal systolic function with ejection fraction between 50 and 55%, mild mitral valve regurgitation and mild tricuspid valve regurgitation. Due to the patient's presenting symptoms, cardiac catheterization and 2-D echocardiogram result a consult was placed to Dr. Blas Soliz from cardiothoracic surgery. Dr. Soliz reviewed the cardiac catheterization results and 2-D echocardiogram results with the patient and an urgent myocardial revascularization surgery was recommended. After discussing the risks and benefits including the STS risk score with the patient the patient wished to proceed with urgent myocardial rest rosacea and surgery. HOSPITAL COURSE: The patient was admitted to the hospital and after obtaining consent he was taken to the operating room where Dr. Blas Soliz performed an urgent multiple arterial triple vessel coronary artery bypass grafting using the skeletonized in situ right internal mammary artery crossing the midline anteriorly to the left anterior descending coronary artery, a totally skeletonized in situ left internal mammary artery to the first obtuse marginal coronary artery, and a reverse greater saphenous vein graft from the aorta to the posterior descending coronary artery. He also underwent endoscopic harvesting of the left greater saphenous vein, intraoperative transesophageal echocardiogram, epi-aortic scanning and intraoperative graft flow measurements using the [employer] system. Upon completion of the surgery the patient was transferred to the cardiovascular intensive care unit where he was recovered, monitored hemodynamically and where he progressed cardiac rehabilitation phase 1. He was extubated, all lines, tubes and supportive drips were discontinued when appropriate. He was subsequently transferred to the 3 S. cardiac stepdown unit for further rehabilitation needs. His oxygen was titrated down, he continued to work with physical and occupational therapy, he was tolerating a heart healthy diet, his pain was well controlled and he was ready to be discharged home with visiting [facility] on postop day #6. He has received written and verbal instructions regarding his medications, activity restrictions, signs and symptoms requiring physician notification and his follow-up appointments. COMPLICATIONS: There were no postoperative complications. CONSULTATIONS: 1. Dr. Neff for pulmonary and ventilator management. 2. Dr. Lepe for cardiology management. 3. Dr. Francois for medical management. DISCHARGE INSTRUCTIONS: 1. No driving for 4 weeks, or until physician gives their ok. 2. The patient should sleep in their own bed, no medical bed needed. 3. Stairs are not an issue. If the bedroom is upstairs, it is advised that the patient go up at night and down in the morning for the first week. Go slowly, using handrail and take 1 step at a time. 4. EUGENIO hose are to be worn for 30 days or until physician discontinues. 5. Heart hugger is to be worn 100% of the time until physician d iscontinues.(except when showering) 6. No lifting, pushing, or pulling more than 10 pounds for 12 weeks. The physician will advise of any restriction changes. 7. The patient is expected to continue the prescribed walking program. 8. Continue pain control per as needed orders. 9. Continue with incentive spirometry and splinting/heart hugger until otherwise directed by the physician. 10. Must shower daily using liquid antibacterial soap and a separate white washcloth for each individual incision. 11. Routine sternal incision care, no ointments, lotions or powders on the incisions. 12. Please notify surgeon/nurse practitioner for temperature greater than 101F or purulent drainage from incisions 13. Prescriptions for first 30 days given per cardiac surgery service. After 30 days, all prescription refills obtained through cardiology/primary care physician. 14. A red arm and has been placed on this patient it should be worn for 30 days post surgery and will be removed by the cardiothoracic surgeons. If an ER visit is necessary, please make sure the number on the red arm band is called. HOME HEALTH SERVICES TO PROVIDE: RN SKILLED HOME CARE SERVICES FOR POST-OP SURGICAL PATIENTS WITH THE FOLLOWING: Coronary Artery Bypass Surgery (CABG), Mitral Valve Replacement/Repair ( MVR), Aortic Valve Replacement/Repair (AVR) RN TO CONTINUE EDUCATION FROM ``ROAD TO A HEALTH HEART PATIENT EDUCATION MANUAL" (GIVEN TO PATIENT IN THE HOSPITAL) MEDICATION RECONCILIATION WITH EDUCATION NEEDED ON FIRST HOME VISIT EMPHASIZE IMPORTANCE OF WEARING BREAST SUPPORT/HEART HUGGER ENCOURAGE USE OF INCENTIVE SPIROMETER 10 X EVERY HOUR WHILE AWAKE ENCOURAGE UTILIZATION OF LOWER EXTREMITY COMPRESSION STOCKINGS/EUGENIO HOSE and ELEVATE LEGS ABOVE LEVEL OF HEART WHILE AT REST. ENCOURAGE AMBULATION 3-5x/day INCREASING TOLERATES, WHILE AVOID EXTREMES IN TEMPERATURE FREQUENCY: RN TO OPEN THE PATIENT WITHIN 24 HOURS OF DISCHARGE FROM THE HOSPITAL WITH [place]HE[place] [facility] [place]ISIT 2-3 X A WEEK FOR 4 WEEKS ESTABLISHED BY PATIENT NEEDS. LABORATORY: CBC, CMP TO BE DRAWN ON THE THIRD DAY HOME, 11/12/2018 (RAN STAT) FAX RESULTS TO [phone]. TELEHEALTH PARAMETERS: WEIGHT: NOTIFY MD OF WEIGHT GAIN OF 2 LBS IN 24 HOURS OR 5 LBS IN ONE WEEK HR: NOTIFY MD OF HR <55 BPM OR HR>100 BPM BP: NOTIFY MD IF BP <90/55 OR BP>140/100 O2 SAT: NOTIFY MD IF PO2<93% ON ROOM AIR SEND TELEHEALTH REPORT TO NEWBORN PHOTOGRAPHER AND CARDIOVASCULAR SURGEON THE FIRST WEEK OF CARE AND THEN BI-WEEKLY. PLEASE ADDITIONALLY COMMUNICATE ANY ABNORMALS AND NEW FINDINGS TO THE SURGEONS OFFICE. Patient Condition at Discharge: Fair Plan - Discharge Summary Discharge Rx Participant: No New Discharge Prescriptions: New Tiotropium [place] [Spiriva] 1 cap INHALATION DAILY 30 Days #1 device Albuterol Inhaler [Ventolin Hfa Inhaler] 1 - 2 puff INHALATION RT-Q6H PRN 30 Days #1 inhaler PRN Reason: Dyspnea Aspirin 325 mg PO DAILY #30 tab Furosemide [Lasix] 40 mg PO DAILY #5 tab Atorvastatin [Lipitor] 40 mg PO DAILY #30 tab Metoprolol Tartrate [Lopressor] 75 mg PO BID #180 tab Clopidogrel [Plavix] 75 mg PO DAILY #30 tab Pantoprazole [Protonix] 40 mg PO AC-BRKFST #30 tablet. Sennosidelina-Docusate Sodium [Senokot-S] 2 each PO HS #14 tab Levothyroxine Sodium [Synthroid] 75 mcg PO DAILY@0630 #30 tab Acetaminophen Tab [Tylenol] 1,000 mg PO Q6HR PRN #100 tab PRN Reason: Fever And/ Or Pain Continue Amitriptyline HCl [Elavil] 10 mg PO HS Vit C/E/Zn/Coppr/Lutein/Zeaxan [Preservision Areds 2 Softgel] 1 cap PO DAILY Discontinued Atorvastatin [Lipitor] 40 mg PO DAILY Levothyroxine Sodium [Synthroid] 25 mcg PO DAILY Aspirin [Adult Low Dose Aspirin EC] 81 mg PO DAILY Discharge Medication List Amitriptyline HCl [Elavil] 10 mg PO HS 10/27/18 [History] Vit C/E/Zn/Coppr/Lutein/Zeaxan [Preservision Areds 2 Softgel] 1 cap PO DAILY 10/27/18 [History] Albuterol Inhaler [Ventolin Hfa Inhaler] 1 - 2 puff INHALATION RT-Q6H PRN 30 Days #1 inhaler 10/30/18 [Rx] Tiotropium [place] [Spiriva] 1 cap INHALATION DAILY 30 Days #1 device 10/30/18 [Rx] Acetaminophen Tab [Tylenol] 1,000 mg PO Q6HR PRN #100 tab 11/09/18 [Rx] Aspirin 325 mg PO DAILY #30 tab 11/09/18 [Rx] Atorvastatin [Lipitor] 40 mg PO DAILY #30 tab 11/09/18 [Rx] Clopidogrel [Plavix] 75 mg PO DAILY #30 tab 11/09/18 [Rx] Furosemide [Lasix] 40 mg PO DAILY #5 tab 11/09/18 [Rx] Levothyroxine Sodium [Synthroid] 75 mcg PO DAILY@0630 #30 tab 11/09/18 [Rx] Metoprolol Tartrate [Lopressor] 75 mg PO BID #180 tab 11/09/18 [Rx] Pantoprazole [Protonix] 40 mg PO ESVIN-BILLFST #30 margot. 11/09/18 [Rx] Sennosides-Docusate Sodium [Senokot-S] 2 each PO HS #14 tab 11/09/18 [Rx] Follow up Appointment(s)/Referral(s): Raffaele Rendon MD [STAFF PHYSICIAN] - 11/29/18 2:30 pm Blas Soliz MD [STAFF PHYSICIAN] - 12/08/18 10:15 am () Cheng Hardin DO [Primary Care Provider] - 11/14/18 10:15 am Romeo Salgado DO [Doctor of Osteopathic Medicine] - 11/22/18 1:15 pm [facility] Visiting Nurse, [NON-STAFF] - 1-2 Days Ambulatory/Diagnostic Orders: Complete Blood Count w/diff [LAB.AMB] Time Frame: 11/12/18, Facility: [facility], Location: [facility] Comprehensive Metabolic Panel [LAB.AMB] Time Frame: 11/12/18, Facility: [facility], Location: [facility] Patient Instructions/Handouts: Heart Healthy Diet (DC), Coronary Artery Bypass Graft (DC), After Radial Heart Catheterization (GEN) Activity/Diet/Wound Care/Special Instructions: Recommend repeat TSH (thyroid study) in 30 days and repeat A1C (diabetes test) in 30-60 days Check blood sugar 2 times weekly at home prior to breakfast, Call Dr. Hardin if >150 X 2. Discharge Disposition: HOME WITH HOME HEALTH SERVICES
--- NOTE | 2018-11-09 13:35 | P.PN ---
Subjective Progress Note Date: 11/09/18 Principal diagnosis: Chest pain Patient is a 53-year-old male past medical history of dyslipidemia, hypothyroidism, and neuralgia presented to the emergency department for complaint of chest pain. In the ER he underwent an extensive evaluation. His initial blood work was unremarkable. Initial EKG showed no significant ST-T wave changes. He underwent a CTA aortogram which showed no evidence of dissection. Chest x-ray revealed chronic parenchymal changes. He was subsequently admitted under observation for further management. Cardiology was consulted recommended cardiac catheterization. This revealed chronic total occlusion of the RCA and calcified plaque involving the distal left main coronary artery. Patient was recommended for coronary artery bypass grafting and cardiovascular thoracic surgery were is consulted. Patient ultimately underwent triple vessel coronary artery bypass grafting on 11/03. He was admitted to the ICU. He was extubated the same day. Of note his TSH was found to be 72. He had been on levothyroxine 25 g daily on admission and this was increased to 75 g daily. He was also found to have a hemoglobin A1c of 6.4 11/09/2018: Patient is find minimal chest pain no abdominal pain no nausea no vomiting. He reports dry cough, sometimes with white sputum production. Objective - Vital Signs Vital signs: Vital Signs Temp 97.8 F 11/09/18 08:38 Pulse 107 H 11/09/18 08:38 Resp 18 11/09/18 08:38 BP 129/65 11/09/18 08:38 Pulse Ox 92 L 11/09/18 08:38 Intake & Output 11/08/18 11/09/18 11/09/18 18:59 06:59 18:59 Intake Total 500 360 Balance 500 360 Weight 87.5 kg 83.4 kg Intake: Oral 500 360 Other: Voiding Method Urinal Urinal Urinal # Voids 1 ABP, PAP, CO, CI - Last Documented Arterial Blood Pressure 85/36 Pulmonary Artery Pressure 42/23 Cardiac Output 6.5 Cardiac Index 3.3 - Exam General: Awake alert oriented 3 Eyes: EOMI, anicteric sclera Mouth: no lip lesions Cardiovascular: S1S2 reg, no murmur Lungs: Decreased breath sounds, no rhonchi, no rales Abdominal: soft, nontender, no guarding Ext: no gross muscle atrophy, trace+ edema Neuro: CN II-XI grossly intact, no focal neuro deficits Psych: Alert, oriented, appropriate affect - Labs CBC & Chem 7: 11/09/18 06:04 11/09/18 06:04 Labs: Abnormal Lab Results - Last 24 Hours (Table) 11/09/18 11/09/18 Range/Units 06:04 06:04 WBC 11.7 H (3.8-10.6) k/uL RBC 3.33 L (4.30-5.90) m/uL Hgb 9.8 L (13.0-17.5) gm/dL Hct 30.9 L (39.0-53.0) % Glucose 102 H (74-99) mg/dL Assessment and Plan Plan: Triple-vessel coronary artery disease, non-STEMI, status post triple vessel coronary artery bypass grafting -Management per cardiovascular surgery Prediabetes with A1c 6.4 -Suggest dietary changes at discharge, will need to follow with PCP -consumer educator and dietitian recs Hypothyroidism, poorly controlled -TSH 72 -Continue with Synthroid 75 g Dyslipidemia -Statin therapy COPD stage II without exacerbation Left internal carotid artery stenosis 50-69% -Outpatient follow-up Obesity, BMI 33.1 -Conservative treatment DVT prophylaxis: Heparin Discussed with: Patient and his sister at bedside Anticipated discharge: today Anticipated discharge place: home
--- NOTE | 2018-11-09 15:06 | P.PN ---
Subjective Progress Note Date: 11/09/18 This is a pleasant 53-year-old gentleman with a past medical history significant for dyslipidemia, prior history of smoking, and very significant family history of coronary artery disease was multiple first-degree relatives with coronary artery disease and prior coronary artery vascularization presented to the hospital complaining of chest discomfort. The symptoms started about a week ago when he started experiencing intermittent episodes of chest discomfort, in the mid of the chest, as a sharp kind of discomfort, with radiation to the left arm. No associated symptoms of shortness of breath, sweating, dizziness or light of this, or syncope. Yesterday his chest discomfort has been more intense compared to before and because of that he decided to come to the hospital. The EKG showed sinus rhythm without any ST or T-wave abnormalities. The first set of enzymes came in to be unremarkable but the second set of troponin came in to be abnormal. The third set came in to be unremarkable. He underwent a computed tomography scan of the chest which showed no evidence of aortic dissection or aortic aneurysm. The patient underwent a heart catheterization and that revealed disease involving the left main coronary artery distally appears to be in the range of 50%. He was referred for coronary artery bypass grafting and was seen by the surgeon today and the plan is to pursue with coronary artery was grafting in the next few days. Probably that happened as an outpatient. Meanwhile the patient is on aspirin, metoprolol, and statin. The echocardiogram revealed normal LV function. 10/30/2018 Patient was seen and examined this morning, he did have an episode of chest discomfort earlier today, requiring sublingual nitroglycerin. At the time of my examination he was chest pain-free. Because of the chest discomfort, we would recommend to continue the patient on IV heparin, continue to monitor him in the hospital another 24 hours. 10/31/2018 Patient was seen and examined this morning, denies any further episodes of chest discomfort and is breathing overall has been stable. Patient and his family are quite concerned about going home before his bypass surgery. The original plan was for the patient to be discharged home to come back on Tuesday as an outpatient. He continues at this time to be on IV heparin hemodynamically he is stable. We will call cardiothoracic surgery and discuss this further with them. 11/01/2018 Patient was seen and examined this morning, ambulating in the hallway, denies any further chest pain, breathing overall has been stable. Blood pressure 100/60 with a heart rate in the 60s, 95% on room air. 11/02/2018 Patient was seen and examined this morning, ambulating in the hallway, no chest pain, breathing has been stable. He is scheduled to undergo coronary bypass grafting surgery tomorrow. 11/09/2018 Patient is status post triple vessel coronary artery bypass grafting surgery. Patient was seen and examined this morning, doing well overall. Ambulating in the hallway. Scheduled to be discharged home today. Blood pressure 128/60 with a heart rate of 90. Objective - Vital Signs Vital signs: Vital Signs Temp 97.8 F 11/09/18 08:38 Pulse 107 H 11/09/18 08:38 Resp 18 11/09/18 08:38 BP 129/65 11/09/18 08:38 Pulse Ox 92 L 11/09/18 08:38 Intake & Output 11/08/18 11/09/18 11/09/18 18:59 06:59 18:59 Intake Total 500 360 Balance 500 360 Weight 87.5 kg 83.4 kg Intake: Oral 500 360 Other: Voiding Method Urinal Urinal Urinal # Voids 1 ABP, PAP, CO, CI - Last Documented Arterial Blood Pressure 85/36 Pulmonary Artery Pressure 42/23 Cardiac Output 6.5 Cardiac Index 3.3 - Exam PHYSICAL EXAMINATION: GENERAL: 53-year-old gentleman in no acute distress at the time of my examination HEENT: Head is atraumatic, normocephalic. Pupils equal, round. Sclera anicteric. Conjunctiva are clear. Mucous membranes of the mouth are moist. Neck is supple. There is no elevated jugular venous pressure. No carotid bruit is heard. HEART EXAMINATION: Heart S1, S2 normal. No murmur or gallop heard. CHEST EXAMINATION: Lungs are clear to auscultation and precussion. No chest wall tenderness is noted on palpation or with deep breathing. ABDOMEN: Soft, nontender. Bowel sounds are heard. No organomegaly noted. EXTREMITIES: 2+ peripheral pulses with no evidence of peripheral edema and no calf tenderness noted. NEUROLOGIC patient is awake, alert and oriented X3. . - Labs CBC & Chem 7: 11/09/18 06:04 11/09/18 06:04 Labs: Abnormal Lab Results - Last 24 Hours (Table) 11/09/18 11/09/18 Range/Units 06:04 06:04 WBC 11.7 H (3.8-10.6) k/uL RBC 3.33 L (4.30-5.90) m/uL Hgb 9.8 L (13.0-17.5) gm/dL Hct 30.9 L (39.0-53.0) % Glucose 102 H (74-99) mg/dL Assessment and Plan Plan: Assessment #1 acute non-ST patient myocardial infarction, status post triple vessel coronary bypass grafting surgery #2 hypertension #3 dyslipidemia #4 family history of CAD Plan From cardiology's perspective, patient may be discharged home today. We'll make him a follow-up appointment in the office with Dr. Villagran post discharge. DNP note has been reviewed, I agree with a documented findings and plan of care. Patient was seen and examined.
[2018-11-10] MEDS ORDERED: FUROSEMIDE 40 MG TAB PO SCH (09:00)
== END 2018-11-09 16:13 | disposition home health service (06) | DRG 233 ==
LOC: EC 08:41 → 1SOBS 10:43 → 3SCARD 10-28 04:36 → OBSVTOIN 10-29 14:03 → 2SICU 11-03 07:56 → 3SCARD 11-08 09:29
PROVIDERS: ADMIT Internal Medicine; ATTEND Surgery
PROC: 4A023N7 Measurement of Cardiac Sampling and Pressure, Left Heart, Percutaneous Approach (ICD-10-PCS; 2018-10-28)
PROC: B2111ZZ Fluoroscopy of Multiple Coronary Arteries using Low Osmolar Contrast (ICD-10-PCS; 2018-10-28)
PROC: B54DZZZ Ultrasonography of Bilateral Lower Extremity Veins (ICD-10-PCS; 2018-11-01)
PROC: 02100Z9 Bypass Coronary Artery, One Artery from Left Internal Mammary, Open Approach (ICD-10-PCS; 2018-11-03)
PROC: 02100Z8 Bypass Coronary Artery, One Artery from Right Internal Mammary, Open Approach (ICD-10-PCS; 2018-11-03)
PROC: 06BQ4ZZ Excision of Left Saphenous Vein, Percutaneous Endoscopic Approach (ICD-10-PCS; 2018-11-03)
PROC: 4A033BC Measurement of Arterial Pressure, Coronary, Percutaneous Approach (ICD-10-PCS; 2018-11-03)
PROC: B24BZZ4 Ultrasonography of Heart with Aorta, Transesophageal (ICD-10-PCS; 2018-11-03)
PROC: 021009W Bypass Coronary Artery, One Artery from Aorta with Autologous Venous Tissue, Open Approach (ICD-10-PCS; principal; 2018-11-03 08:00)
DX: I21.4 Non-ST elevation (NSTEMI) myocardial infarction (principal); J96.01 Acute respiratory failure with hypoxia; J98.11 Atelectasis; J90 Pleural effusion, not elsewhere classified; I25.110 Atherosclerotic heart disease of native coronary artery with unstable angina pectoris; I65.22 Occlusion and stenosis of left carotid artery; J44.9 Chronic obstructive pulmonary disease, unspecified; E06.3 Autoimmune thyroiditis; E66.9 Obesity, unspecified; E78.5 Hyperlipidemia, unspecified; F32.9 Major depressive disorder, single episode, unspecified; F41.9 Anxiety disorder, unspecified; H91.91 Unspecified hearing loss, right ear; I10 Essential (primary) hypertension; K21.9 Gastro-esophageal reflux disease without esophagitis; K59.00 Constipation, unspecified; R73.03 Prediabetes; R73.9 Hyperglycemia, unspecified; D72.829 Elevated white blood cell count, unspecified; R00.0 Tachycardia, unspecified; Z68.33 Body mass index [BMI] 33.0-33.9, adult; Z87.891 Personal history of nicotine dependence; Z79.82 Long term (current) use of aspirin; Z79.890 Hormone replacement therapy; Z79.899 Other long term (current) drug therapy; Z88.5 Allergy status to narcotic agent; Z88.7 Allergy status to serum and vaccine; Z91.030 Bee allergy status; Z91.041 Radiographic dye allergy status; Z82.49 Family history of ischemic heart disease and other diseases of the circulatory system; Z82.5 Family history of asthma and other chronic lower respiratory diseases; Z83.3 Family history of diabetes mellitus
CPT/HCPCS: 36415; 71045; 71046; 71275; 74174; 80048; 80053; 80061; 80074; 81003; 82330; 82805; 83036; 83690; 83735; 83880; 84100; 84132; 84439; 84443; 84484; 85025; 85027; 85049; 85520; 85610; 85730; 86850; 86891; 86900; 86901; 86920; 87070; 87086; 93005; 93306; 93458; 93880; 93923; 93930; 93970; 94002; 94003; 94150; 94640; 96365; 96366; 96375; 96376; 99285

== ENCOUNTER 2020-05-10 07:06 | Observation (INO) | payer BC ==
[2020-05-10] MEDS ORDERED: NITROGLYCERIN SL TABS 0.4 MG TAB SUBLINGUAL STA (07:35)
[2020-05-10] MEDS ORDERED: NITROGLYCERIN OINT 1 INCH/GM PACKET TOPICAL STA (07:35)
[2020-05-10] MEDS ORDERED: ASPIRIN 81 MG PO STA (07:35)
[2020-05-10] MEDS ORDERED: ONDANSETRON 4 MG/2 ML VIAL IVP STA (07:39)
--- NOTE | 2020-05-10 07:42 | ED ---
General Adult HPI - General Chief complaint: Chest Pain Stated complaint: Chest pain Time Seen by Provider: 05/10/20 07:10 Source: patient, RN notes reviewed, old records reviewed Mode of arrival: wheelchair Limitations: no limitations - History of Present Illness Initial comments: This is a 55-year-old male who presents emergency Department complaining of chest pain started at 4 AM it radiated to his back. Patient had a previous CABG. Patient states the pain was intense earlier went up to his neck and down his arm. Patient states he also is very nauseated and bilateral short of breath. Patient denies any diaphoretic episodes. Patient states the pain is definitely still there but not as intense as it was earlier. Patient states he had an episode similar to this a week ago but all eventually resolved and it wasn't quite as severe pain a week ago as it is today. Patient denies any recent fever chills or cough. Patient denies any abdominal pain. Patient denies any vomiting or diarrhea. Patient denies any calf tenderness or leg swelling. - Related Data Home Medications Medication Instructions Recorded Confirmed Amitriptyline HCl [Elavil] 10 mg PO HS 10/27/18 10/27/18 Vit C/E/Zn/Coppr/Lutein/Zeaxan 1 cap PO DAILY 10/27/18 10/27/18 [Preservision Areds 2 Softgel] Previous Rx's Medication Instructions Recorded Albuterol Inhaler (Mhu) [Ventolin 1 - 2 puff INHALATION RT-Q6H PRN 10/30/18 Hfa Inhaler] 30 Days #1 inhaler Tiotropium [place] [Spiriva] 1 cap INHALATION DAILY 30 Days #1 10/30/18 device Acetaminophen Tab [Tylenol] 1,000 mg PO Q6HR PRN #100 tab 11/09/18 Aspirin 325 mg PO DAILY #30 tab 11/09/18 Atorvastatin [Lipitor] 40 mg PO DAILY #30 tab 11/09/18 Clopidogrel [Plavix] 75 mg PO DAILY #30 tab 11/09/18 Furosemide [Lasix] 40 mg PO DAILY #5 tab 11/09/18 Levothyroxine Sodium [Synthroid] 75 mcg PO DAILY@0630 #30 tab 11/09/18 Metoprolol Tartrate [Lopressor] 75 mg PO BID #180 tab 11/09/18 Pantoprazole [Protonix] 40 mg PO AC-BRKFST #30 tablet. 11/09/18 Sennosides-Docusate Sodium 2 each PO HS #14 tab 11/09/18 [Senokot-S] Allergies Allergy/AdvReac Type Severity Reaction Status Date / Time Iodinated Contrast Media Allergy Itching Verified 05/10/20 07:19 [Iodinated Contrast- Oral and IV Dye] tetanus and diphtheria Allergy Swelling Verified 05/10/20 07:19 toxoids [tetanus & diphtheria toxoids] venom-honey bee Allergy Anaphylaxis Verified 05/10/20 07:19 [bee venom (honey bee)] codeine AdvReac Abdominal Verified 05/10/20 07:19 Pain Review of Systems ROS Statement: Those systems with pertinent positive or pertinent negative responses have been documented in the HPI. ROS Other: All systems not noted in ROS Statement are negative. 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, Vertigo, occipital neuralgia,leaky heart valve History of Any Multi-Drug Resistant Organisms: None Reported Past Surgical History: Adenoidectomy, Coronary Bypass/CABG, Orthopedic Surgery, Tonsillectomy Additional Past Surgical History / Comment(s): Left knee arthroscopy, hydrocele surgery Past Anesthesia/Blood Transfusion Reactions: No Reported Reaction Past Psychological History: No Psychological Hx Reported Smoking Status: Former smoker Past Alcohol Use History: None Reported Past Drug Use History: None Reported - Past Family History Mother Family Medical History: Diabetes Mellitus, Hypertension Additional Family Medical History / Comment(s): Mother is living. Father Family Medical History: COPD, Hypertension Additional Family Medical History / Comment(s): Father is 81 yrs old. Sister(s) Family Medical History: Coronary Artery Disease (CAD) Additional Family Medical History / Comment(s): 53 yr old sister has CAD with stents and pulmonary fibrosis. General Exam - General Exam Comments Initial Comments: GENERAL: Patient is well-developed and well-nourished. Patient is nontoxic and well- hydrated and is in mild distress. ENT: Neck is soft and supple. No significant lymphadenopathy is noted. Oropharynx is clear. Moist mucous membranes. Neck has full range of motion without eliciting any pain. EYES: The sclera were anicteric and conjunctiva were pink and moist. Extraocular movements were intact and pupils were equal round and reactive to light. Eyelids were unremarkable. PULMONARY: Unlabored respirations. Good breath sounds bilaterally. No audible rales rhonchi or wheezing was noted. CARDIOVASCULAR: There is a regular rate and rhythm without any murmurs gallops or rubs. ABDOMEN: Soft and nontender with normal bowel sounds. No palpable organomegaly was noted. There is no palpable pulsatile mass. SKIN: Skin is clear with no lesions or rashes and otherwise unremarkable. NEUROLOGIC: Patient is alert and oriented x3. Cranial nerves II through XII are grossly intact. Motor and sensory are also intact. Normal speech, volume and content. Symmetrical smile. MUSCULOSKELETAL: Normal extremities with adequate strength and full range of motion. No lower extremity swelling or edema. No calf tenderness. LYMPHATICS: No significant lymphadenopathy is noted PSYCHIATRIC: Normal psychiatric evaluation. Limitations: no limitations Course Vital Signs 05/10/20 05/10/20 05/10/20 07:12 07:45 07:47 Temperature 97.9 F Pulse Rate 76 60 66 Respiratory 16 18 18 Rate Blood Pressure 161/84 130/68 124/82 O2 Sat by Pulse 96 99 100 Oximetry 05/10/20 09:07 Temperature Pulse Rate 59 L Respiratory 18 Rate Blood Pressure 107/72 O2 Sat by Pulse 99 Oximetry Medical Decision Making - Medical Decision Making EKG shows normal sinus rhythm at 61 bpm MA interval is 134 QRS is 82 QT intervals 402 QTC is 404. Patient's EKG shows no ST segment elevation or depression. Patient is CTA of the aorta. It did not show any aortic dissection however it d id show possible myxoma in the atrium. I ordered an ultrasound at this point. I spoke with some physicians agreed to admit the patient admitted the patient I started the patient heparin continued heparin and nitro on the floor. - Lab Data Result diagrams: 05/10/20 07:58 05/10/20 07:58 Lab Results 05/10/20 05/10/20 05/10/20 Range/Units 07:58 07:58 07:58 WBC 8.0 (3.8-10.6) k/uL RBC 5.15 (4.30-5.90) m/uL Hgb 14.8 (13.0-17.5) gm/dL Hct 43.5 (39.0-53.0) % MCV 84.5 (80.0-100.0) fL MCH 28.7 (25.0-35.0) pg MCHC 34.0 (31.0-37.0) g/dL RDW 13.2 (11.5-15.5) % Plt Count 298 (150-450) k/uL MPV 6.7 Neutrophils % 61 % Lymphocytes % 18 % Monocytes % 7 % Eosinophils % 9 % Basophils % 2 % Neutrophils # 4.9 (1.3-7.7) k/uL Lymphocytes # 1.5 (1.0-4.8) k/uL Monocytes # 0.6 (0-1.0) k/uL Eosinophils # 0.7 (0-0.7) k/uL Basophils # 0.1 (0-0.2) k/uL PT 10.3 (9.0-12.0) sec INR 1.0 (<1.2) APTT 23.7 (22.0-30.0) sec Sodium 137 (137-145) mmol/L Potassium 4.5 (3.5-5.1) mmol/L Chloride 105 (98-107) mmol/L Carbon Dioxide 25 (22-30) mmol/L Anion Gap 7 mmol/L BUN 9 (9-20) mg/dL Creatinine 0.77 (0.66-1.25) mg/dL Est GFR (CKD-EPI)AfAm >90 (>60 ml/min/1.73 sqM) Est GFR (CKD-EPI)NonAf >90 (>60 ml/min/1.73 sqM) Glucose 129 H (74-99) mg/dL Calcium 9.7 (8.4-10.2) mg/dL Magnesium 2.0 (1.6-2.3) mg/dL Total Bilirubin 0.4 (0.2-1.3) mg/dL AST 26 (17-59) U/L ALT 32 (4-49) U/L Alkaline Phosphatase 119 (38-126) U/L Troponin I (0.000-0.034) ng/mL Total Protein 7.3 (6.3-8.2) g/dL Albumin 4.2 (3.5-5.0) g/dL 05/10/20 Range/Units 07:58 WBC (3.8-10.6) k/uL RBC (4.30-5.90) m/uL Hgb (13.0-17.5) gm/dL Hct (39.0-53.0) % MCV (80.0-100.0) fL MCH (25.0-35.0) pg MCHC (31.0-37.0) g/dL RDW (11.5-15.5) % Plt Count (150-450) k/uL MPV Neutrophils % % Lymphocytes % % Monocytes % % Eosinophils % % Basophils % % Neutrophils # (1.3-7.7) k/uL Lymphocytes # (1.0-4.8) k/uL Monocytes # (0-1.0) k/uL Eosinophils # (0-0.7) k/uL Basophils # (0-0.2) k/uL PT (9.0-12.0) sec INR (<1.2) APTT (22.0-30.0) sec Sodium (137-145) mmol/L Potassium (3.5-5.1) mmol/L Chloride (98-107) mmol/L Carbon Dioxide (22-30) mmol/L Anion Gap mmol/L BUN (9-20) mg/dL Creatinine (0.66-1.25) mg/dL Est GFR (CKD-EPI)AfAm (>60 ml/min/1.73 sqM) Est GFR (CKD-EPI)NonAf (>60 ml/min/1.73 sqM) Glucose (74-99) mg/dL Calcium (8.4-10.2) mg/dL Magnesium (1.6-2.3) mg/dL Total Bilirubin (0.2-1.3) mg/dL AST (17-59) U/L ALT (4-49) U/L Alkaline Phosphatase (38-126) U/L Troponin I <0.012 (0.000-0.034) ng/mL Total Protein (6.3-8.2) g/dL Albumin (3.5-5.0) g/dL Critical Care Time Critical Care Time: Yes Total Critical Care Time: 35 Disposition Clinical Impression: Unstable angina pectoris Disposition: ADMITTED IP TO THIS HOSP Referrals: Ana Rivera DO [Primary Care Provider] - 1-2 days Time of Disposition: 09:58
[2020-05-10] MEDS ORDERED: FAMOTIDINE 20 MG/2 ML VIAL IV STA (07:43)
[2020-05-10] MEDS ORDERED: diphenhydrAMINE 50 MG/ML 1 ML VIAL IVP STA (07:43)
[2020-05-10] MEDS ORDERED: methylPREDNISolone SOD SUCCI 125 MG/2 ML VIAL IV STA (07:43)
[2020-05-10 08:04] LABS: Basophils # (A) 0.1 k/uL (0-0.2); Basophils % (A) 2 %; Eosinophils # (A) 0.7 k/uL (0-0.7); Eosinophils % (A) 9 %; HCT 43.5 % (39.0-53.0); HGB 14.8 gm/dL (13.0-17.5); Lymphocytes # (A) 1.5 k/uL (1.0-4.8); Lymphocytes % (A) 18 %; MCH 28.7 pg (25.0-35.0); MCV 84.5 fL (80.0-100.0); Mean Platelet Volume 6.7; Monocytes # (A) 0.6 k/uL (0-1.0); Monocytes % (A) 7 %; Neutrophils # (A) 4.9 k/uL (1.3-7.7); Neutrophils % (A) 61 %; Platelet Count 298 k/uL (150-450); RBC 5.15 m/uL (4.30-5.90); RDW 13.2 % (11.5-15.5)
[2020-05-10 08:13] LABS: ALT 32 U/L (4-49); AST 26 U/L (17-59); African American GFR (CKD) >90 (>60 ml/min/1.73 sqM); Albumin 4.2 g/dL (3.5-5.0); Alkaline Phosphatase 119 U/L (38-126); Anion Gap 7 mmol/L; Blood Urea Nitrogen 9 mg/dL (9-20); Calcium 9.7 mg/dL (8.4-10.2); Carbon Dioxide 25 mmol/L (22-30); Chloride 105 mmol/L (98-107); Glucose 129 mg/dL (74-99); Non-African American GFR(CKD) >90 (>60 ml/min/1.73 sqM); Potassium 4.5 mmol/L (3.5-5.1); Sodium 137 mmol/L (137-145); Total Bilirubin 0.4 mg/dL (0.2-1.3); Total Protein 7.3 g/dL (6.3-8.2)
[2020-05-10 08:25] LABS: Partial Thromboplastin Time 23.7 sec (22.0-30.0); Prothrombin Time 10.3 sec (9.0-12.0)
--- NOTE | 2020-05-10 09:23 | CT ---
EXAMINATION TYPE: CT angio thor/abd pel aorta DATE OF EXAM: 05/10/2020 COMPARISON: Prior CT 10/27/2018 HISTORY: Chest pain CT DLP: 1739 mGycm. Automated Exposure Control for Dose Reduction was Utilized. CONTRAST: CT scan of the thorax, abdomen and pelvis is performed without and with IV Contrast, patient injected with 100 mL of Isovue 370. Three-dimensional reconstructions on an alternate workstation. 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 LUNGS: The lungs are showing some probable scarring within the lingula, there is some mild interstiti al changes as on prior, there is no concerning parenchymal mass or nodule identified. There is no p leural effusion or pneumothorax seen. The tracheobronchial tree is patent. MEDIASTINUM: There are no greater than 1 cm hilar or mediastinal lymph nodes. No pericardial effusi on is seen. Coronary artery calcifications are extensive. There is some calcification along the righ t atrium laterally which was not seen on prior exam, some questionable soft tissue present at this le iqra postcontrast. For super aortic branch vessels present. No filling defect to suggest pulmonary emb olism within the pulmonary arteries. OTHER: Aorta shows no dissection, aneurysm, or embolism. Atheromatous changes are present. LIVER/GB: No significant abnormality is appreciated. PANCREAS: No significant abnormality is seen. SPLEEN: No significant abnormality is seen. ADRENALS: No significant abnormality is seen. KIDNEYS: Circumaortic left renal vein is present. Low dense foci within the left kidney consistent wi th probable cortical cysts.. BOWEL: No significant abnormality is seen. GENITAL ORGANS: No gross abnormality seen. LYMPH NODES: No greater than 1cm abdominal or pelvic lymph nodes are appreciated. OSSEOUS STRUCTURES: No significant abnormality is seen. OTHER: No significant additional abnormality is seen. IMPRESSION: Findings within the right atrium are indeterminate, consider echocardiography to assess f or possible atrial myxoma. Postop changes and coronary artery disease. Nonunion of patient's sternoto my
[2020-05-10] MEDS ORDERED: HEPARIN SODIUM,PORCINE 5,000 UNIT/ML 1 ML VIAL IV ONE (09:37)
[2020-05-10] MEDS ORDERED: NITROGLYCERIN SL TABS 0.4 MG TAB SUBLINGUAL PRN (09:58)
[2020-05-10] MEDS: HEPARIN SOD,PORK IN 0.45% NACL 25,000 UNIT in 0.45% NACL 1 250ML.BAG IV SCH (10:49)
[2020-05-10] MEDS: NITROGLYCERIN OINT 1 INCH/GM PACKET TOPICAL SCH ×2 (13:58→19:53)
--- NOTE | 2020-05-10 15:00 | ECHOF ---
Referral Reason:Rule out myxoma MEASUREMENTS -------- HEIGHT: 162.6 cm WEIGHT: 83.0 kg BP: 107/72 RVIDd: 2.6 cm (< 3.3) IVSd: 1.3 cm (0.6 - 1.1) LVIDd: 4.2 cm (3.9 - 5.3) LVPWd: 1.3 cm (0.6 - 1.1) IVSs: 1.6 cm LVIDs: 2.9 cm LVPWs: 1.8 cm LA Diam: 3.5 cm (2.7 - 3.8) LAESV Index (A-L): 20.52 ml/m Ao Diam: 3.0 cm (2.0 - 3.7) AV Cusp: 1.9 cm (1.5 - 2.6) MV EXCURSION: 8.200 mm (> 18.000) MV EF SLOPE: 33 mm/s (70 - 150) EPSS: 1.0 cm MV E Max: 0.90 m/s MV DecT: 239 ms MV A Max: 0.91 m/s MV E/A Ratio: 0.99 FINDINGS -------- Sinus rhythm. This was a technically good study. The left ventricular size is normal. There is mild concentric left ventricular hypertrophy. Overa ll left ventricular systolic function is low-normal with, an EF between 50 - 55 %. The right ventricle is normal in size. Normal LA size by volume 22+/-6 ml/m2. The right atrium is normal in size. Interatrial and interventricular septum intact. Lipomatous Hypertrophy of the atrial septum is pre sent The aortic valve is trileaflet and appears structurally normal. There is trace to mild mitral regurgitation. The tricuspid valve appears structurally normal. Trace/mild (physiologic) pulmonic regurgitation. The aortic root size is normal. Normal inferior vena cava with normal inspiratory collapse consistent with estimated right atrial pre ssure of 5 mmHg. There is no pericardial effusion. CONCLUSIONS -------- 1. The left ventricular size is normal. 2. There is mild concentric left ventricular hypertrophy. 3. Overall left ventricular systolic function is low-normal with, an EF between 50 - 55 %. 4. Lipomatous Hypertrophy of the atrial septum is present 5. There is trace to mild mitral regurgitation. 6. Trace/mild (physiologic) pulmonic regurgitation. [employer] OPERATOR: Stella Metzger RDCS
[2020-05-10] MEDS ORDERED: FLUTICASONE 50MCG/SPRAY NASAL 16GM EA NOSTRIL PRN (15:08)
--- NOTE | 2020-05-10 15:16 | P.HPIM ---
History of Present Illness H&P Date: 05/10/20 Chief Complaint: Chest pain This is a 55-year-old male with past medical history noted below significant for coronary artery disease status post CABG in October 2018 that presented to the emergency room with chest pain. Patient said that his pain started this morning and he describe it as sharp and intense mostly in the middle of his chest. Patient said that the pain was 10 out of 10 in severity radiating to his neck and to his left chest. This was associated with some shortness of breath. Patient said that he has been having problems with back pain for the past couple of weeks and he wasn't sure if this time his chest pain and back pain were connected. Patient denies any diaphoresis or dizziness. No fevers or chills. No cough. Patient was evaluated in the emergency room a 12-lead EKG showed no acute ischemic changes. Computed tomography scan of the chest showed no evidence of aortic dissection but showed a questionable myxoma. Patient was placed on observation for further management. He is currently chest pain-free at the time of my evaluation. He has nitro paste on. Review of Systems Review of system: 14 points review of systems were obtained and were negative except to what were mentioned in the HPI. 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 He is independent. He uses no assistive device. He drives. He has alittle matthew terphobia. Smoking Status: Former smoker Past Alcohol Use History: None Reported Additional Past Alcohol Use History / Comment(s): Pt states he smoked less than a ppd for approximately 10-11 yrs. He quit smoking 2014. Past Drug Use History: None Reported - Past Family History Mother Family Medical History: Diabetes Mellitus, Hypertension Additional Family Medical History / Comment(s): Mother is living. Father Family Medical History: COPD, Hypertension Additional Family Medical History / Comment(s): Father is 81 yrs old. Sister(s) Family Medical History: Coronary Artery Disease (CAD) Additional Family Medical History / Comment(s): 53 yr old sister has CAD with stents and pulmonary fibrosis. Medications and Allergies Home Medications Medication Instructions Recorded Confirmed Type Vit C/E/Zn/Coppr/Lutein/Zeaxan 1 cap PO BID 10/27/18 05/10/20 History [Preservision Areds 2 Softgel] Atorvastatin [Lipitor] 40 mg PO DAILY #30 tab 11/09/18 05/10/20 Rx Albuterol Sulfate [Ventolin HFA] 1 - 2 puff INHALATION RT-QID PRN 05/10/20 05/10/20 History Fluticasone Nasal [place] [Flonase 1 spray EA NOSTRIL DAILY PRN 05/10/20 05/10/20 History Nasal [place]] Furosemide [Lasix] 20 mg PO DAILY 05/10/20 05/10/20 History Levothyroxine Sodium [Synthroid] 150 mcg PO DAILY 05/10/20 05/10/20 History Metoprolol Tartrate [Lopressor] 37.5 mg PO BID 05/10/20 05/10/20 History Allergies Allergy/AdvReac Type Severity Reaction Status Date / Time Iodinated Contrast Media Allergy Itching Verified 05/10/20 10:15 [Iodinated Contrast- Oral and IV Dye] tetanus and diphtheria Allergy Swelling Verified 05/10/20 10:15 toxoids [tetanus & diphtheria toxoids] venom-honey bee Allergy Anaphylaxis Verified 05/10/20 10:15 [bee venom (honey bee)] codeine AdvReac Abdominal Verified 05/10/20 10:15 Pain Physical Exam Vitals: Vital Signs Temp Pulse Pulse Resp BP BP Pulse Ox 05/10/20 14:00 98 F 94 16 103/68 93 L 05/10/20 09:07 59 L 18 107/72 99 05/10/20 07:47 66 18 124/82 100 05/10/20 07:45 60 18 130/68 99 05/10/20 07:12 97.9 F 76 16 161/84 96 Intake and Output 05/10/20 05/10/20 05/10/20 06:59 14:59 22:59 Other: Weight 83.007 kg General: The patient is awake and alert, in no distress Eye: there is normal conjunctiva bilaterally. Neck: The neck is supple, there is no JVD. Cardiovascular: Normal S1-S2, no S3-S4, no murmurs. Respiratory: Lungs clear to auscultation bilaterally Gastrointestinal: Abdomen is soft, nontender Musculoskeletal: There is no pedal edema. Neurological:. Speech is normal. Skin: Skin is warm and dry Results CBC & Chem 7: 05/10/20 07:58 05/10/20 07:58 Labs: Abnormal Lab Results - Last 24 Hours (Table) 05/10/20 Range/Units 07:58 Glucose 129 H (74-99) mg/dL Thrombosis Risk Factor Assmnt - Choose All That Apply Each Factor Represents 1 point: Age 41-60 years Thrombosis Risk Factor Assessment Total Risk Factor Score: 1 Thrombosis Risk Factor Assessment Level: Low Risk Assessment and Plan Assessment: This is a 55-year-old male with past medical history noted below who presented to the emergency room with chest pain. Patient was evaluated and placed on observation for further management of his medical problems noted below. 1. Chest pain, with typical and atypical features. 12-lead EKG showed no acute ischemic changes. Troponin negative 2 sets. Patient was started on IV heparin drip awaiting cardiology evaluation. 2. 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 Awaiting cardiology evaluation 3. History of coronary artery disease status post CABG in October 2018, continue medical management 4. Hypothyroidism on levothyroxin 5. Hyperlipidemia on Lipitor
[2020-05-10] MEDS ORDERED: METOPROLOL TARTRATE 25 MG TAB PO SCH (21:00)
[2020-05-11] MEDS: NITROGLYCERIN OINT 1 INCH/GM PACKET TOPICAL SCH ×4 (00:09→19:45)
[2020-05-11] MEDS: LEVOTHYROXINE 75 MCG TAB PO SCH (06:13)
[2020-05-11 07:49] LABS: Cholesterol 134 mg/dL (<200); HDL Cholesterol 42 mg/dL (40-60); LDL Cholesterol,Calculated 72 mg/dL (0-99); Triglycerides 100 mg/dL (<150)
[2020-05-11 08:49] VITALS: RESP 16
--- NOTE | 2020-05-11 08:52 | P.CRDCN ---
History of Present Illness Consult date: 05/11/20 Chief complaint: Chest discomfort History of present illness: This is a pleasant 55-year-old gentleman who I see in the office as an outpatient with coronary artery disease and prior coronary artery bypass grafting where in 2019 he underwent coronary artery bypass grafting 3 with SABILLON to LAD, SABILLON to left circumflex, and reverse SVG to RCA as well as hypertension and dyslipidemia presented to the emergency department complaining of chest di scomfort and back discomfort. The patient described the discomfort as a sharp/dull in the mid of the chest as well as in the back. No pain in the arms or neck or shoulders. No associated symptoms of sweating or dizziness or lightheadedness or any feeling of heart racing or fluttering or syncope. No symptoms of fever or chills and no cough or wheezing or sputum production. He was admitted to the observation unit for further evaluation and management. He underwent a computed tomography scan of the chest which showed no evidence of pulmonary embolism but possible mass in the right atrium. The echocardiogram showed normal left ventricular systolic function without any evidence of intracardiac mass but the echo images were technically very difficult. 3 sets of cardiac enzymes were checked and came in to be unremarkable. The EKG showed sinus rhythm without any significant ST or T-wave abnormalities. The patient stated that he underwent stress test in our office in 2019 we don't have a copy of the results but with difficulty tomorrow morning. Beside the chest pain and back pain he has been experiencing symptoms of dizziness and lightheadedness without any presyncope or syncope. The dizziness seems to be mostly once he stands up. His pressure has been marginal and he reported one episode of systolic pressure of 80 mmHg and that was documented in the hospital here. When he was seen in the office who sent stop the losartan he was on because of low blood pressure. The only medication he is on right now which can lower his pressure is metoprolol tartrate 37.5 mg by mouth twice a day which I'm going to lower to 12.5 mg by mouth twice a day. I recommended monitoring the patient overnight for arrhythmia. Obtain a copy of the stenosis in the morning. He needs to have transesophageal echocardiogram down the line to rule out any intracardiac mass identified on the computed tomography scan. 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 He is independent. He uses no assistive device. He drives. He has alittle clausterphobia. Smoking Status: Former smoker Past Alcohol Use History: None Reported Additional Past Alcohol Use History / Comment(s): Pt states he smoked less than a ppd for approximately 10-11 yrs. He quit smoking 2014. Past Drug Use History: None Reported - Past Family History Mother Family Medical History: Diabetes Mellitus, Hypertension Additional Family Medical History / Comment(s): Mother is living. Father Family Medical History: COPD, Hypertension Additional Family Medical History / Comment(s): Father is 81 yrs old. Sister(s) Family Medical History: Coronary Artery Disease (CAD) Additional Family Medical History / Comment(s): 53 yr old sister has CAD with stents and pulmonary fibrosis. Medications and Allergies Home Medications Medication Instructions Recorded Confirmed Type Vit C/E/Zn/Coppr/Lutein/Zeaxan 1 cap PO BID 10/27/18 05/10/20 History [Preservision Areds 2 Softgel] Atorvastatin [Lipitor] 40 mg PO DAILY #30 tab 11/09/18 05/10/20 Rx Albuterol Sulfate [Ventolin HFA] 1 - 2 puff INHALATION RT-QID PRN 05/10/20 05/10/20 History Fluticasone Nasal [place] [Flonase 1 spray EA NOSTRIL DAILY PRN 05/10/20 05/10/20 History Nasal [place]] Furosemide [Lasix] 20 mg PO DAILY 05/10/20 05/10/20 History Levothyroxine Sodium [Synthroid] 150 mcg PO DAILY 05/10/20 05/10/20 History Metoprolol Tartrate [Lopressor] 37.5 mg PO BID 05/10/20 05/10/20 History Allergies Allergy/AdvReac Type Severity Reaction Status Date / Time Iodinated Contrast Media Allergy Itching Verified 05/10/20 10:15 [Iodinated Contrast- Oral and IV Dye] tetanus and diphtheria Allergy Swelling Verified 05/10/20 10:15 toxoids [tetanus & diphtheria toxoids] venom-honey bee Allergy Anaphylaxis Verified 05/10/20 10:15 [bee venom (honey bee)] codeine AdvReac Abdominal Verified 05/10/20 10:15 Pain Physical Exam Vitals: Vital Signs Temp Pulse Pulse Resp BP BP Pulse Ox 05/11/20 03:00 97.6 F 70 18 105/54 95 05/10/20 19:45 97.6 F 101 H 20 111/65 95 05/10/20 15:00 98.2 F 97 16 91/60 92 L 05/10/20 14:00 98 F 94 16 103/68 93 L 05/10/20 09:07 59 L 18 107/72 99 Intake and Output 05/10/20 05/11/20 05/11/20 22:59 06:59 14:59 Intake Total 83.174 Balance 83.174 Intake: Intake, IV Titration 83.174 Amount Heparin Sod,Pork in 0.45% 83.174 NaCl 25,000 unit In 0.45 % NaCl 1 250ml.bag @ 12 UNITS/KG/HR 9.961 mls/hr IV .Q24H [facility] Rx#: [id number] Other: # Voids 1 1 - Constitutional General appearance: no acute distress - Respiratory Respiratory: bilateral: CTA - Cardiovascular Rhythm: regular Heart sounds: normal: S1, S2 Results 05/10/20 07:58 05/10/20 07:58 Cardiac Enzymes 05/10/20 05/10/20 05/10/20 Range/Units 07:58 11:00 14:24 Troponin I <0.012 <0.012 <0.012 (0.000-0.034) ng/mL Coagulation 05/10/20 05/11/20 Range/Units 18:29 06:54 APTT 46.4 H 47.9 H (22.0-30.0) sec Lipids 05/11/20 Range/Units 06:54 Triglycerides 100 (<150) mg/dL Cholesterol 134 (<200) mg/dL HDL Cholesterol 42 (40-60) mg/dL Current Medications Generic Name Dose Route Start Last Admin Trade Name Freq PRN Reason Stop Dose Admin Aspirin 325 mg 05/11/20 09:00 Aspirin 325 Mg Tab PO DAILY [facility] Atorvastatin Calcium 40 mg 05/11/20 09:00 Atorvastatin 40 Mg Tab PO DAILY [facility] Fluticasone Propionate 1 spray 05/10/20 15:08 Fluticasone 50mcg/[place] Nasal 16gm EA NOSTRIL DAILY PRN Allergy Symptoms Furosemide 20 mg 05/11/20 09:00 Furosemide 20 Mg Tab PO DAILY [facility] Heparin Sodium/Sodium Chloride 250 mls @ 9.961 mls/hr 05/10/20 09:45 05/10/20 19:10 25,000 unit/ Sodium Chloride IV 12 units/kg/hr .Q24H [facility] 9.961 mls/hr Titration Protocol 12 UNITS/KG/HR Levothyroxine Sodium 150 mcg 05/11/20 06:30 05/11/20 06:13 Levothyroxine 75 Mcg Tab PO 150 mcg DAILY@0630 [facility] Administration Metoprolol Tartrate 37.5 mg 05/10/20 21:00 05/10/20 19:54 Metoprolol Tartrate 25 Mg Tab PO 37.5 mg BID [facility] Administration Nitroglycerin 0.4 mg 05/10/20 09:58 Nitroglycerin Sl Tabs 0.4 Mg Tab SUBLINGUAL Q5M PRN Chest Pain Nitroglycerin 1 inch 05/10/20 12:00 05/11/20 06:12 Nitroglycerin Oint 1 Inch/Gm Packet TOPICAL Not Given Q6HR [facility] Intake and Output 05/10/20 05/11/20 05/11/20 22:59 06:59 14:59 Intake Total 83.174 Balance 83.174 Intake: Intake, IV Titration 83.174 Amount Heparin Sod,Pork in 0.45% 83.174 NaCl 25,000 unit In 0.45 % NaCl 1 250ml.bag @ 12 UNITS/KG/HR 9.961 mls/hr IV .Q24H [facility] Rx#: [id number] Other: # Voids 1 1 05/10/20 07:58 05/10/20 07:58 Assessment and Plan Assessment: Assessment #1 atypical chest discomfort #2 known CAD and status post CABG as described above #3 orthostatic hypertension #4 possible mass in the right atrium Plan #1 acute coronary event was ruled out #2 pulmonary embolism was ruled out #3 aortic dissection was ruled out #4 obtain a copy of the stress test from the office which was performed in January #5 monitor the patient for arrhythmia overnight #6 lower the dose of metoprolol #7 he needs to have a ALLISON down the line #8 follow-up with the patient
[2020-05-11] MEDS ORDERED: FUROSEMIDE 20 MG TAB PO SCH (09:00)
[2020-05-11] MEDS ORDERED: ASPIRIN 325 MG TAB PO SCH (09:00)
[2020-05-11] MEDS: ATORVASTATIN 40 MG TAB PO SCH (09:49)
[2020-05-11] MEDS: METOPROLOL TARTRATE 12.5 MG TAB PO SCH ×2 (09:49→21:29)
--- NOTE | 2020-05-11 17:04 | P.PN ---
Subjective Progress Note Date: 05/11/20 Patient doing well today. He denies any chest pain. His blood pressure is borderline low this morning. Objective - Vital Signs Vital signs: Vital Signs Temp 97.5 F L 05/11/20 14:38 Pulse 72 05/11/20 14:38 Resp 16 05/11/20 14:38 BP 94/60 05/11/20 14:38 Pulse Ox 94 L 05/11/20 14:38 Intake & Output 05/10/20 05/11/20 05/11/20 18:59 06:59 18:59 Intake Total 83.174 250 Balance 83.174 250 Weight 83.007 kg Intake: Intake, IV Titration 83.174 Amount Heparin Sod,Pork in 0.45% 83.174 NaCl 25,000 unit In 0.45 % NaCl 1 250ml.bag @ 12 UNITS/KG/HR 9.961 mls/hr IV .Q24H [facility] Rx#: [id number] Oral 250 Other: # Voids 3 1 1 - Exam General: The patient is awake and alert, in no distress Eye: there is normal conjunctiva bilaterally. Neck: The neck is supple, there is no JVD. Cardiovascular: Normal S1-S2, no S3-S4, no murmurs. Respiratory: Lungs clear to auscultation bilaterally Gastrointestinal: Abdomen is soft, nontender Musculoskeletal: There is no pedal edema. Neurological:. Speech is normal. Skin: Skin is warm and dry - Labs CBC & Chem 7: 05/10/20 07:58 05/10/20 07:58 Labs: Abnormal Lab Results - Last 24 Hours (Table) 05/10/20 05/11/20 Range/Units 18:29 06:54 APTT 46.4 H 47.9 H (22.0-30.0) sec Assessment and Plan Assessment: This is a 55-year-old male with past medical history noted below who presented to the emergency room with chest pain. Patient was evaluated and placed on observation for further management of his medical problems noted below. 1. Chest pain, with typical and atypical features. 12-lead EKG showed no acute ischemic changes. Troponin negative 2 sets. Patient was started on IV heparin drip awaiting cardiology evaluation. 2. 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 Seen and evaluated by cardiology. Plan for ALLISON 3. History of coronary artery disease status post CABG in October 2018, continue medical management 4. Hypothyroidism on levothyroxin 5. Hyperlipidemia on Lipitor 6. Borderline low blood pressure, total dose decreased to 12.5 twice daily
[2020-05-11] MEDS: HEPARIN SOD,PORK IN 0.45% NACL 25,000 UNIT in 0.45% NACL 1 250ML.BAG IV SCH (19:44)
[2020-05-12] MEDS: NITROGLYCERIN OINT 1 INCH/GM PACKET TOPICAL SCH ×2 (00:33→06:22)
[2020-05-12] MEDS: LEVOTHYROXINE 75 MCG TAB PO SCH (06:21)
[2020-05-12 08:18] VITALS: BP 108/68; PULSE 70; TEMP 97.4
[2020-05-12] MEDS: METOPROLOL TARTRATE 12.5 MG TAB PO SCH (09:11)
[2020-05-12] MEDS: ATORVASTATIN 40 MG TAB PO SCH (09:11)
--- NOTE | 2020-05-12 09:11 | P.PN ---
Subjective This is a pleasant 55-year-old male past medical history significant for coronary artery disease status post three-vessel bypass grafting October 2018, dyslipidemia, hypothyroidism and hypertension. He follows in the office with Dr. Thomson. He is seen and examined resting comfortably lying flat in bed in no acute distress. He denies any further symptoms of chest discomfort, shortness of breath, palpitations or dizziness. Stress test from the office was reviewed. He had a Lexiscan stress test in November 2019 revealing no evidence of s tress-induced ischemia. Telemetry tracings have been unremarkable. Blood pressure 108/68 heart rate 70 afebrile maintaining oxygen saturation on room air. Orthostatic vital signs are unremarkable. His asymptomatic with position changes. Currently maintained on aspirin 325 mg daily, atorvastatin 40 mg daily and decrease dose of metoprolol 12.5 mg twice a day. GENERAL: Well-appearing, well-nourished and in no acute distress. NECK: Supple without JVD or thyromegaly. LUNGS: Breath sounds clear to auscultation bilaterally. Respiration equal and unlabored. No wheezes, rales or rhonchi. HEART: Regular rate and rhythm without murmurs, rubs or gallops. S1 and S2 heard. EXTREMITIES: Normal range of motion, no edema. No clubbing or cyanosis. Peripheral pulses intact. ASSESSMENT Chest pain, atypical Orthostatic hypotension, resolved Coronary artery disease status post bypass grafting Dyslipidemia PLAN Stable from a cardiac perspective. Can be discharged home on decreased dose of metoprolol. Follow-up in the office with Dr. Thomson in one to 2 weeks. Nurse Practitioner note has been reviewed, I agree with a documented findings and plan of care. Patient was seen and examined. Objective - Vital Signs Vital signs: Vital Signs Temp 97.4 F L 05/12/20 08:16 Pulse 70 05/12/20 08:16 Resp 16 05/12/20 08:16 BP 108/68 05/12/20 08:16 Pulse Ox 96 05/12/20 08:16 Intake & Output 05/11/20 05/12/20 05/12/20 18:59 06:59 18:59 Intake Total 250 Balance 250 Intake: Oral 250 Other: # Voids 1 0 - Labs CBC & Chem 7: 05/10/20 07:58 05/10/20 07:58
--- NOTE | 2020-05-12 09:12 | P.DS ---
Providers Date of admission: 05/10/20 09:58 Expected date of discharge: 05/12/20 Attending physician: Dario Porras Consults: 05/10/20 09:58 Consult Physician Urgent Consulting Provider: [facility] Consult Reason/Comments: Unstable angina Do you want consulting provider notified?: Yes Primary care physician: Ana Rivera DO Hospital Course: This is a 55-year-old male with past medical history noted below who presented to the emergency room with chest pain. Patient was evaluated and placed on observation for further management of his medical problems noted below. 1. Chest pain, with typical and atypical features. 12-lead EKG showed no acute ischemic changes. Troponin negative 2 sets. Patient was ruled out for ACS and aortic dissection. He was seen and evaluated by cardiology. Cleared for discharge home. 2. 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 Seen and evaluated by cardiology. Plan for ALLISON in the near future 3. History of coronary artery disease status post CABG in October 2018, continue medical management 4. Hypothyroidism on levothyroxin 5. Hyperlipidemia on Lipitor 6. Borderline low blood pressure, metoprolol dose decreased to 12.5 twice daily. Blood pressure improved. Cortisol level sent and pending. Patient will follow-up with his PCP for result. Patient will be discharged home in a stable condition. For further details about this hospitalization please refer to the electronic chart. Time spent on discharge > 30 minutes including counseling and coordination of Patient Condition at Discharge: Fair Plan - Discharge Summary Discharge Rx Participant: No New Discharge Prescriptions: New Metoprolol Tartrate [Lopressor] 12.5 mg PO BID #60 tab Continue Vit C/E/Zn/Coppr/Lutein/Zeaxan [Preservision Areds 2 Softgel] 1 cap PO BID Atorvastatin [Lipitor] 40 mg PO DAILY #30 tab Levothyroxine Sodium [Synthroid] 150 mcg PO DAILY Furosemide [Lasix] 20 mg PO DAILY Fluticasone Nasal [place] [Flonase Nasal [place]] 1 spray EA NOSTRIL DAILY PRN PRN Reason: Allergy Symptoms Albuterol Sulfate [Ventolin HFA] 1 - 2 puff INHALATION RT-QID PRN PRN Reason: Shortness Of Breath Discontinued Metoprolol Tartrate [Lopressor] 37.5 mg PO BID Discharge Medication List Vit C/E/Zn/Coppr/Lutein/Zeaxan [Preservision Areds 2 Softgel] 1 cap PO BID 10/27/18 [History] Atorvastatin [Lipitor] 40 mg PO DAILY #30 tab 11/09/18 [Rx] Albuterol Sulfate [Ventolin HFA] 1 - 2 puff INHALATION RT-QID PRN 05/10/20 [History] Fluticasone Nasal [place] [Flonase Nasal [place]] 1 spray EA NOSTRIL DAILY PRN 05/10/20 [History] Furosemide [Lasix] 20 mg PO DAILY 05/10/20 [History] Levothyroxine Sodium [Synthroid] 150 mcg PO DAILY 05/10/20 [History] Metoprolol Tartrate [Lopressor] 12.5 mg PO BID #60 tab 05/12/20 [Rx] Follow up Appointment(s)/Referral(s): Ana Rivera DO [Primary Care Provider] - 1-2 days Discharge Disposition: HOME SELF-CARE
[2020-05-13] MEDS ORDERED: ASPIRIN 81 MG PO SCH (09:00)
== END 2020-05-12 14:18 | disposition home or self-care (01) ==
LOC: EC 07:06 → 3NCARDOBS 09:58
PROVIDERS: ADMIT Internal Medicine; ATTEND Internal Medicine
DX: R07.89 Other chest pain (principal); M54.9 Dorsalgia, unspecified; I95.1 Orthostatic hypotension; Z95.1 Presence of aortocoronary bypass graft; R06.02 Shortness of breath; I25.10 Atherosclerotic heart disease of native coronary artery without angina pectoris; E78.5 Hyperlipidemia, unspecified; I10 Essential (primary) hypertension; E06.3 Autoimmune thyroiditis; T38.1X6A Underdosing of thyroid hormones and substitutes, initial encounter; Z91.128 Patient's intentional underdosing of medication regimen for other reason; H91.91 Unspecified hearing loss, right ear; M54.81 Occipital neuralgia; Z79.899 Other long term (current) drug therapy; Z79.82 Long term (current) use of aspirin; Z79.02 Long term (current) use of antithrombotics/antiplatelets; Z79.890 Hormone replacement therapy; Z88.5 Allergy status to narcotic agent; Z88.7 Allergy status to serum and vaccine; Z91.030 Bee allergy status; Z91.041 Radiographic dye allergy status; Z87.891 Personal history of nicotine dependence; T78.40XA Allergy, unspecified, initial encounter; Z82.49 Family history of ischemic heart disease and other diseases of the circulatory system; Z83.3 Family history of diabetes mellitus; Z82.5 Family history of asthma and other chronic lower respiratory diseases; Z83.6 Family history of other diseases of the respiratory system
CPT/HCPCS: 93005 ×2; 96366 ×2; 96376; 96365; 96375; 99291; 36415; 93306; 80061; 80053; 82533; 83735; 84484; 85025; 85610; 85730 ×3; 71275; 74174; G0378 ×3; J1200; J1644 ×2; J2930; J2405; Q9967

== ENCOUNTER 2020-08-02 10:45 | Observation (INO) | payer BC ==
[2020-08-02] MEDS ORDERED: ASPIRIN 81 MG PO STA (10:59)
--- NOTE | 2020-08-02 11:10 | ED ---
Chest Pain HPI - General Chief Complaint: Chest Pain Stated Complaint: Chest Pain Time Seen by Provider: 08/02/20 10:52 Source: patient, RN notes reviewed Mode of arrival: ambulatory Limitations: no limitations - History of Present Illness Initial Comments: This is a 55-year-old male presents emergency Department chief complaint of chest pain. Patient states he has just been lasting resolved and returned this morning. Patient states it's left-sided and radiates to his shoulder region. Patient denies any current complaints of back pain or shortness of breath. Patient did have CABG by Dr.Azoury colin in 2018. Patient states he was having issues of chest pain in April and they discussed doing a heart cath but was sent home at that time. Patient states he sees Dr. Wolf. Patient states he has extensive cardiac history. Patient is has a history of hypertension hyperlipidemia. Denies any leg pain leg swelling. - Related Data Home Medications Medication Instructions Recorded Confirmed Vit C/E/Zn/Coppr/Lutein/Zeaxan 1 cap PO BID 10/27/18 08/02/20 [Preservision Areds 2 Softgel] Albuterol Sulfate [Ventolin HFA] 1 - 2 puff INHALATION RT-QID PRN 05/10/20 08/02/20 Fluticasone Nasal [place] [Flonase 1 spray EA NOSTRIL DAILY PRN 05/10/20 08/02/20 Nasal [place]] Furosemide [Lasix] 20 mg PO DAILY 05/10/20 08/02/20 Levothyroxine Sodium [Synthroid] 150 mcg PO DAILY 05/10/20 08/02/20 Aspirin EC [Ecotrin Low Dose] 81 mg PO HS 08/02/20 08/02/20 Atorvastatin [Lipitor] 40 mg PO HS 08/02/20 08/02/20 Metoprolol Tartrate [Lopressor] 1.25 mg PO BID 08/02/20 08/02/20 Allergies Allergy/AdvReac Type Severity Reaction Status Date / Time Iodinated Contrast Media Allergy Itching Verified 08/02/20 12:01 [Iodinated Contrast- Oral and IV Dye] tetanus and diphtheria Allergy Swelling Verified 08/02/20 12:01 toxoids [tetanus & diphtheria toxoids] venom-honey bee Allergy Anaphylaxis Verified 08/02/20 12:01 [bee venom (honey bee)] codeine AdvReac Abdominal Verified 08/02/20 12:01 Pain Review of Systems ROS Statement: Those systems with pertinent positive or pertinent negative responses have been documented in the HPI. ROS Other: All systems not noted in ROS Statement are negative. 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, Vertigo, occipital neuralgia,leaky heart valve History of Any Multi-Drug Resistant Organisms: None Reported Past Surgical History: Adenoidectomy, Coronary Bypass/CABG, Orthopedic Surgery, Tonsillectomy Additional Past Surgical History / Comment(s): Left knee arthroscopy, hydrocele surgery Past Anesthesia/Blood Transfusion Reactions: No Reported Reaction Past Psychological History: No Psychological Hx Reported Smoking Status: Former smoker Past Alcohol Use History: None Reported Past Drug Use History: None Reported - Past Family History Mother Family Medical History: Diabetes Mellitus, Hypertension Additional Family Medical History / Comment(s): Mother is living. Father Family Medical History: COPD, Hypertension Additional Family Medical History / Comment(s): Father is 81 yrs old. Sister(s) Family Medical History: Coronary Artery Disease (CAD) Additional Family Medical History / Comment(s): 53 yr old sister has CAD with stents and pulmonary fibrosis. General Exam Limitations: no limitations General appearance: alert, in no apparent distress Head exam: Present: atraumatic, normocephalic, normal inspection Eye exam: Present: normal appearance, PERRL, EOMI. Absent: scleral icterus, conjunctival injection, periorbital swelling ENT exam: Present: normal exam, mucous membranes moist Neck exam: Present: normal inspection, full ROM. Absent: tenderness, meningismus, lymphadenopathy Respiratory exam: Present: normal lung sounds bilaterally, prolonged expiratory. Absent: respiratory distress, wheezes, rales, rhonchi, stridor, decreased breath sounds Cardiovascular Exam: Present: regular rate, normal rhythm, normal heart sounds. Absent: systolic murmur, diastolic murmur, rubs, gallop, clicks GI/Abdominal exam: Present: soft, tenderness (Minimal), normal bowel sounds. Absent: distended, guarding, rebound, rigid Extremities exam: Present: other (Distal pulses are equal bilaterally +2). Absent: pedal edema, calf tenderness Course Vital Signs 08/02/20 08/02/20 08/02/20 10:49 11:38 12:34 Temperature 98.4 F Pulse Rate 73 75 Respiratory 18 18 Rate Blood Pressure 137/84 111/75 O2 Sat by Pulse 98 93 L 96 Oximetry 08/02/20 12:36 Temperature Pulse Rate 77 Respiratory 18 Rate Blood Pressure 105/72 O2 Sat by Pulse 98 Oximetry Chest Pain MDM - MDM Case discussed with Dr. Lu. Patient be admitted for cardiac rule out. Patient with consult to his refund specialist Dr. Wolf. Initial troponin is negative, lab work otherwise unremarkable EKG some reveal any acute changes at this point. Disposition Clinical Impression: Chest pain Disposition: ADMITTED IP TO THIS [facility] Condition: Fair Referrals: Nonstaff,Physician [Primary Care Provider] - 1-2 days
[2020-08-02 11:23] LABS: Basophils # (A) 0.1 k/uL (0-0.2); Basophils % (A) 1 %; Eosinophils # (A) 0.4 k/uL (0-0.7); Eosinophils % (A) 5 %; HCT 42.9 % (39.0-53.0); HGB 14.7 gm/dL (13.0-17.5); Lymphocytes # (A) 1.7 k/uL (1.0-4.8); Lymphocytes % (A) 22 %; MCH 28.6 pg (25.0-35.0); MCHC 34.2 g/dL (31.0-37.0); MCV 83.7 fL (80.0-100.0); Mean Platelet Volume 6.7; Monocytes # (A) 0.5 k/uL (0-1.0); Monocytes % (A) 6 %; Neutrophils % (A) 64 %; Platelet Count 267 k/uL (150-450); RBC 5.13 m/uL (4.30-5.90); RDW 13.6 % (11.5-15.5); WBC 7.8 k/uL (3.8-10.6)
[2020-08-02 11:33] LABS: Partial Thromboplastin Time 23.2 sec (22.0-30.0); Prothrombin Time 10.8 sec (9.0-12.0)
[2020-08-02 11:34] LABS: ALT 46 U/L (4-49); AST 31 U/L (17-59); African American GFR (CKD) >90 (>60 ml/min/1.73 sqM); Albumin 4.2 g/dL (3.5-5.0); Alkaline Phosphatase 98 U/L (38-126); Anion Gap 8 mmol/L; Blood Urea Nitrogen 11 mg/dL (9-20); Calcium 9.3 mg/dL (8.4-10.2); Carbon Dioxide 23 mmol/L (22-30); Chloride 104 mmol/L (98-107); Glucose 139 mg/dL (74-99); Lipase 90 U/L (23-300); Non-African American GFR(CKD) >90 (>60 ml/min/1.73 sqM); Potassium 4.3 mmol/L (3.5-5.1); Sodium 135 mmol/L (137-145); Total Bilirubin 0.4 mg/dL (0.2-1.3); Total Protein 6.9 g/dL (6.3-8.2)
--- NOTE | 2020-08-02 12:05 | XR ---
EXAMINATION TYPE: XR chest 2V DATE OF EXAM: 08/02/2020 COMPARISON: 11/09/2018 HISTORY: Shortness of breath TECHNIQUE: Frontal and lateral views of the chest are obtained. FINDINGS: Scattered senescent parenchymal changes noted. Hyperinflation compatible with COPD. No evidence for infiltrate. No evidence for atelectasis. Heart size is stable. Mediastinal structures are stable and grossly unremarkable. No evidence for hilar prominence. Degenerative changes dorsal spine. IMPRESSION: 1. No evidence for acute pulmonary disease.
[2020-08-02] MEDS ORDERED: HEPARIN SODIUM,PORCINE 5,000 UNIT/ML 1 ML VIAL IV ONE (12:41)
[2020-08-02] MEDS ORDERED: HEPARIN SODIUM,PORCINE 5,000 UNIT/ML 1 ML VIAL IV PRN (12:41)
[2020-08-02] MEDS ORDERED: NITROGLYCERIN SL TABS 0.4 MG TAB SUBLINGUAL PRN (12:41)
[2020-08-02] MEDS ORDERED: HEPARIN SOD,PORK IN 0.45% NACL 25,000 UNIT in 0.45% NACL 1 250ML.BAG IV SCH (13:30)
[2020-08-02] MEDS ORDERED: ALBUTEROL NEBULIZED 2.5 MG/3 ML INHALATION PRN (14:52)
[2020-08-02] MEDS ORDERED: FLUTICASONE 50MCG/SPRAY NASAL 16GM EA NOSTRIL PRN (14:52)
[2020-08-02] MEDS: VIT A,C & E-LUTEIN-MINERALS 1 EACH TAB PO SCH (15:28)
--- NOTE | 2020-08-02 16:31 | HP ---
HISTORY AND PHYSICAL DATE OF SERVICE: 08/02/2020 CHIEF COMPLAINTS: Chest pain. HISTORY OF PRESENT ILLNESS: This 55-year-old gentleman with a past history of hypertension, hyperlipidemia, hypothyroidism, history of CAD, CABG being followed previously by Dr. Cheng Hardin in the outpatient setting is complaining of chest pain. The pain was located in the front of the chest, left and right, radiated to the left shoulder as well as to be to the back, which is constricting in character. The patient came to [facility] for the further evaluation and treatment. The patient is followed by Dr. Wolf in the outpatient setting. The patient took 3 aspirins. Patient is complaining of some dizziness also. There is no history of fever, rigors, chills. No headache, loss of consciousness, seizures. PAST MEDICAL HISTORY: 1. History of CAD. 2. CABG. 3. Hypertension. 4. Hyperlipidemia. 5. Hypothyroidism. 6. Brenda's disease. MEDICATIONS: Vitamin C, zinc, metoprolol, Synthroid, Lasix, Flonase, Lipitor, Ecotrin, Ventolin. Doses reviewed. ALLERGIES: IODINATED CONTRAST DYES, HONEY BEE VENOM, CODEINE. FAMILY HISTORY: History of diabetes, cancer, hypertension, lung cancer. SOCIAL HISTORY: Previous history of smoking. Occasional alcohol intake. REVIEW OF SYSTEMS: ENT: No diminished vision or hearing. CARDIOVASCULAR: As mentioned earlier. RESPIRATORY: As mentioned earlier. GI: No nausea or vomiting. : No dysuria. NERVOUS SYSTEM: No numbness or weakness. ALLERGY/IMMUNOLOGY: No asthma or hayfever. MUSCULOSKELETAL: As mentioned earlier. HEMATOLOGY: No history of anemia. ENDOCRINE: Hypothyroidism. CONSTITUTIONAL: As mentioned earlier. DERMATOLOGY: Negative. RHEUMATOLOGY: Negative. PSYCHIATRY: As mentioned earlier. PHYSICAL EXAMINATION: GENERAL: Patient is alert and oriented times three. VITAL SIGNS: Pulse 77, blood pressure 130/70, respirations 18, temperature 97.2, pulse ox 98% on room air. HEENT: Conjunctivae normal. Oral mucosa moist. NECK: No jugular venous distention. No carotid bruits. No lymph node enlargement. RESPIRATORY: Breath sounds diminished at the bases. No rhonchi, no crackles. HEART: S1 and S2, muffled. ABDOMEN: Soft, no tenderness. No masses palpable. EXTREMITIES: No edema, no swelling. NERVOUS: Higher functions as mentioned earlier. Moves all four limbs. No focal motor or sensory deficits. LYMPHATICS: No lymph nodes palpable in the neck or axillae. SKIN: No rashes. JOINTS: No active deforming arthropathy. LABS: CBC showing sodium 135, glucose 139. EKG which was reviewed personally by me and showed normal sinus rhythm, minimal ST-T changes. ASSESSMENT: 1. Chest pain, possible unstable angina. 2. History of coronary artery disease, coronary artery bypass grafting. 3. Hypertension. 4. Hyperlipidemia. 5. Hypothyroidism. 6. History of Brenda's thyroiditis. 7. History of vertigo. 8. Occipital neuralgia. 9. History of tonsillectomy. 10.Remote history of nicotine dependence. 11.Obesity, body mass of 32.6. 12.FULL CODE. RECOMMENDATIONS AND DISCUSSION: This 55-year-old woman presents with multiple complex medical issues, we will monitor the patient closely. Unstable angina protocol, IV heparin. Otherwise I would also recommend Cardiology consultation. Guarded prognosis because of multiple complex medical issues and further recommendations to follow. MMODL / IJN: [id number] /
[2020-08-02 16:40] LABS: Appearance,Urine Clear (Clear); Bilirubin,Urine Negative (Negative); Blood,Urine Negative (Negative); Color,Urine Light Yellow; Glucose,Urine (UA) Negative (Negative); Ketones,Urine Negative (Negative); Leukocyte Esterase,Urine Negative (Negative); Nitrite,Urine Negative (Negative); Protein,Urine Negative (Negative); Specific Gravity,Urine 1.008 (1.001-1.035); Urobilinogen,Urine <2.0 mg/dL (<2.0)
[2020-08-02] MEDS: METOPROLOL TARTRATE 12.5 MG TAB PO SCH (21:02)
[2020-08-02] MEDS: ATORVASTATIN 40 MG TAB PO SCH (21:02)
[2020-08-02] MEDS: ASPIRIN 81 MG PO SCH (21:02)
[2020-08-03 04:51] LABS: Basophils # (A) 0.1 k/uL (0-0.2); Basophils % (A) 1 %; Eosinophils # (A) 0.5 k/uL (0-0.7); Eosinophils % (A) 7 %; HCT 41.2 % (39.0-53.0); Lymphocytes # (A) 2.3 k/uL (1.0-4.8); Lymphocytes % (A) 30 %; MCH 28.8 pg (25.0-35.0); MCV 84.8 fL (80.0-100.0); Mean Platelet Volume 6.9; Monocytes # (A) 0.4 k/uL (0-1.0); Monocytes % (A) 6 %; Neutrophils # (A) 4.1 k/uL (1.3-7.7); Neutrophils % (A) 54 %; Platelet Count 237 k/uL (150-450); RBC 4.87 m/uL (4.30-5.90); RDW 13.8 % (11.5-15.5); WBC 7.5 k/uL (3.8-10.6)
[2020-08-03] MEDS: LEVOTHYROXINE 75 MCG TAB PO SCH (05:33)
[2020-08-03] MEDS: VIT A,C & E-LUTEIN-MINERALS 1 EACH TAB PO SCH (08:37)
[2020-08-03] MEDS: FUROSEMIDE 20 MG TAB PO SCH (08:37)
[2020-08-03] MEDS: METOPROLOL TARTRATE 12.5 MG TAB PO SCH ×2 (08:38→21:48)
[2020-08-03] MEDS ORDERED: ASPIRIN 325 MG TAB PO SCH (09:00)
[2020-08-03] MEDS ORDERED: MORPHINE SULFATE 4 MG/ML SYRINGE IVP PRN (10:16)
[2020-08-03 11:07] LABS: African American GFR (CKD) 116.6 (60.0-200.0); Anion Gap 7.2 mmol/L (4.00-12.00); BUN/Creat Ratio 16.25 Ratio (12.00-20.00); Calcium 8.9 mg/dL (8.7-10.3); Carbon Dioxide 26.8 mmol/L (21.6-31.8); Chol/HDL Ratio 3.96; LDL Cholesterol,Calculated 55.4 mg/dL (0.0-131.0); Non-African American GFR(CKD) 100.6 (60.0-200.0); Potassium 4.1 mmol/L (3.5-5.5); VLDL Calculation 27.6 mg/dL (5.00-40.00)
--- NOTE | 2020-08-03 12:06 | P.CRDCN ---
History of Present Illness Consult date: 08/03/20 History of present illness: CHIEF COMPLAINT: Chest pain HISTORY OF PRESENT ILLNESS: This is a 55-year-old male with a past medical history significant for hypertension, hyperlipidemia, and coronary artery disease with previous CABG 3 in 2018. Patient follows in the office with Dr. Wolf. We have been asked to see the patient in consultation for chest pain. Patient examined this morning at the bedside. Patient states 2 nights ago he was sleeping when he was awoken with chest pain. He states the pain was in the left upper part of his chest and went into his back and down his left arm. He states the pain lasted for about 20 seconds and then went away. He went back to sleep but was awoken again once more with similar symptoms which again lasted about 20 seconds. Patient states he has also been feeling dizzy for the last couple of days. Patient states these symptoms were similar to when he had his open heart surgery which concerned him so he came to the hospital for further evaluation. At the time of examination this morning, the patient is not having chest pain or pressure. Patient was hospitalized in April 2020 for chest pain. 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 ALLISON was recommended. Patient states he was scheduled for a outpatient ALLISON but his sister became sick and he had to cancel this and has not rescheduled it. It is noted from previous cardiac consultation the patient was previously on losartan which was stopped secondary to hypotension. Additionally, the patient underwent Lexiscan stress test in November 2019 at the cardiology office which was negative for ischemia. Echocardiogram performed in April 2020 revealing ejection fraction 50-55% DIAGNOSTICS: EKG reveals sinus mechanism with no signs of acute ischemia Chest xray negative for acute process Laboratory data: WBC is 7.5. Hemoglobin 14.0. Platelet count 237. Sodium 139. Potassium 4.1. BUN 13. Creatinine 0.8. Current home cardiac medications include metoprolol 12.5 mg twice a day, Lasix 20 mg daily, Lipitor 40 mg daily, aspirin 81 mg daily REVIEW OF SYSTEMS: At the time of my exam: CONSTITUTIONAL: Denies fever or chills. HEENT: Denies blurred vision, vision changes, or eye pain. Denies hemoptysis CARDIOVASCULAR: Denies chest pain, orthopnea, PND or palpitations RESPIRATORY: No shortness of breath. GASTROINTESTINAL: Denies abdominal pain. Denies nausea or vomiting. HEMATOLOGIC: Denies bleeding disorders. GENITOURINARY: Denies any blood in urine. SKIN: Denies pruitis. Denies rash. PHYSICAL EXAM: VITAL SIGNS: Reviewed. GENERAL: Well-developed in no acute distress. HEENT: Head is normocephalic. Pupils are equal, round. Sclerae anicteric. Mucous membranes of the mouth are moist. Neck supple. No JVD or thyromegaly LUNGS: Respirations even and unlabored. Lungs essentially clear to auscultation bilaterally. HEART: Regular rate and rhythm. S1 and S2 heard. ABDOMEN: Soft. Nondistended. Nontender. EXTREMITIES: Normal range of motion. No clubbing or cyanosis. Peripheral pulses intact. No lower extremity edema NEUROLOGIC: Awake and alert. Oriented x 3. 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 Wolf tomorrow. Additionally, possible cardiac cath to be performed tomorrow. Will defer decision of cardiac cath to Dr. Wolf. Further recommendations pending patient's course Nurse practitioner note has been reviewed by physician. Signing provider agrees with the documented findings, assessment, and plan of care. 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 He is independent. He uses no assistive device. He drives. He has alittle clauste rphobia. Smoking Status: Former smoker Past Alcohol Use History: None Reported Additional Past Alcohol Use History / Comment(s): Pt states he smoked less than a ppd for approximately 10-11 yrs. He quit smoking 2014. Past Drug Use History: None Reported - Past Family History Mother Family Medical History: Cancer, Diabetes Mellitus, Hypertension Additional Family Medical History / Comment(s): Lung cancer Father Family Medical History: COPD, Dementia, Hypertension Additional Family Medical History / Comment(s): Father is 81 yrs old. Sister(s) Family Medical History: Coronary Artery Disease (CAD) Additional Family Medical History / Comment(s): 53 yr old sister has CAD with stents and pulmonary fibrosis. Medications and Allergies Home Medications Medication Instructions Recorded Confirmed Type Vit C/E/Zn/Coppr/Lutein/Zeaxan 1 cap PO BID 10/27/18 08/02/20 History [Preservision Areds 2 Softgel] Albuterol Sulfate [Ventolin HFA] 1 - 2 puff INHALATION RT-QID PRN 05/10/20 08/02/20 History Fluticasone Nasal [place] [Flonase 1 spray EA NOSTRIL DAILY PRN 05/10/20 08/02/20 History Nasal [place]] Furosemide [Lasix] 20 mg PO DAILY 05/10/20 08/02/20 History Levothyroxine Sodium [Synthroid] 150 mcg PO DAILY 05/10/20 08/02/20 History Aspirin EC [Ecotrin Low Dose] 81 mg PO HS 08/02/20 08/02/20 History Atorvastatin [Lipitor] 40 mg PO HS 08/02/20 08/02/20 History Metoprolol Tartrate [Lopressor] 12.5 mg PO BID 08/02/20 08/02/20 History Allergies Allergy/AdvReac Type Severity Reaction Status Date / Time Iodinated Contrast Media Allergy Itching Verified 08/02/20 12:01 [Iodinated Contrast- Oral and IV Dye] tetanus and diphtheria Allergy Swelling Verified 08/02/20 12:01 toxoids [tetanus & diphtheria toxoids] venom-honey bee Allergy Anaphylaxis Verified 08/02/20 12:01 [bee venom (honey bee)] codeine AdvReac Abdominal Verified 08/02/20 12:01 Pain Physical Exam Vitals: Vital Signs Temp Pulse Pulse Pulse Pulse Pulse Resp 08/03/20 10:43 97 18 08/03/20 07:44 98.4 F 78 19 02/07/21 01:40 97.5 F L 76 08/02/20 19:00 97.7 F 75 85 86 75 08/02/20 13:53 97.5 F L 66 18 08/02/20 13:41 98.4 F 77 18 08/02/20 12:36 77 18 08/02/20 12:34 BP BP BP BP BP Pulse Ox 08/03/20 10:43 127/73 97 08/03/20 07:44 104/69 94 L 08/03/20 01:40 106/70 96 08/02/20 19:00 117/73 121/82 115/73 115/73 94 L 08/02/20 13:53 123/79 98 08/02/20 13:41 105/72 98 08/02/20 12:36 105/72 98 08/02/20 12:34 96 Intake and Output 08/02/20 08/03/20 08/03/20 22:59 06:59 14:59 Intake Total 563.167 Balance 563.167 Intake: Intake, IV Titration 73.167 Amount Heparin Sod,Pork in 0.45% 73.167 NaCl 25,000 unit In 0.45 % NaCl 1 250ml.bag @ 11. 603 UNITS/KG/HR 10 mls/hr IV .Q24H [facility] Rx#: [id number] Oral 490 Other: Voiding Method Toilet # Voids 2 Results 08/03/20 03:39 08/03/20 03:39 Cardiac Enzymes 08/02/20 08/02/20 08/02/20 Range/Units 11:14 14:37 17:17 Troponin I <0.012 <0.012 <0.012 (0.000-0.034) ng/mL Coagulation 08/02/20 08/03/20 Range/Units 19:55 03:39 APTT 38.7 H 61.2 H (22.0-30.0) sec Lipids 08/03/20 Range/Units 03:39 Triglycerides 138.0 (0.0-149.0) mg/dL Cholesterol 111 (0-200) mg/dL HDL Cholesterol 28.0 L (40.0-60.0) mg/dL Cholesterol/HDL Ratio 3.96 CBC 08/03/20 Range/Units 03:39 WBC 7.5 (3.8-10.6) k/uL RBC 4.87 (4.30-5.90) m/uL Hgb 14.0 (13.0-17.5) gm/dL Hct 41.2 (39.0-53.0) % Plt Count 237 (150-450) k/uL Comprehensive Metabolic Panel 08/03/20 Range/Units 03:39 Sodium 139 (135-145) mmol/L Potassium 4.1 (3.5-5.5) mmol/L Chloride 105 (96-109) mmol/L Carbon Dioxide 26.8 (21.6-31.8) mmol/L BUN 13.0 (9.0-27.0) mg/dL Creatinine 0.8 (0.6-1.5) mg/dL Glucose 122 H (70-110) mg/dL Calcium 8.9 (8.7-10.3) mg/dL Current Medications Generic Name Dose Route Start Last Admin Trade Name Freq PRN Reason Stop Dose Admin Albuterol Sulfate 2.5 mg 08/02/20 14:52 Albuterol Nebulized 2.5 Mg/3 Ml INHALATION RT-QID PRN Shortness Of Breath Aspirin 81 mg 08/02/20 21:00 08/02/20 21:02 Aspirin 81 Mg PO 81 mg HS KHOA Administration Atorvastatin Calcium 40 mg 08/02/20 21:00 08/02/20 21:02 Atorvastatin 40 Mg Tab PO 40 mg HS KHOA Administration Fluticasone Propionate 1 spray 08/02/20 14:52 Fluticasone 50mcg/[place] Nasal 16gm EA NOSTRIL DAILY PRN Allergy Symptoms Furosemide 20 mg 08/03/20 09:00 08/03/20 08:37 Furosemide 20 Mg Tab PO 20 mg DAILY KHOA Administration Heparin Sodium (Porcine) 0 unit 08/02/20 12:41 08/02/20 21:02 Heparin Sodium,Porcine 5,000 Unit/Ml 1 Ml Vial IV 2,154 unit Q6HR PRN Administration Low PTT Protocol Levothyroxine Sodium 150 mcg 08/03/20 06:30 08/03/20 05:33 Levothyroxine 75 Mcg Tab PO 150 mcg DAILY@0630 KHOA Administration Metoprolol Tartrate 12.5 mg 08/02/20 21:00 08/03/20 08:38 Metoprolol Tartrate 12.5 Mg Tab PO Not Given BID [facility] Morphine Sulfate 4 mg 08/03/20 10:16 08/03/20 10:23 Morphine Sulfate 4 Mg/Ml Syringe IVP 4 mg Q6HR PRN Administration Pain Multivitamins/Minerals 1 each 08/02/20 09:00 08/03/20 08:37 Vit A,C & M-[id number] 1 Each Tab PO 1 each DAILY KHOA Administration Nitroglycerin 0.4 mg 08/02/20 12:41 Nitroglycerin Sl Tabs 0.4 Mg Tab SUBLINGUAL Q5M PRN Chest Pain Intake and Output 08/02/20 08/03/20 08/03/20 22:59 06:59 14:59 Intake Total 563.167 Balance 563.167 Intake: Intake, IV Titration 73.167 Amount Heparin Sod,Pork in 0.45% 73.167 NaCl 25,000 unit In 0.45 % NaCl 1 250ml.bag @ 11. 603 UNITS/KG/HR 10 mls/hr IV .Q24H [facility] Rx#: [id number] Oral 490 Other: Voiding Method Toilet # Voids 2 08/03/20 03:39 08/03/20 03:39
--- NOTE | 2020-08-03 15:54 | PN ---
PROGRESS NOTE DATE OF SERVICE: 08/03/2020 This is a 55-year-old gentleman who was admitted with chest pain is being closely monitored. Cardiology following the patient closely. The patient still has some chest pains in the left side and the anterior part of the lungs. A ALLISON and possible cardiac cath being planned by Cardiology. No chest pain. No palpitations. No fever. PHYSICAL EXAMINATION: GENERAL: Patient is alert and oriented times three. VITAL SIGNS: Pulse 91, blood pressure 106/76, respirations 18, temperature 97.8, pulse ox 97% on room air. HEENT: Conjunctivae normal. Oral mucosa moist. NECK: No jugular venous distention. No carotid bruits. No lymph node enlargement. RESPIRATORY: Breath sounds diminished at the bases. No rhonchi, no crackles. HEART: S1 and S2, muffled. ABDOMEN: Soft, no tenderness. No masses palpable. EXTREMITIES: No edema, no swelling. NERVOUS: No focal deficits. LABORATORY DATA: CBC and CMP noted, within normal limits. ASSESSMENT: 1. Chest pain possible unstable angina. 2. History of coronary artery disease, coronary artery bypass grafting. 3. Hypertension. 4. Hyperlipidemia. 5. Hypothyroidism. 6. History of Brenda's thyroiditis. 7. History of vertigo. 8. Occipital neuralgia history. 9. History of tonsillectomy. 10.Remote history of nicotine dependence. 11.Obesity body mass of 32.6. 12.FULL CODE. RECOMMENDATIONS AND DISCUSSION: Continue to continue current management and continue symptomatic treatment. Continue the beta blockers and antiplatelet agents. Otherwise closely with Cardiology for possible ALLISON and further workup. Guarded prognosis. Further recommendations to follow. MMODL / IJN: [id number] /
[2020-08-03] MEDS: ASPIRIN 81 MG PO SCH (21:49)
[2020-08-03] MEDS: ATORVASTATIN 40 MG TAB PO SCH (21:49)
[2020-08-04 05:51] LABS: Mean Platelet Volume 6.8; Platelet Count 262 k/uL (150-450)
[2020-08-04] MEDS: LEVOTHYROXINE 75 MCG TAB PO SCH ×2 (06:08→08:01)
[2020-08-04 06:36] LABS: Basophils % (A) 1 %; Eosinophils % (A) 7 %; HCT 43.7 % (39.0-53.0); HGB 14.2 gm/dL (13.0-17.5); Lymphocytes # (A) 1.9 k/uL (1.0-4.8); Lymphocytes % (A) 25 %; MCH 27.7 pg (25.0-35.0); MCHC 32.6 g/dL (31.0-37.0); MCV 84.9 fL (80.0-100.0); Monocytes % (A) 6 %; Neutrophils # (A) 4.5 k/uL (1.3-7.7); Neutrophils % (A) 59 %; RBC 5.15 m/uL (4.30-5.90); RDW 14.1 % (11.5-15.5); WBC 7.6 k/uL (3.8-10.6)
[2020-08-04 06:37] LABS: Basophils # (A) 0.1 k/uL (0-0.2); Eosinophils # (A) 0.5 k/uL (0-0.7); Monocytes # (A) 0.4 k/uL (0-1.0)
[2020-08-04] MEDS: METOPROLOL TARTRATE 12.5 MG TAB PO SCH (08:02)
[2020-08-04] MEDS: FUROSEMIDE 20 MG TAB PO SCH (08:02)
[2020-08-04] MEDS: VIT A,C & E-LUTEIN-MINERALS 1 EACH TAB PO SCH (08:02)
[2020-08-04 08:25] VITALS: TEMP 98.5
[2020-08-04 09:53] LABS: Anion Gap 6.9 mmol/L (4.00-12.00); BUN/Creat Ratio 16.67 Ratio (12.00-20.00); Calcium 8.8 mg/dL (8.7-10.3); Carbon Dioxide 26.1 mmol/L (21.6-31.8); Non-African American GFR(CKD) 95.8 (60.0-200.0); Potassium 4.1 mmol/L (3.5-5.5)
--- NOTE | 2020-08-04 10:11 | P.PN ---
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 He follows in the office with Dr. Wolf. He is seen and examined sitting up in the chair in no acute distress. He denies symptoms of chest discomfort, shortness of breath, dizziness or palpitations. Blood pressure 108/76 heart rate 94 afebrile maintaining oxygen saturation on room air. Laboratory data reviewed, CBC unremarkable, sodium 139, potassium 4.1, creatinine 0.9. Currently maintained on aspirin 81 mg daily, atorvastatin 40 mg daily, Lasix 20 mg daily and Lopressor 12.5 mg twice a day. GENERAL: Well-appearing, well-nourished and in no acute distress. NECK: Supple without JVD or thyromegaly. LUNGS: Breath sounds clear to auscultation bilaterally. Respiration equal and un labored. No wheezes, rales or rhonchi. HEART: Regular rate and rhythm without murmurs, rubs or gallops. S1 and S2 heard. EXTREMITIES: Normal range of motion, no edema. No clubbing or cyanosis. Perip heral pulses intact. ASSESSMENT Chest pain, recent negative stress test in the office 11/2019 Coronary artery disease status post bypass grafting 2019 Hypertension Dyslipidemia PLAN Proceed with ALLISON as previously discussed. Further recommendations to follow based on clinical course. Nurse Practitioner note has been reviewed, I agree with a documented findings and plan of care. Patient was seen and examined. Objective - Vital Signs Vital signs: Vital Signs Temp 98.5 F 08/04/20 08:00 Pulse 94 08/04/20 08:00 Resp 18 08/04/20 08:00 BP 108/76 08/04/20 08:00 Pulse Ox 94 L 08/04/20 08:00 Intake & Output 08/03/20 08/04/20 08/04/20 18:59 06:59 18:59 Intake Total 640 Balance 640 Intake: Oral 640 Other: Voiding Method Toilet # Voids 3 1 - Labs CBC & Chem 7: 08/04/20 04:45 08/04/20 04:45 Labs: Abnormal Lab Results - Last 24 Hours (Table) 08/03/20 08/04/20 Range/Units 03:39 04:45 Glucose 122 H 120 H (70-110) mg/dL HDL Cholesterol 28.0 L (40.0-60.0) mg/dL
[2020-08-04] MEDS ORDERED: IV FLUID CONTINUATION 700 ML IV ONE (11:00)
[2020-08-04] MEDS: BENZOCAINE SPRAY 1 CAN MUCOUS MEM ONE ×2 (11:10→11:14)
[2020-08-04] MEDS ORDERED: MIDAZOLAM 2 MG/2 ML VIAL IV ONE ×2 (11:15→11:17)
[2020-08-04] MEDS ORDERED: fentaNYL (PF) 50 MCG/ML 2 ML AMP IV ONE (11:17)
--- NOTE | 2020-08-04 12:08 | ECHOT ---
TRANSESOPHAGEAL ECHOCARDIOGRAM DATE OF SERVICE: August 04, 2020. PERFORMING PHYSICIAN: Ricardo Wolf MD. PROCEDURE PERFORMED: Transesophageal echocardiogram. INDICATION: Abnormal transthoracic echocardiogram showing possible left atrial myxoma. COMPLICATION: None. LEVEL OF SEDATION: Moderate with sedation length of 15 minutes. PROCEDURE DESCRIPTION: After obtaining an informed consent, the patient was brought to the transesophageal echocardiogram suite. A pulse oximetry and heart rate monitors were attached to the patient. Subsequently, the transesophageal echocardiogram probe was advanced through the bite guard to the mid esophageal where a 2D echocardiogram images as well as color Doppler images of various cardiac structures were obtained. Particular attention was made to the left atrium. Subsequently, we interrogated the interatrial septum using contrast study. Please note that the study was performed using 2D echocardiogram images, color Doppler, pulse-wave Doppler, and continuous-wave Doppler. FINDINGS: The left ventricular dimension and systolic function appeared to be within normal limits. The right ventricular dimension and systolic function appeared to be within normal limits. The left atrium is mildly dilated. The right atrium appeared to be within normal limits for dimension. The interatrial septum appeared to be thickened without any evidence of PFO or ASD. The left atrial appendage appeared to be intact. The aortic valve is trileaflet valve without stenosis with trace insufficiency. The mitral valve seems to be normal with mild to moderate MR. There was mild to moderate tricuspid regurgitation. No evidence of pericardial effusion. CONCLUSION: 1. Normal left ventricular dimension and systolic function. 2. Normal right ventricular dimension and systolic function. 3. Mildly dilated left atrium. 4. No evidence of left atrial myxoma noted. 5. Normal right atrial dimension. 6. Normal left atrial appendage. 7. Intact interatrial septum. 8. Trileaflet aortic valve without stenosis with trace insufficiency. 9. Mildly thickened mitral valve leaflets with mild to moderate mitral regurgitation. 10.Mild to moderate tricuspid regurgitation. 11.No evidence of pericardial effusion. MMODL / IJN: [id number] /
[2020-08-04 12:21] VITALS: BP 104/77; PULSE 79; RESP 18
--- NOTE | 2020-08-05 10:22 | P.DS ---
Providers Date of admission: 08/02/20 12:33 Expected date of discharge: 08/04/20 Attending physician: Arturo Lu Consults: 08/02/20 12:41 Consult Physician Urgent Consulting Provider: Ricardo Wolf Consult Reason/Comments: chest pain Do you want consulting provider notified?: Yes Primary care physician: Physician Nonstaff Hospital Course: Final Diagnosis Chest pain possible unstable angina History of coronary artery disease, coronary artery bypass grafting Hypertension hyperlipidemia Hypothyroidism History of Brenda's thyroiditis History of vertigo Occipital neuralgia history History of tonsillectomy remote history of nicotine dependence Obesity with a body mass index of 32.6 Full code Discharge disposition Patient is being discharged in a stable condition with guarded prognosis to home. Patient will follow-up with [facility] in [place] in the outpatient setting upon discharge. Patient's primary care provider was Dr. Rivera although a new provider is being established. Patient will also follow- up with cardiology Dr. Wolf in 2 weeks. Total time taken is greater than 35 minutes. Hospital course This is a 55-year-old male who was recently admitted with chest pain and was being closely monitored. Cardiology evaluated the patient and patient underwent ALLISON which showed normal left ventricular and right ventricular dimension and systolic function, mildly dilated left atrium, trileaflet aortic valve without stenosis trace insufficiency, mildly thickened mitral valve leaflets with mild to moderate mitral regurgitation along with mild to moderate tricuspid regurgitation. Patient will follow-up with his stationary equipment mechanic Dr. Wolf in the outpatient setting. Patient was following Dr. Rivera at [facility] in [place] although patient states she recently left the practice and he is establishing with a new provider there. Currently no reports of chest pain, shortness of breath, or palpitations. Patient is afebrile. No reports of nausea or vomiting and patient is tolerating diet. Patient will be discharged home today. On exam vital signs are stable. Cardio S1, S2 are muffled. Respiratory system shows diminished breath sounds at the bases with no wheezing or rhonchi noted. Abdomen is soft and non-tender. Nervous system shows no focal deficits. Please refer to medication reconciliation sheet for a list of medications. Patient Condition at Discharge: Fair Plan - Discharge Summary New Discharge Prescriptions: Continue Vit C/E/Zn/Coppr/Lutein/Zeaxan [Preservision Areds 2 Softgel] 1 cap PO BID Levothyroxine Sodium [Synthroid] 150 mcg PO DAILY Furosemide [Lasix] 20 mg PO DAILY Fluticasone Nasal [place] [Flonase Nasal [place]] 1 spray EA NOSTRIL DAILY PRN PRN Reason: Allergy Symptoms Albuterol Sulfate [Ventolin HFA] 1 - 2 puff INHALATION RT-QID PRN PRN Reason: Shortness Of Breath Aspirin EC [Ecotrin Low Dose] 81 mg PO HS Metoprolol Tartrate [Lopressor] 12.5 mg PO BID Atorvastatin [Lipitor] 40 mg PO HS Discharge Medication List Vit C/E/Zn/Coppr/Lutein/Zeaxan [Preservision Areds 2 Softgel] 1 cap PO BID 10/27/18 [History] Albuterol Sulfate [Ventolin HFA] 1 - 2 puff INHALATION RT-QID PRN 05/10/20 [History] Fluticasone Nasal [place] [Flonase Nasal [place]] 1 spray EA NOSTRIL DAILY PRN [History] Furosemide [Lasix] 20 mg PO DAILY 05/10/20 [History] Levothyroxine Sodium [Synthroid] 150 mcg PO DAILY 05/10/20 [History] Aspirin EC [Ecotrin Low Dose] 81 mg PO HS 08/02/20 [History] Atorvastatin [Lipitor] 40 mg PO HS 08/02/20 [History] Metoprolol Tartrate [Lopressor] 12.5 mg PO BID 08/02/20 [History] Follow up Appointment(s)/Referral(s): Ricardo Wolf MD [STAFF PHYSICIAN] - 08/11/20 3:15 pm (appointment made at the [facility] ) Nonstaff,Physician [Primary Care Provider] - 1-2 days Patient Instructions/Handouts: Chest Pain (GEN), Transesophageal Echocardiogram (GEN) Activity/Diet/Wound Care/Special Instructions: Activity limited until follow-up Follow-up with primary care provider upon discharge Follow-up with Dr. Wolf in the outpatient setting as discussed and scheduled Continue current diet Discharge Disposition: HOME SELF-CARE
== END 2020-08-04 12:46 | disposition home or self-care (01) ==
LOC: EC 10:45 → 6NMEDSUR 12:33
PROVIDERS: ADMIT Hospitalist; ATTEND Hospitalist
DX: R07.89 Other chest pain (principal); I10 Essential (primary) hypertension; E78.5 Hyperlipidemia, unspecified; E06.3 Autoimmune thyroiditis; H91.91 Unspecified hearing loss, right ear; M54.81 Occipital neuralgia; R42 Dizziness and giddiness; I25.10 Atherosclerotic heart disease of native coronary artery without angina pectoris; E66.9 Obesity, unspecified; Z68.32 Body mass index [BMI] 32.0-32.9, adult; T78.40XA Allergy, unspecified, initial encounter; T50.996A Underdosing of other drugs, medicaments and biological substances, initial encounter; Z87.891 Personal history of nicotine dependence; Z95.1 Presence of aortocoronary bypass graft; Z79.899 Other long term (current) drug therapy; Z79.82 Long term (current) use of aspirin; Z79.890 Hormone replacement therapy; Z88.5 Allergy status to narcotic agent; Z88.7 Allergy status to serum and vaccine; Z91.030 Bee allergy status; Z91.041 Radiographic dye allergy status; Z82.49 Family history of ischemic heart disease and other diseases of the circulatory system; Z83.6 Family history of other diseases of the respiratory system; Z83.3 Family history of diabetes mellitus; Z82.5 Family history of asthma and other chronic lower respiratory diseases; Z80.1 Family history of malignant neoplasm of trachea, bronchus and lung; Z81.8 Family history of other mental and behavioral disorders; Z20.822 Contact with and (suspected) exposure to COVID-19
CPT/HCPCS: 96376 ×2; 96366 ×2; 96375; 93005 ×2; 96365; 99285; 36415; 93312; 93320; 93325; 83880; 80061; 80053; 80048 ×2; 83690; 83735; 84484; 85025 ×3; 85610; 85730 ×3; 81003; 87635; 71046; G0378 ×3; J2250; J2270; J1644 ×2; J3010

== ENCOUNTER 2020-10-04 23:05 | Emergency (ER) | payer BC ==
[2020-10-04 23:19] VITALS: BP 139/86; PULSE 79; RESP 20; TEMP 98.1
--- NOTE | 2020-10-05 01:28 | ED ---
Weakness HPI - General Chief complaint: Weakness Stated complaint: Dizziness Time Seen by Provider: 10/05/20 00:31 Source: EMS Mode of arrival: EMS Limitations: no limitations - Related Data Home Medications Medication Instructions Recorded Confirmed Vit C/E/Zn/Coppr/Lutein/Zeaxan 1 cap PO BID 10/27/18 08/02/20 [Preservision Areds 2 Softgel] Albuterol Sulfate [Ventolin HFA] 1 - 2 puff INHALATION RT-QID PRN 05/10/20 08/02/20 Fluticasone Nasal [place] [Flonase 1 spray EA NOSTRIL DAILY PRN 05/10/20 08/02/20 Nasal [place]] Furosemide [Lasix] 20 mg PO DAILY 05/10/20 08/02/20 Levothyroxine Sodium [Synthroid] 150 mcg PO DAILY 05/10/20 08/02/20 Aspirin EC [Ecotrin Low Dose] 81 mg PO HS 08/02/20 08/02/20 Atorvastatin [Lipitor] 40 mg PO HS 08/02/20 08/02/20 Metoprolol Tartrate [Lopressor] 12.5 mg PO BID 08/02/20 08/02/20 Previous Rx's Medication Instructions Recorded Ferrous Sulfate [Iron] 325 mg PO DAILY #15 tablet 10/05/20 Gabapentin [Neurontin] 100 mg PO BID #30 cap 10/05/20 Allergies Allergy/AdvReac Type Severity Reaction Status Date / Time Iodinated Contrast Media Allergy Itching Verified 08/02/20 12:01 [Iodinated Contrast- Oral and IV Dye] tetanus and diphtheria Allergy Swelling Verified 08/02/20 12:01 toxoids [tetanus & diphtheria toxoids] venom-honey bee Allergy Anaphylaxis Verified 08/02/20 12:01 [bee venom (honey bee)] codeine AdvReac Abdominal Verified 08/02/20 12:01 Pain Review of Systems ROS Statement: Those systems with pertinent positive or pertinent negative responses have been documented in the HPI. ROS Other: All systems not noted in ROS Statement are negative. 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, Vertigo, occipital neuralgia,leaky heart valve History of Any Multi-Drug Resistant Organisms: None Reported Past Surgical History: Adenoidectomy, Coronary Bypass/CABG, Orthopedic Surgery, Tonsillectomy Additional Past Surgical History / Comment(s): Left knee arthroscopy, hydrocele surgery 2018 CABG 10/2018 Past Anesthesia/Blood Transfusion Reactions: No Reported Reaction Past Psychological History: No Psychological Hx Reported Smoking Status: Former smoker Past Alcohol Use History: None Reported Past Drug Use History: None Reported - Past Family History Mother Family Medical History: Cancer, Diabetes Mellitus, Hypertension Additional Family Medical History / Comment(s): Lung cancer Father Family Medical History: COPD, Dementia, Hypertension Additional Family Medical History / Comment(s): Father is 81 yrs old. Sister(s) Family Medical History: Coronary Artery Disease (CAD) Additional Family Medical History / Comment(s): 53 yr old sister has CAD with stents and pulmonary fibrosis. General Exam Limitations: no limitations Course Vital Signs 10/04/20 23:07 Temperature 98.1 F Pulse Rate 79 Respiratory 20 Rate Blood Pressure 139/86 O2 Sat by Pulse 95 Oximetry EKG Findings - EKG Results: EKG: interpreted by AYALA VIVAR, sinus rhythm (Rate 72 bpm), normal axis, normal QRS, normal ST/T, no acute changes Medical Decision Making - Lab Data Result diagrams: 10/05/20 01:40 10/05/20 01:40 Lab Results 10/05/20 10/05/20 10/05/20 Range/Units 01:40 01:40 01:40 WBC 8.6 (3.8-10.6) k/uL RBC 5.18 (4.30-5.90) m/uL Hgb 14.1 (13.0-17.5) gm/dL Hct 43.2 (39.0-53.0) % MCV 83.4 (80.0-100.0) fL MCH 27.2 (25.0-35.0) pg MCHC 32.6 (31.0-37.0) g/dL RDW 14.0 (11.5-15.5) % Plt Count 263 (150-450) k/uL MPV 6.9 Neutrophils % 69 % Lymphocytes % 20 % Monocytes % 5 % Eosinophils % 5 % Basophils % 1 % Neutrophils # 5.9 (1.3-7.7) k/uL Lymphocytes # 1.7 (1.0-4.8) k/uL Monocytes # 0.4 (0-1.0) k/uL Eosinophils # 0.4 (0-0.7) k/uL Basophils # 0.1 (0-0.2) k/uL PT 11.0 (9.0-12.0) sec INR 1.0 (<1.2) APTT 22.2 (22.0-30.0) sec Sodium (137-145) mmol/L Potassium (3.5-5.1) mmol/L Chloride (98-107) mmol/L Carbon Dioxide (22-30) mmol/L Anion Gap mmol/L BUN (9-20) mg/dL Creatinine (0.66-1.25) mg/dL Est GFR (CKD-EPI)AfAm (>60 ml/min/1.73 sqM) Est GFR (CKD-EPI)NonAf (>60 ml/min/1.73 sqM) Glucose (74-99) mg/dL Plasma Lactic Acid Dario (0.7-2.0) mmol/L Calcium (8.4-10.2) mg/dL Magnesium (1.6-2.3) mg/dL Total Bilirubin (0.2-1.3) mg/dL AST (17-59) U/L ALT (4-49) U/L Alkaline Phosphatase (38-126) U/L Troponin I (0.000-0.034) ng/mL Total Protein (6.3-8.2) g/dL Albumin (3.5-5.0) g/dL Urine Color Light Yellow Urine Appearance Clear (Clear) Urine pH 6.0 (5.0-8.0) Ur Specific [place] 1.001 (1.001-1.035) Urine Protein Negative (Negative) Urine Glucose (UA) Negative (Negative) Urine Ketones Negative (Negative) Urine Blood Negative (Negative) Urine Nitrite Negative (Negative) Urine Bilirubin Negative (Negative) Urine Urobilinogen <2.0 (<2.0) mg/dL Ur Leukocyte Esterase Negative (Negative) Coronavirus (PCR) (Not Detectd) 10/05/20 10/05/20 10/05/20 Range/Units 01:40 01:40 01:40 WBC (3.8-10.6) k/uL RBC (4.30-5.90) m/uL Hgb (13.0-17.5) gm/dL Hct (39.0-53.0) % MCV (80.0-100.0) fL MCH (25.0-35.0) pg MCHC (31.0-37.0) g/dL RDW (11.5-15.5) % Plt Count (150-450) k/uL MPV Neutrophils % % Lymphocytes % % Monocytes % % Eosinophils % % Basophils % % Neutrophils # (1.3-7.7) k/uL Lymphocytes # (1.0-4.8) k/uL Monocytes # (0-1.0) k/uL Eosinophils # (0-0.7) k/uL Basophils # (0-0.2) k/uL PT (9.0-12.0) sec INR (<1.2) APTT (22.0-30.0) sec Sodium 135 L (137-145) mmol/L Potassium 4.4 (3.5-5.1) mmol/L Chloride 103 (98-107) mmol/L Carbon Dioxide 22 (22-30) mmol/L Anion Gap 10 mmol/L BUN 14 (9-20) mg/dL Creatinine 0.71 (0.66-1.25) mg/dL Est GFR (CKD-EPI)AfAm >90 (>60 ml/min/1.73 sqM) Est GFR (CKD-EPI)NonAf >90 (>60 ml/min/1.73 sqM) Glucose 147 H (74-99) mg/dL Plasma Lactic Acid Dario 1.3 (0.7-2.0) mmol/L Calcium 9.5 (8.4-10.2) mg/dL Magnesium 2.0 (1.6-2.3) mg/dL Total Bilirubin 0.5 (0.2-1.3) mg/dL AST 39 (17-59) U/L ALT 47 (4-49) U/L Alkaline Phosphatase 105 (38-126) U/L Troponin I <0.012 (0.000-0.034) ng/mL Total Protein 6.8 (6.3-8.2) g/dL Albumin 4.0 (3.5-5.0) g/dL Urine Color Urine Appearance (Clear) Urine pH (5.0-8.0) Ur Specific [place] (1.001-1.035) Urine Protein (Negative) Urine Glucose (UA) (Negative) Urine Ketones (Negative) Urine Blood (Negative) Urine Nitrite (Negative) Urine Bilirubin (Negative) Urine Urobilinogen (<2.0) mg/dL Ur Leukocyte Esterase (Negative) Coronavirus (PCR) (Not Detectd) 10/05/20 Range/Units 01:40 WBC (3.8-10.6) k/uL RBC (4.30-5.90) m/uL Hgb (13.0-17.5) gm/dL Hct (39.0-53.0) % MCV (80.0-100.0) fL MCH (25.0-35.0) pg MCHC (31.0-37.0) g/dL RDW (11.5-15.5) % Plt Count (150-450) k/uL MPV Neutrophils % % Lymphocytes % % Monocytes % % Eosinophils % % Basophils % % Neutrophils # (1.3-7.7) k/uL Lymphocytes # (1.0-4.8) k/uL Monocytes # (0-1.0) k/uL Eosinophils # (0-0.7) k/uL Basophils # (0-0.2) k/uL PT (9.0-12.0) sec INR (<1.2) APTT (22.0-30.0) sec Sodium (137-145) mmol/L Potassium (3.5-5.1) mmol/L Chloride (98-107) mmol/L Carbon Dioxide (22-30) mmol/L Anion Gap mmol/L BUN (9-20) mg/dL Creatinine (0.66-1.25) mg/dL Est GFR (CKD-EPI)AfAm (>60 ml/min/1.73 sqM) Est GFR (CKD-EPI)NonAf (>60 ml/min/1.73 sqM) Glucose (74-99) mg/dL Plasma Lactic Acid Dario (0.7-2.0) mmol/L Calcium (8.4-10.2) mg/dL Magnesium (1.6-2.3) mg/dL Total Bilirubin (0.2-1.3) mg/dL AST (17-59) U/L ALT (4-49) U/L Alkaline Phosphatase (38-126) U/L Troponin I (0.000-0.034) ng/mL Total Protein (6.3-8.2) g/dL Albumin (3.5-5.0) g/dL Urine Color Urine Appearance (Clear) Urine pH (5.0-8.0) Ur Specific [place] (1.001-1.035) Urine Protein (Negative) Urine Glucose (UA) (Negative) Urine Ketones (Negative) Urine Blood (Negative) Urine Nitrite (Negative) Urine Bilirubin (Negative) Urine Urobilinogen (<2.0) mg/dL Ur Leukocyte Esterase (Negative) Coronavirus (PCR) Not Detected (Not Detectd) Disposition Clinical Impression: Restless leg Disposition: HOME SELF-CARE Condition: Good Instructions (If sedation given, give patient instructions): Restless Legs Syndrome (ED) Prescriptions: Ferrous Sulfate [Iron] 325 mg PO DAILY #15 tablet Gabapentin [Neurontin] 100 mg PO BID #30 cap Is patient prescribed a controlled substance at d/c from ED?: No Referrals: Angelo Neri MD [REFERRING] - 1-2 days Azra Rush MD [REFERRING] - 1-2 days
[2020-10-05 01:51] LABS: Appearance,Urine Clear (Clear); Basophils # (A) 0.1 k/uL (0-0.2); Basophils % (A) 1 %; Bilirubin,Urine Negative (Negative); Blood,Urine Negative (Negative); Color,Urine Light Yellow; Eosinophils # (A) 0.4 k/uL (0-0.7); Eosinophils % (A) 5 %; Glucose,Urine (UA) Negative (Negative); HCT 43.2 % (39.0-53.0); HGB 14.1 gm/dL (13.0-17.5); Ketones,Urine Negative (Negative); Leukocyte Esterase,Urine Negative (Negative); Lymphocytes # (A) 1.7 k/uL (1.0-4.8); Lymphocytes % (A) 20 %; MCH 27.2 pg (25.0-35.0); MCHC 32.6 g/dL (31.0-37.0); MCV 83.4 fL (80.0-100.0); Mean Platelet Volume 6.9; Monocytes # (A) 0.4 k/uL (0-1.0); Monocytes % (A) 5 %; Neutrophils # (A) 5.9 k/uL (1.3-7.7); Neutrophils % (A) 69 %; Nitrite,Urine Negative (Negative); Platelet Count 263 k/uL (150-450); Protein,Urine Negative (Negative); RBC 5.18 m/uL (4.30-5.90); Specific Gravity,Urine 1.001 (1.001-1.035); Urobilinogen,Urine <2.0 mg/dL (<2.0); WBC 8.6 k/uL (3.8-10.6)
[2020-10-05 01:59] LABS: ALT 47 U/L (4-49); AST 39 U/L (17-59); African American GFR (CKD) >90 (>60 ml/min/1.73 sqM); Alkaline Phosphatase 105 U/L (38-126); Anion Gap 10 mmol/L; Blood Urea Nitrogen 14 mg/dL (9-20); Calcium 9.5 mg/dL (8.4-10.2); Carbon Dioxide 22 mmol/L (22-30); Chloride 103 mmol/L (98-107); Glucose 147 mg/dL (74-99); Non-African American GFR(CKD) >90 (>60 ml/min/1.73 sqM); Potassium 4.4 mmol/L (3.5-5.1); Sodium 135 mmol/L (137-145); Total Bilirubin 0.5 mg/dL (0.2-1.3); Total Protein 6.8 g/dL (6.3-8.2)
[2020-10-05 02:05] LABS: Partial Thromboplastin Time 22.2 sec (22.0-30.0)
--- NOTE | 2020-10-05 02:36 | XR ---
EXAM: XR Chest, 2 Views CLINICAL HISTORY: ITS.REASON XR Reason: Weakness TECHNIQUE: Frontal and lateral views of the chest. COMPARISON: August 02, 2020 FINDINGS: Lungs: Unremarkable. No consolidation. Pleural space: Unremarkable. No pneumothorax. Heart: The cardiac silhouette is not enlarged. There is a small amount of scarring adjacent to the left lower heart border, unchanged. Mediastinum: See below. Bones/joints: There are multiple sternal wires and mediastinal surgical clips. Mild osteophytosis throughout the mid to lower thoracic spine. IMPRESSION: No acute findings in the chest.
== END 2020-10-05 03:56 | disposition home or self-care (01) ==
LOC: EC 23:05
DX: G25.81 Restless legs syndrome (principal); Z20.822 Contact with and (suspected) exposure to COVID-19; I10 Essential (primary) hypertension; E78.5 Hyperlipidemia, unspecified; Z87.891 Personal history of nicotine dependence
CPT/HCPCS: 36415; 71046; 80053; 81003; 83605; 83735; 84484; 85025; 85610; 85730; 87635; 93005; 99285